=== PATIENT | male | born 1960 | race Caucasian/White ===

== ENCOUNTER 2018-08-04 11:59 | Emergency (ER) | payer MEDICAID, OTHER ==
[~2018-08-04] VITALS: Ht 188 cm; Wt 104.3 kg
[2018-08-04 12:14] VITALS: BP 134/58
[2018-08-04 14:34] LABS: Eosinophils # (auto) 0.2 uL; Hematocrit 42.9 % (41.0-53.0); Lymphocytes # (auto) 1.3 uL; Neutrophils # (auto) 3.4 uL; Red Cell Distribution Width 14.6 % (11.8-14.3); White Blood Cell 5.8 10^3/uL (4.4-10.8)
[2018-08-04 14:36] LABS: Basophils # (auto) 0.1 uL; Basophils % (auto) 0.9 % (0.0-2.0); Eosinophils % (auto) 3.9 % (0.0-7.0); Hemoglobin 14.5 g/dL (13.5-17.5); Lymphocytes % (auto) 22.2 % (10.0-50.0); Mean Corpuscular Hemoglobin 35.4 pg (28.0-32.0); Mean Corpuscular Hgb Conc. 33.8 g/dL (32.0-36.0); Mean Corpuscular Volume 104.8 fL (80.0-100.0); Monocytes # (auto) 0.8 uL; Monocytes % (auto) 14.4 % (0.0-12.0); Neutrophils % (auto) 58.6 % (37.0-80.0); Platelet Count (auto) 153 10^3/uL (140-450)
[2018-08-04 14:52] LABS: Albumin 2.3 g/dL (3.4-5.0); BUN/Creatinine Ratio 14.1; Potassium 3.9 mmol/L (3.5-5.1)
[2018-08-04 14:58] LABS: INR 1.29 (0.9-1.15); Partial Thromboplastin Time 29.6 sec (23.78-33.04); Prothrombin Time 13.6 sec (9.27-12.13)
[2018-08-04 16:42] LABS: Lactic Acid w/Reflex 2.1 mmol/L (0.4-2.0)
== END 2018-08-05 00:59 | disposition left against medical advice (07) ==
LOC: ER 12:04
DX: K70.11 Alcoholic hepatitis with ascites (principal); F12.10 Cannabis abuse, uncomplicated
CPT/HCPCS: 36415; 76700; 80053; 82140; 83605; 85025; 85610; 85730; 87040; 93005

== ENCOUNTER 2018-08-18 18:10 | Inpatient (IN) | payer MEDICAID ==
[~2018-08-18] VITALS: Ht 185.4 cm; Wt 104.4 kg
[2018-08-18 18:46] LABS: Basophils # (auto) 0.1 uL; Eosinophils # (auto) 0.2 uL; Lymphocytes # (auto) 1.1 uL; Mean Corpuscular Hemoglobin 34.6 pg (28.0-32.0); Monocytes % (auto) 16.7 % (0.0-12.0); Neutrophils # (auto) 3.5 uL; White Blood Cell 5.9 10^3/uL (4.4-10.8)
[2018-08-18 18:48] LABS: Basophils % (auto) 0.9 % (0.0-2.0); Eosinophils % (auto) 3.6 % (0.0-7.0); Hematocrit 42.1 % (41.0-53.0); Hemoglobin 13.9 g/dL (13.5-17.5); Lymphocytes % (auto) 19.3 % (10.0-50.0); Mean Corpuscular Volume 104.8 fL (80.0-100.0); Neutrophils % (auto) 59.5 % (37.0-80.0); Nucleated Red Blood Cells % 0.1 %; Platelet Count (auto) 155 10^3/uL (140-450); Red Blood Cells 4.02 10^6/uL (4.5-5.90); Red Cell Distribution Width 14.7 % (11.8-14.3)
[2018-08-18 19:03] LABS: Anion Gap 3 (5-15); Blood Urea Nitrogen 17 mg/dL (7-18); Calcium 7.8 mg/dL (8.5-10.1); Carbon Dioxide 25 mmol/L (21-32); Chloride 115 mmol/L (98-107); Glucose 64 mg/dL (74-106); Potassium 4.2 mmol/L (3.5-5.1); Sodium 143 mmol/L (136-145)
[2018-08-18 19:08] LABS: Alanine Aminotransferase 48 U/L (16-61); Alkaline Phosphatase 162 U/L (45-117); Aspartate Aminotransferase 92 U/L (15-37); BUN/Creatinine Ratio 16.7; GFR African American 96 mL/min; GFR Non-African American 79 mL/min; Total Protein 5.6 g/dL (6.4-8.2)
[2018-08-18] MEDS ORDERED: cefTRIAXone 1GM/50ML D5W 50 ML IV ONE (21:45)
[2018-08-18 22:28] LABS: INR 1.27 (0.9-1.15); Prothrombin Time 13.4 sec (9.27-12.13)
[2018-08-18] MEDS ORDERED: ALBUMIN 25% 50 ML IV ONE (22:45)
[2018-08-18] MEDS ORDERED: FUROSEMIDE 20 MG/2 ML VIAL IV ONE (22:45)
[2018-08-18] MEDS ORDERED: TEMAZEPAM 15 MG CAP PO PRN (22:45)
[2018-08-18] MEDS ORDERED: ONDANSETRON HCL 4 MG/2 ML VIAL IV PRN (22:45)
[2018-08-18 23:11] LABS: Basophils # (auto) 0.1 uL; Eosinophils # (auto) 0.2 uL; Eosinophils % (auto) 3.8 % (0.0-7.0); Hematocrit 38.8 % (41.0-53.0); Hemoglobin 13.1 g/dL (13.5-17.5); Lymphocytes % (auto) 19.1 % (10.0-50.0); Mean Corpuscular Hgb Conc. 33.8 g/dL (32.0-36.0); Mean Corpuscular Volume 103.7 fL (80.0-100.0); Monocytes # (auto) 0.9 uL; Monocytes % (auto) 16.7 % (0.0-12.0); Neutrophils # (auto) 3.3 uL; Neutrophils % (auto) 59.4 % (37.0-80.0); Nucleated Red Blood Cells % 0.1 %; Platelet Count (auto) 137 10^3/uL (140-450); Red Blood Cells 3.74 10^6/uL (4.5-5.90); Red Cell Distribution Width 14.3 % (11.8-14.3); White Blood Cell 5.5 10^3/uL (4.4-10.8)
[2018-08-18 23:36] LABS: Urine Bacteria FEW /hpf (None Seen); Urine Blood Negative /uL (Negative); Urine Mucus FEW (None Seen); Urine Specific Gravity 1.029 (1.001-1.035); Urine WBC 1 /hpf (0 - 3)
[2018-08-19] VITALS (7 sets, daily range): BP systolic 99–129; BP diastolic 54–76
[2018-08-19] MEDS ORDERED: SPIRONOLACTONE 25 MG TAB PO SCH (06:00)
[2018-08-19 09:03] LABS: BUN/Creatinine Ratio 15.6; Calcium 7.5 mg/dL (8.5-10.1); Potassium 3.8 mmol/L (3.5-5.1)
[2018-08-19] MEDS ORDERED: FUROSEMIDE 40 MG TAB PO SCH (10:00)
[2018-08-19] MEDS: FAMOTIDINE 20 MG TAB PO SCH ×2 (10:34→21:28)
[2018-08-19] MEDS: MORPHINE SULF INJ 2 MG/ML SYRINGE 1ML IV PRN ×2 (11:49→21:31)
[2018-08-19] MEDS: RIFAXIMIN 550 MG TAB PO SCH ×2 (11:53→21:27)
[2018-08-19] MEDS: PROPRANOLOL HCL 20 MG TAB PO SCH ×2 (15:12→21:31)
[2018-08-19] MEDS: cefTRIAXone 1GM/50ML D5W 50 ML IV SCH (22:09)
[2018-08-20 05:10] VITALS: BP 115/77
[2018-08-20] MEDS: MORPHINE SULF INJ 2 MG/ML SYRINGE 1ML IV PRN ×3 (05:10→20:05)
[2018-08-20] MEDS: FUROSEMIDE 20 MG TAB PO SCH ×2 (05:56→17:18)
[2018-08-20] MEDS: LACTULOSE 20Gm/30ML SOLN PO SCH ×5 (05:57→23:58)
[2018-08-20] MEDS: SPIRONOLACTONE 25 MG TAB PO SCH ×2 (05:58→17:18)
[2018-08-20 09:10] VITALS: BP 99/66
[2018-08-20] MEDS: FAMOTIDINE 20 MG TAB PO SCH ×2 (09:46→21:39)
[2018-08-20] MEDS: PROPRANOLOL HCL 20 MG TAB PO SCH ×2 (09:46→21:40)
[2018-08-20] MEDS: RIFAXIMIN 550 MG TAB PO SCH ×2 (09:47→21:39)
[2018-08-20 13:04] VITALS: BP 105/70
[2018-08-20 17:01] VITALS: BP 105/61
[2018-08-20] MEDS: cefTRIAXone 1GM/50ML D5W 50 ML IV SCH (21:38)
[2018-08-20 22:00] VITALS: BP 116/66
[2018-08-21 04:57] VITALS: BP 110/56
[2018-08-21] MEDS: LACTULOSE 20Gm/30ML SOLN PO SCH ×3 (05:10→18:12)
[2018-08-21] MEDS: FUROSEMIDE 20 MG TAB PO SCH ×2 (05:11→18:15)
[2018-08-21] MEDS: SPIRONOLACTONE 25 MG TAB PO SCH ×2 (05:11→18:15)
[2018-08-21] MEDS: MORPHINE SULF INJ 2 MG/ML SYRINGE 1ML IV PRN ×2 (05:13→11:18)
[2018-08-21 09:11] VITALS: BP 103/66
[2018-08-21] MEDS: PROPRANOLOL HCL 20 MG TAB PO SCH ×2 (10:00→21:11)
[2018-08-21] MEDS: FAMOTIDINE 20 MG TAB PO SCH ×2 (10:04→21:10)
[2018-08-21 10:30] LABS: Basophils # (auto) 0.1 uL; Basophils % (auto) 1.2 % (0.0-2.0); Eosinophils # (auto) 0.2 uL; Eosinophils % (auto) 3.3 % (0.0-7.0); Hematocrit 39.5 % (41.0-53.0); Hemoglobin 13.3 g/dL (13.5-17.5); Lymphocytes # (auto) 1.1 uL; Lymphocytes % (auto) 19.8 % (10.0-50.0); Mean Corpuscular Hemoglobin 34.9 pg (28.0-32.0); Mean Corpuscular Hgb Conc. 33.6 g/dL (32.0-36.0); Monocytes # (auto) 0.9 uL; Monocytes % (auto) 16.1 % (0.0-12.0); Neutrophils # (auto) 3.3 uL; Neutrophils % (auto) 59.6 % (37.0-80.0); Nucleated Red Blood Cells % 0.1 %; Platelet Count (auto) 143 10^3/uL (140-450); Red Cell Distribution Width 14.5 % (11.8-14.3); White Blood Cell 5.6 10^3/uL (4.4-10.8)
[2018-08-21 10:43] LABS: Albumin 1.7 g/dL (3.4-5.0); Calcium 7.4 mg/dL (8.5-10.1); Potassium 3.7 mmol/L (3.5-5.1)
[2018-08-21] MEDS: RIFAXIMIN 550 MG TAB PO SCH ×2 (10:47→21:10)
[2018-08-21 10:48] LABS: BUN/Creatinine Ratio 11.8; Bilirubin, Total 1.8 mg/dL (0.2-1.0); Total Protein 4.9 g/dL (6.4-8.2)
[2018-08-21 13:00] VITALS: BP 109/62
[2018-08-21] MEDS ORDERED: ALBUMIN 25% 100 ML IV ONE (14:00)
[2018-08-21] MEDS ORDERED: FUROSEMIDE 40 MG/4 ML VIAL IV ONE (14:00)
[2018-08-21] MEDS: FOLIC ACID 1 MG TAB PO SCH (16:12)
[2018-08-21] MEDS: THIAMINE HCL 100 MG TAB PO SCH (16:13)
[2018-08-21] MEDS: MULTIPLE VITAMINS W/ MINERALS TAB PO SCH (16:13)
[2018-08-21 17:06] VITALS: BP 121/68
[2018-08-21] MEDS: cefTRIAXone 1GM/50ML D5W 50 ML IV SCH (21:11)
[2018-08-21 21:30] VITALS: BP 115/68
[2018-08-22] MEDS: MORPHINE SULF INJ 2 MG/ML SYRINGE 1ML IV PRN ×3 (04:48→21:00)
[2018-08-22 05:00] VITALS: BP 95/61
[2018-08-22] MEDS: SPIRONOLACTONE 25 MG TAB PO SCH ×2 (05:47→18:28)
[2018-08-22] MEDS: FUROSEMIDE 20 MG TAB PO SCH (05:47)
[2018-08-22] MEDS: LACTULOSE 20Gm/30ML SOLN PO SCH ×4 (05:47→18:28)
[2018-08-22 09:00] VITALS: BP 110/58
[2018-08-22] MEDS: MULTIPLE VITAMINS W/ MINERALS TAB PO SCH (09:17)
[2018-08-22] MEDS: FOLIC ACID 1 MG TAB PO SCH (09:17)
[2018-08-22] MEDS: FAMOTIDINE 20 MG TAB PO SCH ×2 (09:17→22:00)
[2018-08-22] MEDS: RIFAXIMIN 550 MG TAB PO SCH ×2 (09:17→22:00)
[2018-08-22] MEDS: THIAMINE HCL 100 MG TAB PO SCH (09:18)
[2018-08-22] MEDS: PROPRANOLOL HCL 20 MG TAB PO SCH ×2 (10:00→22:00)
[2018-08-22 13:00] VITALS: BP 117/72
[2018-08-22 17:00] VITALS: BP 106/59
[2018-08-22] MEDS: FUROSEMIDE 40 MG/4 ML VIAL IV SCH (18:00)
[2018-08-22] MEDS ORDERED: traMADol HCL 50 MG TAB PO PRN (21:00)
[2018-08-22 22:00] VITALS: BP 123/60
[2018-08-22] MEDS: cefTRIAXone 1GM/50ML D5W 50 ML IV SCH (22:00)
[2018-08-23 02:02] LABS: Hepatitis B Surface Antibody Negative
[2018-08-23 02:38] LABS: Hepatitis A Total Antibody Negative
[2018-08-23 05:00] VITALS: BP 109/63
[2018-08-23] MEDS: FUROSEMIDE 40 MG/4 ML VIAL IV SCH ×2 (06:02→17:53)
[2018-08-23] MEDS: MORPHINE SULF INJ 2 MG/ML SYRINGE 1ML IV PRN (06:02)
[2018-08-23] MEDS: LACTULOSE 20Gm/30ML SOLN PO SCH ×5 (06:02→23:02)
[2018-08-23] MEDS: SPIRONOLACTONE 25 MG TAB PO SCH ×2 (06:02→17:52)
[2018-08-23 06:41] LABS: Hepatitis B Core Total AB Negative; Hepatitis B Surface Antigen Negative (Negative); Hepatitis C Antibody Negative (Negative)
[2018-08-23 07:42] LABS: Albumin 2.1 g/dL (3.4-5.0); Calcium 7.8 mg/dL (8.5-10.1); Potassium 3.9 mmol/L (3.5-5.1)
[2018-08-23 07:44] LABS: Bilirubin, Total 2.2 mg/dL (0.2-1.0); Total Protein 5.7 g/dL (6.4-8.2)
[2018-08-23 09:00] VITALS: BP 115/64
[2018-08-23] MEDS: FOLIC ACID 1 MG TAB PO SCH (09:53)
[2018-08-23] MEDS: FAMOTIDINE 20 MG TAB PO SCH ×2 (09:53→21:20)
[2018-08-23] MEDS: MULTIPLE VITAMINS W/ MINERALS TAB PO SCH (09:54)
[2018-08-23] MEDS: PROPRANOLOL HCL 20 MG TAB PO SCH ×2 (09:54→21:20)
[2018-08-23] MEDS: THIAMINE HCL 100 MG TAB PO SCH (09:57)
[2018-08-23] MEDS: RIFAXIMIN 550 MG TAB PO SCH ×2 (10:00→21:20)
[2018-08-23 10:49] LABS: INR 1.3 (0.9-1.15); Prothrombin Time 13.7 sec (9.27-12.13)
[2018-08-23 16:34] VITALS: BP 116/62
[2018-08-23] MEDS: cefTRIAXone 1GM/50ML D5W 50 ML IV SCH (21:20)
[2018-08-23 22:00] VITALS: BP 90/51
[2018-08-24 05:00] VITALS: BP 110/50
[2018-08-24] MEDS: FUROSEMIDE 40 MG/4 ML VIAL IV SCH (06:24)
[2018-08-24] MEDS: LACTULOSE 20Gm/30ML SOLN PO SCH (06:24)
[2018-08-24] MEDS: SPIRONOLACTONE 25 MG TAB PO SCH (06:24)
[2018-08-24 08:00] VITALS: BP 149/103
[2018-08-24] MEDS ORDERED: ALBUMIN 25% 100 ML IV ONE (08:15)
[2018-08-24 08:30] VITALS: BP 99/59
[2018-08-24] MEDS: FOLIC ACID 1 MG TAB PO SCH (09:57)
[2018-08-24] MEDS: THIAMINE HCL 100 MG TAB PO SCH (09:57)
[2018-08-24] MEDS: MULTIPLE VITAMINS W/ MINERALS TAB PO SCH (09:57)
[2018-08-24] MEDS: FAMOTIDINE 20 MG TAB PO SCH (09:57)
[2018-08-24] MEDS: PROPRANOLOL HCL 20 MG TAB PO SCH (09:57)
[2018-08-24] MEDS: RIFAXIMIN 550 MG TAB PO SCH (09:59)
[2018-08-24 11:22] VITALS: BP 149/103
== END 2018-08-24 13:01 | disposition hospice, home (50) | DRG 280 ==
LOC: ER 18:14 → OVERFLOW 22:43 → CENTRAL 23:28
PROVIDERS: ADMIT Nurse Practitioner; ATTEND Internal Medicine
PROC: 0W9G3ZZ Drainage of Peritoneal Cavity, Percutaneous Approach (ICD-10-PCS; principal; 2018-08-19)
PROC: 0W9G3ZZ Drainage of Peritoneal Cavity, Percutaneous Approach (ICD-10-PCS; 2018-08-23)
DX: K70.31 Alcoholic cirrhosis of liver with ascites (principal); E43 Unspecified severe protein-calorie malnutrition; J90 Pleural effusion, not elsewhere classified; K72.90 Hepatic failure, unspecified without coma; N49.2 Inflammatory disorders of scrotum; Z51.5 Encounter for palliative care; Z66 Do not resuscitate; J20.9 Acute bronchitis, unspecified; N50.89 Other specified disorders of the male genital organs; R14.0 Abdominal distension (gaseous); J44.9 Chronic obstructive pulmonary disease, unspecified; Z82.49 Family history of ischemic heart disease and other diseases of the circulatory system
CPT/HCPCS: 10022; 36415; 49083; 71046; 76700; 76705; 76942; 80048; 80053; 81001; 82140; 83735; 83986; 84484; 85025; 85610; 85730; 86704; 86706; 86708; 86803; 87081; 87205; 87340; 89051; 93005; 94761; 96365; 96367; 96375; A6257; G0378; J0696; P9047

== ENCOUNTER 2020-11-07 08:54 | Emergency (ER) | payer MEDICAID ==
[~2020-11-07] VITALS: Ht 185.4 cm; Wt 99.8 kg
[2020-11-07 09:44] VITALS: BP 92/71
== END 2020-11-07 10:29 | disposition home or self-care (01) ==
LOC: ER 08:54
DX: S00.12XA Contusion of left eyelid and periocular area, initial encounter (principal); I10 Essential (primary) hypertension; J44.9 Chronic obstructive pulmonary disease, unspecified; X58.XXXA Exposure to other specified factors, initial encounter; Y93.89 Activity, other specified; Y92.89 Other specified places as the place of occurrence of the external cause; Y99.8 Other external cause status

== ENCOUNTER 2022-02-03 10:13 | Emergency (ER) | payer MEDICAID ==
[~2022-02-03] VITALS: Ht 185.4 cm; Wt 120.7 kg
[2022-02-03 11:19] LABS: Basophils # (auto) 0 10 ^3/uL (0-0.2); Eosinophils # (auto) 0.2 10 ^3/uL (0-0.8); Hemoglobin 14.9 g/dL (13.5-17.5); Lymphocytes # (auto) 1.1 10 ^3/uL (0.4-5.4); Lymphocytes % (auto) 29.4 % (10.0-50.0); Neutrophils # (auto) 1.9 10 ^3/uL (1.6-8.6)
[2022-02-03 11:21] LABS: Eosinophils % (auto) 5.1 % (0.0-7.0); Hematocrit 44.3 % (41.0-53.0); Mean Corpuscular Hemoglobin 34.9 pg (28.0-32.0); Mean Corpuscular Hgb Conc. 33.6 g/dL (32.0-36.0); Mean Corpuscular Volume 103.8 fL (80.0-100.0); Monocytes # (auto) 0.5 10 ^3/uL (0-1.3); Monocytes % (auto) 14.5 % (0.0-12.0); Red Blood Cells 4.27 10^6/uL (4.5-5.90); Red Cell Distribution Width 13.4 % (11.8-14.3); White Blood Cell 3.7 10^3/uL (4.4-10.8)
[2022-02-03 12:12] LABS: Albumin 2.6 g/dL (3.4-5.0); BUN/Creatinine Ratio 8.3; Bilirubin, Total 1.7 mg/dL (0.2-1.0); Calcium 8.2 mg/dL (8.5-10.1); Total Protein 5.9 g/dL (6.4-8.2)
[2022-02-03] MEDS ORDERED: FURO1TAB33 PO (16:38)
[2022-02-03 17:12] VITALS: BP 112/54
== END 2022-02-03 17:14 | disposition home or self-care (01) ==
LOC: ER 10:13
DX: R22.43 Localized swelling, mass and lump, lower limb, bilateral (principal); J44.9 Chronic obstructive pulmonary disease, unspecified; I10 Essential (primary) hypertension; F12.10 Cannabis abuse, uncomplicated
CPT/HCPCS: 36415; 71045; 80053; 83880; 84484; 85025; 93005; 93970

== ENCOUNTER 2022-09-16 08:07 | Inpatient (IN) | payer MEDICAID ==
[~2022-09-16] VITALS: Ht 180.3 cm; Wt 100.0 kg
[~2022-09-16 08:07] MED LIST: FURO1TAB33 PO
[2022-09-16 08:59] LABS: Basophils # (auto) 0 10 ^3/uL (0-0.2); Eosinophils # (auto) 0.1 10 ^3/uL (0-0.8); Eosinophils % (auto) 2.2 % (0.0-7.0); Lymphocytes # (auto) 0.7 10 ^3/uL (0.4-5.4); Monocytes # (auto) 0.3 10 ^3/uL (0-1.3)
[2022-09-16 09:02] LABS: Basophils % (auto) 1.3 % (0.0-2.0); Hematocrit 46.4 % (41.0-53.0); Hemoglobin 15.9 g/dL (13.5-17.5); Lymphocytes % (auto) 24.5 % (10.0-50.0); Mean Corpuscular Hgb Conc. 34.4 g/dL (32.0-36.0); Mean Corpuscular Volume 104.8 fL (80.0-100.0); Monocytes % (auto) 9.7 % (0.0-12.0); Neutrophils # (auto) 1.8 10 ^3/uL (1.6-8.6); Neutrophils % (auto) 62.3 % (37.0-80.0); Nucleated Red Blood Cells % 0.1 %; Red Blood Cells 4.42 10^6/uL (4.5-5.90)
[2022-09-16 09:11] LABS: Albumin 2.5 g/dL (3.4-5.0); Calcium 8.4 mg/dL (8.5-10.1); Potassium 3.6 mmol/L (3.5-5.1)
[2022-09-16 09:14] LABS: BUN/Creatinine Ratio 7.7 (10.0-20.0); Bilirubin, Total 3.8 mg/dL (0.2-1.0); Total Protein 6.3 g/dL (6.4-8.2)
[2022-09-16] MEDS ORDERED: SODIUM CHLORIDE 0.9% 1,000 ML IV ONE ×2 (09:15)
[2022-09-16] MEDS ORDERED: ONDANSETRON HCL 4 MG/2 ML VIAL IV ONE (09:15)
[2022-09-16] MEDS ORDERED: MORPHINE SULFATE 4 MG/ML SYR/VIAL IV ONE (09:15)
[2022-09-16] MEDS ORDERED: ACETAMINOPHEN 325 MG TAB PO PRN (14:00)
[2022-09-16] MEDS ORDERED: SODIUM CHLORIDE 0.9% 1,000 ML IV SCH (14:00)
[2022-09-16] MEDS ORDERED: ONDANSETRON HCL 4 MG/2 ML VIAL IV PRN (14:00)
[2022-09-16] MEDS ORDERED: DOCUSATE SOD 100 MG CAP PO PRN (14:00)
[2022-09-16] MEDS ORDERED: PANTOPRAZOLE 40 MG/10 ML VIAL INJ IV ONE (14:00)
[2022-09-16] MEDS ORDERED: GASTROGRAFIN 120 ML SOL ONE (14:12)
[2022-09-16 14:47] LABS: Cholesterol 160 mg/dL (< 200)
[2022-09-16 14:50] LABS: HDL Cholesterol 80 mg/dL (40-59); LDL Cholesterol 65 mg/dL (< 100); Triglycerides 87 mg/dL (< 150)
[2022-09-16] MEDS: SODIUM CHLORIDE 0.9% 1,000 ML IV SCH (15:54)
[2022-09-16 16:05] LABS: Urine Bacteria NONE SEEN /hpf (None Seen); Urine Blood 2+ /uL (Negative); Urine Mucus MANY (None Seen); Urine Specific Gravity 1.031 (1.001-1.035); Urine WBC <1 /hpf (0 - 3)
[2022-09-17 04:57] VITALS: BP 103/55
[2022-09-17 05:56] LABS: Basophils # (auto) 0 10 ^3/uL (0-0.2); Eosinophils # (auto) 0.2 10 ^3/uL (0-0.8); Monocytes # (auto) 0.5 10 ^3/uL (0-1.3); Nucleated Red Blood Cells % 0.1 %
[2022-09-17 06:00] LABS: Basophils % (auto) 0.9 % (0.0-2.0); Eosinophils % (auto) 4.7 % (0.0-7.0); Hematocrit 40.3 % (41.0-53.0); Hemoglobin 13.8 g/dL (13.5-17.5); Lymphocytes % (auto) 28.1 % (10.0-50.0); Mean Corpuscular Hemoglobin 36.1 pg (28.0-32.0); Mean Corpuscular Hgb Conc. 34.3 g/dL (32.0-36.0); Mean Corpuscular Volume 105.2 fL (80.0-100.0); Monocytes % (auto) 12.3 % (0.0-12.0); Red Blood Cells 3.84 10^6/uL (4.5-5.90); White Blood Cell 3.7 10^3/uL (4.4-10.8)
[2022-09-17 06:18] LABS: Calcium 7.8 mg/dL (8.5-10.1); Potassium 3.5 mmol/L (3.5-5.1)
[2022-09-17 06:20] LABS: BUN/Creatinine Ratio 8.9 (10.0-20.0)
[2022-09-17 06:22] LABS: Bilirubin, Total 4.1 mg/dL (0.2-1.0)
[2022-09-17] MEDS: SODIUM CHLORIDE 0.9% 1,000 ML IV SCH (07:26)
[2022-09-17 08:00] VITALS: BP 113/36
[2022-09-17 09:00] VITALS: BP 113/36
[2022-09-17] MEDS ORDERED: FUROSEMIDE 20 MG TAB PO SCH (10:00)
[2022-09-17] MEDS ORDERED: PANTOPRAZOLE 40 MG/10 ML VIAL INJ IV SCH (10:00)
[2022-09-17] MEDS ORDERED: ENOXAPARIN SOD 40 MG/0.4 ML SYRINGE SC SCH (10:00)
[2022-09-17 13:30] VITALS: BP 113/63
== END 2022-09-17 14:05 | disposition home or self-care (01) | DRG 254 ==
LOC: EDBD 08:07 → ER 08:07 → OVERFLOW 14:02 → EAST 22:08
PROVIDERS: ADMIT Nurse Practitioner Family; ATTEND Internal Medicine Geriatric Medicine
DX: K43.6 Other and unspecified ventral hernia with obstruction, without gangrene (principal); E43 Unspecified severe protein-calorie malnutrition; D61.818 Other pancytopenia; K74.60 Unspecified cirrhosis of liver; K57.30 Diverticulosis of large intestine without perforation or abscess without bleeding; K80.20 Calculus of gallbladder without cholecystitis without obstruction; E66.01 Morbid (severe) obesity due to excess calories; I10 Essential (primary) hypertension; R74.8 Abnormal levels of other serum enzymes; J44.9 Chronic obstructive pulmonary disease, unspecified; Z68.30 Body mass index [BMI] 30.0-30.9, adult
CPT/HCPCS: 36415; 74176; 74250; 80053; 80061; 81001; 83036; 83690; 84443; 85025; 93005; 96361; 96374; 96375; C9113; G0378; J2405

== ENCOUNTER 2022-12-18 05:46 | Inpatient (IN) | payer MEDICAID ==
[~2022-12-18] VITALS: Ht 185.4 cm; Wt 116.0 kg
[2022-12-18] MEDS ORDERED: SODIUM CHLORIDE 0.9% 1,000 ML IV ONE (06:15)
[2022-12-18] MEDS ORDERED: ONDANSETRON HCL 4 MG/2 ML VIAL IV ONE (06:15)
[2022-12-18] MEDS ORDERED: HYDROmorphone HCL 2 MG/ML VL/or syr IV ONE (06:15)
[2022-12-18 06:46] VITALS: PULSE 65; RESP 12; O2SAT 93
[2022-12-18 07:00] LABS: Basophils # (auto) 0 10 ^3/uL (0-0.2); Eosinophils # (auto) 0 10 ^3/uL (0-0.8); Eosinophils % (auto) 0.8 % (0.0-7.0); Mean Corpuscular Volume 107.8 fL (80.0-100.0); Monocytes # (auto) 0.3 10 ^3/uL (0-1.3); White Blood Cell 3.3 10^3/uL (4.4-10.8)
[2022-12-18 07:05] LABS: Hematocrit 45.6 % (41.0-53.0); Hemoglobin 15.6 g/dL (13.5-17.5); Lymphocytes # (auto) 0.6 10 ^3/uL (0.4-5.4); Lymphocytes % (auto) 19.4 % (10.0-50.0); Mean Corpuscular Hgb Conc. 34.3 g/dL (32.0-36.0); Monocytes % (auto) 9.9 % (0.0-12.0); Neutrophils # (auto) 2.2 10 ^3/uL (1.6-8.6); Neutrophils % (auto) 68.9 % (37.0-80.0); Nucleated Red Blood Cells % 0.7 %; Red Blood Cells 4.23 10^6/uL (4.5-5.90)
[2022-12-18 07:14] LABS: Potassium 3.7 mmol/L (3.5-5.1)
[2022-12-18 07:19] LABS: Albumin 2.7 g/dL (3.4-5.0); BUN/Creatinine Ratio 8.5 (10.0-20.0); Calcium 8.3 mg/dL (8.5-10.1)
[2022-12-18 07:21] LABS: Bilirubin, Total 3.8 mg/dL (0.2-1.0); Total Protein 6.4 g/dL (6.4-8.2)
[2022-12-18 08:00] VITALS: PULSE 68; RESP 12; O2SAT 94
[2022-12-18 10:02] LABS: Macrocytosis Moderate; Platelet Estimate Decreased
[2022-12-18] MEDS ORDERED: NITROGLYCERIN 0.4 MG SL TAB SL PRN (11:30)
[2022-12-18] MEDS ORDERED: cefTRIAXone 1GM/50ML D5W 50 ML IV ONE (11:30)
[2022-12-18] MEDS ORDERED: ONDANSETRON HCL 4 MG/2 ML VIAL IV PRN (11:30)
[2022-12-18] MEDS ORDERED: PANTOPRAZOLE 40 MG/10 ML VIAL INJ IV ONE (11:30)
[2022-12-18] MEDS ORDERED: HYDROcodone-ACET 5/325MG TAB PO PRN (11:30)
[2022-12-18] MEDS ORDERED: MORPHINE SULFATE INJ 2 MG/ml SYRG IV PRN ×2 (11:30)
[2022-12-18] MEDS ORDERED: metroNIDAZOLE 500MG/100ML 100 ML IV ONE (11:30)
[2022-12-18] MEDS ORDERED: ACETAMINOPHEN 500 MG TAB PO PRN (11:30)
[2022-12-18] MEDS ORDERED: PANTOPRAZOLE 40 MG TAB PO ONE (12:00)
[2022-12-18] MEDS: SODIUM CHLORIDE 0.9% 1,000 ML IV SCH (12:35)
[2022-12-18] MEDS ORDERED: FUROSEMIDE 20 MG TAB PO ONE (12:45)
[2022-12-18] MEDS: metroNIDAZOLE 500MG/100ML 100 ML IV SCH ×2 (12:58→20:44)
[2022-12-18 13:57] LABS: Folate (Folic Acid) 8.66 ng/mL (5.38-24)
[2022-12-18 18:24] LABS: Urine Bacteria NONE SEEN /hpf (None Seen); Urine Blood Negative /uL (Negative); Urine Clarity Clear (Clear); Urine Color Yellow (Yellow); Urine Protein, UAD Negative (Negative); Urine Specific Gravity 1.012 (1.001-1.035); Urine Urobilinogen Normal (Negative); Urine WBC <1 /hpf (0 - 3)
[2022-12-18 22:40] VITALS: BP 132/60; PULSE 67; RESP 20; TEMP 97.9; O2SAT 95
[2022-12-19] VITALS (8 sets, daily range): BP systolic 91–107; BP diastolic 46–56; PULSE 57–78; RESP 16–20; TEMP 98–98.9; O2SAT 91–99
[2022-12-19] MEDS: SODIUM CHLORIDE 0.9% 1,000 ML IV SCH ×2 (03:42→20:00)
[2022-12-19] MEDS: metroNIDAZOLE 500MG/100ML 100 ML IV SCH ×3 (03:42→20:00)
[2022-12-19 05:40] LABS: Calcium 7.7 mg/dL (8.5-10.1); Potassium 3.8 mmol/L (3.5-5.1)
[2022-12-19 05:42] LABS: BUN/Creatinine Ratio 8.6 (10.0-20.0)
[2022-12-19 05:57] LABS: Basophils # (auto) 0 10 ^3/uL (0-0.2); Eosinophils # (auto) 0.2 10 ^3/uL (0-0.8); Hemoglobin 13.9 g/dL (13.5-17.5); Lymphocytes # (auto) 0.9 10 ^3/uL (0.4-5.4); Monocytes # (auto) 0.4 10 ^3/uL (0-1.3); Neutrophils # (auto) 1.7 10 ^3/uL (1.6-8.6); White Blood Cell 3.2 10^3/uL (4.4-10.8)
[2022-12-19 06:00] LABS: Basophils % (auto) 0.8 % (0.0-2.0); Hematocrit 39.6 % (41.0-53.0); Lymphocytes % (auto) 27.6 % (10.0-50.0); Mean Corpuscular Hemoglobin 37.7 pg (28.0-32.0); Mean Corpuscular Hgb Conc. 35.2 g/dL (32.0-36.0); Mean Corpuscular Volume 107.2 fL (80.0-100.0); Monocytes % (auto) 11.8 % (0.0-12.0); Neutrophils % (auto) 54.8 % (37.0-80.0); Nucleated Red Blood Cells % 0.3 %; Red Blood Cells 3.69 10^6/uL (4.5-5.90); Red Cell Distribution Width 14.1 % (11.8-14.3)
[2022-12-19 08:31] LABS: INR 1.55 (0.9-1.15); Partial Thromboplastin Time 34.9 SEC (24.5-34.5); Prothrombin Time 15.8 sec (9.3-11.8)
[2022-12-19] MEDS: cefTRIAXone 1GM/50ML D5W 50 ML IV SCH (08:52)
[2022-12-19] MEDS: FUROSEMIDE 20 MG TAB PO SCH (09:50)
[2022-12-19] MEDS ORDERED: PANTOPRAZOLE 40 MG TAB PO SCH (10:00)
[2022-12-19] MEDS ORDERED: PANTOPRAZOLE 40 MG/10 ML VIAL INJ IV SCH (10:00)
[2022-12-19] MEDS ORDERED: LIDOCAINE VISCOUS 2% 15ML UD ONE (13:23)
[2022-12-19] MEDS: fentaNYL CITRATE 100 MCG/2 ML VL ONE ×2 (15:28→15:31)
[2022-12-19] MEDS: MIDAZOLAM HCL 2MG/2ML 2ml VIAL (1mg/ml) ONE ×2 (15:28→15:31)
[2022-12-19] MEDS: diphenhdrAMINE HCL 50 MG/1 ML VL ONE ×2 (15:28→15:30)
[2022-12-19] MEDS: SUCRALFATE 1 GM/10 ML ORAL SUSP PO SCH ×2 (17:00→21:44)
[2022-12-19] MEDS: PANTOPRAZOLE 40 MG TAB PO SCH (21:44)
[2022-12-20] MEDS: metroNIDAZOLE 500MG/100ML 100 ML IV SCH ×2 (03:36→11:55)
[2022-12-20 04:45] VITALS: BP 118/60; PULSE 56; RESP 18; TEMP 97.6; O2SAT 95
[2022-12-20] MEDS: SUCRALFATE 1 GM/10 ML ORAL SUSP PO SCH ×2 (06:13→08:33)
[2022-12-20 07:03] LABS: Basophils # (auto) 0 10 ^3/uL (0-0.2); Eosinophils # (auto) 0.1 10 ^3/uL (0-0.8); Monocytes # (auto) 0.3 10 ^3/uL (0-1.3)
[2022-12-20 07:08] LABS: Basophils % (auto) 1.1 % (0.0-2.0); Eosinophils % (auto) 4.2 % (0.0-7.0); Hematocrit 38.8 % (41.0-53.0); Hemoglobin 13.4 g/dL (13.5-17.5); Lymphocytes # (auto) 0.9 10 ^3/uL (0.4-5.4); Lymphocytes % (auto) 35.9 % (10.0-50.0); Mean Corpuscular Hemoglobin 37.4 pg (28.0-32.0); Mean Corpuscular Hgb Conc. 34.7 g/dL (32.0-36.0); Mean Corpuscular Volume 107.9 fL (80.0-100.0); Neutrophils # (auto) 1.2 10 ^3/uL (1.6-8.6); Neutrophils % (auto) 47.8 % (37.0-80.0); Nucleated Red Blood Cells % 0.1 %; Red Blood Cells 3.59 10^6/uL (4.5-5.90); Red Cell Distribution Width 13.6 % (11.8-14.3); White Blood Cell 2.5 10^3/uL (4.4-10.8)
[2022-12-20 07:44] LABS: Albumin 2.2 g/dL (3.4-5.0); Bilirubin, Total 2.9 mg/dL (0.2-1.0); Calcium 7.6 mg/dL (8.5-10.1); Total Protein 4.9 g/dL (6.4-8.2)
[2022-12-20 07:50] VITALS: RESP 18
[2022-12-20] MEDS: PANTOPRAZOLE 40 MG TAB PO SCH (08:23)
[2022-12-20] MEDS: cefTRIAXone 1GM/50ML D5W 50 ML IV SCH (08:24)
[2022-12-20] MEDS: FUROSEMIDE 20 MG TAB PO SCH (08:32)
[2022-12-20 09:00] VITALS: BP 92/50; PULSE 62; RESP 18; TEMP 98.5; O2SAT 93
[2022-12-20] MEDS ORDERED: METR-344 PO (12:26)
[2022-12-20] MEDS ORDERED: PANT40T PO (12:26)
[2022-12-20] MEDS ORDERED: AUG875T PO (12:26)
[2022-12-20] MEDS ORDERED: SUCR1SUS26 PO (12:26)
[2022-12-20 13:18] VITALS: BP 92/50
[2022-12-20] MEDS: SODIUM CHLORIDE 0.9% 1,000 ML IV SCH (13:30)
== END 2022-12-20 13:40 | disposition home or self-care (01) | DRG 249 ==
LOC: EDBD 05:46 → ER 05:46 → OVERFLOW 11:46 → EAST 21:53
PROVIDERS: ADMIT Internal Medicine; ATTEND Student in an Organized Health Care Education/Training Program
PROC: 0DB68ZX Excision of Stomach, Via Natural or Artificial Opening Endoscopic, Diagnostic (ICD-10-PCS; 2022-12-19)
PROC: 0DB48ZX Excision of Esophagogastric Junction, Via Natural or Artificial Opening Endoscopic, Diagnostic (ICD-10-PCS; 2022-12-19)
PROC: 0DB98ZX Excision of Duodenum, Via Natural or Artificial Opening Endoscopic, Diagnostic (ICD-10-PCS; principal; 2022-12-19 15:25)
DX: K52.9 Noninfective gastroenteritis and colitis, unspecified (principal); J96.20 Acute and chronic respiratory failure, unspecified whether with hypoxia or hypercapnia; D68.8 Other specified coagulation defects; K80.00 Calculus of gallbladder with acute cholecystitis without obstruction; D69.6 Thrombocytopenia, unspecified; K76.6 Portal hypertension; K26.9 Duodenal ulcer, unspecified as acute or chronic, without hemorrhage or perforation; K29.70 Gastritis, unspecified, without bleeding; K70.30 Alcoholic cirrhosis of liver without ascites; I10 Essential (primary) hypertension; J44.9 Chronic obstructive pulmonary disease, unspecified; K42.9 Umbilical hernia without obstruction or gangrene; K31.9 Disease of stomach and duodenum, unspecified; K44.9 Diaphragmatic hernia without obstruction or gangrene; Z82.49 Family history of ischemic heart disease and other diseases of the circulatory system; K29.80 Duodenitis without bleeding
CPT/HCPCS: 36415; 43239; 71045; 74176; 80048; 80053; 81001; 82607; 82746; 83690; 84484; 85025; 85610; 85730; G0378; J0696; J2250; J2405; J3490

== ENCOUNTER 2023-08-26 16:34 | Inpatient (IN) | payer MEDICAID ==
[~2023-08-26] VITALS: Ht 185.4 cm; Wt 102.0 kg
[~2023-08-26 16:34] MED LIST changes: +AUG875T PO; +METR-344 PO; +PANT40T PO; +SUCR1SUS26 PO
[2023-08-26 19:45] LABS: Basophils # (auto) 0 10 ^3/uL (0-0.2); Hemoglobin 14.1 g/dL (13.5-17.5); Neutrophils # (auto) 2.8 10 ^3/uL (1.6-8.6)
[2023-08-26 19:48] LABS: Basophils % (auto) 0.8 % (0.0-2.0); Eosinophils # (auto) 0.2 10 ^3/uL (0-0.8); Hematocrit 41.6 % (41.0-53.0); Lymphocytes % (auto) 22.1 % (10.0-50.0); Mean Corpuscular Hemoglobin 36.8 pg (28.0-32.0); Mean Corpuscular Hgb Conc. 33.9 g/dL (32.0-36.0); Mean Corpuscular Volume 108.4 fL (80.0-100.0); Monocytes # (auto) 0.6 10 ^3/uL (0-1.3); Monocytes % (auto) 11.9 % (0.0-12.0); Neutrophils % (auto) 60.2 % (37.0-80.0); Nucleated Red Blood Cells % 0.3 %; Red Blood Cells 3.84 10^6/uL (4.5-5.90); Red Cell Distribution Width 13.9 % (11.8-14.3); White Blood Cell 4.6 10^3/uL (4.4-10.8)
[2023-08-26 20:03] LABS: Alanine Aminotransferase 35 U/L (7-40); Albumin 2.3 g/dL (3.2-4.8); Alkaline Phosphatase 152 U/L (46-116); Anion Gap 2 (5-15); Aspartate Aminotransferase 51 U/L (13-40); BUN/Creatinine Ratio 15.2 (10.0-20.0); Bilirubin, Total 2.8 mg/dL (0.2-1.0); Blood Urea Nitrogen 15 mg/dL (9-23); Calcium 8.8 mg/dL (8.7-10.4); Carbon Dioxide 29 mmol/L (20-30); Chloride 109 mmol/L (98-107); Glucose 113 mg/dL (74-106); Lipase 67 U/L (12-53); Potassium 4.1 mmol/L (3.5-5.1); Sodium 140 mmol/L (136-145); Total Protein 5.3 g/dL (5.7-8.2)
[2023-08-26] MEDS: ONDANSETRON HCL 4 MG/2 ML VIAL IV ONE (21:56)
[2023-08-26] MEDS: PANTOPRAZOLE 40 MG/10 ML VIAL INJ IV ONE (21:56)
[2023-08-26] MEDS: SODIUM CHLORIDE 0.9% 500 ML IVB ONE (22:00)
[2023-08-26] MEDS: MORPHINE SULFATE 4 MG/ML SYR/VIAL IV ONE (22:00)
[2023-08-26] MEDS: IOHEXOL 350 MG/ML 100ML IJ ONE (22:06)
[2023-08-26 22:10] VITALS: PULSE 66; RESP 20; O2SAT 98
[2023-08-27 02:19] LABS: Urine Bacteria None Seen /hpf (None Seen)
[2023-08-27 02:38] LABS: Urine Blood 3+ /uL (Negative); Urine Budding Yeast OCCASIONAL /hpf (None Seen); Urine Clarity Clear (Clear); Urine Mucus MODERATE (None Seen); Urine Protein, UAD 2+ (Negative); Urine Urobilinogen Normal (Negative); Urine WBC 2 /hpf (0 - 3); Urine pH 6.5 (5.0-9.0)
[2023-08-27 02:41] LABS: Urine Color BROWN (Yellow); Urine Specific Gravity > 1.050 (1.001-1.035)
[2023-08-27] MEDS ORDERED: chlordiazePOXIDE HCL 25 MG CAP PO PRN (10:15)
[2023-08-27 12:15] LABS: Amphetamine Screen, Urine Neg (NEGATIVE)
[2023-08-27 12:16] LABS: Barbiturate Scree,Urine Neg (NEGATIVE); Benzodiazephine Screen, Urine Neg (NEGATIVE); Cannabinoid Screen, Urine Pos (NEGATIVE); Cocaine Screen, Urine Neg (NEGATIVE); Opiate Scree,Urine Pos (NEGATIVE); Phencyclidine Screen, Urine Neg (NEGATIVE)
[2023-08-27] MEDS: ONDANSETRON HCL 4 MG/2 ML VIAL ONE (13:29)
[2023-08-27] MEDS: MORPHINE SULFATE INJ 2 MG/ml SYRG ONE (13:29)
[2023-08-27] MEDS: MORPHINE SULFATE INJ 2 MG/ml SYRG IV PRN ×2 (13:30→22:53)
[2023-08-27] MEDS: ONDANSETRON HCL 4 MG/2 ML VIAL IV PRN ×2 (13:31→22:43)
[2023-08-27 14:50] VITALS: BP 109/44; PULSE 75; RESP 17; TEMP 99; O2SAT 92
[2023-08-27 15:15] VITALS: BP 109/44; PULSE 75; RESP 17; TEMP 99; O2SAT 92
[2023-08-27 17:00] VITALS: BP 116/72; PULSE 78; RESP 18; TEMP 98.1; O2SAT 93
[2023-08-27] MEDS: FOLIC ACID 1 MG, MAGNESIUM SULF SDV 50% 8 MEQ, MULTIPLE VITAMIN 10 ML, THIAMINE INJ 100... INJ SCH (18:35)
[2023-08-27 20:00] VITALS: BP 131/68; PULSE 86; RESP 18; TEMP 98.5; O2SAT 92
[2023-08-27 21:30] VITALS: BP 131/68; PULSE 86; RESP 18; TEMP 98.5; O2SAT 92
[2023-08-28] VITALS (8 sets, daily range): BP systolic 96–126; BP diastolic 44–62; PULSE 62–72; RESP 16–18; TEMP 98.1–98.6; O2SAT 90–93
[2023-08-28] MEDS: PANTOPRAZOLE 40 MG/10 ML VIAL INJ IV SCH (09:26)
[2023-08-28] MEDS: chlordiazePOXIDE HCL 25 MG CAP PO PRN (09:27)
[2023-08-29] VITALS (7 sets, daily range): BP systolic 103–117; BP diastolic 54–65; PULSE 60–71; RESP 16–20; TEMP 98.2–98.8; O2SAT 90–93
[2023-08-29] MEDS: ONDANSETRON HCL 4 MG/2 ML VIAL IV PRN (09:00)
[2023-08-29] MEDS ORDERED: DOCUSATE SOD 100 MG CAP PO SCH (22:00)
[2023-08-29] MEDS: DOCUSATE SOD 100 MG CAP PO ONE (22:18)
[2023-08-30] VITALS (7 sets, daily range): BP systolic 105–125; BP diastolic 43–62; PULSE 65–111; RESP 17–20; TEMP 97.5–98.4; O2SAT 90–94
[2023-08-30] MEDS: DOCUSATE SOD 100 MG CAP PO SCH (10:27)
[2023-08-31 01:00] VITALS: BP 105/47; PULSE 69; RESP 18; TEMP 98.5; O2SAT 92
[2023-08-31 05:00] VITALS: BP 110/49; PULSE 64; RESP 20; TEMP 98.4; O2SAT 92
[2023-08-31 08:00] VITALS: BP 113/53; PULSE 61; RESP 20; TEMP 98.1; O2SAT 93
[2023-08-31 09:06] VITALS: BP 113/53; PULSE 61; RESP 20; TEMP 98.1; O2SAT 93
[2023-08-31 10:19] LABS: Basophils # (auto) 0 10 ^3/uL (0-0.2); Basophils % (auto) 0.8 % (0.0-2.0); Eosinophils # (auto) 0.2 10 ^3/uL (0-0.8); Lymphocytes # (auto) 1.1 10 ^3/uL (0.4-5.4); Monocytes # (auto) 0.8 10 ^3/uL (0-1.3); White Blood Cell 4.8 10^3/uL (4.4-10.8)
[2023-08-31 10:23] LABS: Eosinophils % (auto) 3.9 % (0.0-7.0); Hematocrit 31.4 % (41.0-53.0); Hemoglobin 9.7 g/dL (13.5-17.5); Lymphocytes % (auto) 22.2 % (10.0-50.0); Mean Corpuscular Hemoglobin 25.3 pg (28.0-32.0); Mean Corpuscular Hgb Conc. 30.7 g/dL (32.0-36.0); Mean Corpuscular Volume 82.4 fL (80.0-100.0); Monocytes % (auto) 16.2 % (0.0-12.0); Neutrophils # (auto) 2.8 10 ^3/uL (1.6-8.6); Neutrophils % (auto) 56.9 % (37.0-80.0); Nucleated Red Blood Cells % 0.2 %; Red Blood Cells 3.81 10^6/uL (4.5-5.90); Red Cell Distribution Width 19.1 % (11.8-14.3)
[2023-08-31 10:24] LABS: Anion Gap 8 (5-15); Carbon Dioxide 24 mmol/L (20-30); Chloride 106 mmol/L (98-107); Potassium 4.3 mmol/L (3.5-5.1); Sodium 138 mmol/L (136-145)
[2023-08-31 10:26] LABS: Calcium 8.6 mg/dL (8.5-10.1)
[2023-08-31 10:30] LABS: BUN/Creatinine Ratio 12.8 (10.0-20.0); Blood Urea Nitrogen 12 mg/dL (9-23); Glucose 182 mg/dL (74-106)
[2023-08-31] MEDS ORDERED: DOCU-94 PO (14:42)
[2023-08-31] MEDS ORDERED: PERCOT PO (14:42)
[2023-08-31 15:29] VITALS: BP 142/85; PULSE 94; RESP 19; TEMP 97.6; O2SAT 90
== END 2023-08-31 15:55 | disposition home or self-care (01) | DRG 254 ==
LOC: ER 16:34 → WEST WING 08-27 10:01 → OVERFLOW 08-27 10:05 → WEST WING 08-27 15:08
PROVIDERS: ADMIT Nurse Practitioner Acute Care; ATTEND Nurse Practitioner Acute Care
DX: K43.9 Ventral hernia without obstruction or gangrene (principal); D69.6 Thrombocytopenia, unspecified; K76.6 Portal hypertension; K80.00 Calculus of gallbladder with acute cholecystitis without obstruction; K42.9 Umbilical hernia without obstruction or gangrene; K74.60 Unspecified cirrhosis of liver; I10 Essential (primary) hypertension; E66.9 Obesity, unspecified; J44.9 Chronic obstructive pulmonary disease, unspecified; F10.10 Alcohol abuse, uncomplicated; Y90.9 Presence of alcohol in blood, level not specified; Z79.2 Long term (current) use of antibiotics; Z79.899 Other long term (current) drug therapy; Z68.31 Body mass index [BMI] 31.0-31.9, adult
CPT/HCPCS: 36415; 74177; 78226; 80048; 80053; 80307; 81001; 82140; 83690; 85025; 87081; C9113; G0378; J2405

== ENCOUNTER 2024-04-12 23:28 | Inpatient (IN) | payer MEDICAID ==
[~2024-04-12] VITALS: Ht 185.4 cm; Wt 100.3 kg
[~2024-04-12 23:28] MED LIST changes: +CEL100T PO; +DOCU-94 PO; +ERGO500086 PO; +FOLI-119 PO; +FURO40TA4 PO; +IBUP-1456 PO; +LACT10SO3 PO; +MIDO10TA3 PO; +PANT40TA2 PO; +PERCOT PO; +POTA-180 PO; +RIFA550T PO; +SPIR25TA PO; +SPIR25TA8 PO; +THIA100T10 PO; +THIA100T46 PO
--- NOTE | 2024-04-12 23:39 | ED.PDOC ---
GI ASSESSMENT HPI Comments A 63 year old male presents to the ED with a chief complaint of abdominal pain onset 3 days. Per EMS, patient was released from ICU from this Hospital about 7 days ago. Patient noticed abdominal pain and distension for the past 3 days. He has a past medical history of COPD, HTN and Liver Cirrhosis. No other symptoms or modifying factors present at this time. Time Seen by MD: 23:28 Primary Care Provider: UNK NAME Reviewed Notes: Medications, Allergies Allergies: Coded Allergies: NO KNOWN ALLERGIES (Unverified , 08/04/18) Home Meds Active Scripts Oxycodone W/ Acetaminophen (Percocet 5/325MG) 1 Tab Tb, 1 TAB PO QID for 7 Days, #28 TAB Prov:BOBBY VELIZ PLUMBER GASFITTER 08/31/23 Docusate Sodium (Colace) 100 Mg Cap, 1 CAP PO BID for 14 Days, #30 CAP Prov:BOBBY VELIZ PLUMBER GASFITTER 08/31/23 Amoxicillin & Pot Clavulanate (AUGMENTIN TABLET) 875 Mg Tb, 875 MG PO BID for 12 Days, #24 TAB Prov:CLAUDIA AGUILAR MD 12/20/22 Metronidazole (Flagyl) 500 Mg Tab, 500 MG PO TID for 12 Days, #36 TAB Prov:CLAUDIA AGUILAR MD 12/20/22 Sucralfate (CARAFATE SUSP) 1 Gm/10 Ml Ss, 1 GM PO QIDACHS for 30 Days, #120 GM Prov:CLAUDIA AGUILAR MD 12/20/22 Pantoprazole Sodium Sesquihydr (Pantoprazole Sodium) 40 Mg Tab, 40 MG PO BID for 30 Days, #60 TAB Prov:CLAUDIA AGUILAR MD 12/20/22 Furosemide (Lasix) 20 Mg Tb, 1 TAB PO DAILY for 5 Days, #5 TAB 1 Refill Prov:FABIOLA CORBETT MD 02/03/22 Information Source: Patient, Emergency Med Personnel Mode of Arrival: EMS Timing: Days Duration: Since onset Prehospital treatment: None Severity: Moderate Pain Location: Diffuse Associated sign and symptoms: Abdominal Pain Past Medical History PAST MEDICAL HISTORY: COPD, HTN, Liver Surgical History: Hernia Repair Family History Family History: No family hx of HTN Social History Smoker: Non-Smoker Alcohol: Heavy Drugs: Marijuana Lives In: Home Constitutional: denies: chills, diaphoresis, fatigue, fever, malaise, sweats, weakness, others EENTM: denies: blurred vision, double vision, ear bleeding, ear discharge, ear drainage, ear pain, ear ringing, eye pain, eye redness, hearing loss, mouth pain, mouth swelling, nasal discharge, nose bleeding, nose congestion, nose pain, photophobia, tearing, throat pain, throat swelling, voice changes, others Respiratory: denies: cough, hemoptysis, orthopnea, SOB at rest, shortness of breath, SOB with excertion, stridor, wheezing, others Cardiovascular: denies: chest pain, dizzy spells, diaphoresis, Dyspnea on exertion, edema, irregular heart beat, left arm pain, lightheadedness, palpitations, PND, syncope, others Gastrointestinal: reports: abdomen distended, abdominal pain; denies: blood streaked bowels, constipated, diarrhea, dysphagia, difficulty swallowing, hematemesis, melena, nausea, poor appetite, poor fluid intake, rectal bleeding, rectal pain, vomiting, others Genitourinary: denies: burning, dysuria, flank pain, frequency, hematuria, incontinence, penile discharge, penile sore, pain, testicle pain, testicle swelling, urgency, others Neurological: denies: dizziness, fainting, headache, left sided numbness, left sided weakness, numbness, paresthesia, pre-existing deficit, right sided numbness, right sided weakness, seizure, speech problems, tingling, tremors, weakness, others Musculoskeletal: denies: back pain, gout, joint pain, joint swelling, muscle pain, muscle stiffness, neck pain, others Integumetry: denies: bruises, change in color, change in hair/nails, dryness, laceration, lesions, lumps, rash, wounds, others Allergic/Immunocompromised: denies: Difficulty Healing, Frequent Infections, Hives, Itching, others Hematologic/Lymphatic: denies: anemia, blood clots, easy bleeding, easy bruising, swollen glands, others Endocrine: denies: excessive hunger, excessive sweating, excessive thirst, excessive urination, flushing, intolerance to cold, intolerance to heat, unexplained weight gain, unexplained weight loss, others Psychiatric: denies: anxiety, bipolar disorder, depression, hopeless, panic disorder, schizophrenia, sleepless, suicidal, others All Other Systems: Reviewed and Negative Physical Exam General Appearance: Moderate Distress, Normal HEENT: Normal ENT Inspection, Pharynx Normal, TMs Normal Neck: Full Range of Motion, Non-Tender, Normal, Normal Inspection Respiratory: Chest Non-Tender, Lungs Clear, No Accessory Muscle Use, No Respiratory Distress, Normal Breath Sounds Cardiovascular: No Edema, No JVD, No Murmur, No Gallop, Normal Peripheral Pulses, Regular Rate/Rhythm Breast Exam: Deferred Gastrointestinal: Diffuse, Distended, No Organomegaly, No Pulsatile Mass, Normal Bowel Sounds, Soft, Tenderness (Tenderness with positive fluid wave) Genitalia: Deferred Pelvic: Deferred Rectal: Deferred Extremities: No calf tenderness, Normal capillary refill, Normal inspection, Normal range of motion, Non-tender, No pedal edema Musculoskeletal : Apperance: Normal Neurologic: Alert, social staff worker II-XII nml as Tested, No Motor Deficits, Normal Affect, Normal Mood, No Sensory Deficits Cerebellar Function: Normal Reflexes: Normal Skin: Dry, Normal Color, Warm Lymphatic: No Adenopathy EKG EKG : Cardiac Rhythm: Afib Comments 75 bpm Was a procedure done? Was a procedure done?: No GI differential Dx Differential Diagnosis: Cholecystitis, Constipation, Diverticular disease, Gastritis/PUD, Gastroenteritis, GI hemorrhage, Hernia, Hepatitis X-Ray, Labs, Meds, VS Vital Signs Date Time Temp Pulse Resp B/P (MAP) Pulse Ox O2 Delivery O2 Flow Rate FiO2 04/13/24 01:44 76 16 88 Nasal Cannula* 2 28 04/13/24 01:42 98.2 76 16 110/52 (71) 88 98.2 04/12/24 23:52 75 04/12/24 23:50 98.8 82 18 138/69 (92) 96 04/12/24 23:45 110/52 Lab Test 04/13/24 00:20 04/12/24 23:45 Range/Units Troponin I High Sensitivity 6 5 </=54 ng/L White Blood Count 6.3 4.4-10.8 10^3/uL Red Blood Count 2.84 L 4.5-5.90 10^6/uL Hemoglobin 11.0 L 13.5-17.5 g/dL Hematocrit 32.4 L 41.0-53.0 % Mean Corpuscular Volume 114.0 H 80.0-100.0 fL Mean Corpuscular Hemoglobin 38.9 H 28.0-32.0 pg Mean Corpuscular Hemoglobin Concent 34.1 32.0-36.0 g/dL Red Cell Distribution Width 17.3 H 11.8-14.3 % Platelet Count 93 L 140-450 10^3/uL Mean Platelet Volume 9.5 6.9-10.8 fL Neutrophils (%) (Auto) 64.3 37.0-80.0 % Lymphocytes (%) (Auto) 15.4 10.0-50.0 % Monocytes (%) (Auto) 14.4 H 0.0-12.0 % Eosinophils (%) (Auto) 5.7 0.0-7.0 % Basophils (%) (Auto) 0.2 0.0-2.0 % Neutrophils # (Auto) 4.1 1.6-8.6 10 ^3/uL Lymphocytes # (Auto) 1.0 0.4-5.4 10 ^3/uL Monocytes # (Auto) 0.9 0-1.3 10 ^3/uL Eosinophils # (Auto) 0.4 0-0.8 10 ^3/uL Basophils # (Auto) 0 0-0.2 10 ^3/uL Nucleated Red Blood Cells 0.1 % Platelet Estimate Decreased Macrocytosis Marked Sodium Level 139 136-145 mmol/L Potassium Level 4.3 3.5-5.1 mmol/L Chloride Level 103 98-107 mmol/L Carbon Dioxide Level 30 20-31 mmol/L Anion Gap 6 5-15 Blood Urea Nitrogen 31 H 9-23 mg/dL Creatinine 2.56 H 0.700-1.30 mg/dL Glomerular Filtration Rate Calc 27 >90 mL/min BUN/Creatinine Ratio 12.1 10.0-20.0 Serum Glucose 112 H 74-106 mg/dL Calcium Level 9.1 8.7-10.4 mg/dL Magnesium Level 2.1 1.6-2.6 mg/dL Total Bilirubin 14.1 H 0.2-1.0 mg/dL Aspartate Amino Transferase (AST) 170 H 13-40 U/L Alanine Aminotransferase (ALT) 92 H 7-40 U/L Alkaline Phosphatase 170 H 46-116 U/L Ammonia < 10 L 11-32 umol/L Total Protein 6.1 5.7-8.2 g/dL Albumin 2.3 L 3.2-4.8 g/dL Plasma/Serum Blood Alcohol < 3.0 <10 mg/dL Troponin is five. EKG shows no significant EKG changes or ischemia. LFTs are elevated Ammonia is 10. Blood alcohol is Three. BUN is 31. Creatinine is 2.6 [place] [address] Ph: [phone] DIAGNOSTIC IMAGING Diagnostic Imaging Report : [id number] Signed PATIENT: GARIMA MEZA ACCT: [id number] UNIT: [id number] : 1960 LOC: ER ROOM / BED: / AGE / SEX: 63 / M ADM STATUS: REG ER SERVICE 36 ORDERING PHYSICIAN: MEGA VERDIN MD PROCEDURE(s): ABPL - CT AB PEL WO CON-NO ORAL OR IV REASON: abd distention ORDER NUMBER(s): [id number], ACCESSION NUMBER(s): [id number] Exam: CT CT AB PEL WO CON-NO ORAL OR IV History: abd distention Comparison Study: None available at time of dictation. Technique: Multidetector spiral CT of the abdomen was performed from lung bases to pubic symphysis. Imaging was performed without IV contrast. Axial, coronal and sagittal multiplanar reformats were obtained from the axial data set by the technologist. Radiation Dose : 1. Abdomen/Pelvis: CTDIvol 21 mGy, DLP 1464 mGy*cm. Findings: Evaluation of solid organs is limited due to lack of intravenous contrast use. Lung Bases: Posterior bilateral lower lobe consolidations most likely representing atelectasis. Liver: Shrunken cirrhotic liver Gallbladder and Biliary Tree: Distended gallbladder with a 1.3 cm stone near the gallbladder neck. Spleen: Unremarkable Pancreas: The pancreas is grossly normal in appearance. Adrenal Glands: Unremarkable Kidneys: Kidneys are grossly normal without calculi or hydronephrosis. Bladder: Grossly unremarkable for degree of distention. Bowel: The stomach is grossly normal in appearance. Small bowel and colon are normal in caliber and distribution. The appendix is not visualized; however, no secondary findings of acute appendicitis identified. Ascites: Moderate to severe ascites. Lymphadenopathy: No mesenteric, retroperitoneal or periportal lymphadenopathy. Abdominal Wall and Mesentery: Tiny defect along the ventral abdominal wall with small herniation and transverse colon. Left inguinal hernia demonstrating fluid collection from the ascites.. Vasculature: The visualized abdominal aorta is normal in size and caliber. Evaluation of abdominal and pelvic vessels is limited due to lack of intravenous contrast. Perisplenic and periesophageal / perigastric varices. Pelvic Organs: Unremarkable Musculoskeletal: No aggressive focal bony lesions, acute fractures or dislocatio n. Mild diffuse anasarca. IMPRESSION: Cirrhosis with sequelae of portal hypertension. Moderate to severe diffuse ascites with mild anasarca. Small posterior bilateral lower lobe consolidations most likely representing atelectasis. Defect along the ventral abdominal wall demonstrating short segment loop of transverse colon. Moderate left inguinal hernia demonstrating fluid from the ascites. ATED BY: EBOYN HAND DO DICTATED DATE/TIME: 04/13/24131 SIGNED BY: EBONY HAND DO SIGNED DATE/TIME: 04/13/24131 CC: Urine drug screen is pending. The patient will be admitted to the hospitalist for further evaluation care. Time of 1ST Reevaluation: 23:58 Reevaluation 1ST: Unchanged Patient Education/Counseling: Diagnosis, Treatment, Prognosis Family Education/Counseling: No Family Present Departure 1 Departure Time of Disposition: 02:58 Impression: Primary Impression: Acute abdominal pain Additional Impressions: Cirrhosis of liver Qualified Codes: K70.31 - Alcoholic cirrhosis of liver with ascites Abdominal distention Elevated liver function tests Chronic kidney disease Qualified Codes: N18.9 - Chronic kidney disease, unspecified Anasarca Left inguinal hernia Disposition: ADMITTED INPATIENT Admit to: Tele Condition: Guarded Critical Care Note Critical Care Time?: Yes (35 min-critical care time only) Stability Stability form required: No I personally scribed for MEGA VERDIN MD ([email or web address]) on 04/12/24 at 23:39. Electronically submitted by Yolande Courtney ([email or web address]). I personally scribed for MEGA VERDIN MD ([email or web address]) on 04/13/24 at 00:06. Electronically submitted by Yolande Courtney ([email or web address]). I personally scribed for MEGA VERDIN MD ([email or web address]) on 04/13/24 at 01:45. Electronically submitted by Yolande Courtney ([email or web address]). MEGA VERDIN MD Apr 12, 2024 23:39
[2024-04-12] MEDS: SPIRONOLACTONE 25 MG TAB PO ONE (23:45)
[2024-04-12] MEDS: FUROSEMIDE 40 MG/4 ML VIAL IV ONE (23:45)
[2024-04-12] MEDS: LACTULOSE 20Gm/30ML SOLN PO ONE (23:45)
[2024-04-13] VITALS (16 sets, daily range): BP systolic 102–124; BP diastolic 47–61; PULSE 67–90; RESP 12–18; TEMP 97.4–98.8; O2SAT 88–100
[2024-04-13 00:02] LABS: Basophils # (auto) 0 10 ^3/uL (0-0.2); Basophils % (auto) 0.2 % (0.0-2.0); Monocytes # (auto) 0.9 10 ^3/uL (0-1.3); Nucleated Red Blood Cells % 0.1 %; White Blood Cell 6.3 10^3/uL (4.4-10.8)
[2024-04-13 00:03] LABS: Eosinophils # (auto) 0.4 10 ^3/uL (0-0.8); Eosinophils % (auto) 5.7 % (0.0-7.0); Hematocrit 32.4 % (41.0-53.0); Lymphocytes % (auto) 15.4 % (10.0-50.0); Mean Corpuscular Hemoglobin 38.9 pg (28.0-32.0); Mean Corpuscular Hgb Conc. 34.1 g/dL (32.0-36.0); Monocytes % (auto) 14.4 % (0.0-12.0); Neutrophils # (auto) 4.1 10 ^3/uL (1.6-8.6); Neutrophils % (auto) 64.3 % (37.0-80.0); Platelet Count (auto) 93 10^3/uL (140-450); Red Blood Cells 2.84 10^6/uL (4.5-5.90); Red Cell Distribution Width 17.3 % (11.8-14.3)
[2024-04-13 00:20] LABS: Alanine Aminotransferase 92 U/L (7-40); Albumin 2.3 g/dL (3.2-4.8); Alkaline Phosphatase 170 U/L (46-116); Anion Gap 6 (5-15); Aspartate Aminotransferase 170 U/L (13-40); Blood Alcohol < 3.0 mg/dL (<10); Blood Urea Nitrogen 31 mg/dL (9-23); Calcium 9.1 mg/dL (8.7-10.4); Carbon Dioxide 30 mmol/L (20-31); Chloride 103 mmol/L (98-107); Glucose 112 mg/dL (74-106); Magnesium 2.1 mg/dL (1.6-2.6); Potassium 4.3 mmol/L (3.5-5.1); Sodium 139 mmol/L (136-145)
[2024-04-13 00:21] LABS: BUN/Creatinine Ratio 12.1 (10.0-20.0); Bilirubin, Total 14.1 mg/dL (0.2-1.0); Total Protein 6.1 g/dL (5.7-8.2)
[2024-04-13 00:32] LABS: Platelet Estimate Decreased
[2024-04-13 00:33] LABS: Macrocytosis Marked
--- NOTE | 2024-04-13 01:34 | DVH ---
Exam: CT CT AB PEL WO CON-NO ORAL OR IV History: abd distention Comparison Study: None available at time of dictation. Technique: Multidetector spiral CT of the abdomen was performed from lung bases to pubic symphysis. Imaging was performed without IV contrast. Axial, coronal and sagittal multiplanar reformats were ob tained from the axial data set by the technologist. Radiation Dose : 1. Abdomen/Pelvis: CTDIvol 21 mGy, DLP 1464 mGy*cm. Findings: Evaluation of solid organs is limited due to lack of intravenous contrast use. Lung Bases: Posterior bilateral lower lobe consolidations most likely representing atelectasis. Liver: Shrunken cirrhotic liver Gallbladder and Biliary Tree: Distended gallbladder with a 1.3 cm stone near the gallbladder neck. Spleen: Unremarkable Pancreas: The pancreas is grossly normal in appearance. Adrenal Glands: Unremarkable Kidneys: Kidneys are grossly normal without calculi or hydronephrosis. Bladder: Grossly unremarkable for degree of distention. Bowel: The stomach is grossly normal in appearance. Small bowel and colon are normal in caliber and d istribution. The appendix is not visualized; however, no secondary findings of acute appendicitis id entified. Ascites: Moderate to severe ascites. Lymphadenopathy: No mesenteric, retroperitoneal or periportal lymphadenopathy. Abdominal Wall and Mesentery: Tiny defect along the ventral abdominal wall with small herniation and transverse colon. Left inguinal hernia demonstrating fluid collection from the ascites.. Vasculature: The visualized abdominal aorta is normal in size and caliber. Evaluation of abdominal a nd pelvic vessels is limited due to lack of intravenous contrast. Perisplenic and periesophageal / pe rigastric varices. Pelvic Organs: Unremarkable Musculoskeletal: No aggressive focal bony lesions, acute fractures or dislocation. Mild diffuse anasa rca. IMPRESSION: Cirrhosis with sequelae of portal hypertension. Moderate to severe diffuse ascites with mild anasarca . Small posterior bilateral lower lobe consolidations most likely representing atelectasis. Defect al judah the ventral abdominal wall demonstrating short segment loop of transverse colon. Moderate left in guinal hernia demonstrating fluid from the ascites.
[2024-04-13] MEDS ORDERED: NITROGLYCERIN 0.4 MG SL TAB SL PRN (03:15)
--- NOTE | 2024-04-13 03:39 | DVHHPRES ---
History of Present Illness Resident Creating Document: NICKIE ROGERS RESIDENT History of Present Illness Mr. Hall, a 63-year-old gentleman with past medical history significant for prior heavy alcohol addiction, alcoholic liver cirrhosis, portal hypertension, prolonged history of smoking, COPD, essential hypertension, overweight, sliding hernia, ventral hernia, left inguinal hernia and left partial great toe amputation, came to the ED with diffuse abdominal pain, distention, weight gain, for past 3 days that progressed to 10/10. As per patient patient was released from the ICU about 7 days ago, where he was admitted for acute hypercapnic/hypoxic respiratory failure. He had a paracentesis during last ho spitalization and since then he had symptoms progressively. Brought to the ED via EMS for further evaluation. Patient denies fever, chills, or any other systemic symptoms. Pulmonary: COPD DIE INSPECTOR: Periperal neuropathy GI: Constipation, GI bleed, Gastritis, Peptic Ulcer disease Heme/Onc: Anemia NOS, B12 deficiency Hepatobiliary: Cirrhosis Psych: Addictions Past Surgical History: Other Family History: Other (Noncontributory) Smoke: Quit (Prior heavy smoking history, more than 15 years back) ALCOHOL: heavy Drugs: Marijuana Lives: with Family Domestic Violence: Neg Review of Systems Constitutional: Yes: Malaise, Other Eyes: No: Pain, Vision change, Conjunctivae inflammation, Eyelid inflammation, Other, Redness ENT: No: Ear pain, Ear discharge, Nose pain, Nose discharge, Nose congestion, Mouth pain, Mouth swelling, Throat pain, Throat swelling, Other Respiratory: No: Cough, Dry, Shortness of breath, SOB with excertion, Wheezing, Hemoptysis, Pleuritic Pain, Sputum, Wheezing, Other Cardiovascular: No: Chest Pain, Palpitations, Orthopnea, Paroxysmal Noc. Dyspnea, Edema, Lt Headedness, Other Gastrointestinal: Abdominal Pain, Constipation Genitourinary: No Dysuria, No Frequency, No Incontinence, No Hematuria, No Retention, No Other Musculoskeletal: No: other, neck pain, shoulder pain, arm pain, back pain, hand pain, leg pain, foot pain Skin: No: Rash, Lesions, Jaundice, Bruising, Other Neurological: No: Weakness, Numbness, Incoordination, Change in speech, Confusion, Seizures, Other Allergies: Coded Allergies: NO KNOWN ALLERGIES (Unverified , 08/04/18) Medications Current Medications Medications Dose Ordered Sig/Anil Route Start Time Stop Time Status Last Admin Dose Admin Nitroglycerin 0.4 mg Q5MINP PRN SL 04/13/24 03:15 Morphine Sulfate 2 mg Q30M PRN IV 04/13/24 03:15 Pantoprazole Sodium 40 mg DAILY IV 04/13/24 10:00 UNV Sucralfate 1 gm QID@0600,1130,1700,2200 GT 04/13/24 06:00 UNV Furosemide 40 mg DAILY IV 04/13/24 10:00 UNV Lactulose 15 ml TID PO 04/13/24 06:00 UNV Spironolactone 25 mg DAILY PO 04/13/24 10:00 UNV Multivitamins/ Minerals 1 tab DAILY PO 04/13/24 10:00 UNV Midodrine 10 mg TID@0600,1200,1800 PO 04/13/24 06:00 UNV Ergocalciferol 50,000 unit Q7D PO 04/13/24 03:30 UNV Ceftriaxone Sodium/Dextrose 50 ml @ 50 mls/hr DAILY IV 04/13/24 10:00 UNV Exam Vital Signs Vital Signs Date Time Temp Pulse Resp B/P (MAP) Pulse Ox O2 Delivery O2 Flow Rate FiO2 04/13/24 01:44 76 16 88 Nasal Cannula* 2 28 04/13/24 01:42 98.2 110/52 (71) 98.2 Exam skin has visible icterus , stigmata of liver cirrhosis General Appearance: Alert, Oriented X3, Cooperative, mild distress HEENT: Atraumatic, PERRLA, EOMI, Mucous membr. moist/pink, Other (icterus) Respiratory: Clear to auscultation, Other (room air , rales, incomplete diaphragmatic excursion, basal atelectasis ) Cardiovascular: Regular rate, Normal S1, Normal S2, No murmurs Abdominal: Normal bowel sounds, Soft, Other (distended, umbilical hernia present, bs+, tympanic, no guarding, fluid thrill present, shifting dullness + flanks full. ) Extremities: Other (mild anasarca) Neuro: Normal gait, Normal speech, Strength at 5/5 X4 ext (4/5 in all limbs ), Normal tone, Sensation intact, Cranial nerves 3-12 NL, Reflexes 2+ (no encephalopathy, AAOx4) Psych/Mental Status: Mental status NL, Mood NL Labs/Xrays Labs Test 04/13/24 00:20 04/12/24 23:45 Range/Units Troponin I High Sensitivity 6 </=54 ng/L White Blood Count 6.3 4.4-10.8 10^3/uL Red Blood Count 2.84 L 4.5-5.90 10^6/uL Hemoglobin 11.0 L 13.5-17.5 g/dL Hematocrit 32.4 L 41.0-53.0 % Mean Corpuscular Volume 114.0 H 80.0-100.0 fL Mean Corpuscular Hemoglobin 38.9 H 28.0-32.0 pg Mean Corpuscular Hemoglobin Concent 34.1 32.0-36.0 g/dL Red Cell Distribution Width 17.3 H 11.8-14.3 % Platelet Count 93 L 140-450 10^3/uL Mean Platelet Volume 9.5 6.9-10.8 fL Neutrophils (%) (Auto) 64.3 37.0-80.0 % Lymphocytes (%) (Auto) 15.4 10.0-50.0 % Monocytes (%) (Auto) 14.4 H 0.0-12.0 % Eosinophils (%) (Auto) 5.7 0.0-7.0 % Basophils (%) (Auto) 0.2 0.0-2.0 % Neutrophils # (Auto) 4.1 1.6-8.6 10 ^3/uL Lymphocytes # (Auto) 1.0 0.4-5.4 10 ^3/uL Monocytes # (Auto) 0.9 0-1.3 10 ^3/uL Eosinophils # (Auto) 0.4 0-0.8 10 ^3/uL Basophils # (Auto) 0 0-0.2 10 ^3/uL Nucleated Red Blood Cells 0.1 % Platelet Estimate Decreased Macrocytosis Marked Sodium Level 139 136-145 mmol/L Potassium Level 4.3 3.5-5.1 mmol/L Chloride Level 103 98-107 mmol/L Carbon Dioxide Level 30 20-31 mmol/L Anion Gap 6 5-15 Blood Urea Nitrogen 31 H 9-23 mg/dL Creatinine 2.56 H 0.700-1.30 mg/dL Glomerular Filtration Rate Calc 27 >90 mL/min BUN/Creatinine Ratio 12.1 10.0-20.0 Serum Glucose 112 H 74-106 mg/dL Calcium Level 9.1 8.7-10.4 mg/dL Magnesium Level 2.1 1.6-2.6 mg/dL Total Bilirubin 14.1 H 0.2-1.0 mg/dL Aspartate Amino Transferase (AST) 170 H 13-40 U/L Alanine Aminotransferase (ALT) 92 H 7-40 U/L Alkaline Phosphatase 170 H 46-116 U/L Ammonia < 10 L 11-32 umol/L Total Protein 6.1 5.7-8.2 g/dL Albumin 2.3 L 3.2-4.8 g/dL Plasma/Serum Blood Alcohol < 3.0 <10 mg/dL [place] [address] Ph: [phone] DIAGNOSTIC IMAGING Diagnostic Imaging Report : [id number] Signed PATIENT: GARIMA HALL ACCT: [id number] UNIT: [id number] : 1960 [facility]GE / SEX: 63 / M ADM STATUS: ADM IN SERVICE 0647 ORDERING PHYSICIAN: NICKIE ROGERS RESIDENT PROCEDURE(s): ABDC - ABDOMEN COMPLETE SONOGRAM REASON: to rule out hepatobiliary obstruction as ALT AST and bili ORDER NUMBER(s): [id number], ACCESSION NUMBER(s): [id number] ULTRASOUND ABDOMEN COMPLETE INDICATION: to rule out hepatobiliary obstruction as ALT AST and bili TECHNIQUE: Multiple real-time sonographic images of the abdomen were obtained. COMPARISON: None FINDINGS: The visualized liver parenchyma appears coarse and heterogeneous. . The liver is small in size with nodular contours and measures 10.7 cm in length. No discrete hepatic lesion or intrahepatic biliary ductal dilatation is identified. There is peritoneal ascites. There is hepatofugal flow identified in the portal vein. Gallbladder is filled with sludge. The gallbladder wall is not significantly thickened. The equine manager reports a negative Eisenberg's sign. The common biliary duct is not dilated. The right kidney measures 11.3 cm length. The left kidney measures 11.0 cm. No sonographic evidence of nephrolithiasis or hydronephrosis. The spleen is prominent measuring 14.5 cm. Pancreas and abdominal aorta are obscured by bowel gas. The visualized portions of the IVC appear grossly unremarkable. unremarkable. IMPRESSION: 1. Hepatic cirrhosis with sequela of portal hypertension. 2. There is hepatofugal flow identified in the portal vein. 3. Splenomegaly. 4. Ascites. 5. The gallbladder is filled with sludge. HS:Y ATED BY: HUY STEVENSON MD DICTATED DATE/TIME: 04/13/24815 SIGNED BY: HUY STEVENSON MD SIGNED DATE/TIME: 04/13/24815 CC: [place] [address] Ph: [phone] DIAGNOSTIC IMAGING Diagnostic Imaging Report : [id number] Signed PATIENT: GARIMA HALL ACCT: [id number] UNIT: [id number] : 1960 LOC: ER ROOM / BED: / AGE / SEX: 63 / M ADM STATUS: REG ER SERVICE 36 ORDERING PHYSICIAN: MEGA VERDIN MD PROCEDURE(s): ABPL - CT AB PEL WO CON-NO ORAL OR IV REASON: abd distention ORDER NUMBER(s): [id number], ACCESSION NUMBER(s): [id number] Exam: CT CT AB PEL WO CON-NO ORAL OR IV History: abd distention Comparison Study: None available at time of dictation. Technique: Multidetector spiral CT of the abdomen was performed from lung bases to pubic symphysis. Imaging was performed without IV contrast. Axial, coronal and sagittal multiplanar reformats were obtained from the axial data set by the technologist. Radiation Dose : 1. Abdomen/Pelvis: CTDIvol 21 mGy, DLP 1464 mGy*cm. Findings: Evaluation of solid organs is limited due to lack of intravenous contrast use. Lung Bases: Posterior bilateral lower lobe consolidations most likely representing atelectasis. Liver: Shrunken cirrhotic liver Gallbladder and Biliary Tree: Distended gallbladder with a 1.3 cm stone near the gallbladder neck. Spleen: Unremarkable Pancreas: The pancreas is grossly normal in appearance. Adrenal Glands: Unremarkable Kidneys: Kidneys are grossly normal without calculi or hydronephrosis. Bladder: Grossly unremarkable for degree of distention. Bowel: The stomach is grossly normal in appearance. Small bowel and colon are normal in caliber and distribution. The appendix is not visualized; however, no secondary findings of acute appendicitis identified. Ascites: Moderate to severe ascites. Lymphadenopathy: No mesenteric, retroperitoneal or periportal lymphadenopathy. Abdominal Wall and Mesentery: Tiny defect along the ventral abdominal wall with small herniation and transverse colon. Left inguinal hernia demonstrating fluid collection from the ascites.. Vasculature: The visualized abdominal aorta is normal in size and caliber. Evaluation of abdominal and pelvic vessels is limited due to lack of intravenous contrast. Perisplenic and periesophageal / perigastric varices. Pelvic Organs: Unremarkable Musculoskeletal: No aggressive focal bony lesions, acute fractures or dislocation. Mild diffuse anasarca. IMPRESSION: Cirrhosis with sequelae of portal hypertension. Moderate to severe diffuse ascites with mild anasarca. Small posterior bilateral lower lobe consolidations most likely representing atelectasis. Defect along the ventral abdominal wall demonstrating short segment loop of transverse colon. Moderate left inguinal hernia demonstrating fluid from the ascites. ATED BY: EBONY HAND DO DICTATED DATE/TIME: 04/13/24131 SIGNED BY: EBONY HAND DO SIGNED DATE/TIME: 04/13/24131 CC: Assessment/Plan Assessment/Plan Assesment: 63-year-old Known former alcoholic with alcoholic liver cirrhosis, portal hypertension, ventral hernia and inguinal hernia presented with diffuse abdominal pain, abdominal distention, weight gain, for past 3 days, had similar previous recurrent hospitalization needing in-hospital medical care In the med surge unit. Plan: #1 Abdominal pain /tenderness: Could be due to SBO, umbilical hernia, cholelithiasis, cholecystitis, peritoneal irritation, portal vein thrombosis or GI bleed. Broad differential, imaging and tests grossly unremarkable. Pain management with non addictive opioid tramadol and IV morphine for moderate to severe pain. Avoid acetaminophen until unless it is absolutely necessary with limiting 24 hour dose roughly-2 g. At home takes Percocet as needed. #2 Possible SBP: Need diagnostic paracentesis, started empiric with IV ceftriaxone 2 g. #3 lactic acidosis: due to multifactorial stress including poor hepatorenal clearance and intravascular fluid depletion/less oncotic pressure. Mild fluid replenishment with IV albumin subsided the lactic acidosis #4 alcohol liver cirrhosis with ascites /alcoholic liver disease: Child-ESPARZA score of 12 points, class C life expectancy 1-3 years abdominal surgery perioperative mortality 82% unlikely will be able to tolerate a liver transplant. Guarded prognosis. #5 Known history of hiatal hernia/ GERD and erosive gastritis: Continue pantoprazole IV with Carafate #6 prolonged history of alcohol abuse: Last alcohol 1 year back, check echo for any cardiomyopathy given ongoing low blood pressure.. #7 bilateral atelectasis: Incentive spirometry after telemetry paracentesis #8 known Left inguinal hernia : CT shows no incarcerated bowel, ascitic fluid present. #9 known ventral umbilical hernia: No history of incarceration previously noted in imaging, stable with visceral fat containing. #10 generalized anasarca likely due to liver cirrhosis and low oncotic pressure. #11 right hydrocele: Patient denies any scrotal pain or discharge. #12 status post left 1st toe amputation #13 history of chronic smoking: quit tobacco as per patient 1996: Could not recall all the cancer workups #14 History of Chronic alcoholism: Quit drinking almost a year back. Serum alcohol level marginal 3.3, UDS pending. possible falsification of quitting. #15 Moderate thrombocytopenia: Likely due to hepatosplenomegaly/ Consumptive process. #16 possible blood loss anemia: Significant hemoglobin drop, no anai noted blood/melena reported by patient.FOBT to follow, continue IV pantoprazole/ Carafate. If FOBT positive consider further GI consult for scope. # 17 Mild hyperkalemia: likely due to high dose of spironolactone at admission. Hyperkalemia treatment started. # 18: Overweight with BMI of 29.1 #19: Chronic hypotension: Likely due to low oncotic pressure, liver cirrhosis and hemodynamic modification around cirrhotic liver. 10mg t.i.d. midodrine to continue to keep the map over 65 mm Hg #20: Hypovitaminosis D: continue supplements. #21: chronic macrocytic anemia: check b12 and folate level to rule out deficiency likely due to liver cirrhosis. PUD prophylaxis /GI bleeds treatment: protonix IV b.i.d. DVT prophylaxis: avoid anticoagulation/ SCDs/brisk movement. Barriers to discharge: Medical diagnosis and management in progress. Patient lives with self family. Independent for ADL. PT and SW consult as needed. overall poor prognosis due to multiorgan involvement. PCP: Poor follow up with PCP. Field Recruiter: Can not recall the name of tree sapper. Case discussed with Dr. Dwyer. Code Status: Full Code/ DNR+DNI/ Modified Chemical Code. Discussion needed total 29 minutes bedside. Plan discussed with: Patient, Other (Primary team, RN.) My Orders Orders - NICKIE ROGERS RESIDENT Procedure Category Date Status Time Admit ADMIT 04/13/24 Transmitted 03:05 Nitroglycerin PHA 04/13/24 In Process Sublingual (Ntrostat 03:15 Morphine Sulfate PHA 04/13/24 In Process Injection 03:15 Oxygen By Nasal RT 04/13/24 Transmitted Cannula 03:05 Stat Ekg For Chest [facility] 04/13/24 In Process Pain 03:05 Notify Md Of Changes LIZZETH 04/13/24 In Process From Base 03:05 Regional Refrigerated Cdl Truck Driver For [facility] 04/13/24 In Process 24 Hours 03:05 Emergency Dysrhythmia [facility] 04/13/24 In Process Protocol 03:05 Rhythm Strips Once [facility] 04/13/24 In Process Every Shift 03:05 Thyroid Stimulating LAB 04/13/24 Logged Hormone 03:19 Kidney US 04/13/24 Logged 03:19 Complete Blood Count LAB 04/13/24 Logged 03:19 Comprehensive LAB 04/13/24 Logged Metabolic Panel 03:19 Ammonia LAB 04/13/24 Logged 03:19 Lipase LAB 04/13/24 Logged 03:19 Lactic Acid W/ Reflex LAB 04/13/24 Logged Order 03:19 Blood Alcohol LAB 04/13/24 Logged 03:19 LIVER US 04/13/24 Logged 03:19 Pantoprazole PHA 04/13/24 Logged (Protonix) 10:00 Sucralfate Susp PHA 04/13/24 Logged (Carafate Susp) 06:00 Furosemide Injection PHA 04/13/24 Logged (Lasix Injection) 10:00 Lactulose Oral PHA 04/13/24 Logged 06:00 Spironolactone PHA 04/13/24 Logged (Aldactone) 10:00 Multiple Vitamin W PHA 04/13/24 Logged Mineral Tab (Mvi W/ M 10:00 Midodrine Tablet PHA 04/13/24 Logged (Proamatine Tablet) 06:00 Ergocalciferol PHA 04/13/24 Logged (Vitamin D 50,000 03:30 Hi Prothrombin W Inr HDVI 11/27/24 Transmitted In Clinic 03:24 Partial LAB 04/13/24 Logged Thromboplastin Time 03:24 Grant Stain Slide LAB 04/13/24 Logged 03:24 D-Dimer LAB 04/13/24 Logged 03:24 Partial LAB 04/13/24 Logged Thromboplastin Time 03:31 Blood Culture FRED 04/13/24 Logged 03:31 Urine Bacterial FRED 04/13/24 Logged Culture 03:31 Ceftriaxone 2gm/50ml PHA 04/13/24 Logged D5w (Rocephin 2gm/5 03:45 Ceftriaxone 2gm/50ml PHA 04/13/24 Logged D5w (Rocephin 2gm/5 10:00 Stool Occult Blood LAB 04/13/24 Uncollected 03:31 Partial LAB 04/13/24 Logged Thromboplastin Time 03:35 Echo 2d Mode Cardiac US 04/13/24 Logged DOP 03:35 Date of Service: Apr 13, 2024 Billing Provider: PARTHA DWYER MD Common Visit Codes: [id number] INP/OBS CARE (HIGH) NICKIE ROGERS RESIDENT Apr 13, 2024 03:39 PARTHA DWYER MD Apr 15, 2024 07:57
[2024-04-13] MEDS: MORPHINE SULFATE INJ 2 MG/ml SYRG IV PRN (04:07)
[2024-04-13] MEDS: traMADol HCL 50 MG TAB PO ONE (04:12)
[2024-04-13] MEDS: cefTRIAXone 2GM/50ML D5W 50 ML IV ONE (04:12)
[2024-04-13] MEDS: ERGOCALCIFEROL 50,000 UNIT(1.25MG) CAP PO SCH (04:13)
[2024-04-13 05:11] LABS: Albumin 2.8 g/dL (3.2-4.8); Bilirubin, Total 16.1 mg/dL (0.2-1.0)
[2024-04-13 05:12] LABS: Alanine Aminotransferase 101 U/L (7-40); Alkaline Phosphatase 175 U/L (46-116); Anion Gap 5 (5-15); Aspartate Aminotransferase 231 U/L (13-40); BUN/Creatinine Ratio 13.1 (10.0-20.0); Blood Urea Nitrogen 31 mg/dL (9-23); Calcium 9.1 mg/dL (8.7-10.4); Carbon Dioxide 30 mmol/L (20-31); Chloride 102 mmol/L (98-107); Glucose 86 mg/dL (74-106); Lipase 215 U/L (12-53); Potassium 5.4 mmol/L (3.5-5.1); Sodium 137 mmol/L (136-145)
[2024-04-13 05:39] LABS: Lactic Acid w/Reflex 2.2 mmol/L (0.4-2.0); Partial Thromboplastin Time 102.2 SEC (24.5-34.5)
[2024-04-13 05:47] LABS: Blood Alcohol 3.3 mg/dL (<10)
[2024-04-13] MEDS: SUCRALFATE 1 GM/10 ML ORAL SUSP GT SCH (06:15)
[2024-04-13] MEDS: InsuLIN REG 1unit/0.01ml Soln (100units/ml) IV ONE (06:15)
[2024-04-13] MEDS: LACTULOSE 20Gm/30ML SOLN PO SCH (06:15)
[2024-04-13] MEDS: MIDODRINE HCL 10 MG TAB PO SCH (06:15)
[2024-04-13] MEDS: ALBUMIN 25% 50 ML IV ONE ×4 (06:19→17:40)
[2024-04-13] MEDS: SODIUM ZIRCONIUM CYCL 10 GM PAK PO ONE (06:24)
[2024-04-13] MEDS: DEXTROSE (50%) 50ML SYRG IV ONE (06:25)
[2024-04-13 06:36] LABS: Folate (Folic Acid) 29.62 ng/mL (>5.38)
[2024-04-13] MEDS: ALBUTEROL SULF 2.5 MG/0.5ML(0.5%) NEB SOLN NEB SCH (06:57)
[2024-04-13 07:18] LABS: Basophils # (auto) 0 10 ^3/uL (0-0.2); Eosinophils # (auto) 0.3 10 ^3/uL (0-0.8); Hematocrit 33.8 % (41.0-53.0); Monocytes # (auto) 0.9 10 ^3/uL (0-1.3); Monocytes % (auto) 15.6 % (0.0-12.0); Red Cell Distribution Width 17.6 % (11.8-14.3)
[2024-04-13 07:20] LABS: Basophils % (auto) 0.4 % (0.0-2.0); Eosinophils % (auto) 5.1 % (0.0-7.0); Hemoglobin 11.5 g/dL (13.5-17.5); Lymphocytes % (auto) 18.6 % (10.0-50.0); Mean Corpuscular Hemoglobin 39.3 pg (28.0-32.0); Mean Corpuscular Hgb Conc. 34.2 g/dL (32.0-36.0); Neutrophils # (auto) 3.3 10 ^3/uL (1.6-8.6); Neutrophils % (auto) 60.3 % (37.0-80.0); Nucleated Red Blood Cells % 0.2 %; Platelet Count (auto) 83 10^3/uL (140-450); Red Blood Cells 2.94 10^6/uL (4.5-5.90); White Blood Cell 5.5 10^3/uL (4.4-10.8)
[2024-04-13 07:48] LABS: INR 2.08 (0.9-1.15); Partial Thromboplastin Time 44.3 SEC (24.5-34.5); Prothrombin Time 20.9 sec (9.3-11.8)
--- NOTE | 2024-04-13 08:17 | DVH ---
ULTRASOUND ABDOMEN COMPLETE INDICATION: to rule out hepatobiliary obstruction as ALT AST and bili TECHNIQUE: Multiple real-time sonographic images of the abdomen were obtained. COMPARISON: None FINDINGS: The visualized liver parenchyma appears coarse and heterogeneous. . The liver is small in size wit h nodular contours and measures 10.7 cm in length. No discrete hepatic lesion or intrahepatic triny iary ductal dilatation is identified. There is peritoneal ascites. There is hepatofugal flow identifi ed in the portal vein. Gallbladder is filled with sludge. The gallbladder wall is not significantly thickened. The sonograph er reports a negative Eisenberg's sign. The common biliary duct is not dilated. The right kidney measures 11.3 cm length. The left kidney measures 11.0 cm. No sonographic evide nce of nephrolithiasis or hydronephrosis. The spleen is prominent measuring 14.5 cm. Pancreas and abdominal aorta are obscured by bowel gas. The visualized portions of the IVC appear grossly unremarkable. unremarkable. IMPRESSION: 1. Hepatic cirrhosis with sequela of portal hypertension. 2. There is hepatofugal flow identified in the portal vein. 3. Splenomegaly. 4. Ascites. 5. The gallbladder is filled with sludge. HS:Y
[2024-04-13] MEDS ORDERED: SPIRONOLACTONE 25 MG TAB PO SCH (10:00)
[2024-04-13] MEDS ORDERED: PANTOPRAZOLE 40 MG/10 ML VIAL INJ IV SCH (10:00)
[2024-04-13] MEDS: FUROSEMIDE 20 MG/2 ML VIAL IV SCH (10:16)
[2024-04-13] MEDS: MULTIPLE VITAMINS W/ MINERALS TAB PO SCH (10:16)
[2024-04-13] MEDS: FOLIC ACID 1 MG TAB PO SCH (10:16)
[2024-04-13] MEDS: PANTOPRAZOLE 40 MG/10 ML VIAL INJ IV SCH (10:16)
--- NOTE | 2024-04-13 10:40 | ECG ---
[facility] Test Date: 2024-04-12 Test Time: 23:52:22 Pat Name: GARIMA MEZA Department: ED Room: 0218 B Gender: M Family Services Specialist: YUMIKO : 1960 Requested By: MEGA VERDIN Order Number: [id number] Reading MD: Will Hernandez Measurements Intervals [place] Rate: 75 P: 0 MN: 0 QRS: 68 QRSD: 121 T: 11 QT: 519 QTc: 580 Interpretive Statements Atrial fibrillation Nonspecific intraventricular conduction delay Electronically Signed On 04-13-2024 14:18:14 PST by Will Hernandez Please click the below link to view image of tracing.
--- NOTE | 2024-04-13 10:42 | DVHPNRES ---
Progress Note Date Seen: Apr 13, 2024 Resident Creating Document: RHETT HULL RESIDENT Medical Necessity Reason Pt with a Central, PICC or Fol: No Medical Necessity Reason abdominal pain inguinal hernia Subjective Review of Systems This is a 63-year-old gentleman with significant pmhx of heavy alcohol addiction, alcoholic liver cirrhosis, polysubstance abuse, portal hypertension, prolonged history of smoking, COPD, essential hypertension, overweight, sliding hernia, ventral hernia, left inguinal hernia and left partial great toe amputation. Patient presented to the ED with generalized abdominal that has been on going for over a year, but became unbearable over the past 3 days. Patient also pointed to pain in his left inguinal region with an irreducible inguinoscratal hernia. He rated the abdominal pain as 10/10. He denies fever, chills nausea or vomiting. He endorsed headaches and poor vision mainly secondary to lost of his glasses. Patient's initial vitals were grossly unremarkable.WBC was within normal limits, plt 93-->83, Lactic acid was 2.2, albumin 2.3 and Ammonia less than 10. Of note, According to the patient, he was recently admitted to the ICU at [facility] for acute hypercapnic/hypoxic respiratory failure and had paracentesis during same admission. PMHx: COPD, peripheral neuropathy, alcoholic liver cirrhosis, polysubstance abuse, portal hypertension, hypertension, sliding hernia, ventral hernia, left inguinal hernia and left partial great toe amputation PSHx: left big toe amputation. Fmhx: Both parent , Father: heart attack, Mother: brain bleed Social: lives with girlfriend, unemployed Constitutional: Denies fever no chills no feeling of malaise HEENT: Mild headache, Denied ear pain, ear discharges, conjunctivitis, nasal discharge throat pain Cardiovascular: Denies chest pain, palpitation, orthopnea, PND, or pedal edema Respiratory: shortness of breath, Denied cough cough, sputum production, hemoptysis, GI: abdominal pain, Denied nausea, vomiting, diarrhea, hematemesis, hematochezia, : Denies frequency, urgency, hematuria; scrotal hernia Endocrine: Denies unintentional weight gain or weight loss, feeling of hot flashes, Otis: Denies easy bruising, bleeding disorders, epistaxis Musculoskeletal: Denies joint pains, muscle aches Psych: No evidence of depression, marcelina, suicidal ideation Objective vital signs Vital Sign Date Time Temp Pulse Resp B/P (MAP) Pulse Ox O2 Delivery O2 Flow Rate FiO2 04/13/24 10:17 69 17 124/61 04/13/24 10:12 97.6 91 97.6 04/13/24 08:00 Nasal Cannula* 2 28 medications Current Medications Medications Dose Ordered Sig/Anil Route Start Time Stop Time Status Last Admin Dose Admin Nitroglycerin 0.4 mg Q5MINP PRN SL 04/13/24 03:15 Morphine Sulfate 2 mg Q30M PRN IV 04/13/24 03:15 Sucralfate 1 gm QID@0600,1130,1700,2200 GT 04/13/24 06:00 04/13/24 06:15 1 GM Furosemide 40 mg DAILY IV 04/13/24 10:00 04/13/24 10:16 40 MG Lactulose 15 ml TID PO 04/13/24 06:00 04/13/24 06:15 15 ML Multivitamins/ Minerals 1 tab DAILY PO 04/13/24 10:00 04/13/24 10:16 1 TAB Midodrine 10 mg TID@0600,1200,1800 PO 04/13/24 06:00 04/13/24 06:15 10 MG Ergocalciferol 50,000 unit Q7D PO 04/13/24 03:30 04/13/24 04:13 50,000 UNIT Ceftriaxone Sodium/Dextrose 50 ml @ 50 mls/hr DAILY IV 04/14/24 10:00 Albuterol 2.5 mg Q6HWA NEB 04/13/24 06:00 04/13/24 06:57 2.5 MG Tramadol HCl 50 mg Q4HP PRN PO 04/13/24 03:45 Morphine Sulfate 1 mg Q4HP PRN IV 04/13/24 03:45 04/13/24 10:17 1 MG Folic Acid 1 mg DAILY PO 04/13/24 10:00 04/13/24 10:16 1 MG Pantoprazole Sodium 40 mg BID IV 04/13/24 10:00 04/13/24 10:16 40 MG Examination General examination- Mild- moderate distress, jaundiced HEENT: Icteric, no acute nasal discharge Chest: S1-S2 audible, rate and rhythm regular, no murmur Lung: Reduced air entry bilateral, NO wheeze or rhonchi Abdomen: Distend, BS+, tender, hepatomegaly, she has a dullness, supraumbilical hernia obvious, inguinal scrotal hernia left side Musculoskeletal: no acute joint swelling or tenderness Lower extremity: Pitting edema all the way to the thighs bilateral Neurological: cranial nerves intact, no acute dysarthria or dysphagia Psychiatry-- Normal mood and affect Skin-jaundiced laboratory and microbiology Laboratory Tests 04/13/24 06:36 04/13/24 04:07 Test 04/13/24 04:07 Range/Units Serum Glucose 86 74-106 mg/dL Problem List/Assessment/Plan Problem List/Assessment/Plan Abdominal pain secondary to ascites --> status post paracentesis; 10 L of ascitic fluid drained, patient feels much better --> usually get paracentesis q2 weeks --> fluid sent for ascitic studies --> albumin 37.5 g given --> ceftriaxone --> fluid restriction to 1.5 L a day Hyperkalemia --> 5.4 --> hold Spironolactone Ascites secondary to liver cirrhosis --> secondary to alcohol abuse --> decrease salt intake --> furosemide 40 mg daily MALU likely due to VMN --> monitor CR closely -->Repeat CMP: K: 4.7, Cr: 2.52 (baseline cr: 0.94 08/2023) Thrombocytopenia --> platelet level 93-83 -->Secondary to liver cirrhosis --> monitor for any petechiae Supraumbilical hernia --tenderness improved after paracentesis Inguinal scrotal hernia --> irreducible --> moderately tender --> patient passing stool, hence no obstruction Severe protein calorie malnutrition --> bitemporal wasting --> albumin level 2.2 History of polysubstance abuse Prophylaxis: Pantoprazole, plan: --> Complete albumin regimen prior to discharge --> Discharge patient on Rocephin likely tomorrow --> follow up at the discharge clinic upon discharge Code status: Full Case discussed for more than 30 minutes Case and plan discussed with Dr. Amor Plan discussed with: Patient, Other (partner) My Orders My Orders Orders - RHETT HULL Procedure Category Date Status Time Drug Screen LAB 04/13/24 Transmitted 10:25 Date of Service: Apr 13, 2024 Billing Provider: MARV CASTELAN MD Common Visit Codes: [id number] INP/OBS CARE(HIGH) RHETT HULL RESIDENT Apr 13, 2024 10:42 MARV CASTELAN MD Apr 17, 2024 23:59
--- NOTE | 2024-04-13 11:40 | DVH ---
CHEST RADIOGRAPH Indication: sob Technique: Single frontal view of the chest was obtained Comparison: XY CHEST PORTABLE on DOS: 12/18/22 FINDINGS: Lines and Tubes: None Lungs: Hazy right midlung opacity. Pleura: No effusion. No pneumothorax. Cardiomediastinal contours: Unremarkable Bones: No acute osseous abnormality. IMPRESSION: 1. Hazy right midlung opacity may reflect atelectasis or infiltrate.
--- NOTE | 2024-04-13 13:24 | DVH ---
US PARACENTESIS, HISTORY: ASCITES PROCEDURE: Informed consent was obtained. The patient was placed in supine position. A limited locali zation ultrasound of the abdomen was obtained, and the skin site over the largest pocket of fluid was marked and entry site was prepped with chlorhexidine which was allowed to dry and draped in the usua l sterile fashion. Time out was performed. Following administration of 1% lidocaine local anesthetic, a 5 [place] centesis needle catheter was percutaneously inserted into the peritoneal collection until fluid was aspirated. The catheter was advanced into the fluid collection [place] [id number] cc of fluid was aspirated and specimen sent for appropriate cultures/cytology/cultures and c ytology. The catheter was then removed and a sterile dressing applied. 32 gm of albumin colloid infus ion was given IV. No immediate complication was identified. FINDINGS: Limited ultrasound imaging demonstrates moderate to large ascites. Aspirated fluid was jody r and serous. IMPRESSION: US-guided paracentesis woth 10.3L removed.
[2024-04-13 13:28] LABS: Urine Amorphous Crystal FEW /hpf (None Seen); Urine Bacteria FEW /hpf (None Seen); Urine Blood TRACE /uL (Negative); Urine Hyaline Cast MOD /lpf (0 - 2); Urine Protein, UAD TRACE (Negative); Urine Specific Gravity 1.015 (1.001-1.035); Urine Urobilinogen Normal (Negative); Urine WBC 24 /hpf (0 - 3)
[2024-04-13 13:29] LABS: Urine Clarity Cloudy (Clear); Urine Color Yellow (Yellow)
--- NOTE | 2024-04-13 13:40 | DVHSR ---
APPROVED REPORT EXAM: LIMITED Two-dimensional and M-mode echocardiogram with Doppler and color Doppler. Blood Pressure: 116/60 mmHg INDICATION ef and cardiac wall motion RISK FACTORS Height: 6'1, Weight: 220 DIMENSIONS LVDd (3.8-5.7cm)LA (2D)4.3 (1.9-4.0cm)Aortic Root (2.0-3.7cm) EF (%) 50.0 (55-70%)Rt. Atrium3.0 (1.9-4.0cm)Asc. Aorta cm Mitral Valve MitralMitral Stenosis E wave0.81m/sMV Mean GR.mmHg A wave0.72m/sMV Peak GR.mmHg E/A ratio1.12D MVAcm2 DECEL [id number] 1/2 Timems Aortic Valve Aortic ValveAortic Stenosis V11.18m/Klaus Mean GR.6mmHg V21.56m/Klaus Peak GR.10mmHg Other Information Quality : LimitedRhythm : Technically limited study due to patient moving. Conclusion Normal left ventricular size and dimension. Normal left ventricular systolic function estimated ejec tion fraction of 50%. There is a grade two diastolic dysfunction. Normal right ventricular size and dimension. Normal left ventricular systolic function. Moderately dilated left atrium. Normal-sized right atrium The aortic valve appears mildly sclerotic. There is mild aortic valve regurgitation Normal mitral valve structure and function Normal tricuspid valve structure and function The pulmonary valve is grossly normal. No pericardial effusion. There is sizable biatrial pulmonary effusion.
[2024-04-13 13:47] LABS: Benzodiazephine Screen, Urine Pos (NEGATIVE); Opiate Scree,Urine Neg (NEGATIVE)
[2024-04-13 13:50] LABS: Amphetamine Screen, Urine Neg (NEGATIVE); Barbiturate Scree,Urine Neg (NEGATIVE); Cannabinoid Screen, Urine Neg (NEGATIVE); Cocaine Screen, Urine Neg (NEGATIVE); Phencyclidine Screen, Urine Neg (NEGATIVE)
[2024-04-13 14:56] LABS: Body Fluid Polymorphonuclear 7 % (0-25); Body Fluid Red Blood Cells 112 CUMM (0-2000); Body Fluid White Blood Cells 122 CUMM (0-200)
[2024-04-13] MEDS ORDERED: ALBUMIN 25% 100 ML IV ONE ×4 (15:00→16:00)
[2024-04-13] MEDS: SUCRALFATE 1 GM/10 ML ORAL SUSP PO SCH (15:28)
[2024-04-13 15:45] LABS: Potassium 4.7 mmol/L (3.5-5.1)
[2024-04-13 16:43] LABS: Anion Gap 10 (5-15); Calcium 8.9 mg/dL (8.7-10.4); Carbon Dioxide 23 mmol/L (20-31); Chloride 103 mmol/L (98-107)
[2024-04-13 16:51] LABS: BUN/Creatinine Ratio 10.7 (10.0-20.0)
[2024-04-13 17:12] LABS: Blood Urea Nitrogen 27 mg/dL (9-23); Glucose 138 mg/dL (74-106); Sodium 136 mmol/L (136-145)
[2024-04-13] MEDS: traMADol HCL 50 MG TAB PO PRN (21:49)
[2024-04-14] VITALS (13 sets, daily range): BP systolic 98–116; BP diastolic 43–63; PULSE 56–86; RESP 13–18; TEMP 97.5–98; O2SAT 90–100
[2024-04-14 08:27] LABS: Basophils # (auto) 0 10 ^3/uL (0-0.2); Lymphocytes # (auto) 0.9 10 ^3/uL (0.4-5.4); Neutrophils # (auto) 2.6 10 ^3/uL (1.6-8.6); Platelet Count (auto) 82 10^3/uL (140-450)
[2024-04-14 08:29] LABS: Basophils % (auto) 0.4 % (0.0-2.0); Eosinophils # (auto) 0.4 10 ^3/uL (0-0.8); Eosinophils % (auto) 7.7 % (0.0-7.0); Hematocrit 31.7 % (41.0-53.0); Hemoglobin 10.6 g/dL (13.5-17.5); Lymphocytes % (auto) 19.5 % (10.0-50.0); Mean Corpuscular Hemoglobin 38.9 pg (28.0-32.0); Mean Corpuscular Hgb Conc. 33.3 g/dL (32.0-36.0); Mean Corpuscular Volume 116.7 fL (80.0-100.0); Monocytes # (auto) 0.7 10 ^3/uL (0-1.3); Monocytes % (auto) 15.4 % (0.0-12.0); Nucleated Red Blood Cells % 0.2 %; Red Blood Cells 2.72 10^6/uL (4.5-5.90); Red Cell Distribution Width 17.4 % (11.8-14.3); White Blood Cell 4.6 10^3/uL (4.4-10.8)
[2024-04-14 08:46] LABS: Anion Gap 8 (5-15); Calcium 8.8 mg/dL (8.7-10.4); Carbon Dioxide 28 mmol/L (20-31); Chloride 101 mmol/L (98-107); Glucose 96 mg/dL (74-106); Potassium 4.1 mmol/L (3.5-5.1); Sodium 137 mmol/L (136-145)
[2024-04-14 08:50] LABS: BUN/Creatinine Ratio 12.3 (10.0-20.0)
[2024-04-14 08:51] LABS: Alanine Aminotransferase 78 U/L (7-40); Albumin 2.1 g/dL (3.2-4.8); Alkaline Phosphatase 134 U/L (46-116); Aspartate Aminotransferase 148 U/L (13-40); Bilirubin, Total 12.6 mg/dL (0.2-1.0); Blood Urea Nitrogen 31 mg/dL (9-23); Total Protein 5.3 g/dL (5.7-8.2)
[2024-04-14] MEDS: cefTRIAXone 2GM/50ML D5W 50 ML IV SCH (10:56)
[2024-04-14 12:06] LABS: Protein, Body Fluid 0.8 g/dL (.)
--- NOTE | 2024-04-14 19:26 | DVHPNRES ---
Progress Note Date Seen: Apr 14, 2024 Resident Creating Document: RHETT HULL RESIDENT Medical Necessity Reason Pt with a Central, PICC or Fol: No Medical Necessity Reason Cirrhosis Blood culture positive for Gram negative yuly Repeat Blood culture Subjective Review of Systems Patient is seen and examined today. He received 3 bags of albumin yesterday and he is currently on furosemide and lactulose. Blood culture drawn on day 1 of admission grew Gram-negative rods. Therefore we can with the patient in addition at the 2 repeat blood culture. Patient has no new complaints today stable. Constitutional: Denies fever no chills no feeling of malaise HEENT:headache improved, Denied ear pain, ear discharges, conjunctivitis, nasal discharge throat pain Cardiovascular: Denies chest pain, palpitation, orthopnea, PND, or pedal edema Respiratory: No more shortness of breath, Denied cough cough, sputum production, hemoptysis, GI: abdominal pain improved, Denied nausea, vomiting, diarrhea, hematemesis, hematochezia, : Denies frequency, urgency, hematuria; scrotal hernia Endocrine: Denies unintentional weight gain or weight loss, feeling of hot flashes, Otis: Denies easy bruising, bleeding disorders, epistaxis Musculoskeletal: Denies joint pains, muscle aches Psych: No evidence of depression, marcelina, suicidal ideation Objective vital signs Vital Sign Date Time Temp Pulse Resp B/P (MAP) Pulse Ox O2 Delivery O2 Flow Rate FiO2 04/14/24 18:32 64 17 116/47 04/14/24 18:31 95 04/14/24 18:31 Room Air* 0 21 21 04/14/24 17:11 97.7 97.7 Total Intake and Output 04/13/24 04/13/24 04/14/24 15:00 23:00 07:00 Intake Total 1130 ml 550 ml Output Total 580 ml 2 ml Balance 550 ml 548 ml medications Current Medications Medications Dose Ordered Sig/Anil Route Start Time Stop Time Status Last Admin Dose Admin Nitroglycerin 0.4 mg Q5MINP PRN SL 04/13/24 03:15 Morphine Sulfate 2 mg Q30M PRN IV 04/13/24 03:15 Furosemide 40 mg DAILY IV 04/13/24 10:00 04/14/24 10:55 40 MG Lactulose 15 ml TID PO 04/13/24 06:00 04/14/24 14:27 15 ML Multivitamins/ Minerals 1 tab DAILY PO 04/13/24 10:00 04/14/24 10:23 1 TAB Midodrine 10 mg TID@0600,1200,1800 PO 04/13/24 06:00 04/14/24 17:44 10 MG Ergocalciferol 50,000 unit Q7D PO 04/13/24 03:30 04/13/24 04:13 50,000 UNIT Ceftriaxone Sodium/Dextrose 50 ml @ 50 mls/hr DAILY IV 04/14/24 10:00 04/14/24 10:56 50 MLS/HR Albuterol 2.5 mg Q6HWA NEB 04/13/24 06:00 04/14/24 18:31 2.5 MG Tramadol HCl 50 mg Q4HP PRN PO 04/13/24 03:45 04/13/24 21:49 50 MG Morphine Sulfate 1 mg Q4HP PRN IV 04/13/24 03:45 04/14/24 18:32 1 MG Folic Acid 1 mg DAILY PO 04/13/24 10:00 04/14/24 10:23 1 MG Pantoprazole Sodium 40 mg BID IV 04/13/24 10:00 04/14/24 10:54 40 MG Sucralfate 1 gm QID@0600,1130,1700,2200 PO 04/13/24 13:15 04/14/24 17:44 1 GM Examination General Appearance: Alert, Oriented X3, Cooperative,skin has visible icterus , stigmata of liver cirrhosis HEENT: Atraumatic, PERRLA, EOMI, Mucous membr. moist/pink, Other (icterus) Respiratory: Clear to auscultation, Other (room air , rales, incomplete diaphragmatic excursion, basal atelectasis ) Cardiovascular: Regular rate, Normal S1, Normal S2, No murmurs Abdominal: Normal bowel sounds, Soft, Other (distended, umbilical hernia present, bs+, tympanic, no guarding, fluid thrill present, shifting dullness + flanks full. ) Extremities: Other (mild anasarca) Neuro: Normal gait, Normal speech, Strength at 5/5 X4 ext (4/5 in all limbs ), Normal tone, Sensation intact, Cranial nerves 3-12 NL, Reflexes 2+ (no encephalopathy, AAOx4) Psych/Mental Status: Mental status NL, Mood NL laboratory and microbiology Laboratory Tests 04/14/24 07:45 Test 04/14/24 07:45 Range/Units Serum Glucose 96 74-106 mg/dL Microbiology Date/Time Source Procedure Growth Status 04/13/24 13:00 Nose MRSA Screen - Final Complete 04/13/24 13:00 Voided Urine Urine Culture - Preliminary Resulted 04/13/24 12:50 Ascities Fluid Gram Stain - Final Resulted 04/13/24 12:50 Ascities Fluid Body Fluid Culture - Preliminary Resulted 04/13/24 04:22 Blood Blood Culture - Preliminary Resulted Labs and/or images reviewed: Labs reviewed by me, Image(s) reviewed by me Problem List/Assessment/Plan Problem List/Assessment/Plan Abdominal pain secondary to ascites -> improved after the pareacentesis --> status post paracentesis; 10 L of ascitic fluid drained, patient feels much better --> usually get paracentesis q2 weeks --> albumin 37.5 g given --> Continue ceftriaxone --> fluid restriction to 1.5 L a day Ascites fluid analysis --> report is normal Bacteremia Blood culture positive for Gram negative plan: repeat blood culture Hyperkalemia--> resolved --> 5.4 --> hold Spironolactone Ascites secondary to liver cirrhosis --> secondary to alcohol abuse --> decrease salt intake --> furosemide 40 mg daily MALU likely due to VMN --> monitor CR closely -->Repeat CMP: K: 4.1, Cr: 2.53 (baseline cr: 0.94 08/2023) Thrombocytopenia --> platelet level 93-83-82 -->Secondary to liver cirrhosis --> monitor for any petechiae Supraumbilical hernia --tenderness improved after paracentesis Inguinal scrotal hernia --> irreducible --> moderately tender --> patient passing stool, hence no obstruction Severe protein calorie malnutrition --> bitemporal wasting --> albumin level 2.1 History of polysubstance abuse Prophylaxis: Pantoprazole, plan: --> Discharge patient on Rocephin, lactulose, furosemide and spironolactone likely tomorrow --> follow up at the discharge clinic upon discharge Goals of care discussed for 20 minutes; Code status: Full Case and plan discussed with Dr. Alhurani Plan discussed with: Patient, Other (Nurse) Addendum Addendum Addendum I was physically present for the wright portions of the service provided to patient by THE RESIDENT. I have reviewed the documentation, discussed the case with resident and agree with the resident's documentation except as noted. Also the patient's clinical case was discussed with the patient's nurse. This medical document was created using an electronic medical record system with computerized dictation system. Although this document has been carefully reviewed, there might still be some phonetic and typographical errors. These areas are purely typographical due to imperfections of the software programs, and do not reflect any compromise in the patient's medical care. Late signature. Date of Service: Apr 14, 2024 Billing Provider: CLAUDIA AGUILAR MD Common Visit Codes: [id number] INP/OBS CARE(HIGH) Secondary Visit Codes: [id number] CARE PLAN 30 MINUTES (20 minutes) RHETT HULL RESIDENT Apr 14, 2024 19:26 CLAUDIA AGUILAR MD Apr 15, 2024 04:53
[2024-04-15] VITALS (14 sets, daily range): BP systolic 99–126; BP diastolic 42–54; PULSE 63–80; RESP 13–20; TEMP 97.6–98.3; O2SAT 89–100
[2024-04-15 13:53] LABS: Chloride 100 mmol/L (98-107); Potassium 4.8 mmol/L (3.5-5.1)
[2024-04-15 13:54] LABS: Anion Gap 8 (5-15); Carbon Dioxide 27 mmol/L (20-31)
[2024-04-15 13:55] LABS: Calcium 8.9 mg/dL (8.7-10.4)
[2024-04-15 13:59] LABS: Sodium 135 mmol/L (136-145)
[2024-04-15 14:00] LABS: Blood Urea Nitrogen 31 mg/dL (9-23); Glucose 115 mg/dL (74-106)
[2024-04-15 14:44] LABS: BUN/Creatinine Ratio 11.9 (10.0-20.0)
--- NOTE | 2024-04-15 16:03 | DVHPNRES ---
Progress Note Date Seen: Apr 15, 2024 Resident Creating Document: RHETT HULL Medical Necessity Reason Pt with a Central, PICC or Fol: No Medical Necessity Reason Pending blood culture Elevated creatinine Subjective Review of Systems Patient is a 63-year-old male with a known past medical history of alcoholic liver cirrhosis, polysubstance abuse, portal hypertension COPD and hypertension. He presented with abdominal pain and shortness of breath. He is status post paracentesis (10L ). Ascetic fluid analysis was normal. Patient is currently being managed for liver cirrhosis with furosemide, lactulose. Spironolactone was initially held due to hyperkalelmia. Initial blood work showed Gram Negative Rods. A repeat blood culture sent yesterday, currently pending result. Patient's creatinine level increase from 1.38--> 2.56 noted on this admission. Gerontological Nurse Practitioner consult for assessment. Review of system Constitutional: Denies fever no chills no feeling of malaise, jaundiced HEENT: Denies headache, ear pain, ear discharges, conjunctivitis, nasal discharge throat pain Cardiovascular: Denies chest pain, palpitation, orthopnea, PND, or pedal edema Respiratory: shortness of breath, Denied cough cough, sputum production, hemoptysis, GI: abdominal pain, abdominal hernia, Denied nausea, vomiting, diarrhea, hematemesis, hematochezia, : Denies frequency, urgency, hematuria; scrotal hernia Endocrine: Denies unintentional weight gain or weight loss, Otis: Denies easy bruising, bleeding disorders, epistaxis Musculoskeletal: Denies joint pains, muscle aches Psych: No evidence of depression, marcelina, suicidal ideation Objective vital signs Vital Sign Date Time Temp Pulse Resp B/P (MAP) Pulse Ox O2 Delivery O2 Flow Rate FiO2 04/15/24 13:02 75 18 98 04/15/24 12:57 Room Air 04/15/24 12:57 0 21 04/15/24 12:30 98.1 126/54 (78) 98.1 Total Intake and Output 04/14/24 04/14/24 04/15/24 15:00 23:00 07:00 Intake Total 300 ml 500 ml 400 ml Output Total 0 ml Balance 300 ml 500 ml 400 ml medications Current Medications Medications Dose Ordered Sig/Anil Route Start Time Stop Time Status Last Admin Dose Admin Nitroglycerin 0.4 mg Q5MINP PRN SL 11/27/24 03:15 Morphine Sulfate 2 mg Q30M PRN IV 04/13/24 03:15 Lactulose 15 ml TID PO 04/13/24 06:00 04/15/24 05:42 15 ML Multivitamins/ Minerals 1 tab DAILY PO 04/13/24 10:00 04/15/24 09:43 1 TAB Midodrine 10 mg TID@0600,1200,1800 PO 04/13/24 06:00 04/15/24 12:00 10 MG Ergocalciferol 50,000 unit Q7D PO 04/13/24 03:30 04/13/24 04:13 50,000 UNIT Ceftriaxone Sodium/Dextrose 50 ml @ 50 mls/hr DAILY IV 04/14/24 10:00 04/15/24 09:45 50 MLS/HR Albuterol 2.5 mg Q6HWA NEB 04/13/24 06:00 04/15/24 12:57 2.5 MG Tramadol HCl 50 mg Q4HP PRN PO 04/13/24 03:45 04/13/24 21:49 50 MG Morphine Sulfate 1 mg Q4HP PRN IV 04/13/24 03:45 04/15/24 09:46 1 MG Folic Acid 1 mg DAILY PO 04/13/24 10:00 04/15/24 09:43 1 MG Pantoprazole Sodium 40 mg BID IV 04/13/24 10:00 04/15/24 09:43 40 MG Sucralfate 1 gm QID@0600,1130,1700,2200 PO 04/13/24 13:15 04/15/24 11:30 1 GM Furosemide 40 mg DAILY IV 04/16/24 10:00 Examination General Appearance: Alert, Oriented X3, Cooperative, skin has visible icterus, stigmata of liver cirrhosis HEENT: Atraumatic, PERRLA, EOMI, Mucous membr. moist/pink, Other (icterus) Respiratory: Clear to auscultation, Other (room air , rales, incomplete diaphragmatic excursion, basal atelectasis ) Cardiovascular: Regular rate, Normal S1, Normal S2, No murmurs Abdominal: Normal bowel sounds, Soft, Other (distended, umbilical hernia present, bs+, tympanic, no guarding, fluid thrill present, shifting dullness + flanks full) Extremities: Other (mild anasarca) Neuro: Normal gait, Normal speech, Strength at 5/5 X4 ext (4/5 in all limbs ), Normal tone, Sensation intact, Cranial nerves 3-12 NL, Reflexes 2+ (no encephalopathy, AAOx4) Psych/Mental Status: Mental status NL, Mood NL laboratory and microbiology Laboratory Tests 04/15/24 13:30 04/14/24 07:45 Test 04/15/24 13:30 Range/Units Serum Glucose 115 H 74-106 mg/dL Microbiology Date/Time Source Procedure Growth Status 04/14/24 14:35 Blood Blood Culture - Preliminary NO GROWTH AFTER 24 HOURS OF INCUBATION. Resulted 04/13/24 13:00 Nose MRSA Screen - Final Complete 04/13/24 13:00 Voided Urine Urine Culture - Final Complete 04/13/24 12:50 Ascities Fluid Gram Stain - Final Resulted 04/13/24 12:50 Ascities Fluid Body Fluid Culture - Preliminary Resulted Labs and/or images reviewed: Labs reviewed by me, Image(s) reviewed by me Problem List/Assessment/Plan Problem List/Assessment/Plan Abdominal pain secondary to ascites -> improved after the pareacentesis --> status post paracentesis; 10 L of ascitic fluid drained, patient feels much better --> usually get paracentesis q2 weeks --> albumin 37.5 g given --> Continue ceftriaxone Ascites fluid analysis --> report is normal Bacteremia Blood culture positive for Gram negative Repeat blood culture--> Preliminary has no growth. Pending final result Rule out Heptorenal syndrome --> Elevated creatinine 1.38--> 2.57 --> Persistent elevated creatinine --> Nephrology consult Hyperkalemia--> resolved --> 5.4--> 4.8 --> resume low dose spironolactone Ascites secondary to liver cirrhosis --> secondary to alcohol abuse --> decrease salt intake --> IV furosemide 40 mg daily --> Resume low dose Spironolactone 25mg today --> Continue lactulose --> fluid restriction to 1.5 L a day MALU likely due to VMN --> monitor CR closely --> baseline cr: 0.94 08/2023) Thrombocytopenia -->Secondary to liver cirrhosis --> monitor for any petechiae/ or hemorrhages Supraumbilical hernia --tenderness improved after paracentesis Inguinal scrotal hernia --> irreducible --> moderately tender --> patient passing stool, hence no obstruction Severe protein calorie malnutrition --> bitemporal wasting History of polysubstance abuse Prophylaxis: Pantoprazole, Diet: Regular diet Plan: Change furosemide to 40 mg PO 04/16/2024 Resume spironolactone 25 mg Case and plan discussed with Dr. Aguilar Plan discussed with: Patient, Spouse, Other (Nurse) My Orders My Orders Orders - RHETT HULL Procedure Category Date Status Time Regular Diet DIET 04/15/24 Transmitted Lunch Urine LAB 04/15/24 Logged Protein/Creatinine Urine Sodium LAB 04/15/24 Logged 15:20 Addendum Addendum Addendum I was physically present for the wright portions of the service provided to patient by THE RESIDENT. I have reviewed the documentation, discussed the case with resident and agree with the resident's documentation except as noted. Also the patient's clinical case was discussed with the patient's nurse. This medical document was created using an electronic medical record system with computerized dictation system. Although this document has been carefully reviewed, there might still be some phonetic and typographical errors. These areas are purely typographical due to imperfections of the software programs, and do not reflect any compromise in the patient's medical care. Late signature. Date of Service: Apr 15, 2024 Billing Provider: CLAUDIA AGUILAR MD Common Visit Codes: [id number] INP/OBS CARE(HIGH) RHETT HULL Apr 15, 2024 16:03 CLAUDIA AGUILAR MD Apr 16, 2024 05:18
[2024-04-15] MEDS: SPIRONOLACTONE 25 MG TAB PO ONE (16:41)
[2024-04-16] VITALS (15 sets, daily range): BP systolic 93–127; BP diastolic 43–50; PULSE 68–84; RESP 16–20; TEMP 97.8–98.3; O2SAT 87–100
[2024-04-16] MEDS: FUROSEMIDE 40 MG TAB PO SCH (09:55)
[2024-04-16] MEDS ORDERED: FUROSEMIDE 40 MG/4 ML VIAL IV SCH (10:00)
[2024-04-16 10:43] LABS: Hematocrit 31.3 % (41.0-53.0); Hemoglobin 10.6 g/dL (13.5-17.5); Mean Corpuscular Hemoglobin 39.2 pg (28.0-32.0); Mean Corpuscular Hgb Conc. 33.9 g/dL (32.0-36.0); Mean Corpuscular Volume 115.6 fL (80.0-100.0); Platelet Count (auto) 100 10^3/uL (140-450); Red Blood Cells 2.71 10^6/uL (4.5-5.90); Red Cell Distribution Width 16.9 % (11.8-14.3); White Blood Cell 4.9 10^3/uL (4.4-10.8)
[2024-04-16 10:48] LABS: Band Neutrophils % (manual) 0; Basophils % (manual) 0 (0.0-2.0); Blast Cells 0; Metamyelocytes % 0; Myelocytes % 0; Promyelocytes % 0; Reactive Lymphocytes 0
[2024-04-16 10:57] LABS: Anion Gap 7 (5-15); BUN/Creatinine Ratio 13.7 (10.0-20.0); Calcium 8.8 mg/dL (8.7-10.4); Carbon Dioxide 27 mmol/L (20-31); Chloride 101 mmol/L (98-107)
[2024-04-16 10:58] LABS: Alanine Aminotransferase 81 U/L (7-40); Alkaline Phosphatase 170 U/L (46-116); Aspartate Aminotransferase 167 U/L (13-40); Blood Urea Nitrogen 39 mg/dL (9-23); Glucose 135 mg/dL (74-106); Sodium 135 mmol/L (136-145); Total Protein 5.6 g/dL (5.7-8.2)
[2024-04-16 10:59] LABS: Albumin 2.2 g/dL (3.2-4.8)
[2024-04-16 11:15] LABS: Eosinophils % (manual) 3 (0-7); Lymphocytes % (manual) 14 (10.0-50.0); Monocytes % (manual) 15 (0-12)
[2024-04-16 11:16] LABS: Anisocytosis Slight; Macrocytosis Moderate
[2024-04-16 11:17] LABS: Ovalocytes FEW; Platelet Estimate Decreased
--- NOTE | 2024-04-16 12:30 | DVHPNRES ---
Progress Note Date Seen: Apr 16, 2024 Resident Creating Document: CHUNG GRIER RESIDENT Medical Necessity Reason Pt with a Central, PICC or Fol: No Subjective Review of Systems Patient was seen and examined at bedside. He stated feeling mild shortness of breath, intermittent abdominal pain, no significant nausea, vomiting, dizziness, lightheadedness. Nephrology consult is pending Repeat chest x-ray showing mild congestion also better than before. Patient is currently on room air saturating well above 92%. Continue Lasix and Aldactone Objective vital signs Vital Sign Date Time Temp Pulse Resp B/P (MAP) Pulse Ox O2 Delivery O2 Flow Rate FiO2 04/16/24 12:06 70 18 99 04/16/24 12:00 Nasal Cannula 2.0 04/16/24 12:00 28 04/16/24 09:56 107/43 04/16/24 09:00 97.9 97.9 Total Intake and Output 04/15/24 04/15/24 04/16/24 15:00 23:00 07:00 Intake Total 50 ml 750 ml 760 ml Balance 50 ml 750 ml 760 ml medications Current Medications Medications Dose Ordered Sig/Anil Route Start Time Stop Time Status Last Admin Dose Admin Nitroglycerin 0.4 mg Q5MINP PRN SL 04/13/24 03:15 Morphine Sulfate 2 mg Q30M PRN IV 04/13/24 03:15 Lactulose 15 ml TID PO 04/13/24 06:00 04/16/24 05:55 15 ML Multivitamins/ Minerals 1 tab DAILY PO 04/13/24 10:00 04/16/24 09:55 1 TAB Midodrine 10 mg TID@0600,1200,1800 PO 04/13/24 06:00 04/16/24 05:55 10 MG Ergocalciferol 50,000 unit Q7D PO 04/13/24 03:30 04/13/24 04:13 50,000 UNIT Ceftriaxone Sodium/Dextrose 50 ml @ 50 mls/hr DAILY IV 04/14/24 10:00 04/16/24 09:55 50 MLS/HR Albuterol 2.5 mg Q6HWA NEB 04/13/24 06:00 04/16/24 11:59 2.5 MG Tramadol HCl 50 mg Q4HP PRN PO 04/13/24 03:45 04/13/24 21:49 50 MG Morphine Sulfate 1 mg Q4HP PRN IV 04/13/24 03:45 04/16/24 09:56 1 MG Folic Acid 1 mg DAILY PO 04/13/24 10:00 04/16/24 09:55 1 MG Pantoprazole Sodium 40 mg BID IV 04/13/24 10:00 04/16/24 09:55 40 MG Sucralfate 1 gm QID@0600,1130,1700,2200 PO 04/13/24 13:15 04/16/24 05:55 1 GM Furosemide 40 mg DAILY PO 04/16/24 10:00 04/16/24 09:55 40 MG Examination General: Awake, alert, comfortable appearing, in no acute distress, jaundice. HEENT: Head is normocephalic and atraumatic. Pupils are equal, round, and reactive to light. Icteric. No nasal discharge. No facial trauma. Intraoral exam shows moist mucous membranes with no tonsillar enlargement or exudate. Neck: Supple with no cervical lymphadenopathy No meningismus. No goiter. Heart: Regular rate without murmur, rub, or gallop. Lungs: Scattered coarse crackles Abdomen: distended, umbilical hernia present, bs+, tympanic, no guarding, fluid thrill present, shifting dullness + flanks full Extremities: Strong peripheral pulses. There is no clubbing, no cyanosis, and + two pitting edema Skin: No rash. Neurologic: Cranial nerves II-XII intact without motor, sensory, or cerebellar deficit, no asterixis. laboratory and microbiology Laboratory Tests 04/16/24 10:30 Test 04/16/24 10:30 Range/Units Serum Glucose 135 H 74-106 mg/dL Microbiology Date/Time Source Procedure Growth Status 04/14/24 14:35 Blood Blood Culture - Preliminary NO GROWTH AFTER 24 HOURS OF INCUBATION. Resulted 04/13/24 13:00 Nose MRSA Screen - Final Complete 04/13/24 13:00 Voided Urine Urine Culture - Final Complete 04/13/24 12:50 Ascities Fluid Gram Stain - Final Resulted 04/13/24 12:50 Ascities Fluid Body Fluid Culture - Preliminary Resulted Labs and/or images reviewed: Labs reviewed by me, Image(s) reviewed by me Problem List/Assessment/Plan Problem List/Assessment/Plan Abdominal pain secondary to ascites -> improved after the paracentesis --> status post paracentesis; 10 L of ascitic fluid drained, patient feels much better --> usually get paracentesis q2 weeks --> albumin 37.5 g given --> Continue ceftriaxone Ascites fluid analysis --> report is normal Bacteremia Blood culture positive for Gram negative Repeat blood culture--> Preliminary has no growth. Pending final result Continue ceftriaxone IV Rule out Hepatorenal syndrome --> Elevated creatinine 1.38--> 2.57 --> Persistent elevated creatinine --> Nephrology consult Hyperkalemia--> resolved --> 5.4--> 4.8 --> resume low dose spironolactone Ascites secondary to liver cirrhosis --> secondary to alcohol abuse --> decrease salt intake --> po furosemide 40 mg daily --> Resume low dose Spironolactone 25mg --> Continue lactulose --> fluid restriction to 1.5 L a day MALU on CKD likely due to VMN --> monitor CR closely --> baseline cr: 0.94 08/2023) Nephrology consult pending Thrombocytopenia -->Secondary to liver cirrhosis --> monitor for any petechiae/ or hemorrhages Supraumbilical hernia --tenderness improved after paracentesis Inguinal scrotal hernia --> irreducible --> moderately tender --> patient passing stool, hence no obstruction Severe protein calorie malnutrition --> bitemporal wasting History of polysubstance abuse Counseled on cessation Prophylaxis: Pantoprazole, Diet: Regular diet Case and plan discussed with Dr. Aguilar Plan discussed with: Patient, Other (RN) My Orders My Orders Orders - CHUNG GRIER RESIDENT Procedure Category Date Status Time *Dr. [facility] CONS 04/15/24 Transmitted -[place] 15:13 Chest Portable XY 04/16/24 Taken 11:50 Addendum Addendum Addendum I was physically present for the wright portions of the service provided to patient by THE RESIDENT. I have reviewed the documentation, discussed the case with resident and agree with the resident's documentation except as noted. Also the patient's clinical case was discussed with the patient's nurse. This medical document was created using an electronic medical record system with computerized dictation system. Although this document has been carefully reviewed, there might still be some phonetic and typographical errors. These areas are purely typographical due to imperfections of the software programs, and do not reflect any compromise in the patient's medical care. Late signature. Date of Service: Apr 16, 2024 Billing Provider: CLAUDIA AGUILAR MD Common Visit Codes: [id number] INP/OBS CARE(HIGH) CHUNG GRIER RESIDENT Apr 16, 2024 12:30 CLAUDIA AGUILAR MD Apr 17, 2024 18:27
[2024-04-16] MEDS: SPIRONOLACTONE 25 MG TAB PO ONE (12:45)
--- NOTE | 2024-04-16 13:20 | DVH ---
CHEST RADIOGRAPH Indication: sob Technique: Single frontal view of the chest was obtained Comparison: XY CHEST PORTABLE on DOS: 04/13/24, XY CHEST PORTABLE on DOS: 12/18/22, CHEST PORTABLE on D OS: 02/03/22 FINDINGS: Lines and Tubes: None Lungs: No focal consolidation. Linear densities over the bilateral upper and lower lung zones Pleura: No effusion. No pneumothorax. Cardiomediastinal contours: Unremarkable Bones: No acute osseous abnormality. IMPRESSION: Bilateral upper and lower lung zone atelectasis.
--- NOTE | 2024-04-16 19:08 | DVHINCON2 ---
Date of service: Apr 16, 2024 Reason for Consultation MALU History of Present Illness 63 years old male with past medical history of alcoholism, liver cirrhosis, portal hypertension, smoking, COPD, chronic kidney disease, hypertension, obesity, inguinal hernia, , presented with chief complaints of abdominal pain and distension patient denies any urinary complaints In August he has normal kidney function presented on April 12 with creatinin e of 2.56 GFR of 27 He underwent paracentesis on April 13 with 10.3 L off fluid removed Past Medical History As per HPI Past Surgical History As per HPI Allergies: Coded Allergies: NO KNOWN ALLERGIES (Unverified , 08/04/18) Home Meds Active Scripts Oxycodone W/ Acetaminophen (Percocet 5/325MG) 1 Tab Tb, 1 TAB PO QID for 7 Days, #28 TAB Prov:BOBBY VELIZ NP 08/31/23 Sucralfate (CARAFATE SUSP) 1 Gm/10 Ml Ss, 1 GM PO QIDACHS for 30 Days, #120 GM Prov:CLAUDIA AGUILAR MD 12/20/22 Reported Medications Celecoxib (CeleBREX CAPSULE) 100 Mg Cp, 1 CAP PO DAILY for 90 Days, #90 04/14/24 Midodrine Hcl (Midodrine Hcl) 10 Mg Tab, 1 TAB PO TID for 30 Days, #90 04/14/24 Potassium Chloride (Potassium Chloride ER) 20 Meq Tab, 1 TAB PO BID for 30 Days, #60 04/14/24 Ergocalciferol (Vitamin D (Ergocalciferol) 50,000 Unit Cap, 1 CAP PO QWEEKLY for 84 Days, #12 04/14/24 Ibuprofen (Ibuprofen) 800 Mg Tab, 1 TAB PO Q8HR PRN for 90 Days, #270 04/14/24 Spironolactone (Spironolactone) 25 Mg Tab, 1 TAB PO DAILY for 90 Days, #90 04/14/24 Folic Acid (Folic Acid) 1 Mg Tab, 1 TAB PO DAILY for 30 Days, #30 04/14/24 Thiamine Hcl (Vitamin B1) 100 Mg Tab, 1 TAB PO DAILY for 30 Days, #30 04/14/24 Lactulose (Lactulose) 10 Gm/15 Ml Nieves, 30 ML PO Q3HR for 30 Days, #8832 04/14/24 Pantoprazole Sodium Sesquihydr (Protonix) 40 Mg Tab, 1 TAB PO DAILY for 30 Days, #30 04/14/24 Furosemide (Furosemide) 40 Mg Tab, 1 TAB PO DAILY for 30 Days, #30 04/14/24 Docusate Sodium (Colace) 100 Mg Cap, 1 CAP PO DAILY for 90 Days, #90 04/14/24 Current Medications Current Medications Medications (Trade) Dose Ordered Sig/Anil Route PRN Reason Start Time Stop Time Status Last Admin Furosemide (Lasix Injection) 40 mg DAILY IV 04/16/24 10:00 04/15/24 16:24 DC Furosemide (Lasix Tablet) 40 mg DAILY PO 04/16/24 10:00 04/16/24 09:55 Spironolactone (Aldactone) 25 mg DAILY PO 04/17/24 10:00 Family History: Cardiovascular disease G8 FATHER Colon cancer G8 MOTHER FH: cancer G8 FATHER FH: heart attack G8 FATHER Review of Systems HEENT-denies headache, denies vision changes, no hearing issue, denies neck complaints, denies throat issues Respiratory system-denies cough, denies shortness of breath Cardiovascular system-denies chest pain, denies palpitations Abdomen-denies abdominal pain, denies nausea, denies vomiting, denies constipation or diarrhea Musculoskeletal-denies swelling in the legs, denies pain in the extremities Genitourinary-denies urinary symptoms like dysuria, stream issues Neuro-denies dizziness, denies seizures Psychiatric-denies psychiatric history H&P Exam Vital Signs/I&O Vital Sign Date Time Temp Pulse Resp B/P (MAP) Pulse Ox O2 Delivery O2 Flow Rate FiO2 04/16/24 18:16 74 18 99 04/16/24 18:14 Nasal Cannula* 2 28 04/16/24 17:00 98.3 127/50 (75) 98.3 Intake and Output 04/15/24 04/16/24 19:00 07:00 Intake Total 800 ml 760 ml Balance 800 ml 760 ml Intake Oral 750 ml 760 ml IV Total 50 ml # Voids 4 3 # Bowel Movements 2 1 Physical Exam General-not in any distress HEENT-normocephalic, no icterus, no pallor, neck supple Respiratory-fair air entry bilateral, no rhonchi, no wheeze [id number] heard, no murmurs appreciated Abdominal-minimal distention Musculoskeletal-positive pedal edema, no calf tenderness Genitourinary-deferred Neuro-awake alert oriented x3, Psychiatric-not agitated, cooperative, Labs/Diagnostic Data Labs/Diagnostic Data Laboratory Tests Test 04/16/24 10:30 04/15/24 13:30 04/14/24 07:45 04/13/24 15:26 Range/Units White Blood Count 4.9 4.6 4.4-10.8 10^3/uL Red Blood Count 2.71 L 2.72 L 4.5-5.90 10^6/uL Hemoglobin 10.6 L 10.6 L 13.5-17.5 g/dL Hematocrit 31.3 L 31.7 L 41.0-53.0 % Mean Corpuscular Volume 115.6 H 116.7 H 80.0-100.0 fL Mean Corpuscular Hemoglobin 39.2 H 38.9 H 28.0-32.0 pg Mean Corpuscular Hemoglobin Concent 33.9 33.3 32.0-36.0 g/dL Red Cell Distribution Width 16.9 H 17.4 H 11.8-14.3 % Platelet Count 100 L 82 L 140-450 10^3/uL Mean Platelet Volume 10.0 9.8 6.9-10.8 fL Neutrophils (%) (Auto) 57.0 37.0-80.0 % Lymphocytes (%) (Auto) 19.5 10.0-50.0 % Monocytes (%) (Auto) 15.4 H 0.0-12.0 % Basophils (%) (Auto) 0.4 0.0-2.0 % Neutrophils # (Auto) 2.6 1.6-8.6 10 ^3/uL Lymphocytes # (Auto) 0.9 0.4-5.4 10 ^3/uL Monocytes # (Auto) 0.7 0-1.3 10 ^3/uL Differential Total Cells Counted 100.0 100 Neutrophils % (Manual) 68 37.0-80.0 Band Neutrophils % (Manual) 0 Lymphocytes % (Manual) 14 10.0-50.0 Monocytes % (Manual) 15 H 0-12 Eosinophils % (Manual) 3 0-7 Basophils % (Manual) 0 0.0-2.0 Metamyelocytes % (manual) 0 Myelocytes % (Manual) 0 Promyelocytes % (Manual) 0 Blast Cells % (Manual) 0 Reactive Lymphocytes 0 Platelet Estimate Decreased Anisocytosis (manual) Slight Macrocytosis Moderate Ovalocytes Few Sodium Level 135 L 135 L 137 136 136-145 mmol/L Potassium Level 4.0 4.8 4.1 4.7 3.5-5.1 mmol/L Chloride Level 101 100 101 103 98-107 mmol/L Carbon Dioxide Level 23 20-31 mmol/L Anion Gap 7 8 8 10 5-15 Blood Urea Nitrogen 39 H 31 H 31 H 27 H 9-23 mg/dL Creatinine 2.85 H 2.60 H 2.53 H 2.52 H 0.700-1.30 mg/dL Glomerular Filtration Rate Calc 28 >90 mL/min BUN/Creatinine Ratio 13.7 11.9 12.3 10.7 10.0-20.0 Serum Glucose 135 H 115 H 96 138 H 74-106 mg/dL Calcium Level 8.8 8.9 8.8 8.9 8.7-10.4 mg/dL Total Bilirubin 13.0 H 12.6 H 0.2-1.0 mg/dL Aspartate Amino Transferase (AST) 167 H 148 H 13-40 U/L Alanine Aminotransferase (ALT) 81 H 78 H 7-40 U/L Alkaline Phosphatase 170 H 134 H 46-116 U/L Total Protein 5.6 L 5.3 L 5.7-8.2 g/dL Albumin 2.2 L 2.1 L 3.2-4.8 g/dL Eosinophils (%) (Auto) 7.7 H 0.0-7.0 % Eosinophils # (Auto) 0.4 0-0.8 10 ^3/uL Basophils # (Auto) 0 0-0.2 10 ^3/uL Nucleated Red Blood Cells 0.2 % Test 04/13/24 13:00 04/13/24 12:50 04/13/24 06:36 04/13/24 04:22 Range/Units Urine Color Yellow Yellow Urine Clarity Cloudy H Clear Urine pH 5.0 5.0-9.0 Urine Specific [place] 1.015 1.001-1.035 Urine Protein Trace H Negative Urine Ketones Negative Negative Urine Blood Trace H Negative /uL Urine Nitrite Negative Negative Urine Bilirubin 2+ Negative Urine Urobilinogen Normal Negative mg/dL Urine Leukocyte Esterase 1+ Negative /uL Urine RBC 1 0 - 3 /hpf Urine WBC 24 0 - 3 /hpf Urine Squamous Epithelial Cells Few <5 /hpf Urine Amorphous Crystals Few None Seen /hpf Urine Bacteria Few H None Seen /hpf Urine Hyaline Casts Mod 0 - 2 /lpf Urine Glucose Normal Normal mg/dL Stool Occult Blood Negative Negative Stool Occult Blood Sample #3 Negative Urine Opiates Screen Neg NEGATIVE Urine Fentanyl Screen Neg NEGATIVE Urine Barbiturates Screen Neg NEGATIVE Urine Phencyclidine Screen Neg NEGATIVE Urine Amphetamines Screen Neg NEGATIVE Urine Benzodiazepines Screen Pos NEGATIVE Urine Cocaine Screen Neg NEGATIVE Urine Cannabinoids Screen Neg NEGATIVE Body Fluid Source Peritoneal Body Fluid pH 8.0 Body Fluid WBC (Manual) 122 0-200 CUMM Body Fluid RBC (Manual) 112 0-2000 CUMM Body Fluid Mononuclear Cells 93 % Body Fluid Polymorphonuclear Cells 7 0-25 % Body Fluid Glucose 95 . mg/dL Body Fluid Total Protein 0.8 . g/dL Body Fluid Lactate Dehydrogenase 50 . IU/L White Blood Count 5.5 4.4-10.8 10^3/uL Red Blood Count 2.94 L 4.5-5.90 10^6/uL Hemoglobin 11.5 L 13.5-17.5 g/dL Hematocrit 33.8 L 41.0-53.0 % Mean Corpuscular Volume 115.0 H 80.0-100.0 fL Mean Corpuscular Hemoglobin 39.3 H 28.0-32.0 pg Mean Corpuscular Hemoglobin Concent 34.2 32.0-36.0 g/dL Red Cell Distribution Width 17.6 H 11.8-14.3 % Platelet Count 83 L 140-450 10^3/uL Mean Platelet Volume 9.8 6.9-10.8 fL Neutrophils (%) (Auto) 60.3 37.0-80.0 % Lymphocytes (%) (Auto) 18.6 10.0-50.0 % Monocytes (%) (Auto) 15.6 H 0.0-12.0 % Eosinophils (%) (Auto) 5.1 0.0-7.0 % Basophils (%) (Auto) 0.4 0.0-2.0 % Neutrophils # (Auto) 3.3 1.6-8.6 10 ^3/uL Lymphocytes # (Auto) 1.0 0.4-5.4 10 ^3/uL Monocytes # (Auto) 0.9 0-1.3 10 ^3/uL Eosinophils # (Auto) 0.3 0-0.8 10 ^3/uL Basophils # (Auto) 0 0-0.2 10 ^3/uL Nucleated Red Blood Cells 0.2 % Prothrombin Time 20.9 H 9.3-11.8 sec Prothrombin Time INR 2.08 H 0.9-1.15 Activated Partial Thromboplast Time 44.3 H 102.2 *H 24.5-34.5 SEC Lactic Acid Level 1.9 2.2 *H 0.4-2.0 mmol/L D-Dimer, Quantitative 5.36 H 0.0-0.49 mg/L FEU Ammonia 25 11-32 umol/L Vitamin B12 Level 3187 H 211-911 pg/mL Folic Acid 29.62 >5.38 ng/mL Thyroid Stimulating Hormone (TSH) 1.43 0.55-4.78 uIU/mL Test 04/13/24 04:07 04/13/24 00:20 04/12/24 23:45 Range/Units Sodium Level 137 139 136-145 mmol/L Potassium Level 5.4 H 4.3 3.5-5.1 mmol/L Chloride Level 102 103 98-107 mmol/L Carbon Dioxide Level 30 30 20-31 mmol/L Anion Gap 5 6 5-15 Blood Urea Nitrogen 31 H 31 H 9-23 mg/dL Creatinine 2.37 H 2.56 H 0.700-1.30 mg/dL Glomerular Filtration Rate Calc 30 27 >90 mL/min BUN/Creatinine Ratio 13.1 12.1 10.0-20.0 Serum Glucose 86 112 H 74-106 mg/dL Calcium Level 9.1 9.1 8.7-10.4 mg/dL Total Bilirubin 16.1 H 14.1 H 0.2-1.0 mg/dL Aspartate Amino Transferase (AST) 231 H 170 H 13-40 U/L Alanine Aminotransferase (ALT) 101 H 92 H 7-40 U/L Alkaline Phosphatase 175 H 170 H 46-116 U/L Total Protein 7.0 6.1 5.7-8.2 g/dL Albumin 2.8 L 2.3 L 3.2-4.8 g/dL Lipase 215 H 12-53 U/L Plasma/Serum Blood Alcohol 3.3 < 3.0 <10 mg/dL Troponin I High Sensitivity 6 5 </=54 ng/L White Blood Count 6.3 4.4-10.8 10^3/uL Red Blood Count 2.84 L 4.5-5.90 10^6/uL Hemoglobin 11.0 L 13.5-17.5 g/dL Hematocrit 32.4 L 41.0-53.0 % Mean Corpuscular Volume 114.0 H 80.0-100.0 fL Mean Corpuscular Hemoglobin 38.9 H 28.0-32.0 pg Mean Corpuscular Hemoglobin Concent 34.1 32.0-36.0 g/dL Red Cell Distribution Width 17.3 H 11.8-14.3 % Platelet Count 93 L 140-450 10^3/uL Mean Platelet Volume 9.5 6.9-10.8 fL Neutrophils (%) (Auto) 64.3 37.0-80.0 % Lymphocytes (%) (Auto) 15.4 10.0-50.0 % Monocytes (%) (Auto) 14.4 H 0.0-12.0 % Eosinophils (%) (Auto) 5.7 0.0-7.0 % Basophils (%) (Auto) 0.2 0.0-2.0 % Neutrophils # (Auto) 4.1 1.6-8.6 10 ^3/uL Lymphocytes # (Auto) 1.0 0.4-5.4 10 ^3/uL Monocytes # (Auto) 0.9 0-1.3 10 ^3/uL Eosinophils # (Auto) 0.4 0-0.8 10 ^3/uL Basophils # (Auto) 0 0-0.2 10 ^3/uL Nucleated Red Blood Cells 0.1 % Platelet Estimate Decreased Macrocytosis Marked Magnesium Level 2.1 1.6-2.6 mg/dL Ammonia < 10 L 11-32 umol/L Microbiology Date/Time Source Procedure Growth Status 04/13/24 13:00 Nose MRSA Screen - Final Complete 04/13/24 13:00 Voided Urine Urine Culture - Final Complete Assessment Acute kidney injury possible hepatorenal syndrome vs ATN Decompensated cirrhosis/alcoholic Status post paracentesis recs albumin IV as ordered Continue Lasix Hold spironolactone for now Octreotide TID Check urine sodium urine electrolytes Kidney ultrasound We will follow closely Plan discussed with: Patient ALFONZO PEREZ MD Apr 16, 2024 19:08
[2024-04-16] MEDS: OCTREOTIDE ACETATE 100 MCG/ML VL SUBCUT SCH (21:38)
[2024-04-16] MEDS: ALBUMIN 25% 50 ML IV SCH (23:45)
[2024-04-17] VITALS (12 sets, daily range): BP systolic 98–124; BP diastolic 44–93; PULSE 66–96; RESP 16–20; TEMP 98–98.2; O2SAT 87–100
[2024-04-17 06:11] LABS: Anion Gap 7 (5-15); Carbon Dioxide 28 mmol/L (20-31); Chloride 100 mmol/L (98-107); Glucose 87 mg/dL (74-106); Magnesium 2.1 mg/dL (1.6-2.6); Potassium 4.3 mmol/L (3.5-5.1)
[2024-04-17 06:15] LABS: Alanine Aminotransferase 78 U/L (7-40); Albumin 2.1 g/dL (3.2-4.8); Alkaline Phosphatase 162 U/L (46-116); Aspartate Aminotransferase 166 U/L (13-40); Bilirubin, Total 13.2 mg/dL (0.2-1.0); Blood Urea Nitrogen 44 mg/dL (9-23); Sodium 135 mmol/L (136-145); Total Protein 5.5 g/dL (5.7-8.2)
[2024-04-17 06:18] LABS: BUN/Creatinine Ratio 14.6 (10.0-20.0)
[2024-04-17] MEDS: MORPHINE SULFATE INJ 2 MG/ml SYRG IV PRN (07:13)
[2024-04-17] MEDS ORDERED: SPIRONOLACTONE 25 MG TAB PO SCH (10:00)
[2024-04-17] MEDS: FUROSEMIDE 40 MG/4 ML VIAL IV SCH (10:25)
--- NOTE | 2024-04-17 10:34 | ECG ---
[facility] Test Date: 2024-03-30 Test Time: 20:50:50 Pat Name: GARIMA MEZA Department: Room: 0218 B Gender: M Him Specialists: : 1960 Requested By: NICKIE ROGERS Order Number: [id number] Reading MD: Dre Palm Measurements Intervals [place] Rate: 64 P: 74 NC: 180 QRS: 14 QRSD: 94 T: 60 QT: 452 QTc: 466 Interpretive Statements Sinus rhythm with premature supraventricular complexes in a pattern of bigeminy Electronically Signed On 04-18-2024 9:07:16 PST by Dre Palm Please click the below link to view image of tracing.
[2024-04-17 12:21] LABS: Protein, Urine 46.6 mg/dL (1-14)
[2024-04-17 12:24] LABS: Creatinine, Urine 199.91 mg/dL (30.0-125.0); Urine Protein/Creatinine Ratio 0.23
[2024-04-17] MEDS: SODIUM CHLORIDE 0.9% 1,000 ML IV SCH (12:30)
[2024-04-17 12:45] LABS: Sodium Urine < 10 mmol/L (40-220)
--- NOTE | 2024-04-17 16:45 | DVHPNRES ---
Progress Note Date Seen: Apr 17, 2024 Resident Creating Document: RHETT HULL RESIDENT Medical Necessity Reason Pt with a Central, PICC or Fol: No Medical Necessity Reason creatinine up trending Subjective Review of Systems Patient was seen and examined at bedside. He complain of mild abdominal pain as before. He denies any shortness of breath. He is on room air; He also denies significant nausea, vomiting, dizziness, lightheadedness today. just the regular abdominal pain Nephrology is currently following the patient. and they requested urine studies. Pending review by the field service rep. Aldactone discontinued by the field service rep. Constitutional: Denies fever no chills no feeling of malaise HEENT: Denies headache, ear pain, ear discharges, conjunctivitis, nasal discharge throat pain Cardiovascular: Denies chest pain, palpitation, orthopnea, PND, or pedal edema Respiratory: Denies shortness of breath, cough, sputum production, hemoptysis, GI: abdominal pain with distention; Denies nausea, vomiting, diarrhea, hematemesis, hematochezia, : Denies frequency, urgency, hematuria, Endocrine: Denies unintentional weight gain or weight loss, feeling of hot flashes, Otis: low platelet, no epistaxis Musculoskeletal: Denies joint pains, muscle aches Psych: No evidence of depression, marcelina, suicidal ideation Objective vital signs Vital Sign Date Time Temp Pulse Resp B/P (MAP) Pulse Ox O2 Delivery O2 Flow Rate FiO2 04/17/24 13:00 98.0 72 18 124/59 (80) 94 98.0 04/17/24 10:00 Nasal Cannula* 2 28 Total Intake and Output 04/16/24 04/16/24 04/17/24 15:00 23:00 07:00 Intake Total 50 ml 1460 ml 1125 ml Output Total 565 ml Balance 50 ml 1460 ml 560 ml medications Current Medications Medications Dose Ordered Sig/Anil Route Start Time Stop Time Status Last Admin Dose Admin Nitroglycerin 0.4 mg Q5MINP PRN SL 04/13/24 03:15 Morphine Sulfate 2 mg Q30M PRN IV 04/13/24 03:15 04/17/24 07:13 2 MG Lactulose 15 ml TID PO 04/13/24 06:00 04/17/24 05:48 15 ML Multivitamins/ Minerals 1 tab DAILY PO 04/13/24 10:00 04/17/24 10:25 1 TAB Midodrine 10 mg TID@0600,1200,1800 PO 04/13/24 06:00 04/17/24 12:02 10 MG Ergocalciferol 50,000 unit Q7D PO 04/13/24 03:30 04/13/24 04:13 50,000 UNIT Ceftriaxone Sodium/Dextrose 50 ml @ 50 mls/hr DAILY IV 04/14/24 10:00 04/17/24 10:25 50 MLS/HR Albuterol 2.5 mg Q6HWA NEB 04/13/24 06:00 04/17/24 06:53 2.5 MG Tramadol HCl 50 mg Q4HP PRN PO 04/13/24 03:45 04/13/24 21:49 50 MG Morphine Sulfate 1 mg Q4HP PRN IV 04/13/24 03:45 04/17/24 12:07 1 MG Folic Acid 1 mg DAILY PO 04/13/24 10:00 04/17/24 10:25 1 MG Pantoprazole Sodium 40 mg BID IV 04/13/24 10:00 04/17/24 10:25 40 MG Sucralfate 1 gm QID@0600,1130,1700,2200 PO 04/13/24 13:15 04/17/24 12:02 1 GM Albumin Human 50 ml @ 100 mls/hr Q6HR IV 04/17/24 00:00 04/18/24 06:29 04/17/24 12:05 100 MLS/HR Octreotide Acetate 100 mcg TID SUBCUT 04/16/24 22:00 04/17/24 05:50 100 MCG Sodium Chloride 1,000 ml @ 100 mls/hr Q10H IV 04/17/24 12:30 Examination General: Awake, alert, comfortable appearing, in no acute distress, jaundice. HEENT: Head is normocephalic and atraumatic. Pupils are equal, round, and reactive to light. Icteric. No nasal discharge. No facial trauma. Intraoral exam shows moist mucous membranes with no tonsillar enlargement or exudate. Neck: Supple with no cervical lymphadenopathy No meningismus. No goiter. Heart: Regular rate without murmur, rub, or gallop. Lungs: Scattered coarse crackles Abdomen: distended, umbilical hernia present, bs+, tympanic, no guarding, fluid thrill present, shifting dullness + flanks full, edema to the thigh bilateral Extremities: Strong peripheral pulses. There is no clubbing, no cyanosis, and + two pitting edema Skin: No rash. Neurologic: Cranial nerves II-XII intact without motor, sensory, or cerebellar deficit, no asterixis. laboratory and microbiology Laboratory Tests 04/17/24 05:26 04/16/24 10:30 Test 04/17/24 05:26 Range/Units Serum Glucose 87 74-106 mg/dL Microbiology Date/Time Source Procedure Growth Status 04/14/24 14:35 Blood Blood Culture - Preliminary NO GROWTH AFTER 72 HOURS OF INCUBATION. Resulted 04/13/24 13:00 Nose MRSA Screen - Final Complete 04/13/24 13:00 Voided Urine Urine Culture - Final Complete 04/13/24 12:50 Ascities Fluid Gram Stain - Final Resulted 04/13/24 12:50 Ascities Fluid Body Fluid Culture - Preliminary Resulted Labs and/or images reviewed: Labs reviewed by me, Image(s) reviewed by me Problem List/Assessment/Plan Problem List/Assessment/Plan Abdominal pain secondary to ascites -> improved after the paracentesis --> status post paracentesis; 10 L of ascitic fluid drained, patient feels much better --> usually get paracentesis q2 weeks --> albumin 37.5 g given --> Continue ceftriaxone Ascites fluid analysis --> report is normal Sepsis due to Bacteremia Blood culture positive for Gram negative Repeat blood culture--> Preliminary has no growth. final result: No growth --> Continue ceftriaxone Acute kidney injury possible hepatorenal syndrome vs ATN --> Elevated creatinine 1.38--> 2.85--> 3.01 --> Persistent elevated creatinine --> Nephrology following Hyperkalemia--> resolved --> 5.4--> 4.8 --> Stop spironolactone Ascites secondary to liver cirrhosis --> secondary to alcohol abuse --> decrease salt intake --> IV furosemide 40 mg daily --> Resume low dose Spironolactone 25mg today --> Continue lactulose --> fluid restriction to 1.5 L a day MALU likely due to VMN vs ATN/ --> monitor CR closely -->Repeat CMP: K: 4.7, Cr: 2.52 (baseline cr: 0.94 08/2023) --> Continue Lasix ---> Hold spironolactone for now --> Octreotide TID Thrombocytopenia --> platelet level 93-83 -->Secondary to liver cirrhosis --> monitor for any petechiae/ or hemorrhages Supraumbilical hernia --tenderness improved after paracentesis Inguinal scrotal hernia --> irreducible --> moderately tender --> patient passing stool, hence no obstruction Severe protein calorie malnutrition --> bitemporal wasting --> albumin level 2.2 History of polysubstance abuse Case and plan discussed with Dr. Aguilar Plan discussed with: Patient, Other (Nurse) My Orders My Orders Orders - RHETT HULL Procedure Category Date Status Time Dietary NOTICE 04/17/24 Transmitted Recommendations 14:13 Dietary Evaluation Review Comments: 1) Consider a Renal Specific K2,low phos,2gmNa,60g Pro diet 2) Continue current plan of care Expected Outcomes/Goals: 1) Pt labs to improve 2) F/U in 3-5 days Addendum Addendum Addendum I was physically present for the wright portions of the service provided to patient by THE RESIDENT. I have reviewed the documentation, discussed the case with resident and agree with the resident's documentation except as noted. Also the patient's clinical case was discussed with the patient's nurse. This medical document was created using an electronic medical record system with computerized dictation system. Although this document has been carefully reviewed, there might still be some phonetic and typographical errors. These areas are purely typographical due to imperfections of the software programs, and do not reflect any compromise in the patient's medical care. Late signature. Date of Service: Apr 17, 2024 Billing Provider: CLAUDIA AGUILAR MD Common Visit Codes: [id number] INP/OBS CARE(HIGH) RHETT HULL Apr 17, 2024 16:45 CLAUDIA AGUILAR MD Apr 18, 2024 05:03
--- NOTE | 2024-04-17 16:57 | DVHPN2 ---
Progress Note Date Seen: Apr 17, 2024 Medical Necessity Reason Pt with a Central, PICC or Fol: No Subjective Patient reports: No new complaints Review of Systems: Deferred Objective vital signs Vital Sign Date Time Temp Pulse Resp B/P (MAP) Pulse Ox O2 Delivery O2 Flow Rate FiO2 04/17/24 13:00 98.0 72 18 124/59 (80) 94 98.0 04/17/24 10:00 Nasal Cannula* 2 28 Total Intake and Output 04/16/24 04/16/24 04/17/24 15:00 23:00 07:00 Intake Total 50 ml 1460 ml 1125 ml Output Total 565 ml Balance 50 ml 1460 ml 560 ml medications Current Medications Medications Dose Ordered Sig/Anil Route Start Time Stop Time Status Last Admin Dose Admin Nitroglycerin 0.4 mg Q5MINP PRN SL 04/13/24 03:15 Morphine Sulfate 2 mg Q30M PRN IV 04/13/24 03:15 04/17/24 07:13 2 MG Lactulose 15 ml TID PO 04/13/24 06:00 04/17/24 05:48 15 ML Multivitamins/ Minerals 1 tab DAILY PO 04/13/24 10:00 04/17/24 10:25 1 TAB Midodrine 10 mg TID@0600,1200,1800 PO 04/13/24 06:00 04/17/24 12:02 10 MG Ergocalciferol 50,000 unit Q7D PO 04/13/24 03:30 04/13/24 04:13 50,000 UNIT Ceftriaxone Sodium/Dextrose 50 ml @ 50 mls/hr DAILY IV 04/14/24 10:00 04/17/24 10:25 50 MLS/HR Albuterol 2.5 mg Q6HWA NEB 04/13/24 06:00 04/17/24 06:53 2.5 MG Tramadol HCl 50 mg Q4HP PRN PO 04/13/24 03:45 04/13/24 21:49 50 MG Morphine Sulfate 1 mg Q4HP PRN IV 04/13/24 03:45 04/17/24 12:07 1 MG Folic Acid 1 mg DAILY PO 04/13/24 10:00 04/17/24 10:25 1 MG Pantoprazole Sodium 40 mg BID IV 04/13/24 10:00 04/17/24 10:25 40 MG Sucralfate 1 gm QID@0600,1130,1700,2200 PO 04/13/24 13:15 04/17/24 12:02 1 GM Albumin Human 50 ml @ 100 mls/hr Q6HR IV 04/17/24 00:00 04/18/24 06:29 04/17/24 12:05 100 MLS/HR Octreotide Acetate 100 mcg TID SUBCUT 04/16/24 22:00 04/17/24 05:50 100 MCG Sodium Chloride 1,000 ml @ 100 mls/hr Q10H IV 04/17/24 12:30 Examination: GENERAL:Normal, HEENT:Normal, NECK:Normal, LUNGS:Normal, CVS:Normal, ABDOMEN:Abnormal, MSK:Abnormal, SKIN:Abnormal, NEURO:Normal, :Normal laboratory and microbiology Laboratory Tests 04/17/24 05:26 04/16/24 10:30 Test 04/17/24 05:26 Range/Units Serum Glucose 87 74-106 mg/dL Microbiology Date/Time Source Procedure Growth Status 04/14/24 14:35 Blood Blood Culture - Preliminary NO GROWTH AFTER 72 HOURS OF INCUBATION. Resulted 04/13/24 13:00 Nose MRSA Screen - Final Complete 04/13/24 13:00 Voided Urine Urine Culture - Final Complete 04/13/24 12:50 Ascities Fluid Gram Stain - Final Resulted 04/13/24 12:50 Ascities Fluid Body Fluid Culture - Preliminary Resulted Problem List/Assessment/Plan Problem List/Assessment/Plan Acute kidney injury possible hepatorenal syndrome likely Stephanie low Decompensated cirrhosis/alcoholic Status post paracentesis 10Liters recs albumin IV as ordered Ns iv for 1-2 liters trial of ivf Hold lasix/spironolactone for now Octreotide TID no hydro on kidney US---check bladder scan We will follow closely Plan discussed with: Patient My Orders My Orders Orders - ALFONZO PEREZ MD Procedure Category Date Status Time Albumin 25% (Albutein) PHA 04/17/24 In Process 00:00 Octreotide Acetate PHA 04/16/24 In Process (Sandostatin) 22:00 Sodium Chloride 0.9% PHA 04/17/24 In Process 12:30 Dietary Evaluation Review Comments: 1) Consider a Renal Specific K2,low phos,2gmNa,60g Pro diet 2) Continue current plan of care Expected Outcomes/Goals: 1) Pt labs to improve 2) F/U in 3-5 days ALFONZO PEREZ MD Apr 17, 2024 16:57
--- NOTE | 2024-04-17 19:01 | DVH ---
Procedure: US BiLat Lower DVT Study Date and Requested Time: 04/17/2024 06:16 PM History: elevated d-dimer Comparison: BLDVT on DOS: 02/03/22, BI LOWER DVT on DOS: 02/03/22 Technique: Multiple high resolution casillas-scale images with and without compression obtained of the bi lateral lower extremity veins, including the common femoral vein, deep femoral vein, proximal mid and distal superficial femoral vein, and popliteal vein. Additional limited images of the greater saphen ous vein also obtained. Augmentation performed as indicated. Color and spectral doppler flow images o btained as indicated. Findings: No visible intraluminal venous thrombus. No evidence of incompressibility or abnormal color or spectr al Doppler flow visualized in the bilateral lower extremity veins including, the common femoral vein, deep femoral vein, proximal mid and distal superficial femoral vein, and popliteal vein. Greater sap henous vein grossly unremarkable. Bilateral lower extremity soft tissue edema is noted. Impression: No sonographic evidence of bilateral lower extremity deep venous thrombosis.
[2024-04-18] VITALS (17 sets, daily range): BP systolic 95–127; BP diastolic 44–61; PULSE 59–85; RESP 14–20; TEMP 97.9–98.5; O2SAT 89–100
--- NOTE | 2024-04-18 11:08 | DVHPN2 ---
Progress Note - Dictate Date Seen: Apr 18, 2024 Medical Necessity Reason Pt with a Central, PICC or Fol: Yes The following are medically ne: Mehta Catheter vital signs Vital Sign Date Time Temp Pulse Resp B/P (MAP) Pulse Ox O2 Delivery O2 Flow Rate FiO2 04/18/24 10:35 65 17 124/61 04/18/24 09:00 97.9 96 97.9 04/18/24 07:15 Room Air* 0 21 Total Intake and Output 04/17/24 04/17/24 04/18/24 15:00 23:00 07:00 Intake Total 100 ml 931 ml 985 ml Output Total 400 ml 300 ml Balance 100 ml 531 ml 685 ml medications Current Medications Medications Dose Ordered Sig/Anil Route Start Time Stop Time Status Last Admin Dose Admin Nitroglycerin 0.4 mg Q5MINP PRN SL 04/13/24 03:15 Morphine Sulfate 2 mg Q30M PRN IV 04/13/24 03:15 04/17/24 07:13 2 MG Lactulose 15 ml TID PO 04/13/24 06:00 04/18/24 06:12 15 ML Multivitamins/ Minerals 1 tab DAILY PO 04/13/24 10:00 04/18/24 10:23 1 TAB Midodrine 10 mg TID@0600,1200,1800 PO 04/13/24 06:00 04/18/24 06:12 10 MG Ergocalciferol 50,000 unit Q7D PO 04/13/24 03:30 04/13/24 04:13 50,000 UNIT Ceftriaxone Sodium/Dextrose 50 ml @ 50 mls/hr DAILY IV 04/14/24 10:00 04/18/24 10:23 50 MLS/HR Albuterol 2.5 mg Q6HWA NEB 04/13/24 06:00 04/18/24 07:15 2.5 MG Tramadol HCl 50 mg Q4HP PRN PO 04/13/24 03:45 04/13/24 21:49 50 MG Morphine Sulfate 1 mg Q4HP PRN IV 04/13/24 03:45 04/18/24 10:35 1 MG Folic Acid 1 mg DAILY PO 04/13/24 10:00 04/18/24 10:24 1 MG Pantoprazole Sodium 40 mg BID IV 04/13/24 10:00 04/18/24 10:24 40 MG Sucralfate 1 gm QID@0600,1130,1700,2200 PO 04/13/24 13:15 04/18/24 06:11 1 GM Octreotide Acetate 100 mcg TID SUBCUT 04/16/24 22:00 04/18/24 07:08 100 MCG Sodium Chloride 1,000 ml @ 100 mls/hr Q10H IV 04/17/24 12:30 04/18/24 06:11 100 MLS/HR laboratory and microbiology Laboratory Tests 04/17/24 05:26 04/16/24 10:30 Test 04/17/24 05:26 Range/Units Serum Glucose 87 74-106 mg/dL Assessment/Plan Acute kidney injury possible hepatorenal syndrome likely Stephanie low no previous ckd Decompensated cirrhosis/alcoholic Status post paracentesis 10Liters obtain labs today albumin IV as ordered Ns iv for 1-2 liters trial of ivf Hold lasix/spironolactone for now Octreotide TID no hydro on kidney US--- currently has kera We will follow closely Dietary Evaluation Review Comments: 1) Consider a Renal Specific K2,low phos,2gmNa,60g Pro diet 2) Continue current plan of care Expected Outcomes/Goals: 1) Pt labs to improve 2) F/U in 3-5 days Plan discussed with: Patient COCO RAGSDALE MD Apr 18, 2024 11:08
--- NOTE | 2024-04-18 11:42 | DVHPNRES ---
Progress Note Date Seen: Apr 18, 2024 Resident Creating Document: RHETT HULL RESIDENT Medical Necessity Reason Pt with a Central, PICC or Fol: Yes The following are medically ne: Mehta Catheter Medical Necessity Reason abdominal pain Hepatorenal syndrome Subjective Review of Systems Patient seen and examined. He complained of abdominal pains and always wants his pain medications. Nephrology is currently following for the management of possible HRS (Hepatorenal syndrome). Furosemide and aldactone on hold Objective vital signs Vital Sign Date Time Temp Pulse Resp B/P (MAP) Pulse Ox O2 Delivery O2 Flow Rate FiO2 04/18/24 10:35 65 17 124/61 04/18/24 09:00 97.9 96 97.9 04/18/24 07:15 Room Air* 0 21 Total Intake and Output 04/17/24 04/17/24 04/18/24 15:00 23:00 07:00 Intake Total 100 ml 931 ml 985 ml Output Total 400 ml 300 ml Balance 100 ml 531 ml 685 ml medications Current Medications Medications Dose Ordered Sig/Anil Route Start Time Stop Time Status Last Admin Dose Admin Nitroglycerin 0.4 mg Q5MINP PRN SL 04/13/24 03:15 Morphine Sulfate 2 mg Q30M PRN IV 04/13/24 03:15 04/17/24 07:13 2 MG Lactulose 15 ml TID PO 04/13/24 06:00 04/18/24 06:12 15 ML Multivitamins/ Minerals 1 tab DAILY PO 04/13/24 10:00 04/18/24 10:23 1 TAB Midodrine 10 mg TID@0600,1200,1800 PO 04/13/24 06:00 04/18/24 06:12 10 MG Ergocalciferol 50,000 unit Q7D PO 04/13/24 03:30 04/13/24 04:13 50,000 UNIT Ceftriaxone Sodium/Dextrose 50 ml @ 50 mls/hr DAILY IV 04/14/24 10:00 04/18/24 10:23 50 MLS/HR Albuterol 2.5 mg Q6HWA NEB 04/13/24 06:00 04/18/24 07:15 2.5 MG Tramadol HCl 50 mg Q4HP PRN PO 04/13/24 03:45 04/13/24 21:49 50 MG Morphine Sulfate 1 mg Q4HP PRN IV 04/13/24 03:45 04/18/24 10:35 1 MG Folic Acid 1 mg DAILY PO 04/13/24 10:00 04/18/24 10:24 1 MG Pantoprazole Sodium 40 mg BID IV 04/13/24 10:00 04/18/24 10:24 40 MG Sucralfate 1 gm QID@0600,1130,1700,2200 PO 04/13/24 13:15 04/18/24 06:11 1 GM Octreotide Acetate 100 mcg TID SUBCUT 04/16/24 22:00 04/18/24 07:08 100 MCG Sodium Chloride 1,000 ml @ 100 mls/hr Q10H IV 04/17/24 12:30 04/18/24 06:11 100 MLS/HR Examination General: Awake, alert, comfortable appearing, in no acute distress, jaundice. HEENT: Head is normocephalic and atraumatic. Pupils are equal, round, and reactive to light. Icteric. No nasal discharge. No facial trauma. Intraoral exam shows moist mucous membranes with no tonsillar enlargement or exudate. Neck: Supple with no cervical lymphadenopathy No meningismus. No goiter. Heart: Regular rate without murmur, rub, or gallop. Lungs: mild scattered crackles Abdomen: distended, tensed, umbilical hernia present, bs+, tympanic, no guarding, fluid thrill present, shifting dullness + flanks full, edema to the thigh bilateral Extremities: Strong peripheral pulses. There is no clubbing, no cyanosis, and + two pitting edema Skin: No rash. Neurologic: Cranial nerves II-XII intact without motor, sensory, or cerebellar deficit, no asterixis. laboratory and microbiology Laboratory Tests 04/17/24 05:26 04/16/24 10:30 Test 04/17/24 05:26 Range/Units Serum Glucose 87 74-106 mg/dL Microbiology Date/Time Source Procedure Growth Status 04/14/24 14:35 Blood Blood Culture - Preliminary NO GROWTH AFTER 72 HOURS OF INCUBATION. Resulted 04/13/24 13:00 Nose MRSA Screen - Final Complete 04/13/24 13:00 Voided Urine Urine Culture - Final Complete 04/13/24 12:50 Ascities Fluid Gram Stain - Final Resulted 04/13/24 12:50 Ascities Fluid Body Fluid Culture - Preliminary Resulted Problem List/Assessment/Plan Problem List/Assessment/Plan Abdominal pain secondary to ascites -> improved after the pareacentesis --> status post paracentesis; 10 L of ascitic fluid drained, patient feels much better --> usually get paracentesis q2 weeks --> albumin 37.5 g given --> Continue ceftriaxone Ascites fluid analysis --> report is normal Bacteremia Blood culture positive for Gram negative Repeat blood culture--> Preliminary has no growth. final result: No growth MALU probably due to possible Heptorenal syndrome --> Elevated creatinine 1.38--> 2.57--> 3.10 --> Persistent elevated creatinine ---> STOP spironolactone --> STOP furosemide --> Octreotide TID --> Nephrology following Hyperkalemia--> resolved --> 5.4--> 4.8 --> Stop spironolactone Ascites secondary to liver cirrhosis --> secondary to alcohol abuse --> decrease salt intake --> IV furosemide 40 mg daily STOP --> Resume low dose Spironolactone 25mg today --> Continue lactulose --> fluid restriction to 1.5 L a day Thrombocytopenia --> platelet level 93-83 -->Secondary to liver cirrhosis --> monitor for any petechiae/ or hemorrhages Supraumbilical hernia --tenderness improved after paracentesis Inguinal scrotal hernia --> irreducible --> moderately tender --> patient passing stool, hence no obstruction Severe protein calorie malnutrition --> bitemporal wasting --> albumin level 2.2 History of polysubstance abuse Prophylaxis: Pantoprazole, Diet: Regular diet Code status: Full Case discussed for more than 19 minutes Case and plan discussed with Dr. Amor Plan discussed with: Patient My Orders My Orders Orders - RHETT HULL RESIDENT Procedure Category Date Status Time Dietary NOTICE 04/17/24 Transmitted Recommendations 14:13 Bilat Lower Dvt US 04/17/24 Resulted 16:49 Renal Specific DIET 04/18/24 Transmitted Diet(Renal) Breakfast Dietary Evaluation Review Comments: 1) Consider a Renal Specific K2,low phos,2gmNa,60g Pro diet 2) Continue current plan of care Expected Outcomes/Goals: 1) Pt labs to improve 2) F/U in 3-5 days Date of Service: Apr 18, 2024 Billing Provider: MARV CASTELAN MD Common Visit Codes: [id number] INP/OBS CARE(HIGH) RHETT HULL RESIDENT Apr 18, 2024 11:42 MARV CASTELAN MD Apr 25, 2024 00:16
[2024-04-18 12:21] LABS: Chloride 101 mmol/L (98-107); Sodium 134 mmol/L (136-145)
[2024-04-18 12:22] LABS: Anion Gap 6 (5-15); Calcium 8.9 mg/dL (8.7-10.4); Carbon Dioxide 27 mmol/L (20-31)
--- NOTE | 2024-04-18 12:25 | DVH ---
INDICATION: ascites TECHNIQUE: Multiple real-time sonographic images of the abdomen were obtained. COMPARISON: US GALLBLADDER on DOS: 08/12/23 FINDINGS: There is simple fluid in all 4 quadrants of the abdomen. IMPRESSION: 1. Simple ascites in all 4 quadrants of the abdomen.
[2024-04-18 12:26] LABS: Potassium 4.8 mmol/L (3.5-5.1)
[2024-04-18 12:27] LABS: Glucose 146 mg/dL (74-106)
[2024-04-18 12:30] LABS: BUN/Creatinine Ratio 14.5 (10.0-20.0); Blood Urea Nitrogen 41 mg/dL (9-23)
[2024-04-19] VITALS (12 sets, daily range): BP systolic 103–115; BP diastolic 47–60; PULSE 65–89; RESP 14–20; TEMP 97.7–98.4; O2SAT 91–100
[2024-04-19 07:20] LABS: Anion Gap 7 (5-15); Carbon Dioxide 25 mmol/L (20-31); Chloride 102 mmol/L (98-107); Potassium 4.8 mmol/L (3.5-5.1); Sodium 134 mmol/L (136-145)
[2024-04-19 07:21] LABS: Basophils # (auto) 0 10 ^3/uL (0-0.2); Calcium 9.1 mg/dL (8.7-10.4); Eosinophils # (auto) 0.2 10 ^3/uL (0-0.8); Hematocrit 29.6 % (41.0-53.0); Hemoglobin 10.2 g/dL (13.5-17.5); Neutrophils # (auto) 3.6 10 ^3/uL (1.6-8.6); Nucleated Red Blood Cells % 0.2 %; White Blood Cell 5.8 10^3/uL (4.4-10.8)
[2024-04-19 07:23] LABS: Basophils % (auto) 0.3 % (0.0-2.0); Eosinophils % (auto) 3.9 % (0.0-7.0); Lymphocytes % (auto) 16.8 % (10.0-50.0); Mean Corpuscular Hemoglobin 39.4 pg (28.0-32.0); Mean Corpuscular Hgb Conc. 34.6 g/dL (32.0-36.0); Mean Corpuscular Volume 113.7 fL (80.0-100.0); Monocytes % (auto) 16.5 % (0.0-12.0); Neutrophils % (auto) 62.5 % (37.0-80.0); Platelet Count (auto) 101 10^3/uL (140-450); Red Cell Distribution Width 15.9 % (11.8-14.3)
[2024-04-19 07:26] LABS: Blood Urea Nitrogen 43 mg/dL (9-23); Glucose 108 mg/dL (74-106)
[2024-04-19 07:27] LABS: BUN/Creatinine Ratio 14.2 (10.0-20.0)
--- NOTE | 2024-04-19 09:35 | DVHPN2 ---
Progress Note - Dictate Date Seen: Apr 19, 2024 Medical Necessity Reason Pt with a Central, PICC or Fol: No Subjective at patient request yesterday removed cote catheter he voided yesterday vital signs Vital Sign Date Time Temp Pulse Resp B/P (MAP) Pulse Ox O2 Delivery O2 Flow Rate FiO2 04/19/24 08:30 98.3 68 18 114/60 (78) 94 98.3 04/19/24 06:40 Nasal Cannula 3.0 04/19/24 06:40 32 Total Intake and Output 04/18/24 04/18/24 04/19/24 15:00 23:00 07:00 Intake Total 50 ml 765 ml 250 ml Output Total 200 ml Balance 50 ml 765 ml 50 ml medications Current Medications Medications Dose Ordered Sig/Anil Route Start Time Stop Time Status Last Admin Dose Admin Nitroglycerin 0.4 mg Q5MINP PRN SL 04/13/24 03:15 Morphine Sulfate 2 mg Q30M PRN IV 04/13/24 03:15 04/17/24 07:13 2 MG Lactulose 15 ml TID PO 04/13/24 06:00 04/19/24 05:40 15 ML Multivitamins/ Minerals 1 tab DAILY PO 04/13/24 10:00 04/18/24 10:23 1 TAB Midodrine 10 mg TID@0600,1200,1800 PO 04/13/24 06:00 04/19/24 05:40 10 MG Ergocalciferol 50,000 unit Q7D PO 04/13/24 03:30 04/13/24 04:13 50,000 UNIT Ceftriaxone Sodium/Dextrose 50 ml @ 50 mls/hr DAILY IV 04/14/24 10:00 04/18/24 10:23 50 MLS/HR Albuterol 2.5 mg Q6HWA NEB 04/13/24 06:00 04/19/24 06:40 2.5 MG Tramadol HCl 50 mg Q4HP PRN PO 04/13/24 03:45 04/13/24 21:49 50 MG Morphine Sulfate 1 mg Q4HP PRN IV 04/13/24 03:45 04/19/24 05:50 1 MG Folic Acid 1 mg DAILY PO 04/13/24 10:00 04/18/24 10:24 1 MG Pantoprazole Sodium 40 mg BID IV 04/13/24 10:00 04/18/24 21:58 40 MG Sucralfate 1 gm QID@0600,1130,1700,2200 PO 04/13/24 13:15 04/19/24 05:39 1 GM Octreotide Acetate 100 mcg TID SUBCUT 04/16/24 22:00 04/19/24 05:41 100 MCG objective jaundice appear male distended abdomen scleral icterus 2-3+ tense edema of shins cote removed laboratory and microbiology Laboratory Tests 04/19/24 06:16 Test 04/19/24 06:16 Range/Units Serum Glucose 108 H 74-106 mg/dL Assessment/Plan Acute kidney injury possible hepatorenal syndrome likely Stephanie low no previous ckd Decompensated cirrhosis/alcoholic Status post paracentesis 10Liters albumin IV completed he appears very distended however US ABD shows small ascites Octreotide TID no hydro on kidney US--- bladder scan today to ensure not retaining urine. Resume lasix today and will begin slow transition to aldactone Dietary Evaluation Review Comments: 1) Consider a Renal Specific K2,low phos,2gmNa,60g Pro diet 2) Continue current plan of care Expected Outcomes/Goals: 1) Pt labs to improve 2) F/U in 3-5 days Plan discussed with: Patient COCO RAGSDALE MD Apr 19, 2024 09:35
[2024-04-19] MEDS: FUROSEMIDE 20 MG TAB PO SCH (10:08)
--- NOTE | 2024-04-19 14:54 | DVHPNRES ---
Progress Note Date Seen: Apr 19, 2024 Resident Creating Document: RHETT HULL RESIDENT Medical Necessity Reason Pt with a Central, PICC or Fol: No Medical Necessity Reason Abdominal pain S/P paracentesis 10L Decreasing of the renal function HRS, Nephrology following Subjective Review of Systems Patient seen and examined. Still complained of the abdominal pain. Metha's catheter removed. BMP: Cr today showed worsening cr: 2.83--> 3.03 Abdominal US:Simple ascites in all 4 quadrants of the abdomen. Nephrology is currently following for the management of HRS (Hepatorenal syndrome). Objective vital signs Vital Sign Date Time Temp Pulse Resp B/P (MAP) Pulse Ox O2 Delivery O2 Flow Rate FiO2 04/19/24 12:30 97.7 89 18 113/58 (76) 98 97.7 04/19/24 11:33 Nasal Cannula* 3 32 Total Intake and Output 04/18/24 04/18/24 04/19/24 15:00 23:00 07:00 Intake Total 50 ml 765 ml 250 ml Output Total 200 ml Balance 50 ml 765 ml 50 ml medications Current Medications Medications Dose Ordered Sig/Anil Route Start Time Stop Time Status Last Admin Dose Admin Nitroglycerin 0.4 mg Q5MINP PRN SL 04/13/24 03:15 Morphine Sulfate 2 mg Q30M PRN IV 04/13/24 03:15 04/17/24 07:13 2 MG Lactulose 15 ml TID PO 04/13/24 06:00 04/19/24 14:32 15 ML Multivitamins/ Minerals 1 tab DAILY PO 04/13/24 10:00 04/19/24 10:08 1 TAB Midodrine 10 mg TID@0600,1200,1800 PO 04/13/24 06:00 04/19/24 11:39 10 MG Ergocalciferol 50,000 unit Q7D PO 04/13/24 03:30 04/13/24 04:13 50,000 UNIT Ceftriaxone Sodium/Dextrose 50 ml @ 50 mls/hr DAILY IV 04/14/24 10:00 04/19/24 10:09 50 MLS/HR Albuterol 2.5 mg Q6HWA NEB 04/13/24 06:00 04/19/24 11:33 2.5 MG Tramadol HCl 50 mg Q4HP PRN PO 04/13/24 03:45 04/19/24 10:08 50 MG Morphine Sulfate 1 mg Q4HP PRN IV 04/13/24 03:45 04/19/24 11:40 1 MG Folic Acid 1 mg DAILY PO 04/13/24 10:00 04/19/24 10:08 1 MG Pantoprazole Sodium 40 mg BID IV 04/13/24 10:00 04/19/24 10:09 40 MG Sucralfate 1 gm QID@0600,1130,1700,2200 PO 04/13/24 13:15 04/19/24 11:39 1 GM Octreotide Acetate 100 mcg TID SUBCUT 04/16/24 22:00 04/19/24 14:34 100 MCG Furosemide 40 mg BIDD PO 04/19/24 09:30 04/19/24 10:08 40 MG Examination General: Awake, alert, comfortable appearing, in no acute distress, jaundice. HEENT: Head is normocephalic and atraumatic. Pupils are equal, round, and reactive to light. Icteric. No nasal discharge. No facial trauma. Intraoral exam shows moist mucous membranes with no tonsillar enlargement or exudate. Neck: Supple with no cervical lymphadenopathy No meningismus. No goiter. Heart: Regular rate without murmur, rub, or gallop. Lungs: mild scattered crackles Abdomen: distended, tensed, umbilical hernia present, bs+, tympanic, no guarding, fluid thrill present, shifting dullness + flanks full, edema to the thigh bilateral Extremities: Strong peripheral pulses. There is no clubbing, no cyanosis, and + two pitting edema Skin: No rash. Neurologic: Cranial nerves II-XII intact without motor, sensory, or cerebellar deficit, no asterixis laboratory and microbiology Laboratory Tests 04/19/24 06:16 Test 04/19/24 06:16 Range/Units Serum Glucose 108 H 74-106 mg/dL Microbiology Date/Time Source Procedure Growth Status 04/14/24 14:35 Blood Blood Culture - Preliminary NO GROWTH AFTER 72 HOURS OF INCUBATION. Resulted 04/13/24 13:00 Nose MRSA Screen - Final Complete 04/13/24 13:00 Voided Urine Urine Culture - Final Complete 04/13/24 12:50 Ascities Fluid Gram Stain - Final Complete 04/13/24 12:50 Ascities Fluid Body Fluid Culture - Final Complete Problem List/Assessment/Plan Problem List/Assessment/Plan Abdominal pain secondary to ascites -> improved after the pareacentesis --> status post paracentesis; 10 L of ascitic fluid drained, patient feels much better --> usually get paracentesis q2 weeks --> albumin 37.5 g given --> Continue ceftriaxone Ascites fluid analysis --> s/p 10L 04/13/2024 --> [place] and distended abdominal --> s/p therapeutic paracentesis 6.5 L 04/19/2024 --> Will give 50g of albumin . Bacteremia Blood culture positive for Gram negative Repeat blood culture--> Preliminary has no growth. final result: No growth MALU probably due to possible Heptorenal syndrome --> trending up --> Persistent elevated creatinine ---> STOP spironolactone --> Resume furosemide 40mg PO, today --> Octreotide TID --> Nephrology following Hyperkalemia--> resolved --> 5.4--> 4.8 --> Stop spironolactone Ascites secondary to liver cirrhosis --> secondary to alcohol abuse --> decrease salt intake --> IV furosemide 40 mg daily STOP --> Resume low dose Spironolactone 25mg today --> Continue lactulose --> fluid restriction to 1.5 L a day Thrombocytopenia --> platelet level 93-83 -->Secondary to liver cirrhosis --> monitor for any petechiae/ or hemorrhages Supraumbilical hernia --tenderness improved after paracentesis Inguinal scrotal hernia --> irreducible --> moderately tender --> patient passing stool, hence no obstruction Severe protein calorie malnutrition --> bitemporal wasting --> albumin level 2.2 History of polysubstance abuse Prophylaxis: Pantoprazole, Diet: Regular diet Code status: Full Case discussed for more than 30 minutes Case and plan discussed with Dr. Amor Plan discussed with: Patient, Spouse Dietary Evaluation Review Comments: 1) Consider a Renal Specific K2,low phos,2gmNa,60g Pro diet 2) Continue current plan of care Expected Outcomes/Goals: 1) Pt labs to improve 2) F/U in 3-5 days Date of Service: Apr 19, 2024 Billing Provider: MARV CASTELAN MD Common Visit Codes: [id number] INP/OBS CARE(HIGH) RHETT HULL RESIDENT Apr 19, 2024 14:54 MARV CASTELAN MD Apr 25, 2024 00:24
--- NOTE | 2024-04-19 22:20 | DVHNC2 ---
Other Procedure Procedure Paracentesis A time-out was performed. My hands were washed immediately prior to the procedure. I wore a surgical cap, mask, sterile gloves were used throughout the procedure. The area was cleansed and draped in usual sterile fashion using chlorhexidine scrub and then iodine scrub. Anesthesia was achieved with 1% lidocaine. The right lower quadrant of the abdomen was prepped and draped in a sterile fashion using chlorhexidine scrub. 1% lidocaine was used to numb the skin, soft tissue and peritoneum. The paracentesis catheter was inserted and advanced with negative pressure until yellowish colored fluid was aspirated. The catheter was then connected to the vaccutainer and 6.5 liters of ascitic fluid were drained. The catheter was removed and no leaking was noted. A bandaid was placed over the puncture wound. The patient tolerated the procedure well without any immediate complications. Indication Tender abdomen with Ascitis, SOB Anesthetic Lidocaine Prep chlorhexidine and iodine Informed consent obtained: Yes Risks, benefits, and alternati: Yes Notes Performed with supervision under dr. Amor Date of Service: Apr 19, 2024 Billing Provider: MARV CASTELAN MD Common Visit Codes: PROCEDURE ONLY Procedure Codes: [id number] W/IMAGING CHUNG GRIER RESIDENT Apr 19, 2024 22:20 MARV CASTELAN MD Apr 24, 2024 23:47
[2024-04-19] MEDS: ALBUMIN 25% 50 ML IV ONE ×2 (22:42→23:37)
[2024-04-20] VITALS (9 sets, daily range): BP systolic 95–108; BP diastolic 46–66; PULSE 55–65; RESP 14–20; TEMP 98.1–98.5; O2SAT 90–99
[2024-04-20] MEDS: ALBUMIN 25% 50 ML IV ONE ×2 (00:32→01:47)
[2024-04-20 06:36] LABS: Chloride 102 mmol/L (98-107); Potassium 4.4 mmol/L (3.5-5.1); Sodium 136 mmol/L (136-145)
[2024-04-20 06:37] LABS: Anion Gap 7 (5-15); Calcium 9.1 mg/dL (8.7-10.4); Carbon Dioxide 27 mmol/L (20-31)
[2024-04-20 06:42] LABS: Glucose 94 mg/dL (74-106)
[2024-04-20 06:52] LABS: Blood Urea Nitrogen 42 mg/dL (9-23)
[2024-04-20 06:57] LABS: BUN/Creatinine Ratio 13.7 (10.0-20.0)
--- NOTE | 2024-04-20 10:56 | DVHPNRES ---
Progress Note Date Seen: Apr 20, 2024 Resident Creating Document: RHETT HULL RESIDENT Medical Necessity Reason Pt with a Central, PICC or Fol: No Medical Necessity Reason Hepatorenal syndrome Creatinine going up Objective vital signs Vital Sign Date Time Temp Pulse Resp B/P (MAP) Pulse Ox O2 Delivery O2 Flow Rate FiO2 04/20/24 09:00 98.1 55 16 107/48 (67) 91 98.1 04/20/24 05:50 Room Air* 0 21 Total Intake and Output 04/19/24 04/19/24 04/20/24 15:00 23:00 07:00 Intake Total 50 ml 118 ml 440 ml Output Total 200 ml 550 ml 400 ml Balance -150 ml -432 ml 40 ml medications Current Medications Medications Dose Ordered Sig/Anil Route Start Time Stop Time Status Last Admin Dose Admin Nitroglycerin 0.4 mg Q5MINP PRN SL 04/13/24 03:15 Morphine Sulfate 2 mg Q30M PRN IV 04/13/24 03:15 04/17/24 07:13 2 MG Lactulose 15 ml TID PO 04/13/24 06:00 04/20/24 05:27 15 ML Multivitamins/ Minerals 1 tab DAILY PO 04/13/24 10:00 04/19/24 10:08 1 TAB Midodrine 10 mg TID@0600,1200,1800 PO 04/13/24 06:00 04/20/24 10:43 10 MG Ergocalciferol 50,000 unit Q7D PO 04/13/24 03:30 04/19/24 21:07 50,000 UNIT Ceftriaxone Sodium/Dextrose 50 ml @ 50 mls/hr DAILY IV 04/14/24 10:00 04/19/24 10:09 50 MLS/HR Albuterol 2.5 mg Q6HWA NEB 04/13/24 06:00 04/20/24 05:50 2.5 MG Tramadol HCl 50 mg Q4HP PRN PO 04/13/24 03:45 04/20/24 10:43 50 MG Morphine Sulfate 1 mg Q4HP PRN IV 04/13/24 03:45 04/19/24 21:08 1 MG Folic Acid 1 mg DAILY PO 04/13/24 10:00 04/20/24 10:43 1 MG Pantoprazole Sodium 40 mg BID IV 04/13/24 10:00 12/4/24 10:43 40 MG Sucralfate 1 gm QID@0600,1130,1700,2200 PO 04/13/24 13:15 04/20/24 05:26 1 GM Octreotide Acetate 100 mcg TID SUBCUT 04/16/24 22:00 04/19/24 14:34 100 MCG Furosemide 40 mg BIDD PO 04/19/24 09:30 04/19/24 21:07 40 MG laboratory and microbiology Laboratory Tests 04/20/24 05:36 04/19/24 06:16 Test 04/20/24 05:36 Range/Units Serum Glucose 94 74-106 mg/dL Microbiology Date/Time Source Procedure Growth Status 04/14/24 14:35 Blood Blood Culture - Final NO GROWTH AFTER 5 DAYS OF INCUBATION. Complete 04/13/24 13:00 Nose MRSA Screen - Final Complete 04/13/24 13:00 Voided Urine Urine Culture - Final Complete 04/13/24 12:50 Ascities Fluid Gram Stain - Final Complete 04/13/24 12:50 Ascities Fluid Body Fluid Culture - Final Complete Problem List/Assessment/Plan Problem List/Assessment/Plan Abdominal pain secondary to ascites -> improved after the pareacentesis --> status post paracentesis; 10 L of ascitic fluid drained, patient feels much better --> usually get paracentesis q2 weeks --> albumin 37.5 g given --> Continue ceftriaxone Ascites fluid analysis --> s/p 10L 04/13/2024 --> [place] and distended abdominal --> s/p therapeutic paracentesis 6.5 L 04/19/2024 --> Will give 50g of albumin . Bacteremia Blood culture positive for Gram negative Repeat blood culture--> Preliminary has no growth. final result: No growth MALU probably due to possible Heptorenal syndrome --> trending up --> Persistent elevated creatinine ---> STOP spironolactone --> Resume furosemide 40mg PO, today --> Octreotide TID --> Nephrology following Hyperkalemia--> resolved --> 5.4--> 4.8 --> Stop spironolactone Ascites secondary to liver cirrhosis --> secondary to alcohol abuse --> decrease salt intake --> IV furosemide 40 mg daily STOP --> Resume low dose Spironolactone 25mg today --> Continue lactulose --> fluid restriction to 1.5 L a day Thrombocytopenia --> platelet level 93-83 -->Secondary to liver cirrhosis --> monitor for any petechiae/ or hemorrhages Supraumbilical hernia --tenderness improved after paracentesis Inguinal scrotal hernia --> irreducible --> moderately tender --> patient passing stool, hence no obstruction Severe protein calorie malnutrition --> bitemporal wasting --> albumin level 2.2 History of polysubstance abuse Prophylaxis: Pantoprazole, Diet: Regular diet Code status: Full Case discussed for more than 30 minutes Case and plan discussed with Dr. Amor Dietary Evaluation Review Comments: 1) Consider a Renal Specific K2,low phos,2gmNa,60g Pro diet 2) Continue current plan of care Expected Outcomes/Goals: 1) Pt labs to improve 2) F/U in 3-5 days RHETT HULL RESIDENT Apr 20, 2024 10:56
--- NOTE | 2024-04-20 13:06 | DVHPN2 ---
Progress Note - Dictate Date Seen: Apr 20, 2024 Medical Necessity Reason Pt with a Central, PICC or Fol: No Subjective Status post bedside paracentesis yesterday primary team removed 6.5 L of fluid from his abdomen. Patient also received albumin vital signs Vital Sign Date Time Temp Pulse Resp B/P (MAP) Pulse Ox O2 Delivery O2 Flow Rate FiO2 04/20/24 12:08 60 14 99 04/20/24 12:02 Room Air 04/20/24 12:02 0 21 04/20/24 09:00 98.1 107/48 (67) 98.1 Total Intake and Output 04/19/24 04/19/24 04/20/24 15:00 23:00 07:00 Intake Total 50 ml 118 ml 440 ml Output Total 200 ml 550 ml 400 ml Balance -150 ml -432 ml 40 ml medications Current Medications Medications Dose Ordered Sig/Anil Route Start Time Stop Time Status Last Admin Dose Admin Nitroglycerin 0.4 mg Q5MINP PRN SL 04/13/24 03:15 Morphine Sulfate 2 mg Q30M PRN IV 04/13/24 03:15 04/17/24 07:13 2 MG Lactulose 15 ml TID PO 04/13/24 06:00 04/20/24 05:27 15 ML Multivitamins/ Minerals 1 tab DAILY PO 04/13/24 10:00 04/19/24 10:08 1 TAB Midodrine 10 mg TID@0600,1200,1800 PO 04/13/24 06:00 04/20/24 10:43 10 MG Ergocalciferol 50,000 unit Q7D PO 04/13/24 03:30 04/19/24 21:07 50,000 UNIT Ceftriaxone Sodium/Dextrose 50 ml @ 50 mls/hr DAILY IV 04/14/24 10:00 04/19/24 10:09 50 MLS/HR Albuterol 2.5 mg Q6HWA NEB 04/13/24 06:00 04/20/24 12:02 2.5 MG Tramadol HCl 50 mg Q4HP PRN PO 04/13/24 03:45 04/20/24 10:43 50 MG Morphine Sulfate 1 mg Q4HP PRN IV 04/13/24 03:45 04/19/24 21:08 1 MG Folic Acid 1 mg DAILY PO 04/13/24 10:00 04/20/24 10:43 1 MG Pantoprazole Sodium 40 mg BID IV 04/13/24 10:00 04/20/24 10:43 40 MG Sucralfate 1 gm QID@0600,1130,1700,2200 PO 04/13/24 13:15 04/20/24 05:26 1 GM Octreotide Acetate 100 mcg TID SUBCUT 04/16/24 22:00 04/19/24 14:34 100 MCG Furosemide 40 mg BIDD PO 04/19/24 09:30 04/19/24 21:07 40 MG objective jaundice appear male mild abdomen distention scleral icterus Bilateral pitting edema laboratory and microbiology Laboratory Tests 04/20/24 05:36 04/19/24 06:16 Test 04/20/24 05:36 Range/Units Serum Glucose 94 74-106 mg/dL Assessment/Plan Acute kidney injury possible hepatorenal syndrome likely Stephanie low no previous ckd Decompensated cirrhosis/alcoholic Status post paracentesis 10Liters, subsequent paracentesis 6.5 L of fluid was removed Octreotide TID no hydro on kidney US--- No evidence of urinary retention patient is without Mehta catheter at this time Patient renal function has not recovered mom CKD states however creatinine has been stable for the last several days we will recommend outpatient follow-up Patient will continue with Lasix p.o. spironolactone will be initiated in the outpatient after eval of risk and benefits. in interim try patient on Lasix 40 mg p.o. b.i.d. with fluid restriction of 1 L and a 2 g salt diet Dietary Evaluation Review Comments: 1) Consider a Renal Specific K2,low phos,2gmNa,60g Pro diet 2) Continue current plan of care Expected Outcomes/Goals: 1) Pt labs to improve 2) F/U in 3-5 days Plan discussed with: Patient COCO RAGSDALE MD Apr 20, 2024 13:06
[2024-04-20] MEDS ORDERED: LACT10SO3 PO (15:11)
[2024-04-20] MEDS ORDERED: MID10T PO (15:11)
[2024-04-20] MEDS ORDERED: FURO20TA4 PO (15:11)
[2024-04-20] MEDS ORDERED: SUCR1SUS26 PO (15:11)
--- NOTE | 2024-04-20 16:46 | DVHDSRES ---
Discharge Summary Date of Admission Resident Creating Document: RHETT HULL RESIDENT Apr 13, 2024 at 03:06 Date of Discharge: Apr 20, 2024 Admitting Diagnosis Abdominal pain secondary to ascites hyperkalemia Ascites secondary to liver cirrhosis MALU Thrombocytopenia Supraumbilical hernia Inguinal scrotal hernia Severe protein calorie malnutrition Labs/Diagnostic Data: Laboratory Results Test 04/20/24 05:36 04/19/24 06:16 04/17/24 11:42 04/17/24 05:26 Sodium Level 136 mmol/L (136-145) Potassium Level 4.4 mmol/L (3.5-5.1) Chloride Level 102 mmol/L (98-107) Carbon Dioxide Level 27 mmol/L (20-31) Anion Gap 7 (5-15) Blood Urea Nitrogen 42 mg/dL (9-23) Creatinine 3.06 mg/dL (0.700-1.30) Glomerular Filtration Rate Calc 22 mL/min (>90) BUN/Creatinine Ratio 13.7 (10.0-20.0) Serum Glucose 94 mg/dL (74-106) Calcium Level 9.1 mg/dL (8.7-10.4) White Blood Count 5.8 10^3/uL (4.4-10.8) Red Blood Count 2.60 10^6/uL (4.5-5.90) Hemoglobin 10.2 g/dL (13.5-17.5) Hematocrit 29.6 % (41.0-53.0) Mean Corpuscular Volume 113.7 fL (80.0-100.0) Mean Corpuscular Hemoglobin 39.4 pg (28.0-32.0) Mean Corpuscular Hemoglobin Concent 34.6 g/dL (32.0-36.0) Red Cell Distribution Width 15.9 % (11.8-14.3) Platelet Count 101 10^3/uL (140-450) Mean Platelet Volume 10.0 fL (6.9-10.8) Neutrophils (%) (Auto) 62.5 % (37.0-80.0) Lymphocytes (%) (Auto) 16.8 % (10.0-50.0) Monocytes (%) (Auto) 16.5 % (0.0-12.0) Eosinophils (%) (Auto) 3.9 % (0.0-7.0) Basophils (%) (Auto) 0.3 % (0.0-2.0) Neutrophils # (Auto) 3.6 10 ^3/uL (1.6-8.6) Lymphocytes # (Auto) 1.0 10 ^3/uL (0.4-5.4) Monocytes # (Auto) 1.0 10 ^3/uL (0-1.3) Eosinophils # (Auto) 0.2 10 ^3/uL (0-0.8) Basophils # (Auto) 0 10 ^3/uL (0-0.2) Nucleated Red Blood Cells 0.2 % Urine Creatinine 199.91 mg/dL (30.0-125.0) Urine Protein/Creatinine Ratio 0.23 Urine Sodium < 10 mmol/L (40-220) Urine Total Protein 46.6 mg/dL (1-14) Magnesium Level 2.1 mg/dL (1.6-2.6) Total Bilirubin 13.2 mg/dL (0.2-1.0) Aspartate Amino Transferase (AST) 166 U/L (13-40) Alanine Aminotransferase (ALT) 78 U/L (7-40) Alkaline Phosphatase 162 U/L (46-116) Total Protein 5.5 g/dL (5.7-8.2) Albumin 2.1 g/dL (3.2-4.8) Test 04/16/24 10:30 04/13/24 13:00 04/13/24 12:50 04/13/24 06:36 Differential Total Cells Counted 100.0 (100) Neutrophils % (Manual) 68 (37.0-80.0) Band Neutrophils % (Manual) 0 Lymphocytes % (Manual) 14 (10.0-50.0) Monocytes % (Manual) 15 (0-12) Eosinophils % (Manual) 3 (0-7) Basophils % (Manual) 0 (0.0-2.0) Metamyelocytes % (manual) 0 Myelocytes % (Manual) 0 Promyelocytes % (Manual) 0 Blast Cells % (Manual) 0 Reactive Lymphocytes 0 Platelet Estimate Decreased Anisocytosis (manual) Slight Macrocytosis Moderate Ovalocytes Few Urine Color Yellow (Yellow) Urine Clarity Cloudy (Clear) Urine pH 5.0 (5.0-9.0) Urine Specific [place] 1.015 (1.001-1.035) Urine Protein Trace (Negative) Urine Ketones Negative (Negative) Urine Blood Trace /uL (Negative) Urine Nitrite Negative (Negative) Urine Bilirubin 2+ (Negative) Urine Urobilinogen Normal mg/dL (Negative) Urine Leukocyte Esterase 1+ /uL (Negative) Urine RBC 1 /hpf (0 - 3) Urine WBC 24 /hpf (0 - 3) Urine Squamous Epithelial Cells Few /hpf (<5) Urine Amorphous Crystals Few /hpf (None Seen) Urine Bacteria Few /hpf (None Seen) Urine Hyaline Casts Mod /lpf (0 - 2) Urine Glucose Normal mg/dL (Normal) Stool Occult Blood Negative (Negative) Stool Occult Blood Sample #3 (Negative) Urine Opiates Screen Neg (NEGATIVE) Urine Fentanyl Screen Neg (NEGATIVE) Urine Barbiturates Screen Neg (NEGATIVE) Urine Phencyclidine Screen Neg (NEGATIVE) Urine Amphetamines Screen Neg (NEGATIVE) Urine Benzodiazepines Screen Pos (NEGATIVE) Urine Cocaine Screen Neg (NEGATIVE) Urine Cannabinoids Screen Neg (NEGATIVE) Body Fluid Source Peritoneal Body Fluid pH 8.0 Body Fluid WBC (Manual) 122 CUMM (0-200) Body Fluid RBC (Manual) 112 CUMM (0-2000) Body Fluid Mononuclear Cells 93 % Body Fluid Polymorphonuclear Cells 7 % (0-25) Body Fluid Glucose 95 mg/dL (.) Body Fluid Total Protein 0.8 g/dL (.) Body Fluid Lactate Dehydrogenase 50 IU/L (.) Prothrombin Time 20.9 sec (9.3-11.8) Prothrombin Time INR 2.08 (0.9-1.15) Activated Partial Thromboplast Time 44.3 SEC (24.5-34.5) Lactic Acid Level 1.9 mmol/L (0.4-2.0) Test 04/13/24 04:22 04/13/24 04:07 04/13/24 00:20 D-Dimer, Quantitative 5.36 mg/L FEU (0.0-0.49) Ammonia 25 umol/L (11-32) Vitamin B12 Level 3187 pg/mL (211-911) Folic Acid 29.62 ng/mL (>5.38) Thyroid Stimulating Hormone (TSH) 1.43 uIU/mL (0.55-4.78) Lipase 215 U/L (12-53) Plasma/Serum Blood Alcohol 3.3 mg/dL (<10) Troponin I High Sensitivity 6 ng/L (</=54) Other Laboratory Tests 04/20/24 05:36 04/19/24 06:16 Brief Hx & Hospital Course: This 63-year-old gentleman with significant pmhx presented to the ED with generalized abdominal that had been on going for over a year for which he has been to the hospital over the year. Recently, the pain again became unbearable 3 days prior to his presentation to the ED on . Patient also complained of pain in his right groin. He has large inguinoscratal hernia. He rated the abdominal pain as 10/10. He denies fever, chills nausea or vomiting. He endorsed headaches and poor vision mainly secondary to loss of his glasses. Patient's initial vitals were grossly unremarkable.WBC was within normal limits, plt 93-->83, Lactic acid was 2.2, albumin 2.3 and Ammonia less than 10. Prior to coming to the ED, Patient was admitted at [facility] for acute hypercapnic/hypoxic respiratory failure and had paracentesis during that admission. patient receives paracentesis every 2 weeks. On 04/12/24 patient received paracentesis where 10L of ascites fluid was drained. Patient felt better. Albumin and octreotide were given. We continue to monitor patient's status. His creatinine level however, continued to rise. Nephrology was consult for the management of the rising creatinine in the presence of cirrhosis. 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 Aldactone and lasix were held for couple of days to monitor the renal function. On 04/19/2024, patient had another paracentesis was done with 6.5 L of fluid drained. 50g of albumin given and windows systems engineer informed. Patient was stable and discharged with his home medications and furosemide 40 mg bid. patient is advised to follow up with the nephrology on out patient for further management. Also, patient should follow up GI for paracentesis or hepatology for transplant advise. PMHx: COPD, peripheral neuropathy, alcoholic liver cirrhosis, polysubstance abuse, portal hypertension, hypertension, sliding hernia, ventral hernia, left inguinal hernia and left partial great toe amputation PSHx: left big toe amputation. Fmhx: Both parent , Father: heart attack, Mother: brain bleed Social: lives with girlfriend, unemployed Constitutional: Denies fever no chills no feeling of malaise HEENT: Mild headache, Denied ear pain, ear discharges, conjunctivitis, nasal discharge throat pain Cardiovascular: Denies chest pain, palpitation, orthopnea, PND, or pedal edema Respiratory: Denied shortness of breath, Denied cough, sputum production, hemoptysis, GI: mild abdominal pain, Denied nausea, vomiting, diarrhea, hematemesis, hematochezia, : Denies frequency, urgency, hematuria; scrotal hernia Endocrine: Denies unintentional weight gain or weight loss, feeling of hot flashes, Otis: Denies easy bruising, bleeding disorders, epistaxis Musculoskeletal: Denies joint pains, muscle aches Psych: No evidence of depression, marcelina, suicidal ideation EXAMINATION General: Awake, alert, comfortable appearing, in no acute distress, jaundice. HEENT: Head is normocephalic and atraumatic. Pupils are equal, round, and reactive to light. Icteric. No nasal discharge. No facial trauma. Intraoral exam shows moist mucous membranes with no tonsillar enlargement or exudate. Neck: Supple with no cervical lymphadenopathy No meningismus. No goiter. Heart: Regular rate without murmur, rub, or gallop. Lungs: mild scattered crackles Abdomen: Distended, umbilical hernia present, bs+, tympanic, no guarding, fluid thrill present, shifting dullness + flanks full, edema to the thigh bilateral Extremities: Strong peripheral pulses. There is no clubbing, no cyanosis, and + two pitting edema Skin: No rash. Neurologic: Cranial nerves II-XII intact without motor, sensory, or cerebellar deficit, no asterixis Diagnosis Alcohol induced liver cirrhosis hepatorenal syndrome MALU probably due to possible Heptorenal syndrome Hyperkalemia Ascites From our medical standpoint, patient is stable for discharged. Case and discharge plan discussed with Dr. Amor Operations or Procedures PATIENT: GARIMA MEZA ACCT: [id number] UNIT: [id number] : 1960 LOC: ER ROOM / BED: / AGE / SEX: 63 / M ADM STATUS: REG ER SERVICE 0919 ORDERING PHYSICIAN: MEGA VERDIN MD PROCEDURE(s): ABPL - CT AB PEL WO CON-NO ORAL OR IV REASON: abd distention ORDER NUMBER(s): [id number], ACCESSION NUMBER(s): [id number] Exam: CT CT AB PEL WO CON-NO ORAL OR IV History: abd distention Comparison Study: None available at time of dictation. Technique: Multidetector spiral CT of the abdomen was performed from lung bases to pubic symphysis. Imaging was performed without IV contrast. Axial, coronal and sagittal multiplanar reformats were obtained from the axial data set by the technologist. Radiation Dose : 1. Abdomen/Pelvis:CTDIvol 21 mGy, DLP 1464 mGy*cm. Findings: Evaluation of solid organs is limited due to lack of intravenous contrast use. Lung Bases: Posterior bilateral lower lobe consolidations most likely representing atelectasis. Liver: Shrunken cirrhotic liver Gallbladder and Biliary Tree: Distended gallbladder with a 1.3 cm stone near the gallbladder neck. Spleen: Unremarkable Pancreas: The pancreas is grossly normal in appearance. Adrenal Glands: Unremarkable Kidneys: Kidneys are grossly normal without calculi or hydronephrosis. Bladder: Grossly unremarkable for degree of distention. Bowel: The stomach is grossly normal in appearance. Small bowel and colon are normal in caliber and distribution. The appendix is not visualized; however, no secondary findings of acute appendicitis identified. Ascites: Moderate to severe ascites. Lymphadenopathy: No mesenteric, retroperitoneal or periportal lymphadenopathy. Abdominal Wall and Mesentery: Tiny defect along the ventral abdominal wall with small herniation and transverse colon. Left inguinal hernia demonstrating fluid collection from the ascites.. Vasculature: The visualized abdominal aorta is normal in size and caliber. Evaluation of abdominal and pelvic vessels is limited due to lack of intravenous contrast. Perisplenic and periesophageal / perigastric varices. Pelvic Organs: Unremarkable Musculoskeletal: No aggressive focal bony lesions, acute fractures or dislocation. Mild diffuse anasarca. IMPRESSION: Cirrhosis with sequelae of portal hypertension. Moderate to severe diffuse ascites with mild anasarca. Small posterior bilateral lower lobe consolidations most likely representing atelectasis. Defect along the ventral abdominal wall demonstrating short segment loop of transverse colon. Moderate left inguinal hernia demonstrating fluid from the ascites. ATED BY: EBONY JONES DO DICTATED DATE/TIME: 04/13/24 0132 PATIENT: GARIMA MEZA ACCT: [id number] UNIT: [id number] : 1960 LOC: OVERFLOW ROOM / BED: 1012-ER / A AGE / SEX: 63 / M ADM STATUS: ADM IN SERVICE 0647 ORDERING PHYSICIAN: NICKIE ROGERS PROCEDURE(s): ABDC - ABDOMEN COMPLETE SONOGRAM REASON: to rule out hepatobiliary obstruction as ALT AST and bili ORDER NUMBER(s): [id number], ACCESSION NUMBER(s): [id number] ULTRASOUND ABDOMEN COMPLETE INDICATION: to rule out hepatobiliary obstruction as ALT AST and bili TECHNIQUE: Multiple real-time sonographic images of the abdomen were obtained. COMPARISON: None FINDINGS: The visualized liver parenchyma appears coarse and heterogeneous. . The liver is small in size with nodular contours and measures 10.7 cm in length. No discrete hepatic lesion or intrahepatic biliary ductal dilatation is identified. There is peritoneal ascites. There is hepatofugal flow identified in the portal vein. Gallbladder is filled with sludge. The gallbladder wall is not significantly thickened. The consulting services associate reports a negative Eisenberg's sign. The common biliary duct is not dilated. The right kidney measures 11.3 cm length. The left kidney measures 11.0 cm. No sonographic evidence of nephrolithiasis or hydronephrosis. The spleen is prominent measuring 14.5 cm. Pancreas and abdominal aorta are obscured by bowel gas. The visualized portions of the IVC appear grossly unremarkable. unremarkable. IMPRESSION: 1. Hepatic cirrhosis with sequela of portal hypertension. 2. There is hepatofugal flow identified in the portal vein. 3. Splenomegaly. 4. Ascites. 5. The gallbladder is filled with sludge. HS:Y ATED BY: MARK ANTHONY STEVENSON MD DICTATED DATE/TIME: 04/13/24 0816 PATIENT: GARIMA MEZA ACCT: [id number] UNIT: [id number] : 1960 LOC: CENTRAL ROOM / BED: 0218 / B AGE / SEX: 63 / M ADM STATUS: ADM IN SERVICE 0926 ORDERING PHYSICIAN: CHUNG GRIER PROCEDURE(s): CXRP - CHEST PORTABLE REASON: sob ORDER NUMBER(s): [id number], ACCESSION NUMBER(s): [id number] CHEST RADIOGRAPH Indication: sob Technique: Single frontal view of the chest was obtained Comparison: XY CHEST PORTABLE on DOS: 12/18/22 FINDINGS: Lines and Tubes: None Lungs: Hazy right midlung opacity. Pleura: No effusion. No pneumothorax. Cardiomediastinal contours: Unremarkable Bones: No acute osseous abnormality. IMPRESSION: 1. Hazy right midlung opacity may reflect atelectasis or infiltrate. ATED BY: DIAMANTE GAN MD DICTATED DATE/TIME: 04/13/24 1138 PATIENT: GARIMA MEZA ACCT: [id number] UNIT: [id number] : 1960 LOC: CENTRAL ROOM / BED: [address] [place] [address] AGE / SEX: 63 / M ADM STATUS: ADM IN SERVICE 1101 ORDERING PHYSICIAN: PARTHA SANTOS MD PROCEDURE(s): PARAC - PARACENTESIS REASON: ASCITES ORDER NUMBER(s): [id number], ACCESSION NUMBER(s): [id number] US PARACENTESIS, HISTORY: ASCITES PROCEDURE: Informed consent was obtained. The patient was placed in supine position. A limited localization ultrasound of the abdomen was obtained, and the skin site over the largest pocket of fluid was marked and entry site was prepped with chlorhexidine which was allowed to dry and draped in the usual sterile fashion. Time out was performed. Following administration of 1% lidocaine local anesthetic, a 5 Bulgarian centesis needle catheter was percutaneously inserted into the peritoneal collection until fluid was aspirated. The catheter was advanced into the fluid collection and the needle removed. About 85442 cc of fluid was aspirated and specimen sent for appropriate cultures/cytology/cultures and cytology. The catheter was then removed and a sterile dressing applied. 32 gm of albumin colloid infusion was given IV. No immediate complication was identified. FINDINGS: Limited ultrasound imaging demonstrates moderate to large ascites. Aspirated fluid was clear and serous. IMPRESSION: US-guided paracentesis woth 10.3L removed. ATED BY: FABIO DALLAS MD DICTATED DATE/TIME: 04/13/24 1322 PATIENT: GARIMA MEZA ACCT: [id number] UNIT: [id number] : 1960 LOC: CENTRAL ROOM / BED: [facility] B AGE / SEX: 63 / M ADM STATUS: ADM IN SERVICE 1150 ORDERING PHYSICIAN: CHUNG GRIER PROCEDURE(s): CXRP - CHEST PORTABLE REASON: sob ORDER NUMBER(s): [id number], ACCESSION NUMBER(s): [id number] CHEST RADIOGRAPH Indication: sob Technique: Single frontal view of the chest was obtained Comparison: XY CHEST PORTABLE on DOS: 04/13/24, XY CHEST PORTABLE on DOS: 12/18/22, CHEST PORTABLE on DOS: 02/03/22 FINDINGS: Lines and Tubes: None Lungs: No focal consolidation. Linear densities over the bilateral upper and lower lung zones Pleura: No effusion. No pneumothorax. Cardiomediastinal contours: Unremarkable Bones: No acute osseous abnormality. IMPRESSION: Bilateral upper and lower lung zone atelectasis. ATED BY: GLORIA RAINES DO DICTATED DATE/TIME: 04/16/24 1318 PATIENT: GARIMA MEZA ACCT: [id number] UNIT: [id number] : 1960 LOC: CENTRAL ROOM / BED: [address] [place] [address] AGE / SEX: 63 / M ADM STATUS: ADM IN SERVICE 1649 ORDERING PHYSICIAN: RHETT HULL PROCEDURE(s): BLDVT - BiLat Lower DVT REASON: elevated d-dimer ORDER NUMBER(s): [id number], ACCESSION NUMBER(s): [id number] Procedure: US BiLat Lower DVT Study Date and Requested Time: 04/17/2024 06:16 PM History: elevated d-dimer Comparison: BLDVT on DOS: 02/03/22, BI LOWER DVT on DOS: 02/03/22 Technique: Multiple high resolution casillas-scale images with and without compression obtained of the bilateral lower extremity veins, including the common femoral vein, deep femoral vein, proximal mid and distal superficial femoral vein, and popliteal vein. Additional limited images of the greater saphenous vein also obtained. Augmentation performed as indicated. Color and spectral doppler flow images obtained as indicated. Findings: No visible intraluminal venous thrombus. No evidence of incompressibility or abnormal color or spectral Doppler flow visualized in the bilateral lower extremity veins including, the common femoral vein, deep femoral vein, proximal mid and distal superficial femoral vein, and popliteal vein. Greater saphenous vein grossly unremarkable. Bilateral lower extremity soft tissue edema is noted. Impression: No sonographic evidence of bilateral lower extremity deep venous thrombosis. ATED BY: GLORIA RAINES DO DICTATED DATE/TIME: 04/17/24 1859 PATIENT: GARIMA MEZA ACCT: [id number] UNIT: [id number] : 1960 LOC: CENTRAL ROOM / BED: [address] [place] [address] AGE / SEX: 63 / M ADM STATUS: ADM IN SERVICE 1147 ORDERING PHYSICIAN: COCO RAGSDALE MD PROCEDURE(s): ABDL - ABDOMEN LIMITED REASON: ascites ORDER NUMBER(s): [id number], ACCESSION NUMBER(s): [id number] INDICATION: ascites TECHNIQUE: Multiple real-time sonographic images of the abdomen were obtained. COMPARISON: US GALLBLADDER on DOS: 08/12/23 FINDINGS: There is simple fluid in all 4 quadrants of the abdomen. IMPRESSION: 1. Simple ascites in all 4 quadrants of the abdomen. ATED BY: DIAMANTE GAN MD DICTATED DATE/TIME: 04/18/24 1223 Condition at Discharge: Stable Final Diagnosis/Problems List Alcohol induced liver cirrhosis MALU hepatorenal syndrome MALU probably due to possible Heptorenal syndrome Hyperkalemia--> resolved Ascites secondary to liver cirrhosis Thrombocytopenia Supraumbilical hernia Inguinal scrotal hernia Severe protein calorie malnutrition Discharge Disposition: Home Discharge Instruct/Medications Diet: Renal Activity: No Restrictions, As Tolerated Follow Up/Referral: 7 days at the discharge clinic Discharge Statement: "Patient was advised to return to the ER or call 911 if any headaches, dizziness, shortness of breath, chest pain, abdominal pain, bleeding, fevers, or worsening of medical condition. Patient was counseled about treatment plan, medications, possible side effects, patientverbalized understanding. All questions were answered to the best of my ability. This discharge took greater then 30 minutes in planning, reviewing documentation, counseling the patient, and discussing with other team members." ASSESSMENT ASSESSMENT Assessment Alcohol induced liver cirrhosis MALU hepatorenal syndrome MALU probably due to possible Heptorenal syndrome Hyperkalemia--> resolved Ascites secondary to liver cirrhosis Thrombocytopenia Supraumbilical hernia Inguinal scrotal hernia Severe protein calorie malnutrition Date of Service: Apr 20, 2024 Billing Provider: MARV CASTELAN MD Common Visit Codes: 97151-MSR/OBS DISCH DAY >30min RHETT HULL RESIDENT Apr 20, 2024 16:46 MARV CASTELAN MD Apr 24, 2024 23:21
== END 2024-04-20 18:26 | disposition home or self-care (01) | DRG 280 ==
LOC: ER 23:28 → EDUNIT# 23:28 → EDBD 23:28 → OVERFLOW 04-13 03:06 → CENTRAL 04-13 09:19
PROVIDERS: ADMIT Student in an Organized Health Care Education/Training Program; ATTEND Student in an Organized Health Care Education/Training Program
PROC: 0W9G3ZZ Drainage of Peritoneal Cavity, Percutaneous Approach (ICD-10-PCS; principal; 2024-04-16)
DX: K70.31 Alcoholic cirrhosis of liver with ascites (principal); K70.9 Alcoholic liver disease, unspecified; K76.7 Hepatorenal syndrome; E43 Unspecified severe protein-calorie malnutrition; E87.20 Acidosis, unspecified; D69.6 Thrombocytopenia, unspecified; K76.6 Portal hypertension; N17.9 Acute kidney failure, unspecified; I12.9 Hypertensive chronic kidney disease with stage 1 through stage 4 chronic kidney disease, or unspecified chronic kidney disease; K40.90 Unilateral inguinal hernia, without obstruction or gangrene, not specified as recurrent; N18.9 Chronic kidney disease, unspecified; E87.5 Hyperkalemia; K21.9 Gastro-esophageal reflux disease without esophagitis; J98.11 Atelectasis; K43.9 Ventral hernia without obstruction or gangrene; N43.2 Other hydrocele; E66.3 Overweight; E55.9 Vitamin D deficiency, unspecified; D53.9 Nutritional anemia, unspecified; F10.20 Alcohol dependence, uncomplicated; Z89.412 Acquired absence of left great toe; Z68.29 Body mass index [BMI] 29.0-29.9, adult; Z82.49 Family history of ischemic heart disease and other diseases of the circulatory system; Z80.0 Family history of malignant neoplasm of digestive organs; Y90.9 Presence of alcohol in blood, level not specified
CPT/HCPCS: 36415; 49083; 71045; 74176; 76700; 76705; 76942; 80048; 80053; 80307; 80320; 81001; 82140; 82270; 82570; 82607; 82746; 83605; 83690; 83735; 83986; 84156; 84300; 84443; 84484; 85007; 85025; 85027; 85379; 85610; 85730; 87040; 87081; 87086; 87205; 89051; 93005; 93306; 93970; 94640; 99291; G0378; J1815; J2470

== ENCOUNTER 2024-04-30 03:42 | Inpatient (IN) | payer MEDICAID ==
[~2024-04-30] VITALS: Ht 188 cm; Wt 45.4 kg
[~2024-04-30 03:42] MED LIST changes: -AUG875T PO; -FURO1TAB33 PO; +FURO20TA4 PO; -METR-344 PO; +MID10T PO
--- NOTE | 2024-04-30 04:18 | ED.PDOC ---
Altered Mental Status HPI Comments 63-year-old male came to ER via EMS for altered level of consciousness. Per EMS, patient was picked up at home, where he was noted to be acting altered and confused. He does have history of alcoholic liver cirrhosis, and recently had abdominal paracentesis done. At this time of care, patient refuses to answer any questions. No further information could be taken from him at this time. Patient was noted to be saturating 88% on room air Chief Complaint: ALOC Time Seen by MD: 04:17 Primary Care Provider: WILNERK NAME Reviewed Notes: Accounts Receivable Executive Notes Allergies: Coded Allergies: NO KNOWN ALLERGIES (Unverified , 08/04/18) UNOBTAINABLE (Unverified , 04/19/24) Home Meds Active Scripts Sucralfate (CARAFATE SUSP) 1 Gm/10 Ml Ss, 1 GM PO QID@0600,1130,1700,2200 for 30 Days, #120 ML Prov:RHETT HULL [facility] 04/20/24 Midodrine HCl (Midodrine HCl) 10 Mg Tab, 10 MG PO TID@0600,1200,1800 for 30 Days, #90 TAB Prov:RHETT HULL [facility] 04/20/24 Lactulose (Lactulose) 10 Gm/15 Ml Nieves, 15 ML PO TID for 30 Days, #10 ML [facility]/24 Furosemide (Furosemide) 20 Mg Tab, 40 MG PO BIDD for 30 Days, #120 TAB [facility] 04/20/24 Thiamine Hcl (VITAMIN B-1) 100 Mg Tb, 100 MG PO DAILY for 30 Days, #30 TAB Prov:MIRACLE FELIX [facility] 04/06/24 Spironolactone (Aldactone) 25 Mg Tab, 12.5 MG PO DAILY for 30 Days, #15 TAB Prov:ELVIRAMIRACLE [facility] 04/06/24 Rifaximin (Xifaxan) 550 Mg Tab, 550 MG PO BID for 30 Days, #60 TAB Prov:ELVIRAMIRACLE [facility] 04/06/24 Pantoprazole Sodium Sesquihydr (Pantoprazole Sodium) 40 Mg Tab, 40 MG PO DAILY@0600 for 30 Days, #30 TAB Prov:MIRACLE FELIX [facility] 11/20/24 Lactulose (Lactulose) 10 Gm/15 Ml Nieves, 30 ML PO Q3H for 30 Days, #10 ML Prov:MIRACLE FELIX RESIDENT 04/06/24 Furosemide (Furosemide) 40 Mg Tab, 40 MG PO DAILY for 30 Days, #30 TAB Prov:MIRACLE FELIX RESIDENT 04/06/24 Folic Acid (Folic Acid) 1 Mg Tab, 1 MG PO DAILY for 30 Days, #30 TAB Prov:DIDIERMIRACLE WLALACE RESIDENT 04/06/24 Oxycodone W/ Acetaminophen (Percocet 5/325MG) 1 Tab Tb, 1 TAB PO QID for 7 Days, #28 TAB Prov:BOBBY VELIZ [employer] ANALYST 08/31/23 Sucralfate (CARAFATE SUSP) 1 Gm/10 Ml Ss, 1 GM PO QIDACHS for 30 Days, #120 GM Prov:CLAUDIA AGUILAR MD 12/20/22 Reported Medications Celecoxib (CeleBREX CAPSULE) 100 Mg Cp, 1 CAP PO DAILY for 90 Days, #90 04/14/24 Midodrine Hcl (Midodrine Hcl) 10 Mg Tab, 1 TAB PO TID for 30 Days, #90 04/14/24 Potassium Chloride (Potassium Chloride ER) 20 Meq Tab, 1 TAB PO BID for 30 Days, #60 04/14/24 Ergocalciferol (Vitamin D (Ergocalciferol) 50,000 Unit Cap, 1 CAP PO QWEEKLY for 84 Days, #12 04/14/24 Ibuprofen (Ibuprofen) 800 Mg Tab, 1 TAB PO Q8HR PRN for 90 Days, #270 04/14/24 Spironolactone (Spironolactone) 25 Mg Tab, 1 TAB PO DAILY for 90 Days, #90 04/14/24 Folic Acid (Folic Acid) 1 Mg Tab, 1 TAB PO DAILY for 30 Days, #30 04/14/24 Thiamine Hcl (Vitamin B1) 100 Mg Tab, 1 TAB PO DAILY for 30 Days, #30 04/14/24 Lactulose (Lactulose) 10 Gm/15 Ml Nieves, 30 ML PO Q3HR for 30 Days, #2504 04/14/24 Pantoprazole Sodium Sesquihydr (Protonix) 40 Mg Tab, 1 TAB PO DAILY for 30 Days, #30 04/14/24 Furosemide (Furosemide) 40 Mg Tab, 1 TAB PO DAILY for 30 Days, #30 04/14/24 Docusate Sodium (Colace) 100 Mg Cap, 1 CAP PO DAILY for 90 Days, #90 04/14/24 Information Source: Emergency Med Personnel Mode of Arrival: EMS Severity: Unable to Care for Self, Unresponsive Timing: Hours Duration: Intermittent Prehospital treatment: Oxygen Quality: Decreased Alertness, Change in Behavior, Confusion Recent: Medication/Drug Abuse History of: Other (Alcohol liver cirrhosis) Associated Signs and Symptoms: None Past Medical History PAST MEDICAL HISTORY: COPD, HTN, Liver Surgical History: Hernia Repair Family History Family History: No family hx of HTN Social History Smoker: Non-Smoker Alcohol: Heavy Drugs: Marijuana Lives In: Home Unable to Obtain due to: Altered Mental Status Physical Exam General Appearance: Normal, Severe Distress HEENT: Normal ENT Inspection, Pharynx Normal, TMs Normal Neck: Full Range of Motion, Non-Tender, Normal, Normal Inspection Respiratory: Chest Non-Tender, Lungs Clear, No Accessory Muscle Use, No Respiratory Distress, Normal Breath Sounds Cardiovascular: No Edema, No JVD, No Murmur, No Gallop, Normal Peripheral Pulses, Regular Rate/Rhythm Breast Exam: Deferred Gastrointestinal: No Organomegaly, Non Tender, No Pulsatile Mass, Normal Bowel Sounds, Soft Genitalia: Deferred Pelvic: Deferred Rectal: Deferred Extremities: No calf tenderness, Normal capillary refill, Normal inspection, Normal range of motion, Non-tender, No pedal edema Musculoskeletal : Apperance: Normal Neurologic: Alert, section gang worker II-XII nml as Tested, No Motor Deficits, Normal Affect, Normal Mood, No Sensory Deficits Cerebellar Function: Normal Reflexes: Normal Skin: Dry, Normal Color, Warm Lymphatic: No Adenopathy EKG EKG : Pulse Rate (adult): 72 Cardiac Rhythm: NSR Was a procedure done? Was a procedure done?: No Differential Diagnosis (ALOC) Differential Diagnosis: Hypoglycemia, Encephalopathy, Meningitis, Sepsis, Seizure, Drug Overdose, ETOH Intoxication X-Ray, Labs, Meds, VS Vital Signs Date Time Temp Pulse Resp B/P (MAP) Pulse Ox O2 Delivery O2 Flow Rate FiO2 04/30/24 05:30 97.9 74 12 103/54 (70) 95 97.9 04/30/24 04:18 72 04/30/24 04:02 72 04/30/24 03:56 97.9 74 18 104/78 (87) 96 Lab Test 04/30/24 04:39 Range/Units White Blood Count 11.8 H 4.4-10.8 10^3/uL Red Blood Count 3.24 L 4.5-5.90 10^6/uL Hemoglobin 12.5 L 13.5-17.5 g/dL Hematocrit 36.6 L 41.0-53.0 % Mean Corpuscular Volume 113.1 H 80.0-100.0 fL Mean Corpuscular Hemoglobin 38.6 H 28.0-32.0 pg Mean Corpuscular Hemoglobin Concent 34.1 32.0-36.0 g/dL Red Cell Distribution Width 16.0 H 11.8-14.3 % Platelet Count 91 L 140-450 10^3/uL Mean Platelet Volume 8.9 6.9-10.8 fL Neutrophils (%) (Auto) 83.9 H 37.0-80.0 % Lymphocytes (%) (Auto) 7.1 L 10.0-50.0 % Monocytes (%) (Auto) 8.5 0.0-12.0 % Eosinophils (%) (Auto) 0.2 0.0-7.0 % Basophils (%) (Auto) 0.3 0.0-2.0 % Neutrophils # (Auto) 9.9 H 1.6-8.6 10 ^3/uL Lymphocytes # (Auto) 0.8 0.4-5.4 10 ^3/uL Monocytes # (Auto) 1.0 0-1.3 10 ^3/uL Eosinophils # (Auto) 0 0-0.8 10 ^3/uL Basophils # (Auto) 0 0-0.2 10 ^3/uL Nucleated Red Blood Cells 0.0 % Platelet Estimate Decreased Macrocytosis Slight Prothrombin Time 21.0 H 9.3-11.8 sec Prothrombin Time INR 2.09 H 0.9-1.15 Activated Partial Thromboplast Time 41.2 H 24.5-34.5 SEC Sodium Level 131 L 136-145 mmol/L Potassium Level 6.1 *H 3.5-5.1 mmol/L Chloride Level 99 98-107 mmol/L Carbon Dioxide Level 20 20-31 mmol/L Anion Gap 12 5-15 Blood Urea Nitrogen 79 H 9-23 mg/dL Creatinine 7.52 H 0.700-1.30 mg/dL Glomerular Filtration Rate Calc 7 >90 mL/min BUN/Creatinine Ratio 10.5 10.0-20.0 Serum Glucose 89 74-106 mg/dL Lactic Acid Level 2.5 *H 0.4-2.0 mmol/L Calcium Level 9.2 8.7-10.4 mg/dL Magnesium Level 2.9 H 1.6-2.6 mg/dL Total Bilirubin 21.4 H 0.2-1.0 mg/dL Aspartate Amino Transferase (AST) 744 H 13-40 U/L Alanine Aminotransferase (ALT) 275 H 7-40 U/L Alkaline Phosphatase 483 H 46-116 U/L Ammonia 14 11-32 umol/L Troponin I High Sensitivity 72 *H </=54 ng/L Total Protein 6.7 5.7-8.2 g/dL Albumin 2.6 L 3.2-4.8 g/dL Plasma/Serum Blood Alcohol < 3.0 <10 mg/dL Head CT in chest x-ray are pending. White blood cell count is 12. INR is 2.1 Sodium is 131. Potassium is 6.1 BUN is 79. Creatinine is 7.5 Lactic acid is 2.5 Magnesium is 2.9 Elevated liver function tests Troponins and 72. EKG shows no signs of ischemia Alcohol level is less than three Ammonia level is pending. Time of 1ST Reevaluation: 04:14 Reevaluation 1ST: Unchanged Patient Education/Counseling: Diagnosis, Treatment Family Education/Counseling: No Family Present Departure 1 Departure Time of Disposition: 06:00 Impression: Primary Impression: Altered mental status Qualified Codes: R41.82 - Altered mental status, unspecified Additional Impressions: Metabolic encephalopathy Hyperkalemia Electrolyte abnormality Coagulopathy Elevated LFTs Cirrhosis Qualified Codes: K70.31 - Alcoholic cirrhosis of liver with ascites Disposition: 30 STILL A PATIENT Condition: Critical Discharged With: Self Critical Care Note Critical Care Time?: Yes (55 min-critical care time only) Stability Stability form required: No Heart Score Heart Score: Heart Score Response (Comments) Value History N/A 0 EKG N/A 0 Age N/A 0 Risk Factors N/A 0 Troponin N/A 0 Total 0 I personally scribed for MEGA VERDIN MD ([email or web address]) on 04/30/24 at 04:18. Electronically submitted by Mj Stallings ([email or web address]). MEGA EVRDIN MD Apr 30, 2024 04:18
[2024-04-30 04:58] LABS: Basophils # (auto) 0 10 ^3/uL (0-0.2); Eosinophils # (auto) 0 10 ^3/uL (0-0.8); Hemoglobin 12.5 g/dL (13.5-17.5); Lymphocytes # (auto) 0.8 10 ^3/uL (0.4-5.4); White Blood Cell 11.8 10^3/uL (4.4-10.8)
[2024-04-30 05:00] LABS: Basophils % (auto) 0.3 % (0.0-2.0); Eosinophils % (auto) 0.2 % (0.0-7.0); Hematocrit 36.6 % (41.0-53.0); Lymphocytes % (auto) 7.1 % (10.0-50.0); Mean Corpuscular Hemoglobin 38.6 pg (28.0-32.0); Mean Corpuscular Hgb Conc. 34.1 g/dL (32.0-36.0); Mean Corpuscular Volume 113.1 fL (80.0-100.0); Monocytes % (auto) 8.5 % (0.0-12.0); Neutrophils # (auto) 9.9 10 ^3/uL (1.6-8.6); Neutrophils % (auto) 83.9 % (37.0-80.0); Platelet Count (auto) 91 10^3/uL (140-450); Red Blood Cells 3.24 10^6/uL (4.5-5.90)
[2024-04-30 05:12] LABS: INR 2.09 (0.9-1.15); Macrocytosis Slight; Partial Thromboplastin Time 41.2 SEC (24.5-34.5); Platelet Estimate Decreased
[2024-04-30 05:23] LABS: Lactic Acid w/Reflex 2.5 mmol/L (0.4-2.0)
[2024-04-30 05:30] VITALS: O2SAT 95
[2024-04-30 05:31] LABS: Anion Gap 12 (5-15); Calcium 9.2 mg/dL (8.7-10.4); Chloride 99 mmol/L (98-107); Glucose 89 mg/dL (74-106)
[2024-04-30 05:35] LABS: BUN/Creatinine Ratio 10.5 (10.0-20.0)
[2024-04-30 05:36] LABS: Alanine Aminotransferase 275 U/L (7-40); Albumin 2.6 g/dL (3.2-4.8); Alkaline Phosphatase 483 U/L (46-116); Aspartate Aminotransferase 744 U/L (13-40); Bilirubin, Total 21.4 mg/dL (0.2-1.0); Blood Alcohol < 3.0 mg/dL (<10); Blood Urea Nitrogen 79 mg/dL (9-23); Carbon Dioxide 20 mmol/L (20-31); Magnesium 2.9 mg/dL (1.6-2.6); Sodium 131 mmol/L (136-145); Total Protein 6.7 g/dL (5.7-8.2)
[2024-04-30 05:37] LABS: Potassium 6.1 mmol/L (3.5-5.1)
[2024-04-30] MEDS: SODIUM CHLORIDE 0.9% 1,000 ML IV ONE (06:04)
--- NOTE | 2024-04-30 06:18 | DVH ---
CHEST RADIOGRAPH Indication: aloc Technique: Single frontal view of the chest was obtained Comparison: XY CHEST PORTABLE on DOS: 04/16/24, XY CHEST PORTABLE on DOS: 04/13/24, XY CHEST PORTABLE on DOS: 12/18/22, CHEST PORTABLE on DOS: 02/03/22, CXRP on DOS: 02/03/22 FINDINGS: Lines and Tubes: None Lungs: No focal consolidation. Pleura: No effusion. No pneumothorax. Cardiomediastinal contours: Unremarkable Bones: No acute osseous abnormality. IMPRESSION: No acute cardiopulmonary disease.
--- NOTE | 2024-04-30 06:27 | DVH ---
EXAM: CT HEAD WITHOUT CONTRAST INDICATION: aloc TECHNIQUE: CT of the head without intravenous contrast. Radiation Dose Information: CT Dose: . Dose-length product is 1188.8 mGy*cm The dose indicators for CT are the volume Computed Tomography (CT) Dose Index (CTDIvol) and the Dose Length Product (DLP), and are measured in units of mGy and mGy-cm, respectively. These indicators are not patient dose, but values generated from the CT scanner acquisition factors. The report includes radiation exposure data for exposures received during this examination. COMPARISON: None FINDINGS: There is no evidence of acute intracranial hemorrhage, extra-axial collection, mass effect, midline s hift, herniation or hydrocephalus. The ventricles, sulci and cisterns are age appropriate. The casillas-white differentiation is intact. Patchy periventricular and subcortical white matter hypoattenuation is nonspecific but may be related to small vessel ischemic disease. The visualized paranasal sinuses and mastoid air cells are clear. The surrounding soft tissues and osseous structures are unremarkable. IMPRESSION: 1. No acute intracranial abnormality.
[2024-04-30] MEDS: LACTULOSE 20Gm/30ML SOLN PO ONE (06:29)
--- NOTE | 2024-04-30 06:32 | ECG ---
[facility] Test Date: 2024-04-30 Test Time: 04:02:11 Pat Name: GARIMA MEZA Department: er Room: [address] [place] [address] Gender: M Logistics Intern: terrie : 1960 Requested By: MEGA VERDIN Order Number: [id number] Reading MD: Will Hernandez Measurements Intervals [place] Rate: 72 P: 78 [place]: 230 QRS: 80 QRSD: 106 T: 48 QT: 440 QTc: 482 Interpretive Statements Sinus rhythm Prolonged [place] interval Borderline prolonged QT interval Electronically Signed On 05-06-2024 9:51:00 PST by Will Hernandez Please click the below link to view image of tracing.
--- NOTE | 2024-04-30 06:33 | DVH ---
Exam: CT CT AB PEL WO CON-NO ORAL OR IV History: aloc with cirrhosis Comparison Study: CT 04/13/2024 TECHNIQUE: Multidetector CT of the abdomen was performed from lung bases to pubic symphysis. Imaging was performed without IV contrast. Axial, coronal and sagittal multiplanar reformats were obtained fr om the axial data set by the technologist. Radiation optimization: All CT scans at this facility use at least one of these dose optimization meryln hniques: automated exposure control mA and/or kV adjustment per patient size (includes targeted exam s where dose is matched to clinical indication) or iterative reconstruction. Radiation Dose Information: CT Dose: CTDI volume is 20.8 mGy. Dose-length product is 1363.6 mGy*cm FINDINGS: Evaluation of solid organs is limited due to lack of intravenous contrast use. Findings: Imaged portions of the lung bases demonstrate subsegmental atelectasis. There is a moderate hiatal he rnia. The liver is markedly shrunken and nodular in contour hypodensity in the left hepatic lobe measures 1 .1 cm. Multiple collaterals are present. The gallbladder appears prominent with gallstone at the gall bladder neck. The spleen, pancreas and adrenal glands appear unremarkable. The kidneys appear symmetr ic without hydronephrosis. There is large volume ascites throughout the abdomen and pelvis and extending into the left inguinal region. There is no evidence of bowel obstruction. Large amount of stool and gas within the colon. No suspici ous osseous lesion. IMPRESSION: 1. Hepatic cirrhosis with vascular varices, collateralization, and prominent spleen suggesting portal hypertension. 2. Cholelithiasis and prominent gallbladder, stable. 3. Similar appearance of large volume ascites 4. overall no significant interval change.
[2024-04-30 07:20] VITALS: PULSE 77; RESP 17; O2SAT 96
[2024-04-30 07:38] LABS: Urine Bacteria FEW /hpf (None Seen); Urine Blood 1+ /uL (Negative); Urine Clarity Turbid (Clear); Urine Color Dark-Yellow (Yellow); Urine Protein, UAD TRACE (Negative); Urine Specific Gravity 1.018 (1.001-1.035); Urine Squamous Epithelial Cell FEW /hpf (<5); Urine Urobilinogen Normal (Negative); Urine WBC 7 /hpf (0 - 3); Urine WBC Clumps PRESENT /hpf (None Seen)
[2024-04-30 07:40] LABS: Benzodiazephine Screen, Urine Neg (NEGATIVE)
[2024-04-30 07:44] LABS: Amphetamine Screen, Urine Neg (NEGATIVE); Barbiturate Scree,Urine Neg (NEGATIVE); Cannabinoid Screen, Urine Neg (NEGATIVE); Cocaine Screen, Urine Neg (NEGATIVE); Opiate Scree,Urine Pos (NEGATIVE); Phencyclidine Screen, Urine Neg (NEGATIVE)
[2024-04-30] MEDS: ASPirin 325 MG TAB PO ONE (08:00)
[2024-04-30] MEDS: ALBUTEROL SULF 2.5 MG/0.5ML(0.5%) NEB SOLN NEB ONE (08:11)
[2024-04-30] MEDS: SODIUM CHLORIDE 0.9% 1,000 ML IVB ONE (08:20)
[2024-04-30] MEDS: CALCIUM GLUC 1,000mg/50ml-NS 50 ML IV ONE (08:29)
[2024-04-30] MEDS: cefTRIAXone 1GM/50ML D5W 50 ML IV ONE (08:29)
[2024-04-30] MEDS: DEXTROSE (50%) 50ML SYRG IV ONE (08:32)
[2024-04-30] MEDS: SODIUM BICARB 8.4% 50Meq/50ml SYR Vial IV ONE (08:32)
[2024-04-30] MEDS: SODIUM ZIRCONIUM CYCL 10 GM PAK PO ONE (08:43)
[2024-04-30] MEDS: InsuLIN REG 1unit/0.01ml Soln (100units/ml) IV ONE (08:44)
[2024-04-30] MEDS: LORazepam 2MG/ML-1ML VIAL IV ONE ×2 (08:58→10:58)
[2024-04-30] MEDS: HALOPERIDOL LACTATE 5 MG/ML INJ VIAL IM ONE (09:00)
[2024-04-30] MEDS: diphenhdrAMINE HCL 50 MG/1 ML VL IV ONE (09:08)
[2024-04-30] MEDS ORDERED: NITROGLYCERIN 0.4 MG SL TAB SL PRN (10:00)
[2024-04-30] MEDS ORDERED: DOCUSATE SOD 100 MG CAP PO PRN (10:00)
[2024-04-30] MEDS ORDERED: ACETAMINOPHEN 325 MG TAB PO PRN (10:00)
[2024-04-30] MEDS: SODIUM CHLORIDE 0.9% 1,000 ML IV SCH (10:00)
[2024-04-30] MEDS ORDERED: ONDANSETRON HCL 4 MG/2 ML VIAL IV PRN (10:00)
[2024-04-30] MEDS ORDERED: MORPHINE SULFATE INJ 2 MG/ml SYRG IV PRN (10:00)
[2024-04-30] MEDS ORDERED: HYDROcodone-ACET 5/325MG TAB PO PRN (10:00)
[2024-04-30] MEDS ORDERED: ERGOCALCIFEROL 50,000 UNIT(1.25MG) CAP PO SCH (10:15)
--- NOTE | 2024-04-30 10:29 | DVHHP2 ---
History of Present Illness Reason for Visit: ALOC and SOB History of Present Illness Barber Hall is a 63YO M with pmHx of cirrhosis, HTN, and COPD who presents to the ED for ALOC and SOB x 1 day. Patient was confused at home and was brought in by EMS for ALOC. Patient had a paracentesis done on April 19, 2024 with 6.5L removed and on April 13, 2024 with about 10.3L removed. Patient is here for further evaluation. At bedside, he is noted to be aggressive, hostile, assaulting staff, including use of profanity. Patient uncooperative. Cardiovascular: HTN Pulmonary: COPD Hepatobiliary: Cirrhosis Past Surgical History: Hernia Repair Family History unable to obtain ALCOHOL: heavy Drugs: Marijuana, Other Lives: with Family Domestic Violence: Neg Review of Systems Other altered Allergies: Coded Allergies: NO KNOWN ALLERGIES (Unverified , 08/04/18) UNOBTAINABLE (Unverified , 04/19/24) Medications Current Medications Medications Dose Ordered Sig/Anil Route Start Time Stop Time Status Last Admin Dose Admin Norepinephrine Bitartrate 250 ml @ 3.75 mls/hr Q24H IV 04/30/24 07:45 Sodium Chloride 1,000 ml @ 100 mls/hr Q10H IV 04/30/24 10:00 UNV Acetaminophen/ Hydrocodone Bitart 1 tab Q4HP PRN PO 04/30/24 10:00 UNV Ondansetron HCl 4 mg Q4HP PRN IV 04/30/24 10:00 UNV Docusate Sodium 100 mg BIDPRN PRN PO 04/30/24 10:00 UNV Acetaminophen 650 mg Q6HP PRN PO 04/30/24 10:00 UNV Morphine Sulfate 2 mg Q4HPRN PRN IV 04/30/24 10:00 UNV Nitroglycerin 0.4 mg Q5MINP PRN SL 04/30/24 10:00 UNV Morphine Sulfate 2 mg Q30M PRN IV 04/30/24 10:00 UNV Ceftriaxone Sodium 50 ml @ 100 mls/hr DAILY@09 IV 05/01/24 09:00 UNV Exam Vital Signs Vital Signs Date Time Temp Pulse Resp B/P (MAP) Pulse Ox O2 Delivery O2 Flow Rate FiO2 04/30/24 09:20 90 16 104/59 (74) 95 04/30/24 07:20 Nasal Cannula* 2 28 04/30/24 07:20 97.9 97.9 General Appearance: Other (A/O x 1 to self.) HEENT: Atraumatic, PERRLA, Mucous membr. moist/pink Respiratory: Normal air movement Cardiovascular: Regular rate, Normal S1, Normal S2, No murmurs Abdominal: Soft Extremities: No clubbing, No cyanosis Skin: No significant lesion Psych/Mental Status: Other (altered) Labs/Xrays Labs Test 04/30/24 09:30 04/30/24 07:56 04/30/24 06:05 04/30/24 04:39 Range/Units POC Glucose 106 70-106 mg/dl Lactic Acid Level 2.3 *H 0.4-2.0 mmol/L Troponin I High Sensitivity 57 *H </=54 ng/L Urine Color Dark-yellow Yellow Urine Clarity Turbid H Clear Urine pH 5.0 5.0-9.0 Urine Specific [place] 1.018 1.001-1.035 Urine Protein Trace H Negative Urine Ketones Negative Negative Urine Blood 1+ H Negative /uL Urine Nitrite Negative Negative Urine Bilirubin 2+ Negative Urine Urobilinogen Normal Negative mg/dL Urine Leukocyte Esterase 1+ Negative /uL Urine RBC 4 0 - 3 /hpf Urine WBC 7 0 - 3 /hpf Urine WBC Clumps Present None Seen /hpf Urine Squamous Epithelial Cells Few <5 /hpf Urine Bacteria Few H None Seen /hpf Urine Glucose Trace Normal mg/dL Urine Opiates Screen Pos NEGATIVE Urine Fentanyl Screen Neg NEGATIVE Urine Barbiturates Screen Neg NEGATIVE Urine Phencyclidine Screen Neg NEGATIVE Urine Amphetamines Screen Neg NEGATIVE Urine Benzodiazepines Screen Neg NEGATIVE Urine Cocaine Screen Neg NEGATIVE Urine Cannabinoids Screen Neg NEGATIVE White Blood Count 11.8 H 4.4-10.8 10^3/uL Red Blood Count 3.24 L 4.5-5.90 10^6/uL Hemoglobin 12.5 L 13.5-17.5 g/dL Hematocrit 36.6 L 41.0-53.0 % Mean Corpuscular Volume 113.1 H 80.0-100.0 fL Mean Corpuscular Hemoglobin 38.6 H 28.0-32.0 pg Mean Corpuscular Hemoglobin Concent 34.1 32.0-36.0 g/dL Red Cell Distribution Width 16.0 H 11.8-14.3 % Platelet Count 91 L 140-450 10^3/uL Mean Platelet Volume 8.9 6.9-10.8 fL Neutrophils (%) (Auto) 83.9 H 37.0-80.0 % Lymphocytes (%) (Auto) 7.1 L 10.0-50.0 % Monocytes (%) (Auto) 8.5 0.0-12.0 % Eosinophils (%) (Auto) 0.2 0.0-7.0 % Basophils (%) (Auto) 0.3 0.0-2.0 % Neutrophils # (Auto) 9.9 H 1.6-8.6 10 ^3/uL Lymphocytes # (Auto) 0.8 0.4-5.4 10 ^3/uL Monocytes # (Auto) 1.0 0-1.3 10 ^3/uL Eosinophils # (Auto) 0 0-0.8 10 ^3/uL Basophils # (Auto) 0 0-0.2 10 ^3/uL Nucleated Red Blood Cells 0.0 % Platelet Estimate Decreased Macrocytosis Slight Prothrombin Time 21.0 H 9.3-11.8 sec Prothrombin Time INR 2.09 H 0.9-1.15 Activated Partial Thromboplast Time 41.2 H 24.5-34.5 SEC Sodium Level 131 L 136-145 mmol/L Potassium Level 6.1 *H 3.5-5.1 mmol/L Chloride Level 99 98-107 mmol/L Carbon Dioxide Level 20 20-31 mmol/L Anion Gap 12 5-15 Blood Urea Nitrogen 79 H 9-23 mg/dL Creatinine 7.52 H 0.700-1.30 mg/dL Glomerular Filtration Rate Calc 7 >90 mL/min BUN/Creatinine Ratio 10.5 10.0-20.0 Serum Glucose 89 74-106 mg/dL Calcium Level 9.2 8.7-10.4 mg/dL Magnesium Level 2.9 H 1.6-2.6 mg/dL Total Bilirubin 21.4 H 0.2-1.0 mg/dL Aspartate Amino Transferase (AST) 744 H 13-40 U/L Alanine Aminotransferase (ALT) 275 H 7-40 U/L Alkaline Phosphatase 483 H 46-116 U/L Ammonia 14 11-32 umol/L Total Protein 6.7 5.7-8.2 g/dL Albumin 2.6 L 3.2-4.8 g/dL Plasma/Serum Blood Alcohol < 3.0 <10 mg/dL EXAM: CT HEAD WITHOUT CONTRAST INDICATION: aloc TECHNIQUE: CT of the head without intravenous contrast. Radiation Dose Information: CT Dose: . Dose-length product is 1188.8 mGy*cm The dose indicators for CT are the volume Computed Tomography (CT) Dose Index (CTDIvol) and the Dose Length Product (DLP), and are measured in units of mGy and mGy-cm, respectively. These indicators are not patient dose, but values generated from the CT scanner acquisition factors. The report includes radiation exposure data for exposures received during this examination. COMPARISON: None FINDINGS: There is no evidence of acute intracranial hemorrhage, extra-axial collection, mass effect, midline shift, herniation or hydrocephalus. The ventricles, sulci and cisterns are age appropriate. The casillas-white differentiation is intact. Patchy periventricular and subcortical white matter hypoattenuation is nonspecific but may be related to small vessel ischemic disease. The visualized paranasal sinuses and mastoid air cells are clear. The surrounding soft tissues and osseous structures are unremarkable. IMPRESSION: 1. No acute intracranial abnormality. CHEST RADIOGRAPH Indication: aloc Technique: Single frontal view of the chest was obtained Comparison: XY CHEST PORTABLE on DOS: 04/16/24, XY CHEST PORTABLE on DOS: 04/13/24, XY CHEST PORTABLE on DOS: 12/18/22, CHEST PORTABLE on DOS: 02/03/22, CXRP on DOS: 02/03/22 FINDINGS: Lines and Tubes: None Lungs: No focal consolidation. Pleura: No effusion. No pneumothorax. Cardiomediastinal contours: Unremarkable Bones: No acute osseous abnormality. IMPRESSION: No acute cardiopulmonary disease. Exam: CT CT AB PEL WO CON-NO ORAL OR IV History: aloc with cirrhosis Comparison Study: CT 04/13/2024 FINDINGS: Evaluation of solid organs is limited due to lack of intravenous contrast use. Findings: Imaged portions of the lung bases demonstrate subsegmental atelectasis. There is a moderate hiatal hernia. The liver is markedly shrunken and nodular in contour hypodensity in the left hepatic lobe measures 1.1 cm. Multiple collaterals are present. The gallbladder appears prominent with gallstone at the gallbladder neck. The spleen, pancreas and adrenal glands appear unremarkable. The kidneys appear symmetric without hydronephrosis. There is large volume ascites throughout the abdomen and pelvis and extending into the left inguinal region. There is no evidence of bowel obstruction. Large amount of stool and gas within the colon. No suspicious osseous lesion. IMPRESSION: 1. Hepatic cirrhosis with vascular varices, collateralization, and prominent spleen suggesting portal hypertension. 2. Cholelithiasis and prominent gallbladder, stable. 3. Similar appearance of large volume ascites 4. overall no significant interval change. Assessment/Plan Assessment/Plan Assessment/Plan: Acute metabolic encephalopathy 2nd likely to UTI Leucocytosis with lactic acidosis Elevated troponin's likely sepsis Acute on chronic renal insufficiency IV abx ekg ua uds fc mg level ct head noted ct a/p noted cxr noted anxiolytics midodrine pressors - hypotensive blood cxs cards cx trend troponin's am labs IVf nephrology cx Ascites Hepatic cirrhosis with vascular varices Cholelithiasis GI cx continue home meds- lasix, spironolactone, lactulose Thrombocytopenia hold asa Hyperkalemia lokelma - given in ER lactulose - given in ER insulin - given in ER Hx of HTN monitor COPD 02 NC resp txs prn Substance abuse Discussed with patient cessation of substance abuse FEN/PPX IVf NPO dvt ppx - hold asa continue home meds - sucralfate and protonix Discussed plan of care with RN Home meds reconciled Admit to ICU for continuous monitoring Plan discussed with: Patient My Orders Orders - ABIMAEL VIRAMONTES Procedure Category Date Status Time * Gi D[facility] Labor Expediter CONS 04/30/24 Transmitted 09:45 Admit ADMIT 04/30/24 Transmitted 09:49 Allergies LIZZETH 04/30/24 In Process 09:49 Code Status CODE 04/30/24 Transmitted 09:49 Sodium Chloride 0.9% PHA 04/30/24 Logged 10:00 Hydrocodone-Acet PHA 04/30/24 Logged 5/325mg Tab ([place] 10:00 Ondansetron Hcl PHA 04/30/24 Logged (Zofran) 10:00 Docusate Sodium PHA 04/30/24 Logged Capsule (Colace 10:00 Complete Blood Count LAB 05/01/24 Verified 04:00 Comprehensive LAB 05/01/24 Verified Metabolic Panel 04:00 Npo (Nothing By DIET 04/30/24 Transmitted Mouth) Diet Lunch Acetaminophen Tablet PHA 04/30/24 Transmitted (Tylenol Tablet) 10:00 Morphine Sulfate PHA 04/30/24 Transmitted Injection 10:00 Nitroglycerin PHA 04/30/24 Transmitted Sublingual (Ntrostat 10:00 Morphine Sulfate PHA 04/30/24 Transmitted Injection 10:00 Notify Of Changes [facility] 04/30/24 In Process From Base 09:49 Pipe Crew Foreman For [facility] 04/30/24 In Process 24 Hours 09:49 Emergency Dysrhythmia [facility] 04/30/24 In Process Protocol 09:49 Rhythm Strips Once [facility] 04/30/24 In Process Every Shift 09:49 Oxygen By Nasal RT 04/30/24 Transmitted Cannula 09:49 * Cardiology Consult CONS 04/30/24 Transmitted 09:49 Ceftriaxone Ivpb PHA 05/01/24 Transmitted Rocephin 09:00 Electrocardigram EKG 04/30/24 Logged 09:49 Electrocardigram EKG 05/01/24 Logged 04:00 Date of Service: Apr 30, 2024 Billing Provider: ABIMAEL VIRAMONTES Common Visit Codes: [id number] INP/OBS CARE (HIGH) ABIMAEL VIRAMONTES Apr 30, 2024 10:29
[2024-04-30] MEDS: NOREPINEPHRINE 8 MG/250ML KIT 250 ML IV SCH (12:16)
--- NOTE | 2024-04-30 13:19 | DVHINCON2 ---
Date Seen: Apr 30, 2024 Referring Physician José Miguel Reason for Consultation Elevated troponins History of Present Illness 63-year-old male with PMH for cirrhosis, HTN, and the COPD presented to the hospital with increased altered level consciousness and shortness of breath. Patient fairly confused at times agitated therefore information gathering mainly from chart review. Apparently patient had recent paracentesis done April 19 of this year with-6.5 L removed. Upon evaluation in the ER patient noted to have PLT 91, INR 2.09, troponin trending 72, 57. K 6.1. Creatinine 7.52. Lactic acid 2.5. Ammonia 14. Elevated LFTs with AST of 744 and ALT of 275. CT abdomen showed hepatic cirrhosis, large volume ascites. CXR negative for acute cardiopulmonary disease. CT head negative for acute intracranial abnormality. EKG reviewed and shows sinus rhythm at 72 beats per minute, no acute ST abnormalities noted. Past Medical History As above. Past Surgical History As stated above. Family History: Cardiovascular disease G8 FATHER Colon cancer G8 MOTHER FH: cancer G8 FATHER FH: heart attack G8 FATHER Social History Previous marijuana use and heavy alcohol use. Allergies: Coded Allergies: NO KNOWN ALLERGIES (Unverified , 08/04/18) UNOBTAINABLE (Unverified , 04/19/24) Home Meds Active Scripts Sucralfate (CARAFATE SUSP) 1 Gm/10 Ml Ss, 1 GM PO QID@0600,1130,1700,2200 for 30 Days, #120 ML Prov:RHETT HULL RESIDENT 04/20/24 Midodrine HCl (Midodrine HCl) 10 Mg Tab, 10 MG PO TID@0600,1200,1800 for 30 Days, #90 TAB Prov:RHETT HULL RESIDENT 04/20/24 Lactulose (Lactulose) 10 Gm/15 Ml Nieves, 15 ML PO TID for 30 Days, #10 ML Prov:RHETT HULL [facility] 04/20/24 Furosemide (Furosemide) 20 Mg Tab, 40 MG PO BIDD for 30 Days, #120 TAB Prov:RHETT HULL RESIDENT 04/20/24 Thiamine Hcl (VITAMIN B-1) 100 Mg Tb, 100 MG PO DAILY for 30 Days, #30 TAB Prov:MIRACLE FELIX RESIDENT 04/06/24 Spironolactone (Aldactone) 25 Mg Tab, 12.5 MG PO DAILY for 30 Days, #15 TAB Prov:MIRACLE FELIX [facility] 04/06/24 Rifaximin (Xifaxan) 550 Mg Tab, 550 MG PO BID for 30 Days, #60 TAB Prov:ELVIRAMIRACLE [facility] 04/06/24 Pantoprazole Sodium Sesquihydr (Pantoprazole Sodium) 40 Mg Tab, 40 MG PO DAILY@0600 for 30 Days, #30 TAB [id number] 04/06/24 Lactulose (Lactulose) 10 Gm/15 Ml Nieves, 30 ML PO Q3H for 30 Days, #10 ML [facility]/06/24 Furosemide (Furosemide) 40 Mg Tab, 40 MG PO DAILY for 30 Days, #30 TAB [id number] 04/06/24 Folic Acid (Folic Acid) 1 Mg Tab, 1 MG PO DAILY for 30 Days, #30 TAB Prov:[id number] 04/06/24 Oxycodone W/ Acetaminophen (Percocet 5/325MG) 1 Tab Tb, 1 TAB PO QID for 7 Days, #28 TAB Prov:BOBBY VELIZ [employer]AL[employer] DEHYDRATOR OPERATOR 08/31/23 Sucralfate (CARAFATE SUSP) 1 Gm/10 Ml Ss, 1 GM PO QIDACHS for 30 Days, #120 GM Prov:CLAUDIA AGUILAR MD 12/20/22 Reported Medications Celecoxib (CeleBREX CAPSULE) 100 Mg Cp, 1 CAP PO DAILY for 90 Days, #90 04/14/24 Midodrine Hcl (Midodrine Hcl) 10 Mg Tab, 1 TAB PO TID for 30 Days, #90 04/14/24 Potassium Chloride (Potassium Chloride ER) 20 Meq Tab, 1 TAB PO BID for 30 Days, #60 04/14/24 Ergocalciferol (Vitamin D (Ergocalciferol) 50,000 Unit Cap, 1 CAP PO QWEEKLY for 84 Days, #12 04/14/24 Ibuprofen (Ibuprofen) 800 Mg Tab, 1 TAB PO Q8HR PRN for 90 Days, #270 04/14/24 Spironolactone (Spironolactone) 25 Mg Tab, 1 TAB PO DAILY for 90 Days, #90 04/14/24 Folic Acid (Folic Acid) 1 Mg Tab, 1 TAB PO DAILY for 30 Days, #30 04/14/24 Thiamine Hcl (Vitamin B1) 100 Mg Tab, 1 TAB PO DAILY for 30 Days, #30 04/14/24 Lactulose (Lactulose) 10 Gm/15 Ml Nieves, 30 ML PO Q3HR for 30 Days, #6254 04/14/24 Pantoprazole Sodium Sesquihydr (Protonix) 40 Mg Tab, 1 TAB PO DAILY for 30 Days, #30 04/14/24 Furosemide (Furosemide) 40 Mg Tab, 1 TAB PO DAILY for 30 Days, #30 04/14/24 Docusate Sodium (Colace) 100 Mg Cap, 1 CAP PO DAILY for 90 Days, #90 04/14/24 Current Medications Current Medications Medications (Trade) Dose Ordered Sig/Anil Route PRN Reason Start Time Stop Time Status Last Admin Norepinephrine Bitartrate 250 ml @ 3.75 mls/hr Q24H IV 04/30/24 07:45 04/30/24 12:16 Sodium Chloride 1,000 ml @ 100 mls/hr Q10H IV 04/30/24 10:00 04/30/24 10:00 Acetaminophen/ Hydrocodone Bitart ([place] 5/325MG Tab) 1 tab Q4HP PRN PO MODERATE PAIN (4-6 PAIN SCALE) 04/30/24 10:00 Hold Ondansetron HCl (Zofran) 4 mg Q4HP PRN IV NAUSEA / VOMITING 04/30/24 10:00 Docusate Sodium (Colace Capsule) 100 mg BIDPRN PRN PO FOR CONSTIPATION 04/30/24 10:00 Acetaminophen (Tylenol Tablet) 650 mg Q6HP PRN PO PAIN SCALE 1-3 OR TEMP>100.4 04/30/24 10:00 Hold Morphine Sulfate 2 mg Q4HPRN PRN IV SEVERE PAIN (7-10 PAIN SCALE) 04/30/24 10:00 Nitroglycerin (Ntrostat Sublingual) 0.4 mg Q5MINP PRN SL FOR CHEST PAIN 04/30/24 10:00 Morphine Sulfate 2 mg Q30M PRN IV FOR CHEST PAIN 04/30/24 10:00 Ceftriaxone Sodium 50 ml @ 100 mls/hr DAILY@09 IV 05/01/24 09:00 Docusate Sodium (Colace Capsule) 100 mg DAILY PO 05/01/24 10:00 Ergocalciferol (Vitamin D 50,000 Unit) 50,000 unit QWEEKLY PO 04/30/24 10:15 Furosemide (Lasix Tablet) 40 mg DAILY PO 05/01/24 10:00 Midodrine (Proamatine Tablet) 10 mg TID PO 04/30/24 14:00 Pantoprazole Sodium (Protonix Tablet) 40 mg DAILY PO 05/01/24 10:00 Spironolactone (Aldactone) 25 mg DAILY PO 05/01/24 10:00 UNV Patient Own Medication 1 tab DAILY PO 05/01/24 10:00 UNV Patient Own Medication 30 ml Q3HR PO 04/30/24 12:00 UNV Patient Own Medication 1 tab BID PO 04/30/24 22:00 UNV Lorazepam (Ativan Inj) 1 mg Q6HP PRN IV ANXIETY 04/30/24 11:00 Review of Systems Review of systems deferred due to LOC Vital Signs Vital Signs Date Time Temp Pulse Resp B/P (MAP) Pulse Ox O2 Delivery O2 Flow Rate FiO2 04/30/24 12:29 89/50 04/30/24 11:52 85 04/30/24 11:00 16 96 04/30/24 07:20 Nasal Cannula* 2 28 04/30/24 07:20 97.9 97.9 Physical Exam General appearance: Ill-appearing, in acute distress. HEENT: Exam shows: Normocephalic, atraumatic, PERRLA, EOMI Neck: Supple, no bruits Chest: Equal chest excursion bilaterally. Breath sounds normal-no rales or wheezes. Heart: Rhythm: Regular rate; no murmur or gallop Abdomen: Exam shows: Soft, nontender, distended Musculoskeletal: No clubbing, no cyanosis, trace lower extremity edema Dermatology: Skin warm, moist. Neurological: Exam shows: Altered and confused. Available prior records, labs, EKG, rhythm strips reviewed and interpreted Labs/Diagnostic Data Labs Test 04/30/24 09:30 04/30/24 07:56 04/30/24 06:05 04/30/24 04:39 Range/Units POC Glucose 106 70-106 mg/dl Lactic Acid Level 2.3 *H 0.4-2.0 mmol/L Troponin I High Sensitivity 57 *H </=54 ng/L Urine Color Dark-yellow Yellow Urine Clarity Turbid H Clear Urine pH 5.0 5.0-9.0 Urine Specific [place] 1.018 1.001-1.035 Urine Protein Trace H Negative Urine Ketones Negative Negative Urine Blood 1+ H Negative /uL Urine Nitrite Negative Negative Urine Bilirubin 2+ Negative Urine Urobilinogen Normal Negative mg/dL Urine Leukocyte Esterase 1+ Negative /uL Urine RBC 4 0 - 3 /hpf Urine WBC 7 0 - 3 /hpf Urine WBC Clumps Present None Seen /hpf Urine Squamous Epithelial Cells Few <5 /hpf Urine Bacteria Few H None Seen /hpf Urine Glucose Trace Normal mg/dL Urine Opiates Screen Pos NEGATIVE Urine Fentanyl Screen Neg NEGATIVE Urine Barbiturates Screen Neg NEGATIVE Urine Phencyclidine Screen Neg NEGATIVE Urine Amphetamines Screen Neg NEGATIVE Urine Benzodiazepines Screen Neg NEGATIVE Urine Cocaine Screen Neg NEGATIVE Urine Cannabinoids Screen Neg NEGATIVE White Blood Count 11.8 H 4.4-10.8 10^3/uL Red Blood Count 3.24 L 4.5-5.90 10^6/uL Hemoglobin 12.5 L 13.5-17.5 g/dL Hematocrit 36.6 L 41.0-53.0 % Mean Corpuscular Volume 113.1 H 80.0-100.0 fL Mean Corpuscular Hemoglobin 38.6 H 28.0-32.0 pg Mean Corpuscular Hemoglobin Concent 34.1 32.0-36.0 g/dL Red Cell Distribution Width 16.0 H 11.8-14.3 % Platelet Count 91 L 140-450 10^3/uL Mean Platelet Volume 8.9 6.9-10.8 fL Neutrophils (%) (Auto) 83.9 H 37.0-80.0 % Lymphocytes (%) (Auto) 7.1 L 10.0-50.0 % Monocytes (%) (Auto) 8.5 0.0-12.0 % Eosinophils (%) (Auto) 0.2 0.0-7.0 % Basophils (%) (Auto) 0.3 0.0-2.0 % Neutrophils # (Auto) 9.9 H 1.6-8.6 10 ^3/uL Lymphocytes # (Auto) 0.8 0.4-5.4 10 ^3/uL Monocytes # (Auto) 1.0 0-1.3 10 ^3/uL Eosinophils # (Auto) 0 0-0.8 10 ^3/uL Basophils # (Auto) 0 0-0.2 10 ^3/uL Nucleated Red Blood Cells 0.0 % Platelet Estimate Decreased Macrocytosis Slight Prothrombin Time 21.0 H 9.3-11.8 sec Prothrombin Time INR 2.09 H 0.9-1.15 Activated Partial Thromboplast Time 41.2 H 24.5-34.5 SEC Sodium Level 131 L 136-145 mmol/L Potassium Level 6.1 *H 3.5-5.1 mmol/L Chloride Level 99 98-107 mmol/L Carbon Dioxide Level 20 20-31 mmol/L Anion Gap 12 5-15 Blood Urea Nitrogen 79 H 9-23 mg/dL Creatinine 7.52 H 0.700-1.30 mg/dL Glomerular Filtration Rate Calc 7 >90 mL/min BUN/Creatinine Ratio 10.5 10.0-20.0 Serum Glucose 89 74-106 mg/dL Calcium Level 9.2 8.7-10.4 mg/dL Magnesium Level 2.9 H 1.6-2.6 mg/dL Total Bilirubin 21.4 H 0.2-1.0 mg/dL Aspartate Amino Transferase (AST) 744 H 13-40 U/L Alanine Aminotransferase (ALT) 275 H 7-40 U/L Alkaline Phosphatase 483 H 46-116 U/L Ammonia 14 11-32 umol/L Total Protein 6.7 5.7-8.2 g/dL Albumin 2.6 L 3.2-4.8 g/dL Plasma/Serum Blood Alcohol < 3.0 <10 mg/dL Assessment Elevated troponins COPD Acute metabolic encephalopathy Hepatic cirrhosis, ascites Thrombocytopenia Hyperkalemia MALU HTN Plan/Recommendation * Troponins trending down. Stable. Likely troponin leak. Recent echo with low normal EF 50% grade 2 LV DD. Mild AR. * Diuresis with Lasix 40 mg p.o. daily, spironolactone 25 mg p.o. daily. * Marginal BP, patient on midodrine. * On empiric antibiotic therapy. CT head negative for acute pathology. * GI on board * Hold anticoagulation therapy (aspirin) in setting of thrombocytopenia * Hyperkalemia protocol, Lokelma given in the ER. Case Discussed with Dr Harley. Troponins stable. Recent echo with normal EF. Diuresis as above. Patient not a candidate for ischemic workup at this time. Continue conservative medical management. Thank you for allowing us to participate in this patient's care. Will sign off. Critical care, time spent: 40 minutes This medical document was created using an electronic medical record system with voice recognition software and computerized dictation system. Although this document has been carefully reviewed, there might still be some phonetic and typographical errors. Occasional wrong-word or ``sound-alike substitutions may have occurred due to the inherent limitations of voice recognition software. These areas are purely typographical due to imperfections of the software programs and do not reflect any compromise in the patient's medical care. Please read the chart carefully and recognize, using context, where these substitutions have occurred. Plan discussed with: Other (bedside RN) Date of Service: Apr 30, 2024 Billing Provider: SKIP ROSENBAUM Cardiology Common Codes: [id number] INP/OBS CARE (High), [id number] CARE 30-74 MIN SKIP ROSENBAUM Apr 30, 2024 13:19
[2024-04-30] MEDS: MIDODRINE HCL 10 MG TAB PO SCH (14:00)
[2024-04-30] MEDS: LORazepam 2MG/ML-1ML VIAL IV PRN (16:59)
[2024-04-30 19:21] LABS: Cholesterol 52 mg/dL (< 200); HDL Cholesterol < 5 mg/dL (40-59); LDL Cholesterol 9 mg/dL (< 100); Triglycerides 91 mg/dL (< 150)
[2024-04-30 20:00] VITALS: PULSE 85; RESP 12; O2SAT 94
[2024-04-30] MEDS: LACTULOSE 20Gm/30ML SOLN PO SCH (20:27)
[2024-04-30] MEDS ORDERED: POTASSIUM CHL 20 Meq TABLET PO SCH (22:00)
--- NOTE | 2024-04-30 23:14 | DVHINCON2 ---
Date of service: Apr 30, 2024 Referring Physician Loreta Valdez Reason for Consultation Elevated liver tests and ascites History of Present Illness Barber Hall is a 63YO M with pmHx of cirrhosis, HTN, and COPD who presents to the ED for ALOC and SOB x 1 day. Patient was confused at home and was brought in by EMS for ALOC. Patient had a paracentesis done on April 19, 2024 with 6.5L removed and on April 13, 2024 with about 10.3L removed. Patient is here for further evaluation. At bedside, he is noted to be aggressive, hostile, assaulting staff, including use of profanity. Patient uncooperative. No active GI bleeding reported Patient was recently hospitalized in March with a prolonged hospitalization requiring intubation and ICU care His last endoscopy was in December of 2022 which showed gastroduodenitis small hiatal hernia with esophagitis and only trace varices Past Medical History Cardiovascular: HTN Pulmonary: COPD Hepatobiliary: Cirrhosis Past Surgical History Past Surgical History: Hernia Repair Family History: Cardiovascular disease G8 FATHER Colon cancer G8 MOTHER FH: cancer G8 FATHER FH: heart attack G8 FATHER Allergies: Coded Allergies: NO KNOWN ALLERGIES (Unverified , 08/04/18) UNOBTAINABLE (Unverified , 04/19/24) Home Meds Active Scripts Sucralfate (CARAFATE SUSP) 1 Gm/10 Ml Ss, 1 GM PO QID@0600,1130,1700,2200 for 30 Days, #120 ML Prov:RHETT HULL RESIDENT 04/20/24 Midodrine HCl (Midodrine HCl) 10 Mg Tab, 10 MG PO TID@0600,1200,1800 for 30 Days, #90 TAB Prov:RHETT HULL RESIDENT 04/20/24 Lactulose (Lactulose) 10 Gm/15 Ml Nieves, 15 ML PO TID for 30 Days, #10 ML Prov:RHETT HULL RESIDENT 04/20/24 Furosemide (Furosemide) 20 Mg Tab, 40 MG PO BIDD for 30 Days, #120 TAB Prov:RHETT HULL RESIDENT 04/20/24 Thiamine Hcl (VITAMIN B-1) 100 Mg Tb, 100 MG PO DAILY for 30 Days, #30 TAB Prov:MIRACLE FELIX RESIDENT 04/06/24 Spironolactone (Aldactone) 25 Mg Tab, 12.5 MG PO DAILY for 30 Days, #15 [facility]/24 Rifaximin (Xifaxan) 550 Mg Tab, 550 MG PO BID for 30 Days, #60 TAB [facility] 04/06/24 Pantoprazole Sodium Sesquihydr (Pantoprazole Sodium) 40 Mg Tab, 40 MG PO DAILY@0600 for 30 Days, #30 TAB [facility] 04/06/24 Lactulose (Lactulose) 10 Gm/15 Ml Nieves, 30 ML PO Q3H for 30 Days, #10 ML [facility] 04/06/24 Furosemide (Furosemide) 40 Mg Tab, 40 MG PO DAILY for 30 Days, #30 TAB Prov:[facility] 04/06/24 Folic Acid (Folic Acid) 1 Mg Tab, 1 MG PO DAILY for 30 Days, #30 TAB [facility] 04/06/24 Oxycodone W/ Acetaminophen (Percocet 5/325MG) 1 Tab Tb, 1 TAB PO QID for 7 Days, #28 TAB Prov:BOBBY VELIZ CD MANUFACTURING SUPERVISOR 08/31/23 Sucralfate (CARAFATE SUSP) 1 Gm/10 Ml Ss, 1 GM PO QIDACHS for 30 Days, #120 GM Prov:CLAUDIA AGUILAR MD 12/20/22 Reported Medications Celecoxib (CeleBREX CAPSULE) 100 Mg Cp, 1 CAP PO DAILY for 90 Days, #90 04/14/24 Midodrine Hcl (Midodrine Hcl) 10 Mg Tab, 1 TAB PO TID for 30 Days, #90 04/14/24 Potassium Chloride (Potassium Chloride ER) 20 Meq Tab, 1 TAB PO BID for 30 Days, #60 04/14/24 Ergocalciferol (Vitamin D (Ergocalciferol) 50,000 Unit Cap, 1 CAP PO QWEEKLY for 84 Days, #12 04/14/24 Ibuprofen (Ibuprofen) 800 Mg Tab, 1 TAB PO Q8HR PRN for 90 Days, #270 04/14/24 Spironolactone (Spironolactone) 25 Mg Tab, 1 TAB PO DAILY for 90 Days, #90 04/14/24 Folic Acid (Folic Acid) 1 Mg Tab, 1 TAB PO DAILY for 30 Days, #30 04/14/24 Thiamine Hcl (Vitamin B1) 100 Mg Tab, 1 TAB PO DAILY for 30 Days, #30 04/14/24 Lactulose (Lactulose) 10 Gm/15 Ml Nieves, 30 ML PO Q3HR for 30 Days, #6254 04/14/24 Pantoprazole Sodium Sesquihydr (Protonix) 40 Mg Tab, 1 TAB PO DAILY for 30 Days, #30 04/14/24 Furosemide (Furosemide) 40 Mg Tab, 1 TAB PO DAILY for 30 Days, #30 04/14/24 Docusate Sodium (Colace) 100 Mg Cap, 1 CAP PO DAILY for 90 Days, #90 04/14/24 Current Medications Current Medications Medications (Trade) Dose Ordered Sig/Anil Route PRN Reason Start Time Stop Time Status Last Admin Norepinephrine Bitartrate 250 ml @ 3.75 mls/hr Q24H IV 04/30/24 07:45 04/30/24 12:16 Sodium Chloride 1,000 ml @ 100 mls/hr Q10H IV 04/30/24 10:00 04/30/24 10:00 Acetaminophen/ Hydrocodone Bitart ([place] 5/325MG Tab) 1 tab Q4HP PRN PO MODERATE PAIN (4-6 PAIN SCALE) 04/30/24 10:00 Hold Ondansetron HCl (Zofran) 4 mg Q4HP PRN IV NAUSEA / VOMITING 04/30/24 10:00 Docusate Sodium (Colace Capsule) 100 mg BIDPRN PRN PO FOR CONSTIPATION 04/30/24 10:00 Acetaminophen (Tylenol Tablet) 650 mg Q6HP PRN PO PAIN SCALE 1-3 OR TEMP>100.4 04/30/24 10:00 Hold Morphine Sulfate 2 mg Q4HPRN PRN IV SEVERE PAIN (7-10 PAIN SCALE) 04/30/24 10:00 Nitroglycerin (Ntrostat Sublingual) 0.4 mg Q5MINP PRN SL FOR CHEST PAIN 04/30/24 10:00 Morphine Sulfate 2 mg Q30M PRN IV FOR CHEST PAIN 04/30/24 10:00 Ceftriaxone Sodium 50 ml @ 100 mls/hr DAILY@09 IV 05/01/24 09:00 Docusate Sodium (Colace Capsule) 100 mg DAILY PO 05/01/24 10:00 Ergocalciferol (Vitamin D 50,000 Unit) 50,000 unit QWEEKLY PO 04/30/24 10:15 Furosemide (Lasix Tablet) 40 mg DAILY PO 05/01/24 10:00 Midodrine (Proamatine Tablet) 10 mg TID PO 04/30/24 14:00 04/30/24 22:39 Pantoprazole Sodium (Protonix Tablet) 40 mg DAILY PO 05/01/24 10:00 Spironolactone (Aldactone) 25 mg DAILY PO 05/01/24 10:00 Future Hold Folic Acid 1 mg DAILY PO 05/01/24 10:00 Lactulose 15 ml TID PO 04/30/24 18:00 04/30/24 22:39 Potassium Chloride (Klor-Con Tablet) 20 meq BID PO 04/30/24 22:00 Hold Lorazepam (Ativan Inj) 1 mg Q6HP PRN IV ANXIETY 04/30/24 11:00 04/30/24 16:59 Review of Systems Operative Report DATE OF OPERATION: 12/19/22 PROCEDURE: Upper Endoscopy with biopsy. PREOPERATIVE INDICATION: The patient is a 62 -year-old male undergoing endoscopy for epigastric pain POSTOPERATIVE DIAGNOSES: 1. Moderate duodenitis of the duodenal bulb with duodenal erosions 2. Mild antral gastritis and mild to moderate gastropathy involving the proximal stomach 3. 2 to 3 cm sliding-type hiatal hernia with grade a erosive esophagitis and short segment extension of columnar epithelium into the distal esophagus 4. Trace prominence of the esophageal veins which flattened with insufflation and there was no significant esophageal varices PROCEDURE PERFORMED BY: Alvarez Younger Vital Signs Vital Signs Date Time Temp Pulse Resp B/P (MAP) Pulse Ox O2 Delivery O2 Flow Rate FiO2 04/30/24 20:00 84 04/30/24 20:00 12 94 Nasal Cannula* 4 36 04/30/24 19:00 123/59 (80) 04/30/24 07:20 97.9 97.9 Physical Exam Patient was in [id number] distress altered Hemodynamically stable Full physical examination is deferred No localizing signs reported Labs/Diagnostic Data Labs Test 04/30/24 16:40 04/30/24 09:30 04/30/24 07:56 04/30/24 06:05 Range/Units Troponin I High Sensitivity 94 *H </=54 ng/L POC Glucose 106 70-106 mg/dl Lactic Acid Level 2.3 *H 0.4-2.0 mmol/L Triglycerides Level 91 < 150 mg/dL Cholesterol Level 52 < 200 mg/dL LDL Cholesterol 9 < 100 mg/dL HDL Cholesterol < 5 L 40-59 mg/dL Thyroid Stimulating Hormone (TSH) 0.69 0.55-4.78 uIU/mL Urine Color Dark-yellow Yellow Urine Clarity Turbid H Clear Urine pH 5.0 5.0-9.0 Urine Specific [place] 1.018 1.001-1.035 Urine Protein Trace H Negative Urine Ketones Negative Negative Urine Blood 1+ H Negative /uL Urine Nitrite Negative Negative Urine Bilirubin 2+ Negative Urine Urobilinogen Normal Negative mg/dL Urine Leukocyte Esterase 1+ Negative /uL Urine RBC 4 0 - 3 /hpf Urine WBC 7 0 - 3 /hpf Urine WBC Clumps Present None Seen /hpf Urine Squamous Epithelial Cells Few <5 /hpf Urine Bacteria Few H None Seen /hpf Urine Glucose Trace Normal mg/dL Urine Opiates Screen Pos NEGATIVE Urine Fentanyl Screen Neg NEGATIVE Urine Barbiturates Screen Neg NEGATIVE Urine Phencyclidine Screen Neg NEGATIVE Urine Amphetamines Screen Neg NEGATIVE Urine Benzodiazepines Screen Neg NEGATIVE Urine Cocaine Screen Neg NEGATIVE Urine Cannabinoids Screen Neg NEGATIVE Test 04/30/24 04:39 Range/Units White Blood Count 11.8 H 4.4-10.8 10^3/uL Red Blood Count 3.24 L 4.5-5.90 10^6/uL Hemoglobin 12.5 L 13.5-17.5 g/dL Hematocrit 36.6 L 41.0-53.0 % Mean Corpuscular Volume 113.1 H 80.0-100.0 fL Mean Corpuscular Hemoglobin 38.6 H 28.0-32.0 pg Mean Corpuscular Hemoglobin Concent 34.1 32.0-36.0 g/dL Red Cell Distribution Width 16.0 H 11.8-14.3 % Platelet Count 91 L 140-450 10^3/uL Mean Platelet Volume 8.9 6.9-10.8 fL Neutrophils (%) (Auto) 83.9 H 37.0-80.0 % Lymphocytes (%) (Auto) 7.1 L 10.0-50.0 % Monocytes (%) (Auto) 8.5 0.0-12.0 % Eosinophils (%) (Auto) 0.2 0.0-7.0 % Basophils (%) (Auto) 0.3 0.0-2.0 % Neutrophils # (Auto) 9.9 H 1.6-8.6 10 ^3/uL Lymphocytes # (Auto) 0.8 0.4-5.4 10 ^3/uL Monocytes # (Auto) 1.0 0-1.3 10 ^3/uL Eosinophils # (Auto) 0 0-0.8 10 ^3/uL Basophils # (Auto) 0 0-0.2 10 ^3/uL Nucleated Red Blood Cells 0.0 % Platelet Estimate Decreased Macrocytosis Slight Prothrombin Time 21.0 H 9.3-11.8 sec Prothrombin Time INR 2.09 H 0.9-1.15 Activated Partial Thromboplast Time 41.2 H 24.5-34.5 SEC Sodium Level 131 L 136-145 mmol/L Potassium Level 6.1 *H 3.5-5.1 mmol/L Chloride Level 99 98-107 mmol/L Carbon Dioxide Level 20 20-31 mmol/L Anion Gap 12 5-15 Blood Urea Nitrogen 79 H 9-23 mg/dL Creatinine 7.52 H 0.700-1.30 mg/dL Glomerular Filtration Rate Calc 7 >90 mL/min BUN/Creatinine Ratio 10.5 10.0-20.0 Serum Glucose 89 74-106 mg/dL Calcium Level 9.2 8.7-10.4 mg/dL Magnesium Level 2.9 H 1.6-2.6 mg/dL Total Bilirubin 21.4 H 0.2-1.0 mg/dL Aspartate Amino Transferase (AST) 744 H 13-40 U/L Alanine Aminotransferase (ALT) 275 H 7-40 U/L Alkaline Phosphatase 483 H 46-116 U/L Ammonia 14 11-32 umol/L Total Protein 6.7 5.7-8.2 g/dL Albumin 2.6 L 3.2-4.8 g/dL Plasma/Serum Blood Alcohol < 3.0 <10 mg/dL CT SCAN ABD PELVIS IMPRESSION: 1. Hepatic cirrhosis with vascular varices, collateralization, and prominent spleen suggesting portal hypertension. 2. Cholelithiasis and prominent gallbladder, stable. 3. Similar appearance of large volume ascites 4. overall no significant interval change. CT HEAD NEGATIVE CT ABD PELVIS IMPRESSION: 1. Hepatic cirrhosis with vascular varices, collateralization, and prominent spleen suggesting portal hypertension. 2. Cholelithiasis and prominent gallbladder, stable. 3. Similar appearance of large volume ascites 4. overall no significant interval change. Problems(with codes): (1) Hepatic encephalopathy (2) Liver disease (3) Generalized weakness (4) Elevated lactic acid level (5) Elevated liver enzymes (6) Anasarca (7) Abdominal distention (8) Cirrhosis of liver (9) Elevated liver function tests (10) Coagulopathy (11) UTI (urinary tract infection) (12) Cholelithiasis (13) Acute renal failure (14) Jaundice Plan/Recommendation Assessment plan Patient is has a known history of alcoholic cirrhosis but he has been reportedly sober over a year His hepatitis panel was negative Patient is admitted with the acute and chronic renal insufficiency, lactic acidosis, elevated troponins possible sepsis He has acute decompensation of his liver disease with worsening jaundice and elevated liver enzymes Patient has impending hepatorenal syndrome with poor prognosis His MELD score is 39 points which is predictive of over 50% three-month mortality Get nephrology consult IV antibiotics Correct Coagulopathy Monitor labs Lactulose enemas Maintain perfusion status Prognosis poor Plan discussed with: Other (ER Nurse) ALVAREZ YOUNGER MD Apr 30, 2024 23:14
[2024-05-01 07:35] VITALS: PULSE 85; RESP 13; O2SAT 92
[2024-05-01 07:41] LABS: Basophils # (auto) 0 10 ^3/uL (0-0.2); Eosinophils # (auto) 0 10 ^3/uL (0-0.8); Hemoglobin 12.2 g/dL (13.5-17.5); Lymphocytes # (auto) 0.7 10 ^3/uL (0.4-5.4); White Blood Cell 13.9 10^3/uL (4.4-10.8)
[2024-05-01 07:53] LABS: Basophils % (auto) 0.2 % (0.0-2.0); Eosinophils % (auto) 0.3 % (0.0-7.0); Hematocrit 37.3 % (41.0-53.0); Lymphocytes % (auto) 4.8 % (10.0-50.0); Mean Corpuscular Hemoglobin 37.6 pg (28.0-32.0); Mean Corpuscular Hgb Conc. 32.8 g/dL (32.0-36.0); Mean Corpuscular Volume 114.7 fL (80.0-100.0); Monocytes # (auto) 1.8 10 ^3/uL (0-1.3); Monocytes % (auto) 12.6 % (0.0-12.0); Neutrophils # (auto) 11.4 10 ^3/uL (1.6-8.6); Neutrophils % (auto) 82.1 % (37.0-80.0); Platelet Count (auto) 103 10^3/uL (140-450); Red Blood Cells 3.25 10^6/uL (4.5-5.90); Red Cell Distribution Width 16.5 % (11.8-14.3)
[2024-05-01 08:05] LABS: Anion Gap 13 (5-15); Calcium 8.8 mg/dL (8.7-10.4); Chloride 101 mmol/L (98-107); Glucose 74 mg/dL (74-106)
[2024-05-01 08:15] LABS: BUN/Creatinine Ratio 13.9 (10.0-20.0)
[2024-05-01 08:22] LABS: Lactic Acid w/Reflex 2.9 mmol/L (0.4-2.0)
[2024-05-01 08:26] LABS: Carbon Dioxide 20 mmol/L (20-31); Potassium 7.1 mmol/L (3.5-5.1); Sodium 134 mmol/L (136-145)
[2024-05-01 08:27] LABS: Alanine Aminotransferase 292 U/L (7-40); Albumin 2.6 g/dL (3.2-4.8); Alkaline Phosphatase 482 U/L (46-116); Aspartate Aminotransferase 765 U/L (13-40); Bilirubin, Total 23.4 mg/dL (0.2-1.0); Blood Urea Nitrogen 109 mg/dL (9-23); Total Protein 6.5 g/dL (5.7-8.2)
[2024-05-01] MEDS: cefTRIAXone 1GM/50ML D5W 50 ML IV SCH (08:52)
--- NOTE | 2024-05-01 09:45 | DVHPN2 ---
Progress Note Date Seen: May 01, 2024 Medical Necessity Reason Pt with a Central, PICC or Fol: No Subjective Other Systems: K is very high renal consult pending Objective vital signs Vital Sign Date Time Temp Pulse Resp B/P (MAP) Pulse Ox O2 Delivery O2 Flow Rate FiO2 05/01/24 09:00 97/56 05/01/24 08:06 82 05/01/24 07:35 13 92 Nasal Cannula* 4 36 05/01/24 00:00 97.6 97.6 Total Intake and Output 04/30/24 04/30/24 05/01/24 15:00 23:00 07:00 Intake Total 2275 ml 800 ml 200 ml Balance 2275 ml 800 ml 200 ml medications Current Medications Medications Dose Ordered Sig/Anil Route Start Time Stop Time Status Last Admin Dose Admin Norepinephrine Bitartrate 250 ml @ 3.75 mls/hr Q24H IV 04/30/24 07:45 05/01/24 02:58 33.75 MLS/HR Sodium Chloride 1,000 ml @ 100 mls/hr Q10H IV 04/30/24 10:00 05/01/24 02:57 100 MLS/HR Acetaminophen/ Hydrocodone Bitart 1 tab Q4HP PRN PO 04/30/24 10:00 Hold Ondansetron HCl 4 mg Q4HP PRN IV 04/30/24 10:00 Docusate Sodium 100 mg BIDPRN PRN PO 04/30/24 10:00 Acetaminophen 650 mg Q6HP PRN PO 04/30/24 10:00 Hold Morphine Sulfate 2 mg Q4HPRN PRN IV 04/30/24 10:00 Nitroglycerin 0.4 mg Q5MINP PRN SL 04/30/24 10:00 Morphine Sulfate 2 mg Q30M PRN IV 04/30/24 10:00 Ceftriaxone Sodium 50 ml @ 100 mls/hr DAILY@09 IV 05/01/24 09:00 05/01/24 08:52 100 MLS/HR Docusate Sodium 100 mg DAILY PO 05/01/24 10:00 Ergocalciferol 50,000 unit QWEEKLY PO 04/30/24 10:15 Furosemide 40 mg DAILY PO 05/01/24 10:00 Midodrine 10 mg TID PO 04/30/24 14:00 05/01/24 05:53 10 MG Pantoprazole Sodium 40 mg DAILY PO 05/01/24 10:00 Spironolactone 25 mg DAILY PO 05/01/24 10:00 Future Hold Folic Acid 1 mg DAILY PO 05/01/24 10:00 Lactulose 15 ml TID PO 04/30/24 18:00 05/01/24 05:53 15 ML Potassium Chloride 20 meq BID PO 04/30/24 22:00 Hold Lorazepam 1 mg Q6HP PRN IV 04/30/24 11:00 05/01/24 00:38 1 MG Examination: GENERAL:Abnormal, HEENT:Abnormal, LUNGS:Abnormal, CVS:Abnormal, ABDOMEN:Abnormal laboratory and microbiology Laboratory Tests 05/01/24 07:24 Test 05/01/24 07:24 Range/Units Serum Glucose 74 74-106 mg/dL Problem List/Assessment/Plan Problem List/Assessment/Plan severe hyperkalemia CKD/Kerline liver failure coagulopathy elevated troponin fu GI recs and stat renal eval for treatment no further inpatient cv recs poor prognosis Plan discussed with: Other (rn) Date of Service: May 01, 2024 Billing Provider: BRONSON FERNANDEZ MD Common Visit Codes: NOT BILLABLE BRONSON FERNANDEZ MD May 01, 2024 09:45
[2024-05-01] MEDS: FOLIC ACID 1 MG TAB PO SCH (09:53)
[2024-05-01] MEDS: DOCUSATE SOD 100 MG CAP PO SCH (09:54)
[2024-05-01] MEDS: PANTOPRAZOLE 40 MG TAB PO SCH (09:54)
[2024-05-01] MEDS: FUROSEMIDE 40 MG TAB PO SCH (09:54)
[2024-05-01] MEDS ORDERED: SPIRONOLACTONE 25 MG TAB PO SCH (10:00)
[2024-05-01] MEDS: FUROSEMIDE 100 MG/10ML VIAL IV ONE (10:17)
[2024-05-01] MEDS ORDERED: VANCOMYCIN PER PHARMACY 0 MG IV SCH (10:45)
[2024-05-01] MEDS: VANCOMYCIN 500mg/100mL 100 ML IV ONE (12:42)
--- NOTE | 2024-05-01 13:12 | DVHPN2 ---
Objective Vitals Vital Signs Date Time Temp Pulse Resp B/P (MAP) Pulse Ox O2 Delivery O2 Flow Rate FiO2 05/01/24 12:39 80 05/01/24 12:23 109/50 05/01/24 11:15 15 92 05/01/24 08:00 97.0 97.0 05/01/24 07:35 Nasal Cannula* 4 36 Intake/Output Intake and Output 05/01/24 07:00 Intake Total 3275 ml Balance 3275 ml Intake IV Total 3275 ml Medications Current Medications Medications Dose Ordered Sig/Anil Route Start Time Stop Time Status Last Admin Dose Admin Norepinephrine Bitartrate 250 ml @ 3.75 mls/hr Q24H IV 04/30/24 07:45 05/01/24 02:58 33.75 MLS/HR Sodium Chloride 1,000 ml @ 100 mls/hr Q10H IV 04/30/24 10:00 05/01/24 02:57 100 MLS/HR Acetaminophen/ Hydrocodone Bitart 1 tab Q4HP PRN PO 04/30/24 10:00 Hold Ondansetron HCl 4 mg Q4HP PRN IV 04/30/24 10:00 Docusate Sodium 100 mg BIDPRN PRN PO 04/30/24 10:00 Acetaminophen 650 mg Q6HP PRN PO 04/30/24 10:00 Hold Morphine Sulfate 2 mg Q4HPRN PRN IV 04/30/24 10:00 Nitroglycerin 0.4 mg Q5MINP PRN SL 04/30/24 10:00 Morphine Sulfate 2 mg Q30M PRN IV 04/30/24 10:00 Ceftriaxone Sodium 50 ml @ 100 mls/hr DAILY@09 IV 05/01/24 09:00 05/01/24 08:52 100 MLS/HR Docusate Sodium 100 mg DAILY PO 05/01/24 10:00 Ergocalciferol 50,000 unit QWEEKLY PO 04/30/24 10:15 Furosemide 40 mg DAILY PO 05/01/24 10:00 Midodrine 10 mg TID PO 04/30/24 14:00 05/01/24 05:53 10 MG Pantoprazole Sodium 40 mg DAILY PO 05/01/24 10:00 Folic Acid 1 mg DAILY PO 05/01/24 10:00 Lactulose 15 ml TID PO 04/30/24 18:00 05/01/24 05:53 15 ML Lorazepam 1 mg Q6HP PRN IV 04/30/24 11:00 05/01/24 10:42 1 MG Vancomycin HCl 0 ml @ 0 mls/hr UD IV 05/01/24 10:45 Sodium Bicarbonate 150 ml/Dextrose 1,150 ml @ 100 mls/hr [id number] IV 05/01/24 13:00 UNV Laboratory Results Laboratory Tests 05/01/24 07:24 Chemistry Test 05/01/24 07:24 Albumin 2.6 g/dL (3.2-4.8) L Calcium Level 8.8 mg/dL (8.7-10.4) Total Protein 6.5 g/dL (5.7-8.2) LFT Test 05/01/24 07:24 Alanine Aminotransferase (ALT) 292 U/L (7-40) H Alkaline Phosphatase 482 U/L (46-116) H Aspartate Amino Transferase (AST) 765 U/L (13-40) H Total Bilirubin 23.4 mg/dL (0.2-1.0) H Urinalysis Test 04/30/24 06:05 Urine Color Dark-yellow (Yellow) Urine Clarity Turbid (Clear) H Urine pH 5.0 (5.0-9.0) Urine Specific [place] 1.018 (1.001-1.035) Urine Protein Trace (Negative) H Urine Ketones Negative (Negative) Urine Blood 1+ /uL (Negative) H Urine Nitrite Negative (Negative) Urine Bilirubin 2+ (Negative) Urine Urobilinogen Normal mg/dL (Negative) Urine Leukocyte Esterase 1+ /uL (Negative) Urine RBC 4 /hpf (0 - 3) Urine WBC 7 /hpf (0 - 3) Urine WBC Clumps Present /hpf (None Seen) Urine Squamous Epithelial Cells Few /hpf (<5) Urine Bacteria Few /hpf (None Seen) H Urine Glucose Trace mg/dL (Normal) Assessment/Plan My Orders Orders - ИРИНА BARTON MD Procedure Category Date Status Time Vancomycin Per PHA 05/01/24 In Process Pharmacy 10:45 Complete Blood Count LAB 05/02/24 Verified 04:00 Creatinine LAB 05/02/24 Verified 04:00 Vancomycin,Random LAB 05/02/24 Verified 04:00 ИРИНА BARTON MD May 01, 2024 13:12
--- NOTE | 2024-05-01 13:12 | DVHPN2 ---
Subjective The patient is seen and examined at bedside. No complaint today. Reviewed: Care Plan, H&P, Labs, Medications, Previous Orders, Radiology Changes from previous H/P or p: No Changes Objective Vitals Vital Signs Date Time Temp Pulse Resp B/P (MAP) Pulse Ox O2 Delivery O2 Flow Rate FiO2 05/01/24 12:39 80 05/01/24 12:23 109/50 05/01/24 11:15 15 92 05/01/24 08:00 97.0 97.0 05/01/24 07:35 Nasal Cannula* 4 36 Intake/Output Intake and Output 05/01/24 07:00 Intake Total 3275 ml Balance 3275 ml Intake IV Total 3275 ml General Appearance: Alert, No acute distress HEENT: Atraumatic, PERRLA, EOMI, Mucous membr. moist/pink Neck: Supple Lungs: Clear to auscultation, Normal air movement Neuro: Cranial nerves 3-12 NL Psych/Mental Status: Mental status NL Medications Current Medications Medications Dose Ordered Sig/Anil Route Start Time Stop Time Status Last Admin Dose Admin Norepinephrine Bitartrate 250 ml @ 3.75 mls/hr Q24H IV 04/30/24 07:45 05/01/24 02:58 33.75 MLS/HR Sodium Chloride 1,000 ml @ 100 mls/hr Q10H IV 04/30/24 10:00 05/01/24 02:57 100 MLS/HR Acetaminophen/ Hydrocodone Bitart 1 tab Q4HP PRN PO 04/30/24 10:00 Hold Ondansetron HCl 4 mg Q4HP PRN IV 04/30/24 10:00 Docusate Sodium 100 mg BIDPRN PRN PO 04/30/24 10:00 Acetaminophen 650 mg Q6HP PRN PO 04/30/24 10:00 Hold Morphine Sulfate 2 mg Q4HPRN PRN IV 04/30/24 10:00 Nitroglycerin 0.4 mg Q5MINP PRN SL 04/30/24 10:00 Morphine Sulfate 2 mg Q30M PRN IV 04/30/24 10:00 Ceftriaxone Sodium 50 ml @ 100 mls/hr DAILY@09 IV 05/01/24 09:00 05/01/24 08:52 100 MLS/HR Docusate Sodium 100 mg DAILY PO 05/01/24 10:00 Ergocalciferol 50,000 unit QWEEKLY PO 04/30/24 10:15 Furosemide 40 mg DAILY PO 05/01/24 10:00 Midodrine 10 mg TID PO 04/30/24 14:00 05/01/24 05:53 10 MG Pantoprazole Sodium 40 mg DAILY PO 05/01/24 10:00 Folic Acid 1 mg DAILY PO 05/01/24 10:00 Lactulose 15 ml TID PO 04/30/24 18:00 05/01/24 05:53 15 ML Lorazepam 1 mg Q6HP PRN IV 04/30/24 11:00 05/01/24 10:42 1 MG Vancomycin HCl 0 ml @ 0 mls/hr UD IV 05/01/24 10:45 Sodium Bicarbonate 150 ml/Dextrose 1,150 ml @ 100 mls/hr [id number] IV 05/01/24 13:00 UNV Laboratory Results Laboratory Tests 05/01/24 07:24 Chemistry Test 05/01/24 07:24 Albumin 2.6 g/dL (3.2-4.8) L Calcium Level 8.8 mg/dL (8.7-10.4) Total Protein 6.5 g/dL (5.7-8.2) LFT Test 05/01/24 07:24 Alanine Aminotransferase (ALT) 292 U/L (7-40) H Alkaline Phosphatase 482 U/L (46-116) H Aspartate Amino Transferase (AST) 765 U/L (13-40) H Total Bilirubin 23.4 mg/dL (0.2-1.0) H Urinalysis Test 04/30/24 06:05 Urine Color Dark-yellow (Yellow) Urine Clarity Turbid (Clear) H Urine pH 5.0 (5.0-9.0) Urine Specific [place] 1.018 (1.001-1.035) Urine Protein Trace (Negative) H Urine Ketones Negative (Negative) Urine Blood 1+ /uL (Negative) H Urine Nitrite Negative (Negative) Urine Bilirubin 2+ (Negative) Urine Urobilinogen Normal mg/dL (Negative) Urine Leukocyte Esterase 1+ /uL (Negative) Urine RBC 4 /hpf (0 - 3) Urine WBC 7 /hpf (0 - 3) Urine WBC Clumps Present /hpf (None Seen) Urine Squamous Epithelial Cells Few /hpf (<5) Urine Bacteria Few /hpf (None Seen) H Urine Glucose Trace mg/dL (Normal) Labs and/or images reviewed: Labs reviewed by me Assessment/Plan Assessment/Plan Sepsis Acute metabolic encephalopathy 2nd likely to UTI Leucocytosis with lactic acidosis Elevated troponin's likely sepsis Acute on chronic renal insufficiency Ascites Hepatic cirrhosis with vascular varices Cholelithiasis Thrombocytopenia Hyperkalemia Hx of HTN COPD Substance abuse Plan: Continuing current management. Appreciate GI and Nephrology input. I will put in a central line. We will start the patient on vasopressor with Levophed titrate for systolic blood pressure greater than 90. We will monitor kidney function closely. Continuing to hold aspirin due to thrombocytopenia. We will get a stat ABG. Continuing bicarb drip. The patient received Lokelma, we will continuing to monitor hyperkalemia. Continuing ceftriaxone. We will add vancomycin pharmacy to dose. ICU upgrade Plan discussed with: Patient My Orders Orders - ИРИНА BARTON MD Procedure Category Date Status Time Vancomycin Per PHA 05/01/24 In Process Pharmacy 10:45 Complete Blood Count LAB 05/02/24 Verified 04:00 Creatinine LAB 05/02/24 Verified 04:00 Vancomycin,Random LAB 05/02/24 Verified 04:00 Date of Service: May 01, 2024 Billing Provider: ИРИНА BARTON MD Common Visit Codes: [id number] INP/OBS CARE(HIGH) ИРИНА BARTON MD May 01, 2024 13:12
[2024-05-01] MEDS: CALCIUM GLUC 1,000mg/50ml-NS 50 ML IV ONE (13:20)
[2024-05-01] MEDS: ALBUTEROL SULF 2.5 MG/0.5ML(0.5%) NEB SOLN NEB ONE ×2 (13:25→19:26)
[2024-05-01] MEDS: SODIUM BICARB 8.4% 50Meq/50ml SYR Vial IV ONE (13:28)
[2024-05-01] MEDS: SODIUM CHLORIDE 0.9% 1,000 ML IV ONE (13:42)
[2024-05-01] MEDS: DEXTROSE (50%) 50ML SYRG IV ONE ×2 (13:49→19:52)
[2024-05-01] MEDS: InsuLIN REG 1unit/0.01ml Soln (100units/ml) IV ONE ×2 (13:54→19:52)
[2024-05-01] MEDS: ALBUTEROL SULF 2.5 MG/0.5ML(0.5%) NEB SOLN ONE (14:16)
--- NOTE | 2024-05-01 14:17 | DVHINCON2 ---
Date of service: May 01, 2024 Reason for Consultation Acute kidney injury History of Present Illness 63-year-old male with past medical history of alcoholic liver cirrhosis with recurrent ascites, COPD, hypertension recently hospitalized for decompensated liver disease and hepatic encephalopathy. His baseline renal function is approximately stage II. He presents to the hospital brought in by EMS due to altered mental state. Nephrology was consulted from the ER due to BUN greater than 100 and a potassium of seven. Upon my evaluation patient currently on pressors Patient is altered with soft restraints and appears hypotensive Allergies: Coded Allergies: NO KNOWN ALLERGIES (Unverified , 08/04/18) UNOBTAINABLE (Unverified , 04/19/24) Home Meds Active Scripts Sucralfate (CARAFATE SUSP) 1 Gm/10 Ml Ss, 1 GM PO QID@0600,1130,1700,2200 for 30 Days, #120 ML Prov:RHETT HULL [facility] 04/20/24 Midodrine HCl (Midodrine HCl) 10 Mg Tab, 10 MG PO TID@0600,1200,1800 for 30 Days, #90 TAB Prov:RHETT HULL [facility] 04/20/24 Lactulose (Lactulose) 10 Gm/15 Ml Nieves, 15 ML PO TID for 30 Days, #10 ML Prov:RHETT HULL [facility] 04/20/24 Furosemide (Furosemide) 20 Mg Tab, 40 MG PO BIDD for 30 Days, #120 TAB Prov:RHETT HULL [facility] 04/20/24 Thiamine Hcl (VITAMIN B-1) 100 Mg Tb, 100 MG PO DAILY for 30 Days, #30 TAB Prov:MIRACLE FELIX [facility] 04/06/24 Spironolactone (Aldactone) 25 Mg Tab, 12.5 MG PO DAILY for 30 Days, #15 TAB Prov:MIRACLE FELIX [facility] 04/06/24 Rifaximin (Xifaxan) 550 Mg Tab, 550 MG PO BID for 30 Days, #60 TAB Prov:MIRACLE FELIX [facility] 04/06/24 Pantoprazole Sodium Sesquihydr (Pantoprazole Sodium) 40 Mg Tab, 40 MG PO DAILY@0600 for 30 Days, #30 TAB Prov:MIRACLE FELIX [facility] 04/06/24 Lactulose (Lactulose) 10 Gm/15 Ml Nieves, 30 ML PO Q3H for 30 Days, #10 ML Prov:MIRACLE FELIX RESIDENT 04/06/24 Furosemide (Furosemide) 40 Mg Tab, 40 MG PO DAILY for 30 Days, #30 TAB Prov:MIRACLE FELIX RESIDENT 04/06/24 Folic Acid (Folic Acid) 1 Mg Tab, 1 MG PO DAILY for 30 Days, #30 TAB Prov:MIRACLE FELIX RESIDENT 04/06/24 Oxycodone W/ Acetaminophen (Percocet 5/325MG) 1 Tab Tb, 1 TAB PO QID for 7 Days, #28 TAB Prov:BOBBY VELIZ ENTRY TABLE OPERATOR 08/31/23 Sucralfate (CARAFATE SUSP) 1 Gm/10 Ml Ss, 1 GM PO QIDACHS for 30 Days, #120 GM Prov:CLAUDIA AGUILAR MD 12/20/22 Reported Medications Celecoxib (CeleBREX CAPSULE) 100 Mg Cp, 1 CAP PO DAILY for 90 Days, #90 04/14/24 Midodrine Hcl (Midodrine Hcl) 10 Mg Tab, 1 TAB PO TID for 30 Days, #90 04/14/24 Potassium Chloride (Potassium Chloride ER) 20 Meq Tab, 1 TAB PO BID for 30 Days, #60 04/14/24 Ergocalciferol (Vitamin D (Ergocalciferol) 50,000 Unit Cap, 1 CAP PO QWEEKLY for 84 Days, #12 04/14/24 Ibuprofen (Ibuprofen) 800 Mg Tab, 1 TAB PO Q8HR PRN for 90 Days, #270 04/14/24 Spironolactone (Spironolactone) 25 Mg Tab, 1 TAB PO DAILY for 90 Days, #90 04/14/24 Folic Acid (Folic Acid) 1 Mg Tab, 1 TAB PO DAILY for 30 Days, #30 04/14/24 Thiamine Hcl (Vitamin B1) 100 Mg Tab, 1 TAB PO DAILY for 30 Days, #30 04/14/24 Lactulose (Lactulose) 10 Gm/15 Ml Nieves, 30 ML PO Q3HR for 30 Days, #2824 04/14/24 Pantoprazole Sodium Sesquihydr (Protonix) 40 Mg Tab, 1 TAB PO DAILY for 30 Days, #30 04/14/24 Furosemide (Furosemide) 40 Mg Tab, 1 TAB PO DAILY for 30 Days, #30 04/14/24 Docusate Sodium (Colace) 100 Mg Cap, 1 CAP PO DAILY for 90 Days, #90 04/14/24 Current Medications Current Medications Medications (Trade) Dose Ordered Sig/Anil Route PRN Reason Start Time Stop Time Status Last Admin Ceftriaxone Sodium 50 ml @ 100 mls/hr DAILY@09 IV 05/01/24 09:00 05/01/24 08:52 Docusate Sodium (Colace Capsule) 100 mg DAILY PO 05/01/24 10:00 Furosemide (Lasix Tablet) 40 mg DAILY PO 05/01/24 10:00 Pantoprazole Sodium (Protonix Tablet) 40 mg DAILY PO 05/01/24 10:00 Spironolactone (Aldactone) 25 mg DAILY PO 05/01/24 10:00 05/01/24 09:47 DC Folic Acid 1 mg DAILY PO 05/01/24 10:00 Lactulose 15 ml TID PO 04/30/24 18:00 05/01/24 05:53 Potassium Chloride (Klor-Con Tablet) 20 meq BID PO 04/30/24 22:00 05/01/24 12:58 DC Vancomycin HCl 0 ml @ 0 mls/hr UD IV 05/01/24 10:45 Sodium Bicarbonate 150 ml/Dextrose 1,150 ml @ 100 mls/hr [id number] IV 05/01/24 13:00 Family History: Cardiovascular disease G8 FATHER Colon cancer G8 MOTHER FH: cancer G8 FATHER FH: heart attack G8 FATHER Review of Systems Can not obtain due to altered mental status H&P Exam Vital Signs/I&O Vital Sign Date Time Temp Pulse Resp B/P (MAP) Pulse Ox O2 Delivery O2 Flow Rate FiO2 05/01/24 13:25 19 94 Nasal Cannula* 4 36 05/01/24 12:39 80 05/01/24 12:23 109/50 05/01/24 08:00 97.0 97.0 Intake and Output 04/30/24 05/01/24 19:00 07:00 Intake Total 2575 ml 700 ml Balance 2575 ml 700 ml Intake IV Total 2575 ml 700 ml Physical Exam Elderly white male Jaundice appearing Moving spontaneously but alert oriented times 0 Nonverbal Abdomen is large distended with positive fluid wave No murmur Systolic blood pressure in the 80s No pitting edema Scleral icterus Mehta catheter has minimal but brown-colored urine Labs/Diagnostic Data Labs/Diagnostic Data Laboratory Tests Test 05/01/24 13:31 05/01/24 09:22 05/01/24 07:24 04/30/24 16:40 Range/Units POC Glucose 74 70-106 mg/dl Lactic Acid Level 2.9 *H 2.9 *H 0.4-2.0 mmol/L White Blood Count 13.9 H 4.4-10.8 10^3/uL Red Blood Count 3.25 L 4.5-5.90 10^6/uL Hemoglobin 12.2 L 13.5-17.5 g/dL Hematocrit 37.3 L 41.0-53.0 % Mean Corpuscular Volume 114.7 H 80.0-100.0 fL Mean Corpuscular Hemoglobin 37.6 H 28.0-32.0 pg Mean Corpuscular Hemoglobin Concent 32.8 32.0-36.0 g/dL Red Cell Distribution Width 16.5 H 11.8-14.3 % Platelet Count 103 L 140-450 10^3/uL Mean Platelet Volume 8.7 6.9-10.8 fL Neutrophils (%) (Auto) 82.1 H 37.0-80.0 % Lymphocytes (%) (Auto) 4.8 L 10.0-50.0 % Monocytes (%) (Auto) 12.6 H 0.0-12.0 % Eosinophils (%) (Auto) 0.3 0.0-7.0 % Basophils (%) (Auto) 0.2 0.0-2.0 % Neutrophils # (Auto) 11.4 H 1.6-8.6 10 ^3/uL Lymphocytes # (Auto) 0.7 0.4-5.4 10 ^3/uL Monocytes # (Auto) 1.8 H 0-1.3 10 ^3/uL Eosinophils # (Auto) 0 0-0.8 10 ^3/uL Basophils # (Auto) 0 0-0.2 10 ^3/uL Nucleated Red Blood Cells 0.0 % Sodium Level 134 L 136-145 mmol/L Potassium Level 7.1 *H 3.5-5.1 mmol/L Chloride Level 101 98-107 mmol/L Carbon Dioxide Level 20 20-31 mmol/L Anion Gap 13 5-15 Blood Urea Nitrogen 109 #*H 9-23 mg/dL Creatinine 7.86 H 0.700-1.30 mg/dL Glomerular Filtration Rate Calc 7 >90 mL/min BUN/Creatinine Ratio 13.9 10.0-20.0 Serum Glucose 74 74-106 mg/dL Calcium Level 8.8 8.7-10.4 mg/dL Total Bilirubin 23.4 H 0.2-1.0 mg/dL Aspartate Amino Transferase (AST) 765 H 13-40 U/L Alanine Aminotransferase (ALT) 292 H 7-40 U/L Alkaline Phosphatase 482 H 46-116 U/L Troponin I High Sensitivity 114 *H 94 *H </=54 ng/L Total Protein 6.5 5.7-8.2 g/dL Albumin 2.6 L 3.2-4.8 g/dL Test 04/30/24 09:30 04/30/24 08:28 04/30/24 07:56 04/30/24 06:47 Range/Units POC Glucose 106 88 87 70-106 mg/dl Lactic Acid Level 2.3 *H 0.4-2.0 mmol/L Troponin I High Sensitivity 57 *H </=54 ng/L Triglycerides Level 91 < 150 mg/dL Cholesterol Level 52 < 200 mg/dL LDL Cholesterol 9 < 100 mg/dL HDL Cholesterol < 5 L 40-59 mg/dL Thyroid Stimulating Hormone (TSH) 0.69 0.55-4.78 uIU/mL Test 04/30/24 06:05 04/30/24 04:39 Range/Units Urine Color Dark-yellow Yellow Urine Clarity Turbid H Clear Urine pH 5.0 5.0-9.0 Urine Specific [place] 1.018 1.001-1.035 Urine Protein Trace H Negative Urine Ketones Negative Negative Urine Blood 1+ H Negative /uL Urine Nitrite Negative Negative Urine Bilirubin 2+ Negative Urine Urobilinogen Normal Negative mg/dL Urine Leukocyte Esterase 1+ Negative /uL Urine RBC 4 0 - 3 /hpf Urine WBC 7 0 - 3 /hpf Urine WBC Clumps Present None Seen /hpf Urine Squamous Epithelial Cells Few <5 /hpf Urine Bacteria Few H None Seen /hpf Urine Glucose Trace Normal mg/dL Urine Opiates Screen Pos NEGATIVE Urine Fentanyl Screen Neg NEGATIVE Urine Barbiturates Screen Neg NEGATIVE Urine Phencyclidine Screen Neg NEGATIVE Urine Amphetamines Screen Neg NEGATIVE Urine Benzodiazepines Screen Neg NEGATIVE Urine Cocaine Screen Neg NEGATIVE Urine Cannabinoids Screen Neg NEGATIVE White Blood Count 11.8 H 4.4-10.8 10^3/uL Red Blood Count 3.24 L 4.5-5.90 10^6/uL Hemoglobin 12.5 L 13.5-17.5 g/dL Hematocrit 36.6 L 41.0-53.0 % Mean Corpuscular Volume 113.1 H 80.0-100.0 fL Mean Corpuscular Hemoglobin 38.6 H 28.0-32.0 pg Mean Corpuscular Hemoglobin Concent 34.1 32.0-36.0 g/dL Red Cell Distribution Width 16.0 H 11.8-14.3 % Platelet Count 91 L 140-450 10^3/uL Mean Platelet Volume 8.9 6.9-10.8 fL Neutrophils (%) (Auto) 83.9 H 37.0-80.0 % Lymphocytes (%) (Auto) 7.1 L 10.0-50.0 % Monocytes (%) (Auto) 8.5 0.0-12.0 % Eosinophils (%) (Auto) 0.2 0.0-7.0 % Basophils (%) (Auto) 0.3 0.0-2.0 % Neutrophils # (Auto) 9.9 H 1.6-8.6 10 ^3/uL Lymphocytes # (Auto) 0.8 0.4-5.4 10 ^3/uL Monocytes # (Auto) 1.0 0-1.3 10 ^3/uL Eosinophils # (Auto) 0 0-0.8 10 ^3/uL Basophils # (Auto) 0 0-0.2 10 ^3/uL Nucleated Red Blood Cells 0.0 % Platelet Estimate Decreased Macrocytosis Slight Prothrombin Time 21.0 H 9.3-11.8 sec Prothrombin Time INR 2.09 H 0.9-1.15 Activated Partial Thromboplast Time 41.2 H 24.5-34.5 SEC Sodium Level 131 L 136-145 mmol/L Potassium Level 6.1 *H 3.5-5.1 mmol/L Chloride Level 99 98-107 mmol/L Carbon Dioxide Level 20 20-31 mmol/L Anion Gap 12 5-15 Blood Urea Nitrogen 79 H 9-23 mg/dL Creatinine 7.52 H 0.700-1.30 mg/dL Glomerular Filtration Rate Calc 7 >90 mL/min BUN/Creatinine Ratio 10.5 10.0-20.0 Serum Glucose 89 74-106 mg/dL Lactic Acid Level 2.5 *H 0.4-2.0 mmol/L Calcium Level 9.2 8.7-10.4 mg/dL Magnesium Level 2.9 H 1.6-2.6 mg/dL Total Bilirubin 21.4 H 0.2-1.0 mg/dL Aspartate Amino Transferase (AST) 744 H 13-40 U/L Alanine Aminotransferase (ALT) 275 H 7-40 U/L Alkaline Phosphatase 483 H 46-116 U/L Ammonia 14 11-32 umol/L Troponin I High Sensitivity 72 *H </=54 ng/L Total Protein 6.7 5.7-8.2 g/dL Albumin 2.6 L 3.2-4.8 g/dL Plasma/Serum Blood Alcohol < 3.0 <10 mg/dL Assessment Acute kidney injury hemodynamically mediated high likelihood prerenal etiology can not exclude hepatorenal syndrome Chronic kidney disease stage 2 Metabolic/hepatic encephalopathy Decompensated alcoholic liver cirrhosis with large ascites Hyperkalemia Altered mental status Hypoalbuminemia Hypotension Agree with Levophed drip to maintain mean arterial pressure greater than 65 and improve renal perfusion Patient is status post 3 L normal saline Start sodium bicarbonate drip hold potassium and aldactone Strict Is&Os Medical management for elevated potassium level with a redraw in the next few hours Continue tele monitoring Strict Is&Os with the current Mehta in place. monitor ammonia daily and monitor for etoh withdrawal Patient has guarded prognosis with possibility of needing renal replacement therapy if does not respond to medical therapy. Currently ICU status critical care time spent 35 minutes Plan discussed with: Other COCO RAGSDALE MD May 01, 2024 14:17
[2024-05-01 15:38] LABS: Base Excess -6.9 mmol/L (-2.0-3.0)
[2024-05-01] MEDS: SODIUM BICARB 50mEq/50ml Vial 150 ML in D5W 5% 1,000 ML IV SCH (15:54)
--- NOTE | 2024-05-01 16:28 | DVH ---
CHEST RADIOGRAPH Indication: CENTRAL LINE PLACEMENT Technique: Single frontal view of the chest was obtained COMPARISON: XY CHEST PORTABLE on DOS: 04/30/24, XY CHEST PORTABLE on DOS: 04/16/24, XY CHEST PORTABLE on DOS: 04/13/24 FINDINGS: Lines and Tubes: Right central venous catheter in satisfactory position. Lungs: Multifocal airspace disease. Pleura: No effusion. No pneumothorax. Cardiomediastinal contours: Unremarkable Bones: Unremarkable IMPRESSION: Right central venous catheter in satisfactory position.
--- NOTE | 2024-05-01 17:07 | DVHNC2 ---
Central Line Recorder of insertion practice: Geographic Information System Surveyor Occupation of maintenance fitter: Other medical staff (Resident) Indication: Hypotension, CVP monitoring, Volume resuscitation Room prepared for procedure: Yes Geographic Information System Surveyor performed hand hygien: Yes Maximal sterile barrier precau: Mask/Eye shield, Sterile gown, Cap, Sterlie gloves, Large sterlie drape Skin Preparation: Chlorhexidine gluconate, Alcohol Skin preparation completely dr: Yes Insertion site: Right, Internal jugular Central line catheter type: [id number] dialysis Number of lumens: 3 Central line exchanged over a: No Antiseptic ointment applied to: Yes Post Assessment: Chest X-Ray Informed consent obtained: Yes Risks/benefits/alt described: Yes Notes A time-out was completed verifying correct patient, procedure, site, positioning, and special equipment if applicable. The patient was placed in suppine position appropriate for central line placement based on the vein to be cannulated. Right neck was prepped and draped in sterile fashion. 1% Lidocaine was used to anesthetize the surrounding skin area. Under ultrasound guidances, the IJ vein was identitified. A triple lumen Cordis catheter was introduced into the the internal jugula using the Seldinger technique and under ultrasound guidance. The catheter was threaded smoothly over the guide wire and appropriate blood return was obtained. Each lumen of the catheter was evacuated of air and flushed with sterile saline. The catheter was then sutured in place to the skin and a sterile dressing applied. Perfusion to the extremity distal to the point of catheter insertion was checked and found to be adequate. Post central line insertion x-ray did not reveal any pneumothorax. Line was adequately positioned Supervised by Dr. HAMRAN Assisted by Dr. Desiree Calderon and Dr. Pagan. Estimated Blood Loss: 5-10 ml Date of Service: May 01, 2024 Billing Provider: MARCY REILLY MD Common Visit Codes: [id number] CARE 30-74 MIN, PROCEDURE ONLY RHETT HULL RESIDENT May 01, 2024 17:07
[2024-05-01 17:25] LABS: Anion Gap 15 (5-15); Chloride 103 mmol/L (98-107); Sodium 137 mmol/L (136-145)
[2024-05-01 17:26] LABS: Calcium 8.6 mg/dL (8.7-10.4); Carbon Dioxide 19 mmol/L (20-31)
[2024-05-01 17:31] LABS: Glucose 73 mg/dL (74-106)
[2024-05-01 17:34] LABS: Potassium 5.7 mmol/L (3.5-5.1)
[2024-05-01] MEDS: ALBUMIN 25% 50 ML IV ONE ×2 (17:53→18:27)
[2024-05-01 18:16] LABS: BUN/Creatinine Ratio 11.5 (10.0-20.0)
[2024-05-01 18:18] LABS: Blood Urea Nitrogen 96 mg/dL (9-23)
[2024-05-01] MEDS: BUMETANIDE 2.5mg/10ml (0.25 mg/ml) INJ IV ONE (19:51)
[2024-05-01 21:26] VITALS: PULSE 86; RESP 6; O2SAT 95
--- NOTE | 2024-05-01 22:33 | DVHPN2 ---
Progress Note - Dictate Date Seen: May 01, 2024 Medical Necessity Reason Pt with a Central, PICC or Fol: No Subjective Patient with generalized weakness lethargy He has hypotensive on IV pressors Nephrology consult was appreciated Persistent leukocytosis, H&H is stable, no GI bleeding reported vital signs Vital Sign Date Time Temp Pulse Resp B/P (MAP) Pulse Ox O2 Delivery O2 Flow Rate FiO2 05/01/24 21:26 86 6 95 Nasal Cannula* 4 36 05/01/24 20:45 101/57 (72) 05/01/24 19:30 98.0 98.0 Total Intake and Output 04/30/24 04/30/24 05/01/24 15:00 23:00 07:00 Intake Total 2275 ml 800 ml 200 ml Balance 2275 ml 800 ml 200 ml medications Current Medications Medications Dose Ordered Sig/Anil Route Start Time Stop Time Status Last Admin Dose Admin Norepinephrine Bitartrate 250 ml @ 3.75 mls/hr Q24H IV 04/30/24 07:45 05/01/24 15:53 15 MLS/HR Acetaminophen/ Hydrocodone Bitart 1 tab Q4HP PRN PO 04/30/24 10:00 Hold Ondansetron HCl 4 mg Q4HP PRN IV 04/30/24 10:00 Docusate Sodium 100 mg BIDPRN PRN PO 04/30/24 10:00 Acetaminophen 650 mg Q6HP PRN PO 04/30/24 10:00 Hold Morphine Sulfate 2 mg Q4HPRN PRN IV 04/30/24 10:00 Nitroglycerin 0.4 mg Q5MINP PRN SL 04/30/24 10:00 Morphine Sulfate 2 mg Q30M PRN IV 04/30/24 10:00 Ceftriaxone Sodium 50 ml @ 100 mls/hr DAILY@09 IV 05/01/24 09:00 05/01/24 08:52 100 MLS/HR Docusate Sodium 100 mg DAILY PO 05/01/24 10:00 Ergocalciferol 50,000 unit QWEEKLY PO 04/30/24 10:15 Furosemide 40 mg DAILY PO 05/01/24 10:00 Midodrine 10 mg TID PO 04/30/24 14:00 05/01/24 05:53 10 MG Pantoprazole Sodium 40 mg DAILY PO 05/01/24 10:00 Folic Acid 1 mg DAILY PO 05/01/24 10:00 Lactulose 15 ml TID PO 04/30/24 18:00 05/01/24 05:53 15 ML Lorazepam 1 mg Q6HP PRN IV 04/30/24 11:00 05/01/24 16:54 1 MG Vancomycin HCl 0 ml @ 0 mls/hr UD IV 05/01/24 10:45 Sodium Bicarbonate 150 ml/Dextrose 1,150 ml @ 100 mls/hr [id number] IV 05/01/24 13:00 05/01/24 15:54 100 MLS/HR objective Elderly white male Nonverbal Jaundice appearing Moving spontaneously but alert oriented x 0 Abdomen is large distended with positive fluid wave Systolic blood pressure in the 80s No pitting edema Scleral icterus Mehta catheter has minimal but brown-colored urine laboratory and microbiology Laboratory Tests 05/01/24 16:59 05/01/24 07:24 Test 05/01/24 16:59 Range/Units Serum Glucose 73 L 74-106 mg/dL CT SCAN ABD PELVIS IMPRESSION: 1. Hepatic cirrhosis with vascular varices, collateralization, and prominent spleen suggesting portal hypertension. 2. Cholelithiasis and prominent gallbladder, stable. 3. Similar appearance of large volume ascites 4. overall no significant interval change. Problems(with codes): (1) Jaundice (2) Cholelithiasis (3) Elevated lactic acid level (4) Elevated liver enzymes (5) Cirrhosis of liver (6) Generalized weakness (7) Anasarca (8) Abdominal distention (9) Hepatic encephalopathy (10) UTI (urinary tract infection) Prognosis PLAN Appreciate nephrology consult and noted recommendations Levophed drip to maintain mean arterial pressure greater than 65 and improve renal perfusion Patient is status post 3 L normal saline Started sodium bicarbonate drip hold potassium and aldactone Strict Is&Os Medical management for elevated potassium level with a redraw in the next few hours Continue tele monitoring Strict Is&Os with the current Mehta in place. monitor ammonia daily and monitor for etoh withdrawal Patient has guarded prognosis with possibility of needing renal replacement therapy if does not respond to medical therapy. Arrange paracentesis in a.m. to rule out spontaneous bacterial peritonitis or internal bleeding; albumin therapy afterwards His MELD score is 39 points which is predictive of over 50% three-month mortality Plan discussed with: Other (ER Nurse) ALVAREZ YOUNGER MD May 01, 2024 22:33
[2024-05-01] MEDS: phytonadione 10 MG in SODIUM CHL 0.9% 50 ML IV ONE (22:59)
[2024-05-01] MEDS: phytonadione 1 ML ONE (23:06)
[2024-05-02] VITALS (81 sets, daily range): BP systolic 75–138; BP diastolic 32–50; PULSE 69–95; RESP 10–22; TEMP 98.8–99.1; O2SAT 85–100
[2024-05-02 04:34] LABS: Anion Gap 13 (5-15); Carbon Dioxide 22 mmol/L (20-31); Chloride 102 mmol/L (98-107); Sodium 137 mmol/L (136-145)
[2024-05-02 04:48] LABS: Calcium 8.6 mg/dL (8.7-10.4); Glucose 114 mg/dL (74-106); INR 2.82 (0.9-1.15); Potassium 5.4 mmol/L (3.5-5.1); Prothrombin Time 27.7 sec (9.3-11.8)
[2024-05-02 04:49] LABS: BUN/Creatinine Ratio 11.7 (10.0-20.0)
[2024-05-02 04:56] LABS: Blood Urea Nitrogen 98 mg/dL (9-23)
[2024-05-02 04:57] LABS: Basophils # (auto) 0 10 ^3/uL (0-0.2); Basophils % (auto) 0.3 % (0.0-2.0); Eosinophils # (auto) 0 10 ^3/uL (0-0.8); Eosinophils % (auto) 0.2 % (0.0-7.0); Hematocrit 30.5 % (41.0-53.0); Hemoglobin 10.2 g/dL (13.5-17.5); Lymphocytes # (auto) 0.8 10 ^3/uL (0.4-5.4); Lymphocytes % (auto) 5.5 % (10.0-50.0); Mean Corpuscular Hemoglobin 37.4 pg (28.0-32.0); Mean Corpuscular Hgb Conc. 33.5 g/dL (32.0-36.0); Mean Corpuscular Volume 111.7 fL (80.0-100.0); Monocytes # (auto) 1.2 10 ^3/uL (0-1.3); Monocytes % (auto) 7.9 % (0.0-12.0); Neutrophils # (auto) 12.9 10 ^3/uL (1.6-8.6); Neutrophils % (auto) 86.1 % (37.0-80.0); Nucleated Red Blood Cells % 0.1 %; Platelet Count (auto) 74 10^3/uL (140-450); Red Blood Cells 2.73 10^6/uL (4.5-5.90); Red Cell Distribution Width 16.1 % (11.8-14.3)
[2024-05-02 05:48] LABS: Large Platelets FEW; Platelet Estimate Decrea
[2024-05-02] MEDS: MORPHINE SULFATE INJ 2 MG/ml SYRG IV PRN (10:11)
--- NOTE | 2024-05-02 10:27 | DVHPN2 ---
Subjective The patient is seen and examined at bedside. No complaint today. Reviewed: Care Plan, H&P, Labs, Medications, Previous Orders, Radiology Changes from previous H/P or p: No Changes Objective Vitals Vital Signs Date Time Temp Pulse Resp B/P (MAP) Pulse Ox O2 Delivery O2 Flow Rate FiO2 05/02/24 10:11 73 16 93/37 05/02/24 09:36 Nasal Cannula* 4 36 05/02/24 08:28 98.9 98.9 05/02/24 08:15 90 Intake/Output Intake and Output 05/02/24 07:00 Intake Total 4391.9125 ml Output Total 275 ml Balance 4116.9125 ml Intake IV Total 4391.9125 ml Output Urine Total 275 ml General Appearance: Alert, No acute distress HEENT: Atraumatic, PERRLA, EOMI, Mucous membr. moist/pink Neck: Supple Lungs: Clear to auscultation, Normal air movement Neuro: Cranial nerves 3-12 NL Psych/Mental Status: Mental status NL Medications Current Medications Medications Dose Ordered Sig/Anil Route Start Time Stop Time Status Last Admin Dose Admin Norepinephrine Bitartrate 250 ml @ 3.75 mls/hr Q24H IV 04/30/24 07:45 05/02/24 03:36 22.5 MLS/HR Acetaminophen/ Hydrocodone Bitart 1 tab Q4HP PRN PO 04/30/24 10:00 Hold Ondansetron HCl 4 mg Q4HP PRN IV 04/30/24 10:00 Docusate Sodium 100 mg BIDPRN PRN PO 04/30/24 10:00 Acetaminophen 650 mg Q6HP PRN PO 04/30/24 10:00 Hold Morphine Sulfate 2 mg Q4HPRN PRN IV 04/30/24 10:00 05/02/24 10:11 2 MG Nitroglycerin 0.4 mg Q5MINP PRN SL 04/30/24 10:00 Morphine Sulfate 2 mg Q30M PRN IV 04/30/24 10:00 Ceftriaxone Sodium 50 ml @ 100 mls/hr DAILY@09 IV 05/01/24 09:00 05/02/24 08:34 100 MLS/HR Docusate Sodium 100 mg DAILY PO 05/01/24 10:00 Ergocalciferol 50,000 unit QWEEKLY PO 04/30/24 10:15 Furosemide 40 mg DAILY PO 05/01/24 10:00 Midodrine 10 mg TID PO 04/30/24 14:00 05/01/24 22:31 10 MG Pantoprazole Sodium 40 mg DAILY PO 05/01/24 10:00 Folic Acid 1 mg DAILY PO 05/01/24 10:00 Lactulose 15 ml TID PO 04/30/24 18:00 05/01/24 22:30 15 ML Lorazepam 1 mg Q6HP PRN IV 04/30/24 11:00 05/02/24 10:11 1 MG Vancomycin HCl 0 ml @ 0 mls/hr UD IV 05/01/24 10:45 Sodium Bicarbonate 150 ml/Dextrose 1,150 ml @ 100 mls/hr [id number] IV 05/01/24 13:00 05/02/24 05:30 100 MLS/HR Octreotide Acetate 100 mcg TID SUBCUT 05/02/24 14:00 Dopamine HCl/ Dextrose 250 ml @ 3.405 mls/ hr Q24H IV 05/02/24 10:00 Laboratory Results Laboratory Tests 05/02/24 04:04 Chemistry Test 05/01/24 16:59 05/02/24 04:04 Calcium Level 8.6 mg/dL (8.7-10.4) L 8.6 mg/dL (8.7-10.4) L Coagulation Test 05/02/24 04:04 Prothrombin Time 27.7 sec (9.3-11.8) H Prothrombin Time INR 2.82 (0.9-1.15) H Urinalysis Test 04/30/24 06:05 Urine Color Dark-yellow (Yellow) Urine Clarity Turbid (Clear) H Urine pH 5.0 (5.0-9.0) Urine Specific [place] 1.018 (1.001-1.035) Urine Protein Trace (Negative) H Urine Ketones Negative (Negative) Urine Blood 1+ /uL (Negative) H Urine Nitrite Negative (Negative) Urine Bilirubin 2+ (Negative) Urine Urobilinogen Normal mg/dL (Negative) Urine Leukocyte Esterase 1+ /uL (Negative) Urine RBC 4 /hpf (0 - 3) Urine WBC 7 /hpf (0 - 3) Urine WBC Clumps Present /hpf (None Seen) Urine Squamous Epithelial Cells Few /hpf (<5) Urine Bacteria Few /hpf (None Seen) H Urine Glucose Trace mg/dL (Normal) Blood Gas Results Test 05/01/24 15:30 Arterial Blood pH 7.371 (7.350-7.450) FiO2 % 36.0 Microbiology Microbiology Date/Time Source Procedure Growth Status 04/30/24 16:40 Blood Blood Culture - Preliminary NO GROWTH AFTER 24 HOURS OF INCUBATION. Resulted Labs and/or images reviewed: Labs reviewed by me Assessment/Plan Assessment/Plan Sepsis Acute metabolic encephalopathy 2nd likely to UTI Leucocytosis with lactic acidosis Elevated troponin's likely sepsis Acute on chronic renal insufficiency Ascites Hepatic cirrhosis with vascular varices Cholelithiasis Thrombocytopenia Hyperkalemia Hx of HTN COPD Substance abuse Plan: Continuing current management. Appreciate GI and Nephrology input. Continuing with Levophed to titrate for systolic blood pressure greater than 90. Nephrology had start the patient on dopamine for renal perfusion. Continuing IV antibiotics. We will follow up with culture. Waiting for pulmonology to see the patient. Waiting for paracentesis to rule out SBP. We will monitor potassium . Continuing with bicarb drip. Continuing with octreotide. Plan discussed with: Patient, Other (RN) My Orders Orders - ИРИНА BARTON MD Procedure Category Date Status Time Vancomycin Per PHA 05/01/24 In Process Pharmacy 10:45 Abg W/ Co-Ox RT 05/01/24 Logged 14:33 Chest Xray 1 View XY 05/01/24 Resulted 15:16 Mrsa Screen FRED 05/02/24 In Process 06:09 * Swallow Request ST 05/02/24 Transmitted 08:38 Date of Service: May 02, 2024 Billing Provider: ИРИНА BARTON MD Common Visit Codes: [id number] INP/OBS CARE(HIGH) ИРИНА BARTON MD May 02, 2024 10:27
[2024-05-02] MEDS: DOPamine 1600MCG/ML D5W 250 ML IV SCH (10:56)
[2024-05-02 12:01] LABS: Creatinine, Urine 189.28 mg/dL (30.0-125.0); Protein, Urine 170.6 mg/dL (1-14)
[2024-05-02 12:04] LABS: Creatinine, Urine 187.06 mg/dL (30.0-125.0); Urine Protein/Creatinine Ratio 0.91
[2024-05-02] MEDS: SODIUM CHLORIDE 0.9% 1,000 ML IV SCH (12:08)
--- NOTE | 2024-05-02 12:11 | DVHPN2 ---
Progress Note Date Seen: May 02, 2024 Medical Necessity Reason Pt with a Central, PICC or Fol: No Subjective Other Systems: Patient seen and examined by myself in follow-up today Objective vital signs Vital Sign Date Time Temp Pulse Resp B/P (MAP) Pulse Ox O2 Delivery O2 Flow Rate FiO2 05/02/24 11:47 70 05/02/24 11:47 22 Nasal Cannula* 4 36 05/02/24 10:56 99/41 05/02/24 08:28 98.9 98.9 05/02/24 08:15 90 Total Intake and Output 05/01/24 05/01/24 05/02/24 15:00 23:00 07:00 Intake Total 1497.4375 ml 1959.475 ml 935.0 ml Output Total 275 ml Balance 1497.4375 ml 1684.475 ml 935.0 ml medications Current Medications Medications Dose Ordered Sig/Anil Route Start Time Stop Time Status Last Admin Dose Admin Norepinephrine Bitartrate 250 ml @ 3.75 mls/hr Q24H IV 04/30/24 07:45 05/02/24 03:36 22.5 MLS/HR Acetaminophen/ Hydrocodone Bitart 1 tab Q4HP PRN PO 04/30/24 10:00 Hold Ondansetron HCl 4 mg Q4HP PRN IV 04/30/24 10:00 Docusate Sodium 100 mg BIDPRN PRN PO 04/30/24 10:00 Acetaminophen 650 mg Q6HP PRN PO 04/30/24 10:00 Hold Morphine Sulfate 2 mg Q4HPRN PRN IV 04/30/24 10:00 05/02/24 10:11 2 MG Nitroglycerin 0.4 mg Q5MINP PRN SL 04/30/24 10:00 Morphine Sulfate 2 mg Q30M PRN IV 04/30/24 10:00 Ceftriaxone Sodium 50 ml @ 100 mls/hr DAILY@09 IV 05/01/24 09:00 05/02/24 08:34 100 MLS/HR Docusate Sodium 100 mg DAILY PO 05/01/24 10:00 Ergocalciferol 50,000 unit QWEEKLY PO 04/30/24 10:15 Furosemide 40 mg DAILY PO 05/01/24 10:00 Midodrine 10 mg TID PO 04/30/24 14:00 05/01/24 22:31 10 MG Pantoprazole Sodium 40 mg DAILY PO 05/01/24 10:00 Folic Acid 1 mg DAILY PO 05/01/24 10:00 Lactulose 15 ml TID PO 04/30/24 18:00 05/01/24 22:30 15 ML Lorazepam 1 mg Q6HP PRN IV 04/30/24 11:00 05/02/24 10:11 1 MG Vancomycin HCl 0 ml @ 0 mls/hr UD IV 05/01/24 10:45 Sodium Bicarbonate 150 ml/Dextrose 1,150 ml @ 100 mls/hr [id number] IV 05/01/24 13:00 05/02/24 05:30 100 MLS/HR Octreotide Acetate 100 mcg TID SUBCUT 05/02/24 14:00 Dopamine HCl/ Dextrose 250 ml @ 3.405 mls/ hr Q24H IV 05/02/24 10:00 05/02/24 10:56 3.405 MLS/HR Sodium Chloride 1,000 ml @ 75 mls/hr [id number] IV 05/02/24 12:00 Examination: LUNGS:Normal, CVS:Normal, MSK:Normal laboratory and microbiology Laboratory Tests 05/02/24 04:04 Test 05/02/24 04:04 Range/Units Serum Glucose 114 H 74-106 mg/dL Microbiology Date/Time Source Procedure Growth Status 04/30/24 16:40 Blood Blood Culture - Preliminary NO GROWTH AFTER 24 HOURS OF INCUBATION. 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 Hyperkalemia Hypoalbuminemia Hypotension Recommendations Mehta catheter Strict I&Os IV Levophed for blood pressure support Low-dose dopamine Octreotide Furosemide 40 IV q.day Albumin 25% IV piggyback Paracentesis Check daily for need for hemodialysis We will continue to follow up Plan discussed with: Patient My Orders My Orders Orders - LEANNA MEJÍA MD Procedure Category Date Status Time Octreotide Acetate PHA 05/02/24 In Process (Sandostatin) 14:00 Dopamine 1600mcg/Ml PHA 05/02/24 In Process [id number] 10:00 Urine Sodium LAB 05/02/24 In Process 10:03 Urine LAB 05/02/24 In Process Protein/Creatinine Urine Creatinine LAB 05/02/24 In Process 10:03 Sodium Chloride 0.9% PHA 05/02/24 In Process 12:00 LEANNA MEJÍA MD May 02, 2024 12:11
[2024-05-02] MEDS: VANCOMYCIN 750MG KIT 100 ML IV ONE (13:15)
[2024-05-02] MEDS: OCTREOTIDE ACETATE 100 MCG/ML VL SUBCUT SCH (15:05)
[2024-05-02] MEDS: FUROSEMIDE 40 MG/4 ML VIAL IV SCH (15:05)
--- NOTE | 2024-05-02 20:09 | DVHINCON2 ---
Date of service: May 02, 2024 Referring Physician Laura Dean MD Reason for Consultation Acute hypoxic respiratory failure and COPD exacerbation. History of Present Illness A 63-year-old man with past medical history of COPD, cirrhosis and hypertension who presented to the ED on 04/30/24 for ALOC and shortness of breath x 1 day. Patient was confused at home and was brought in by EMS for ALOC. Patient had a paracentesis done on April 19, 2024 with 6.5 L removed and on April 13, 2024 with about 10.3 L removed. Patient is here for further evaluation. At bedside, he was noted to be aggressive, hostile, assaulting staff, including use of profanity. Patient was uncooperative. He was admitted for further care. Pulmonary consultation is requested for evaluation and management of acute hypoxic respiratory failure and COPD exacerbation. Review of Systems: 14-point review of systems negative unless otherwise noted above. Past Medical History: COPD, cirrhosis and hypertension Past Surgical History: Hernia Repair Medications: Reviewed. Allergies: No known drug allergies. Family History: Heart disease, cancer. Social History: Nonsmoker. Heavy alcohol use. Admits to marijuana use. Family History: Cardiovascular disease G8 FATHER Colon cancer G8 MOTHER FH: cancer G8 FATHER FH: heart attack G8 FATHER Allergies: Coded Allergies: NO KNOWN ALLERGIES (Unverified , 08/04/18) UNOBTAINABLE (Unverified , 04/19/24) Home Meds Active Scripts Sucralfate (CARAFATE SUSP) 1 Gm/10 Ml Ss, 1 GM PO QID@0600,1130,1700,2200 for 30 Days, #120 ML Prov:RHETT HULL [facility] 04/20/24 Midodrine HCl (Midodrine HCl) 10 Mg Tab, 10 MG PO TID@0600,1200,1800 for 30 Days, #90 TAB Prov:RHETT HULL [facility] 04/20/24 Lactulose (Lactulose) 10 Gm/15 Ml Nieves, 15 ML PO TID for 30 Days, #10 ML Prov:RHETT HULL [facility] 04/20/24 Furosemide (Furosemide) 20 Mg Tab, 40 MG PO BIDD for 30 Days, #120 TAB Prov:RHETT HULL 04/20/24 Thiamine Hcl (VITAMIN B-1) 100 Mg Tb, 100 MG PO DAILY for 30 Days, #30 TAB Prov:MIRACLE FELIX [facility] 04/06/24 Spironolactone (Aldactone) 25 Mg Tab, 12.5 MG PO DAILY for 30 Days, #15 TAB [facility] 04/06/24 Rifaximin (Xifaxan) 550 Mg Tab, 550 MG PO BID for 30 Days, #60 TAB [facility] 04/06/24 Pantoprazole Sodium Sesquihydr (Pantoprazole Sodium) 40 Mg Tab, 40 MG PO DAILY@0600 for 30 Days, #30 TAB [facility] 04/06/24 Lactulose (Lactulose) 10 Gm/15 Ml Nieves, 30 ML PO Q3H for 30 Days, #10 ML Prov[facility] 04/06/24 Furosemide (Furosemide) 40 Mg Tab, 40 MG PO DAILY for 30 Days, #30 TAB Prov:[facility] 04/06/24 Folic Acid (Folic Acid) 1 Mg Tab, 1 MG PO DAILY for 30 Days, #30 TAB Prov[facility] 04/06/24 Oxycodone W/ Acetaminophen (Percocet 5/325MG) 1 Tab Tb, 1 TAB PO QID for 7 Days, #28 TAB Prov:BOBBY VELIZ NP 08/31/23 Sucralfate (CARAFATE SUSP) 1 Gm/10 Ml Ss, 1 GM PO QIDACHS for 30 Days, #120 GM Prov:CLAUDIA AGUILAR MD 12/20/22 Reported Medications Celecoxib (CeleBREX CAPSULE) 100 Mg Cp, 1 CAP PO DAILY for 90 Days, #90 04/14/24 Midodrine Hcl (Midodrine Hcl) 10 Mg Tab, 1 TAB PO TID for 30 Days, #90 04/14/24 Potassium Chloride (Potassium Chloride ER) 20 Meq Tab, 1 TAB PO BID for 30 Days, #60 04/14/24 Ergocalciferol (Vitamin D (Ergocalciferol) 50,000 Unit Cap, 1 CAP PO QWEEKLY for 84 Days, #12 04/14/24 Ibuprofen (Ibuprofen) 800 Mg Tab, 1 TAB PO Q8HR PRN for 90 Days, #270 04/14/24 Spironolactone (Spironolactone) 25 Mg Tab, 1 TAB PO DAILY for 90 Days, #90 04/14/24 Folic Acid (Folic Acid) 1 Mg Tab, 1 TAB PO DAILY for 30 Days, #30 04/14/24 Thiamine Hcl (Vitamin B1) 100 Mg Tab, 1 TAB PO DAILY for 30 Days, #30 04/14/24 Lactulose (Lactulose) 10 Gm/15 Ml Nieves, 30 ML PO Q3HR for 30 Days, #6254 04/14/24 Pantoprazole Sodium Sesquihydr (Protonix) 40 Mg Tab, 1 TAB PO DAILY for 30 Days, #30 04/14/24 Furosemide (Furosemide) 40 Mg Tab, 1 TAB PO DAILY for 30 Days, #30 04/14/24 Docusate Sodium (Colace) 100 Mg Cap, 1 CAP PO DAILY for 90 Days, #90 04/14/24 Current Medications Current Medications Medications (Trade) Dose Ordered Sig/Anil Route PRN Reason Start Time Stop Time Status Last Admin Octreotide Acetate (SandoSTATIN) 100 mcg TID SUBCUT 05/02/24 14:00 05/02/24 15:05 Dopamine HCl/ Dextrose 250 ml @ 3.405 mls/ hr Q24H IV 05/02/24 10:00 05/02/24 10:56 Sodium Chloride 1,000 ml @ 75 mls/hr [id number] IV 05/02/24 12:00 05/02/24 12:08 Furosemide (Lasix Injection) 40 mg DAILY IV 05/02/24 10:00 05/02/24 15:05 Vital Signs Vital Signs Date Time Temp Pulse Resp B/P (MAP) Pulse Ox O2 Delivery O2 Flow Rate FiO2 05/02/24 19:40 97/32 05/02/24 18:45 98.8 76 10 86 98.8 05/02/24 17:32 Nasal Cannula* 4 36 Physical Exam Gen.: Patient lying in bed in no apparent distress. On supplemental oxygen. Head: Normocephalic, atraumatic. Eyes: EOMI/PERRLA. Ears: Normal hearing. Normal anatomy. Neck/trachea: Trachea midline, supple. Nose: Normal external anatomy. Mouth: Moist mucous membranes. Chest: Decreased air entry bilaterally. No wheezing or rhonchi. Cardiovascular: Positive S1, positive S2. Regular rate and rhythm. Abdomen: Positive bowel sounds in all 4 quadrants. Soft, non-tender, non- distended. : Deferred. Rectal: Deferred. Skin: Warm, dry. Intact. Extremities: 2+ radial pulses bilaterally. No lower extremity edema. Neuro: Awake, alert, oriented x3. No gross motor or sensory deficits. Cranial nerves II through XII intact. Gait not assessed. Labs/Diagnostic Data Labs Test 05/02/24 11:30 05/02/24 04:04 05/01/24 19:41 05/01/24 15:30 Range/Units Urine Creatinine 187.06 H 30.0-125.0 mg/dL Urine Protein/Creatinine Ratio 0.91 Urine Sodium 16 L 40-220 mmol/L Urine Total Protein 170.6 H 1-14 mg/dL White Blood Count 15.0 H 4.4-10.8 10^3/uL Red Blood Count 2.73 L 4.5-5.90 10^6/uL Hemoglobin 10.2 #L 13.5-17.5 g/dL Hematocrit 30.5 #L 41.0-53.0 % Mean Corpuscular Volume 111.7 H 80.0-100.0 fL Mean Corpuscular Hemoglobin 37.4 H 28.0-32.0 pg Mean Corpuscular Hemoglobin Concent 33.5 32.0-36.0 g/dL Red Cell Distribution Width 16.1 H 11.8-14.3 % Platelet Count 74 L 140-450 10^3/uL Mean Platelet Volume 9.6 6.9-10.8 fL Neutrophils (%) (Auto) 86.1 H 37.0-80.0 % Lymphocytes (%) (Auto) 5.5 L 10.0-50.0 % Monocytes (%) (Auto) 7.9 0.0-12.0 % Eosinophils (%) (Auto) 0.2 0.0-7.0 % Basophils (%) (Auto) 0.3 0.0-2.0 % Neutrophils # (Auto) 12.9 H 1.6-8.6 10 ^3/uL Lymphocytes # (Auto) 0.8 0.4-5.4 10 ^3/uL Monocytes # (Auto) 1.2 0-1.3 10 ^3/uL Eosinophils # (Auto) 0 0-0.8 10 ^3/uL Basophils # (Auto) 0 0-0.2 10 ^3/uL Nucleated Red Blood Cells 0.1 % Platelet Estimate Decrea Clumped Platelets Few Large Platelets Few Martha Cells Few Prothrombin Time 27.7 H 9.3-11.8 sec Prothrombin Time INR 2.82 H 0.9-1.15 Sodium Level 137 136-145 mmol/L Potassium Level 5.4 H 3.5-5.1 mmol/L Chloride Level 102 98-107 mmol/L Carbon Dioxide Level 22 20-31 mmol/L Anion Gap 13 5-15 Blood Urea Nitrogen 98 *H 9-23 mg/dL Creatinine 8.35 H 0.700-1.30 mg/dL Glomerular Filtration Rate Calc 7 >90 mL/min BUN/Creatinine Ratio 11.7 10.0-20.0 Serum Glucose 114 H 74-106 mg/dL Calcium Level 8.6 L 8.7-10.4 mg/dL Ammonia 14 11-32 umol/L Random Vancomycin Level 4.4 L 5-10 ug/mL POC Glucose 86 70-106 mg/dl Blood Gas Specimen Type Arterial Blood Gas Sample Site Right radial Blood Gas Patient Temperature 37.0 Arterial Blood Date Drawn [id number] Arterial Blood pH 7.371 7.350-7.450 Arterial Blood Partial Pressure CO2 30.4 L 35.0-48.0 mmHg Arterial Blood Partial Pressure O2 70.0 L 83.0-108.0 mmHg Arterial Blood HCO3 17.2 L 21.0-28.0 mmol/L Arterial Blood Oxygen Saturation 91.4 L 94.0-98.0 % Arterial Blood Base Excess -6.9 L -2.0-3.0 mmol/L Arterial Blood Oxyhemoglobin 89.3 L 94.0-98.0 % Arterial Blood Carboxyhemoglobin 1.8 H 0.5-1.5 % Arterial Blood Methemoglobin 0.5 0.0-1.5 % Yefri Test Yes Blood Gas Total Hemoglobin 11.50 L 13.5-17.5 g/dL Blood Gas Liter Flow 4.00 Blood Gas Modality Nasal cannula FiO2 % 36.0 Test 05/01/24 09:22 05/01/24 07:24 04/30/24 07:56 04/30/24 06:05 Range/Units Lactic Acid Level 2.9 *H 0.4-2.0 mmol/L Total Bilirubin 23.4 H 0.2-1.0 mg/dL Aspartate Amino Transferase (AST) 765 H 13-40 U/L Alanine Aminotransferase (ALT) 292 H 7-40 U/L Alkaline Phosphatase 482 H 46-116 U/L Troponin I High Sensitivity 114 *H </=54 ng/L Total Protein 6.5 5.7-8.2 g/dL Albumin 2.6 L 3.2-4.8 g/dL Triglycerides Level 91 < 150 mg/dL Cholesterol Level 52 < 200 mg/dL LDL Cholesterol 9 < 100 mg/dL HDL Cholesterol < 5 L 40-59 mg/dL Thyroid Stimulating Hormone (TSH) 0.69 0.55-4.78 uIU/mL Urine Color Dark-yellow Yellow Urine Clarity Turbid H Clear Urine pH 5.0 5.0-9.0 Urine Specific [place] 1.018 1.001-1.035 Urine Protein Trace H Negative Urine Ketones Negative Negative Urine Blood 1+ H Negative /uL Urine Nitrite Negative Negative Urine Bilirubin 2+ Negative Urine Urobilinogen Normal Negative mg/dL Urine Leukocyte Esterase 1+ Negative /uL Urine RBC 4 0 - 3 /hpf Urine WBC 7 0 - 3 /hpf Urine WBC Clumps Present None Seen /hpf Urine Squamous Epithelial Cells Few <5 /hpf Urine Bacteria Few H None Seen /hpf Urine Glucose Trace Normal mg/dL Urine Opiates Screen Pos NEGATIVE Urine Fentanyl Screen Neg NEGATIVE Urine Barbiturates Screen Neg NEGATIVE Urine Phencyclidine Screen Neg NEGATIVE Urine Amphetamines Screen Neg NEGATIVE Urine Benzodiazepines Screen Neg NEGATIVE Urine Cocaine Screen Neg NEGATIVE Urine Cannabinoids Screen Neg NEGATIVE Test 04/30/24 04:39 Range/Units Macrocytosis Slight Activated Partial Thromboplast Time 41.2 H 24.5-34.5 SEC Magnesium Level 2.9 H 1.6-2.6 mg/dL Plasma/Serum Blood Alcohol < 3.0 <10 mg/dL Microbiology Date/Time Source Procedure Growth Status 05/02/24 05:45 Nose MRSA Screen - Final Complete 04/30/24 16:40 Blood Blood Culture - Preliminary NO GROWTH AFTER 48 HOURS OF INCUBATION. Resulted Assessment Impression: Acute hypoxic respiratory failure COPD exacerbation Dependence on supplemental oxygen Sepsis Acute metabolic encephalopathy likely secondary to UTI Leukocytosis with lactic acidosis Elevated troponin Acute on chronic renal insufficiency Ascites Hepatic cirrhosis with vascular varices Cholelithiasis Thrombocytopenia Hyperkalemia Hypertension. Substance abuse Plan: Supplemental oxygen, on 5 LPM NC Titrate to keep O2 sats above 92% Taper O2 as tolerated. On pressors for hemodynamic support Levophed 18 mcg/min and Dopamine 2 mcg/min Titrate to keep mean arterial pressure greater than 65 mmHg. Patient failed swallow evaluation. Plan for paracentesis by GI. Head of bed elevation Aspiration precautions Pain control Avoid oversedation Continue antibiotics On lactulose Monitor renal function. Monitor electrolytes. Supplement as necessary. Monitor ins and outs. Counseled against substance abuse. DVT prophylaxis. Prognosis: Poor given patient's multiple co-morbidities. Condition: Critical Rest of plan per hospitalist and other consultants. A total of 35 minutes of critical care time was spent reviewing the patient record, examining the patient, making a diagnostic and therapeutic plan, discussing this plan with the medical personnel, following up on diagnostic studies and following the patient for clinical stability excluding any and all procedures. At least 50% of this time was spent in direct, [id number] contact. Thank you Dr. Laura Dean MD, for allowing me to participate in this patient's care. Further recommendations will depend on the patient's clinical course. Please do not hesitate to contact me if you have any questions or concerns. This medical document was created using an electronic medical record system with [employer] computerized dictation system. Although these documentations are being carefully reviewed, there may still be some phonetic and typographical changes. The errors are purely typographical, due to imperfection on the software program, and do not reflect any compromise in the patient's medical care. Plan discussed with: Other (VLADIMIR Stearns/MD Dean) YADIRA BENSON MD May 02, 2024 20:09
[2024-05-02 23:06] LABS: Magnesium 2.7 mg/dL (1.6-2.6); Potassium 6.1 mmol/L (3.5-5.1)
[2024-05-03] VITALS (107 sets, daily range): BP systolic 64–196; BP diastolic 17–63; PULSE 61–105; RESP 9–31; TEMP 92.1–98.6; O2SAT 82–98
[2024-05-03] MEDS: CALCIUM GLUC 1,000mg/50ml-NS 50 ML IV ONE ×2 (00:12→08:30)
[2024-05-03] MEDS: InsuLIN REG 1unit/0.01ml Soln (100units/ml) IV ONE ×2 (00:12→10:15)
[2024-05-03] MEDS: DEXTROSE (50%) 50ML SYRG IV ONE ×2 (00:13→10:48)
[2024-05-03] MEDS: SODIUM BICARB 8.4% 50Meq/50ml SYR Vial IV ONE (00:13)
[2024-05-03 03:50] LABS: Basophils # (auto) 0 10 ^3/uL (0-0.2); Basophils % (auto) 0.2 % (0.0-2.0); Eosinophils # (auto) 0.1 10 ^3/uL (0-0.8); Eosinophils % (auto) 0.4 % (0.0-7.0); Hemoglobin 11.4 g/dL (13.5-17.5); Lymphocytes # (auto) 0.6 10 ^3/uL (0.4-5.4); Mean Corpuscular Hemoglobin 37.4 pg (28.0-32.0); Mean Corpuscular Hgb Conc. 31.6 g/dL (32.0-36.0); Mean Corpuscular Volume 118.5 fL (80.0-100.0); Monocytes # (auto) 1.4 10 ^3/uL (0-1.3); Neutrophils # (auto) 12.9 10 ^3/uL (1.6-8.6); Neutrophils % (auto) 86.4 % (37.0-80.0); Nucleated Red Blood Cells % 0.2 %; Platelet Count (auto) 74 10^3/uL (140-450); Red Blood Cells 3.04 10^6/uL (4.5-5.90); Red Cell Distribution Width 17.4 % (11.8-14.3)
--- NOTE | 2024-05-03 03:58 | DVH ---
CHEST RADIOGRAPH Indication: NG TUBE PLACEMENT Technique: Single frontal view of the chest was obtained Comparison: XY CHEST XRAY 1 VIEW on DOS: 05/01/24, XY CHEST PORTABLE on DOS: 04/30/24, XY CHEST [place] BLE on DOS: 04/16/24, XY CHEST PORTABLE on DOS: 04/13/24, XY CHEST PORTABLE on DOS: 12/18/22, XY CHEST XRAY 1 VIEW on DOS: 05/01/24 FINDINGS: Lines and Tubes: Right central venous catheter in satisfactory position. Tip of the nasogastric tube not clearly visualized. Tip appears to be terminating in the distal esophagus. Consider advancement b y 10 cm. Lungs: Multifocal airspace disease. Pleura: No effusion. No pneumothorax. Cardiomediastinal contours: Unremarkable Bones: Unremarkable IMPRESSION: Right central venous catheter in satisfactory position. Tip of the nasogastric tube not clearly visualized. Tip appears to be terminating in the distal esoph bryce. Consider advancement by 10 cm.
[2024-05-03] MEDS: SODIUM ZIRCONIUM CYCL 10 GM PAK PO ONE (04:34)
[2024-05-03 07:50] LABS: Anion Gap 19 (5-15); Sodium 142 mmol/L (136-145)
[2024-05-03 08:02] LABS: Albumin 2.5 g/dL (3.2-4.8); Alkaline Phosphatase 456 U/L (46-116); Bilirubin, Total 26.1 mg/dL (0.2-1.0); Calcium 8.1 mg/dL (8.7-10.4); Carbon Dioxide 14 mmol/L (20-31); Chloride 109 mmol/L (98-107); Glucose 33 mg/dL (74-106)
[2024-05-03 08:04] LABS: Potassium 6.2 mmol/L (3.5-5.1)
[2024-05-03 08:06] LABS: BUN/Creatinine Ratio 9.3 (10.0-20.0)
[2024-05-03 08:07] LABS: Alanine Aminotransferase 260 U/L (7-40); Aspartate Aminotransferase 641 U/L (13-40); Total Protein 6.5 g/dL (5.7-8.2)
[2024-05-03 08:12] LABS: Blood Urea Nitrogen 85 mg/dL (9-23)
[2024-05-03 08:27] LABS: Platelet Estimate Decreased
[2024-05-03] MEDS: DEXTROSE 50% SYRINGE 100 ML IV ONE (09:21)
[2024-05-03] MEDS: phytonadione 10 MG in SODIUM CHL 0.9% 50 ML IV ONE (10:00)
--- NOTE | 2024-05-03 10:18 | DVHPN2 ---
Progress Note Date Seen: May 03, 2024 Medical Necessity Reason Pt with a Central, PICC or Fol: No Subjective Patient reports: No new complaints Other Systems: Patient seen and examined by myself on follow-up today, patient remained confused encephalopathic Objective vital signs Vital Sign Date Time Temp Pulse Resp B/P (MAP) Pulse Ox O2 Delivery O2 Flow Rate FiO2 05/03/24 09:50 70 05/03/24 09:50 20 Nasal Cannula* 6 44 05/03/24 09:14 137/41 05/03/24 08:00 90 05/03/24 04:00 97.0 97.0 Total Intake and Output 05/02/24 05/02/24 05/03/24 15:00 23:00 07:00 Intake Total 805.775 ml 694.740 ml 1015.085 ml Output Total 25 ml 25 ml Balance 805.775 ml 669.740 ml 990.085 ml medications Current Medications Medications Dose Ordered Sig/Anil Route Start Time Stop Time Status Last Admin Dose Admin Norepinephrine Bitartrate 250 ml @ 3.75 mls/hr Q24H IV 04/30/24 07:45 05/03/24 06:42 56.25 MLS/HR Acetaminophen/ Hydrocodone Bitart 1 tab Q4HP PRN PO 04/30/24 10:00 Hold Ondansetron HCl 4 mg Q4HP PRN IV 04/30/24 10:00 Docusate Sodium 100 mg BIDPRN PRN PO 04/30/24 10:00 Acetaminophen 650 mg Q6HP PRN PO 04/30/24 10:00 Hold Morphine Sulfate 2 mg Q4HPRN PRN IV 04/30/24 10:00 05/03/24 09:05 2 MG Nitroglycerin 0.4 mg Q5MINP PRN SL 04/30/24 10:00 Morphine Sulfate 2 mg Q30M PRN IV 04/30/24 10:00 Ceftriaxone Sodium 50 ml @ 100 mls/hr DAILY@09 IV 05/01/24 09:00 05/03/24 09:14 100 MLS/HR Docusate Sodium 100 mg DAILY PO 05/01/24 10:00 05/03/24 09:14 100 MG Ergocalciferol 50,000 unit QWEEKLY PO 04/30/24 10:15 Midodrine 10 mg TID PO 04/30/24 14:00 05/03/24 05:36 10 MG Pantoprazole Sodium 40 mg DAILY PO 05/01/24 10:00 05/03/24 09:14 40 MG Folic Acid 1 mg DAILY PO 05/01/24 10:00 05/03/24 09:14 1 MG Lactulose 15 ml TID PO 04/30/24 18:00 05/03/24 05:36 15 ML Lorazepam 1 mg Q6HP PRN IV 04/30/24 11:00 05/03/24 06:26 1 MG Vancomycin HCl 0 ml @ 0 mls/hr UD IV 05/01/24 10:45 Octreotide Acetate 100 mcg TID SUBCUT 05/02/24 14:00 05/03/24 05:41 100 MCG Dopamine HCl/ Dextrose 250 ml @ 3.405 mls/ hr Q24H IV 05/02/24 10:00 05/02/24 10:56 3.405 MLS/HR Sodium Chloride 1,000 ml @ 75 mls/hr [id number] IV 05/02/24 12:00 05/03/24 01:20 75 MLS/HR Furosemide 40 mg DAILY IV 05/02/24 10:00 05/03/24 09:14 40 MG Examination: LUNGS:Normal, CVS:Normal, MSK:Normal laboratory and microbiology Laboratory Tests 05/03/24 03:37 Test 05/03/24 03:37 Range/Units Serum Glucose 33 *L 74-106 mg/dL Microbiology Date/Time Source Procedure Growth Status 05/02/24 05:45 Nose MRSA Screen - Final Complete 04/30/24 16:40 Blood Blood Culture - Preliminary NO GROWTH AFTER 48 HOURS OF INCUBATION. 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 Hyperkalemia Hypoalbuminemia Hypotension Hypoglycemia Recommendations Kidney function worsened today Patient remained oliguric/anuric Mehta catheter Strict I&Os Medical treatment for hyperkalemia pending dialysis IV Levophed for blood pressure support Low-dose dopamine Octreotide Furosemide 40 IV q.day Albumin 25% IV piggyback Paracentesis Consents for Ruddy catheter on hemodialysis We will continue to follow up Plan discussed with: Spouse, Other (Nurse) My Orders My Orders Orders - LEANNA MEJÍA MD Procedure Category Date Status Time Sodium Chloride 0.9% PHA 05/02/24 In Process 12:00 Furosemide Injection PHA 05/02/24 In Process (Lasix Injection) 10:00 Dietary Evaluation Review Comments: When medcially feasible, advance diet, considering his CKD2 recommend Renal Specific-60g diet Expected Outcomes/Goals: Gradual weight loss. avoid uremic toxic symdrjose luis, LEANNA MEJÍA MD May 03, 2024 10:18
[2024-05-03] MEDS: FUROSEMIDE 100 MG/10ML VIAL IV ONE (10:45)
[2024-05-03] MEDS: SODIUM BICARB 8.4% 50Meq/50ml SYR INJ IV ONE (10:47)
[2024-05-03] MEDS: D5W/SOD CHLO 0.9% 1,000 ML IV SCH (10:48)
[2024-05-03] MEDS: ALBUTEROL SULF 2.5 MG/0.5ML(0.5%) NEB SOLN NEB ONE (10:52)
[2024-05-03] MEDS: ETOMIDATE (2MG/ML) 20ML VIAL IV ONE ×3 (11:20→11:53)
[2024-05-03] MEDS: ROCURONIUM 10MG/ML 10ML VIAL IV ONE ×2 (11:21→11:53)
[2024-05-03] MEDS: fentaNYL Drip 2500mCg/250mlNS 250 ML IV SCH (11:51)
[2024-05-03] MEDS: fentaNYL CITRATE 100 MCG/2 ML VL IV ONE (11:53)
[2024-05-03] MEDS: MIDAZOLAM DRIP 50 mg/50mL 50 ML IV SCH (11:53)
[2024-05-03] MEDS: VASOPRESSIN 20 UNITS in SODIUM CHL 0.9% 99 ML IV SCH (12:00)
[2024-05-03 12:28] LABS: Base Excess -4.4 mmol/L (-2.0-3.0)
--- NOTE | 2024-05-03 12:50 | DVHPN2 ---
Subjective Patient with metabolic encephalopathy Reviewed: Care Plan, H&P, Labs, Medications, Previous Orders, Radiology Changes from previous H/P or p: No Changes General: Per HPI Objective Vitals Vital Signs Date Time Temp Pulse Resp B/P (MAP) Pulse Ox O2 Delivery O2 Flow Rate FiO2 05/03/24 11:53 102/37 05/03/24 11:45 69 26 91 100 05/03/24 09:50 Nasal Cannula* 6 05/03/24 04:00 97.0 97.0 Intake/Output Intake and Output 05/03/24 07:00 Intake Total 2515.600 ml Output Total 50 ml Balance 2465.600 ml Intake IV Total 2455.600 ml Other 60 ml Output Urine Total 50 ml General Appearance: Alert, severe distress HEENT: Atraumatic, PERRLA, EOMI, Mucous membr. moist/pink, Other (Scleral icterus) Neck: Supple Lungs: Clear to auscultation, Normal air movement Abdomen: Other (Ascites) Neuro: Other (Encephalopathy) Skin: Dry, Other (Jaundice) Psych/Mental Status: Other (Altered mental status) Medications Current Medications Medications Dose Ordered Sig/Anil Route Start Time Stop Time Status Last Admin Dose Admin Norepinephrine Bitartrate 250 ml @ 3.75 mls/hr Q24H IV 04/30/24 07:45 05/03/24 06:42 56.25 MLS/HR Acetaminophen/ Hydrocodone Bitart 1 tab Q4HP PRN PO 04/30/24 10:00 Hold Ondansetron HCl 4 mg Q4HP PRN IV 04/30/24 10:00 Acetaminophen 650 mg Q6HP PRN PO 04/30/24 10:00 Hold Morphine Sulfate 2 mg Q4HPRN PRN IV 04/30/24 10:00 05/03/24 09:05 2 MG Nitroglycerin 0.4 mg Q5MINP PRN SL 04/30/24 10:00 Morphine Sulfate 2 mg Q30M PRN IV 04/30/24 10:00 Ceftriaxone Sodium 50 ml @ 100 mls/hr DAILY@09 IV 05/01/24 09:00 05/03/24 09:14 100 MLS/HR Docusate Sodium 100 mg DAILY PO 05/01/24 10:00 05/03/24 09:14 100 MG Ergocalciferol 50,000 unit QWEEKLY PO 04/30/24 10:15 Midodrine 10 mg TID PO 04/30/24 14:00 05/03/24 05:36 10 MG Pantoprazole Sodium 40 mg DAILY PO 05/01/24 10:00 05/03/24 09:14 40 MG Folic Acid 1 mg DAILY PO 05/01/24 10:00 05/03/24 09:14 1 MG Lactulose 15 ml TID PO 04/30/24 18:00 05/03/24 05:36 15 ML Lorazepam 1 mg Q6HP PRN IV 04/30/24 11:00 05/03/24 06:26 1 MG Vancomycin HCl 0 ml @ 0 mls/hr UD IV 05/01/24 10:45 Octreotide Acetate 100 mcg TID SUBCUT 05/02/24 14:00 05/03/24 05:41 100 MCG Dopamine HCl/ Dextrose 250 ml @ 3.405 mls/ hr Q24H IV 05/02/24 10:00 05/03/24 10:28 3.405 MLS/HR Furosemide 40 mg DAILY IV 05/02/24 10:00 05/03/24 09:14 40 MG Zirconium Oxide 10 gm TID PO 05/03/24 14:00 05/05/24 06:01 Dextrose/Sodium Chloride 1,000 ml @ 75 mls/hr [id number] IV 05/03/24 10:15 05/03/24 10:48 75 MLS/HR Midazolam HCl 50 ml @ 1 mls/hr Q24H IV 05/03/24 11:30 05/03/24 11:53 1 MLS/HR Fentanyl Citrate 250 ml @ 2.5 mls/hr Q24H IV 05/03/24 11:30 05/03/24 11:51 2.5 MLS/HR Vasopressin 20 units/Sodium Chloride 100 ml @ 9 mls/hr Q11H7M IV 05/03/24 12:00 Laboratory Results Laboratory Tests 05/03/24 03:37 Chemistry Test 05/02/24 22:35 05/03/24 03:37 Magnesium Level 2.7 mg/dL (1.6-2.6) H Albumin 2.5 g/dL (3.2-4.8) L Calcium Level 8.1 mg/dL (8.7-10.4) L Total Protein 6.5 g/dL (5.7-8.2) LFT Test 05/03/24 03:37 Alanine Aminotransferase (ALT) 260 U/L (7-40) H Alkaline Phosphatase 456 U/L (46-116) H Aspartate Amino Transferase (AST) 641 U/L (13-40) H Total Bilirubin 26.1 mg/dL (0.2-1.0) H Urinalysis Test 04/30/24 06:05 05/02/24 11:30 Urine Color Dark-yellow (Yellow) Urine Clarity Turbid (Clear) H Urine pH 5.0 (5.0-9.0) Urine Specific [place] 1.018 (1.001-1.035) Urine Protein Trace (Negative) H Urine Ketones Negative (Negative) Urine Blood 1+ /uL (Negative) H Urine Nitrite Negative (Negative) Urine Bilirubin 2+ (Negative) Urine Urobilinogen Normal mg/dL (Negative) Urine Leukocyte Esterase 1+ /uL (Negative) Urine RBC 4 /hpf (0 - 3) Urine WBC 7 /hpf (0 - 3) Urine WBC Clumps Present /hpf (None Seen) Urine Squamous Epithelial Cells Few /hpf (<5) Urine Bacteria Few /hpf (None Seen) H Urine Glucose Trace mg/dL (Normal) Urine Creatinine 187.06 mg/dL (30.0-125.0) H Urine Protein/Creatinine Ratio 0.91 Urine Sodium 16 mmol/L (40-220) L Urine Total Protein 170.6 mg/dL (1-14) H Blood Gas Results Test 05/03/24 12:21 Arterial Blood pH 7.315 (7.350-7.450) FiO2 % 100.0 Microbiology Microbiology Date/Time Source Procedure Growth Status 05/02/24 05:45 Nose MRSA Screen - Final Complete 04/30/24 16:40 Blood Blood Culture - Preliminary NO GROWTH AFTER 48 HOURS OF INCUBATION. Resulted Labs and/or images reviewed: Labs reviewed by me, Image(s) reviewed by me Assessment/Plan Assessment/Plan Impression: -acute hypoxic respiratory failure secondary to pneumonia -community-acquired pneumonia probable Gram-positive/Gram-negative etiology in addition to aspiration -hepatorenal failure -acute kidney injury, vasomotor nephropathy -hyperkalemia -hypoalbuminemia secondary to cirrhosis -liver cirrhosis -thrombocytopenia -history of alcoholism -metabolic encephalopathy secondary to sepsis -sepsis secondary to pneumonia -septic shock Plan: -long discussion made with the patient's caregiver/girlfriend as well as the patient's brother, Jimbo Hall. Patient with worsening respiratory failure, shock, needing hemodialysis, with altered mental status. At this time they are agreeable for the patient to be placed on mechanical ventilation, sedation, undergo hemodialysis catheter placement as well as being placed on dialysis. Prognosis of the patient was poor for which they are aware. At this time they wish for continued care, but would also like the patient to be made a DNR. -change antibiotic therapy from Rocephin to cefepime and Flagyl given probable aspiration pneumonia -nephrology consultation: Plans for hemodialysis after catheter placement -continue vasopressor therapy with norepinephrine. Add vasopressin as needed -FFP transfusion. Vitamin K infusion -events settings: AC 16, tidal volume 500, peep of five, FiO2 100% and titrate to keep saturation greater than 92% -PPI -kang culture -repeat labs, chest x-ray, ABG in a.m.. Critical care time spent with patient discussing and formulating plan of care: 90 minutes. This does not include time spent performing procedures. This medical document was created using an electronic medical record system with [employer] dictation system. Although this document has been carefully reviewed, there may still be some phonetic and typographical errors. These areas are purely typographical due to imperfections of the software programs, and do not reflect any compromise in the patient's medical care. Plan discussed with: Other (Significant other, brother, RN) My Orders Orders - BOBBY VELIZ NP Procedure Category Date Status Time Potassium LAB 05/03/24 Logged 14:00 Comprehensive LAB 05/04/24 Verified Metabolic Panel 04:00 Complete Blood Count LAB 05/04/24 Verified 04:00 Chest Portable XY 05/04/24 Logged 04:00 Midazolam Drip 50 PHA 05/03/24 In Process Mg/50ml (Versed Drip 5 11:30 Fentanyl Drip PHA 05/03/24 In Process 2500mcg/250mlns 11:30 Rass Sedation Scale LIZZETH 05/03/24 In Process 11:22 Ventilator Setup RT 05/03/24 Logged 11:40 Respiratory Culture FRED 05/03/24 In Process W/ Gs 11:47 Sodium Chl 0.9% PHA 12/17/24 In Process (So... W/Vasopressin 12:00 Abg W/ Co-Ox RT 05/03/24 Logged 12:20 Cefepime 2gm Extended PHA 05/04/24 Verified Infusion 10:00 Metronidazole Ivpb PHA 05/03/24 Verified Flagyl 14:00 Frozen Plasma BBK 05/03/24 Verified 12:29 Type And Screen BBK 05/03/24 Verified 12:29 Chest Xray 1 View XY 05/03/24 Verified 12:29 Date of Service: May 03, 2024 Billing Provider: BOBBY VELIZ NP Common Visit Codes: 24532-[id number] CARE 30-74 MIN, [id number] CARE-EACH +30MIN BOBBY VELIZ NP May 03, 2024 12:50
--- NOTE | 2024-05-03 12:54 | DVHNC2 ---
Intubation Indication: Respiratory Insufficiency, Altered Mental Status, Airway Protection Prep: Preoxygenation Pretreated with: Sedation (Etomidate 20 mg) Intubation Approach: Orotracheal Intubation size: cm (8.0) Informed consent obtained: Yes Risks/benefits/alt described: Yes UTO Consent Patient with acute hypoxic respiratory failure on 100% FiO2 via non-rebreather. Discussion was made with the patient's brother, Jimbo for the need to place patient was mechanical ventilation. Consent was given over the phone to myself as well as VLADIMIR Khan. [place] scope used for visualization of the cords. Noted coffee-ground emesis around the vocal cords. Patient intubated with an 8.0 ET tube, secured around 24 cm at the lip. Date of Service: May 03, 2024 Billing Provider: BOBBY VELIZ NP Common Visit Codes: PROCEDURE ONLY Procedure Codes: [id number] BOBBY VELIZ NP May 03, 2024 12:54
--- NOTE | 2024-05-03 12:58 | DVHNC2 ---
Central Line Recorder of insertion practice: Smoke Inspector Occupation of battery vent plug inserter: Other (Raphael Veliz RN) Indication: Other (HD) Room prepared for procedure: Yes Smoke Inspector performed hand hygien: Yes Maximal sterile barrier precau: Mask/Eye shield, Sterile gown, Cap, Sterlie gloves, Large sterlie drape Skin preparation completely dr: Yes Insertion site: Right Central line catheter type: Dialysis non-tunneled Number of lumens: 2 Central line exchanged over a: No Post Assessment: Proper placement Informed consent obtained: Yes UTO Consent Plan obtained from patient's brotherJimbo via telephone. Notes Indication for procedure: Hyperkalemia, acute kidney injury CPT code for ultrasound guidance: 58013 Date of Service: May 03, 2024 Billing Provider: BOBBY VELIZ NP Common Visit Codes: PROCEDURE ONLY Procedure Codes: [id number] NON-TUNNEL CV CATH BOBBY VELZI NP May 03, 2024 12:58
--- NOTE | 2024-05-03 13:09 | DVH ---
CHEST RADIOGRAPH Indication: Endotracheal tube placement Technique: Single frontal view of the chest was obtained COMPARISON: XY CHEST XRAY 1 VIEW on DOS: 05/03/24, XY CHEST XRAY 1 VIEW on DOS: 05/01/24, XY CHEST PO RTABLE on DOS: 04/30/24 FINDINGS: Lines and Tubes: Endotracheal tube and right central venous catheter in satisfactory position. Enter ic catheter may be in the proximal neck. Lungs: Bibasilar subsegmental atelectasis. Pleura: No effusion. No pneumothorax. Cardiomediastinal contours: Unremarkable Bones: Unremarkable IMPRESSION: Endotracheal tube and enteric catheter in satisfactory position. Enteric catheter may be located in the neck and requires repositioning.
[2024-05-03] MEDS: SODIUM ZIRCONIUM CYCL 10 GM PAK PO SCH (14:00)
[2024-05-03] MEDS: metroNIDAZOLE 500MG/100ML 100 ML IV SCH (14:00)
[2024-05-03] MEDS: SODIUM CHL 0.9% 1000 ML BAG XX ONE (14:20)
[2024-05-03] MEDS: PHENYLEPHRINE IV 250 ML IV SCH (15:14)
[2024-05-03] MEDS: PHENYLEPHRINE IV 250 ML IV ONE (15:14)
[2024-05-03] MEDS: ALBUMIN 25% 100 ML IV STA (15:55)
[2024-05-03] MEDS ORDERED: Nepro With Carb Steady 1 Liter Bottle GT SCH (16:00)
[2024-05-03] MEDS: ALBUMIN 25% 100 ML IV ONE (16:50)
[2024-05-03] MEDS: VANCOMYCIN 500mg/100mL 100 ML IV ONE (17:00)
--- NOTE | 2024-05-03 18:07 | DVHPN2 ---
Progress Note - Dictate Date Seen: May 03, 2024 Medical Necessity Reason Pt with a Central, PICC or Fol: No Subjective Patient was severely hypoglycemic today which has been corrected Patient was also on hypotensive and moderate altered level of consciousness Patient has been intubated this morning for airway protection He is also getting hemodialyzed Paracentesis was canceled because of elevated INR Persistent leukocytosis, H&H is stable, no GI bleeding reported vital signs Vital Sign Date Time Temp Pulse Resp B/P (MAP) Pulse Ox O2 Delivery O2 Flow Rate FiO2 05/03/24 17:33 105 05/03/24 17:33 20 Nasal Cannula* 6 44 05/03/24 16:15 127/46 (73) 90 05/03/24 16:00 93.6 200.5 Total Intake and Output 05/02/24 05/02/24 05/03/24 15:00 23:00 07:00 Intake Total 805.775 ml 694.740 ml 1018.490 ml Output Total 25 ml 25 ml Balance 805.775 ml 669.740 ml 993.490 ml medications Current Medications Medications Dose Ordered Sig/Anil Route Start Time Stop Time Status Last Admin Dose Admin Norepinephrine Bitartrate 250 ml @ 3.75 mls/hr Q24H IV 04/30/24 07:45 05/03/24 06:42 56.25 MLS/HR Acetaminophen/ Hydrocodone Bitart 1 tab Q4HP PRN PO 04/30/24 10:00 Hold Ondansetron HCl 4 mg Q4HP PRN IV 04/30/24 10:00 Acetaminophen 650 mg Q6HP PRN PO 04/30/24 10:00 Hold Morphine Sulfate 2 mg Q4HPRN PRN IV 04/30/24 10:00 05/03/24 09:05 2 MG Nitroglycerin 0.4 mg Q5MINP PRN SL 04/30/24 10:00 Morphine Sulfate 2 mg Q30M PRN IV 04/30/24 10:00 Docusate Sodium 100 mg DAILY PO 05/01/24 10:00 05/03/24 09:14 100 MG Ergocalciferol 50,000 unit QWEEKLY PO 04/30/24 10:15 Pantoprazole Sodium 40 mg DAILY PO 05/01/24 10:00 05/03/24 09:14 40 MG Folic Acid 1 mg DAILY PO 05/01/24 10:00 05/03/24 09:14 1 MG Lactulose 15 ml TID PO 04/30/24 18:00 05/03/24 14:00 15 ML Lorazepam 1 mg Q6HP PRN IV 04/30/24 11:00 05/03/24 06:26 1 MG Vancomycin HCl 0 ml @ 0 mls/hr UD IV 05/01/24 10:45 Octreotide Acetate 100 mcg TID SUBCUT 05/02/24 14:00 05/03/24 15:27 100 MCG Dopamine HCl/ Dextrose 250 ml @ 3.405 mls/ hr Q24H IV 05/02/24 10:00 05/03/24 10:28 3.405 MLS/HR Furosemide 40 mg DAILY IV 05/02/24 10:00 05/03/24 09:14 40 MG Zirconium Oxide 10 gm TID PO 05/03/24 14:00 05/05/24 06:01 05/03/24 14:00 10 GM Dextrose/Sodium Chloride 1,000 ml @ 75 mls/hr [id number] IV 05/03/24 10:15 05/03/24 10:48 75 MLS/HR Midazolam HCl 50 ml @ 1 mls/hr Q24H IV 05/03/24 11:30 05/03/24 11:53 1 MLS/HR Fentanyl Citrate 250 ml @ 2.5 mls/hr Q24H IV 05/03/24 11:30 05/03/24 11:51 2.5 MLS/HR Vasopressin 20 units/Sodium Chloride 100 ml @ 9 mls/hr Q11H7M IV 05/03/24 12:00 05/03/24 12:00 9 MLS/HR Metronidazole 100 ml @ 100 mls/hr Q8HR IV 05/03/24 14:00 05/03/24 14:00 100 MLS/HR Cefepime HCl 50 ml @ 12.5 mls/hr DAILY IV 05/04/24 10:00 Phenylephrine HCl 250 ml @ 30 mls/hr Q8H20M IV 05/03/24 15:00 05/03/24 15:14 30 MLS/HR Enteral Nutritional Formula 1,000 ml 30ML/HR GT 05/03/24 16:00 Hydrocortisone Sodium Succinate 50 mg Q12HR IV 05/03/24 22:00 objective Elderly white male Nonverbal Jaundice appearing ; intubated sedated Abdomen is distended with positive fluid wave Systolic blood pressure in the 80s No pitting edema Scleral icterus Mehta catheter has minimal but brown-colored urine laboratory and microbiology Laboratory Tests 05/03/24 03:37 Test 05/03/24 03:37 Range/Units Serum Glucose 33 *L 74-106 mg/dL Problems(with codes): (1) Hypoglycemia (2) Jaundice (3) Elevated lactic acid level (4) Elevated liver enzymes (5) Elevated liver function tests (6) Cirrhosis of liver (7) Generalized weakness (8) Abdominal distention (9) Hepatic encephalopathy (10) Acute renal failure Prognosis Plan Acute hepatic renal failure with possible underlying sepsis and hypotension Continue current medical management IV antibiotics, pressor support Respiratory support Hemodialysis Meld score very high at 39 suggestive of poor prognosis, family is aware Patient has been made DNR Dietary Evaluation Review Comments: When medcially feasible, advance diet, considering his CKD2 recommend Renal Specific-60g diet Expected Outcomes/Goals: Gradual weight loss. avoid uremic toxic symdrome, Plan discussed with: Other (ICU nurse) ALVAREZ YOUNGER MD May 03, 2024 18:07
[2024-05-03] MEDS: ALBUMIN 5% 250 ML IV ONE ×2 (20:26→20:30)
[2024-05-03] MEDS: EPINEPHrine HCL 250 ML IV ONE (20:49)
[2024-05-03] MEDS: DEXTROSE 50% SYRINGE 50 ML IV ONE ×3 (20:53→22:20)
[2024-05-03 21:04] LABS: Hematocrit 26.4 % (41.0-53.0); Hemoglobin 8.8 g/dL (13.5-17.5)
[2024-05-03] MEDS: DEXTROSE 10% 1,000 ML IV ONE (21:14)
--- NOTE | 2024-05-03 21:14 | DVHPN2 ---
Progress Note - Dictate Date Seen: May 03, 2024 Medical Necessity Reason Pt with a Central, PICC or Fol: Yes The following are medically ne: Cote Catheter Reason for cote catheter: Strict I&O Subjective Patient seen and examined at bedside. Remains on supplemental oxygen Overnight events reviewed. vital signs Vital Sign Date Time Temp Pulse Resp B/P (MAP) Pulse Ox O2 Delivery O2 Flow Rate FiO2 05/03/24 20:15 94 21 86/25 (45) 90 100 05/03/24 19:15 98.1 208.6 05/03/24 17:33 Nasal Cannula* 6 Total Intake and Output 05/02/24 05/02/24 05/03/24 15:00 23:00 07:00 Intake Total 805.775 ml 694.740 ml 1018.490 ml Output Total 25 ml 25 ml Balance 805.775 ml 669.740 ml 993.490 ml medications Current Medications Medications Dose Ordered Sig/Anil Route Start Time Stop Time Status Last Admin Dose Admin Acetaminophen/ Hydrocodone Bitart 1 tab Q4HP PRN PO 04/30/24 10:00 Hold Ondansetron HCl 4 mg Q4HP PRN IV 04/30/24 10:00 Acetaminophen 650 mg Q6HP PRN PO 04/30/24 10:00 Hold Morphine Sulfate 2 mg Q4HPRN PRN IV 04/30/24 10:00 05/03/24 09:05 2 MG Nitroglycerin 0.4 mg Q5MINP PRN SL 04/30/24 10:00 Morphine Sulfate 2 mg Q30M PRN IV 04/30/24 10:00 Docusate Sodium 100 mg DAILY PO 05/01/24 10:00 05/03/24 09:14 100 MG Ergocalciferol 50,000 unit QWEEKLY PO 04/30/24 10:15 Pantoprazole Sodium 40 mg DAILY PO 05/01/24 10:00 05/03/24 09:14 40 MG Folic Acid 1 mg DAILY PO 05/01/24 10:00 05/03/24 09:14 1 MG Lactulose 15 ml TID PO 04/30/24 18:00 05/03/24 14:00 15 ML Lorazepam 1 mg Q6HP PRN IV 04/30/24 11:00 05/03/24 06:26 1 MG Vancomycin HCl 0 ml @ 0 mls/hr UD IV 05/01/24 10:45 Octreotide Acetate 100 mcg TID SUBCUT 05/02/24 14:00 05/03/24 15:27 100 MCG Dopamine HCl/ Dextrose 250 ml @ 3.405 mls/ hr Q24H IV 05/02/24 10:00 05/03/24 10:28 3.405 MLS/HR Furosemide 40 mg DAILY IV 05/02/24 10:00 05/03/24 09:14 40 MG Zirconium Oxide 10 gm TID PO 05/03/24 14:00 05/05/24 06:01 05/03/24 14:00 10 GM Dextrose/Sodium Chloride 1,000 ml @ 75 mls/hr [id number] IV 05/03/24 10:15 05/03/24 10:48 75 MLS/HR Midazolam HCl 50 ml @ 1 mls/hr Q24H IV 05/03/24 11:30 05/03/24 11:53 1 MLS/HR Fentanyl Citrate 250 ml @ 2.5 mls/hr Q24H IV 05/03/24 11:30 05/03/24 11:51 2.5 MLS/HR Vasopressin 20 units/Sodium Chloride 100 ml @ 9 mls/hr Q11H7M IV 05/03/24 12:00 05/03/24 12:00 9 MLS/HR Metronidazole 100 ml @ 100 mls/hr Q8HR IV 05/03/24 14:00 05/03/24 14:00 100 MLS/HR Cefepime HCl 50 ml @ 12.5 mls/hr DAILY IV 05/04/24 10:00 Enteral Nutritional Formula 1,000 ml 30ML/HR GT 05/03/24 16:00 Hydrocortisone Sodium Succinate 50 mg Q12HR IV 05/03/24 22:00 Phenylephrine HCl 80 mg/Sodium Chloride 250 ml @ 7.5 mls/hr Q24H IV 05/03/24 20:30 Norepinephrine Bitartrate 32 mg/ Sodium Chloride 250 ml @ 0.938 mls/ hr Q24H IV 05/03/24 20:30 objective Gen.: Patient lying in bed in no apparent distress. On supplemental oxygen. Head: Normocephalic, atraumatic. Eyes: EOMI/PERRLA. Ears: Normal hearing. Normal anatomy. Neck/trachea: Trachea midline, supple. Nose: Normal external anatomy. Mouth: Moist mucous membranes. Chest: Decreased air entry bilaterally. No wheezing or rhonchi. Cardiovascular: Positive S1, positive S2. Regular rate and rhythm. Abdomen: Positive bowel sounds in all 4 quadrants. Soft, non-tender, non- distended. : Deferred. Rectal: Deferred. Skin: Warm, dry. Intact. Extremities: 2+ radial pulses bilaterally. No lower extremity edema. Neuro: Awake, alert, oriented x3. No gross motor or sensory deficits. Cranial nerves II through XII intact. Gait not assessed. laboratory and microbiology Laboratory Tests 05/03/24 20:47 05/03/24 17:47 05/03/24 03:37 Test 05/03/24 03:37 Range/Units Serum Glucose 33 *L 74-106 mg/dL Assessment/Plan Impression: Acute hypoxic respiratory failure COPD exacerbation Dependence on supplemental oxygen Sepsis Acute metabolic encephalopathy likely secondary to UTI Leukocytosis with lactic acidosis Elevated troponin Acute on chronic renal insufficiency Ascites Hepatic cirrhosis with vascular varices Cholelithiasis Thrombocytopenia Hyperkalemia Hypertension. Substance abuse Events: Remains on supplemental oxygen, 8 LPM simple face mask Taper O2 as tolerated Head of bed elevation Aspiration precautions Hyperkalemia protocol Hypoglycemia - D50W. On pressors for hemodynamic support Levophed 26 mcg/min Titrate to keep mean arterial pressure greater than 65 mmHg. Off dopamine. Continue bronchodilators Continue IV steroids Continue antibiotics Labs and imaging reviewed. Rest of plan as noted below. Plan: Supplemental oxygen Titrate to keep O2 sats above 92% On pressors for hemodynamic support Titrate to keep mean arterial pressure greater than 65 mmHg. Head of bed elevation Aspiration precautions Pain control Avoid oversedation Continue antibiotics On lactulose Monitor renal function. Monitor electrolytes. Supplement as necessary. Monitor ins and outs. Counseled against substance abuse. DVT prophylaxis. Prognosis: Poor given patient's multiple co-morbidities. Condition: Critical Rest of plan per hospitalist and other consultants. A total of 35 minutes of critical care time was spent reviewing the patient record, examining the patient, making a diagnostic and therapeutic plan, discussing this plan with the medical personnel, following up on diagnostic studies and following the patient for clinical stability excluding any and all procedures. At least 50% of this time was spent in direct, [id number] contact. Thank you Dr. Laura Dean MD, for allowing me to participate in this patient's care. Further recommendations will depend on the patient's clinical course. Please do not hesitate to contact me if you have any questions or concerns. This medical document was created using an electronic medical record system with [employer] dictation system. Although these documentations are being carefully reviewed, there may still be some phonetic and typographical changes. The errors are purely typographical, due to imperfection on the software program, and do not reflect any compromise in the patient's medical care. Dietary Evaluation Review Comments: When medcially feasible, advance diet, considering his CKD2 recommend Renal Specific-60g diet Expected Outcomes/Goals: Gradual weight loss. avoid uremic toxic symdrome, Plan discussed with: Other (VLADIMIR Stearns) Critical Care Time(min): 35 YADIRA BENSON MD May 03, 2024 21:14
[2024-05-03] MEDS: DEXTROSE 10% 1,000 ML IV SCH ×2 (21:15→23:21)
[2024-05-03] MEDS: EPINEPHrine HCL 250 ML IV SCH (21:20)
[2024-05-03 21:46] LABS: Basophils # (auto) 0.1 10 ^3/uL (0-0.2); Eosinophils # (auto) 0 10 ^3/uL (0-0.8); Eosinophils % (auto) 0.1 % (0.0-7.0); Neutrophils # (auto) 10.4 10 ^3/uL (1.6-8.6); Nucleated Red Blood Cells % 0.7 %; Red Blood Cells 2.16 10^6/uL (4.5-5.90); Red Cell Distribution Width 17.1 % (11.8-14.3)
[2024-05-03 21:47] LABS: Basophils % (auto) 0.9 % (0.0-2.0); Hemoglobin 8.3 g/dL (13.5-17.5); Lymphocytes # (auto) 0.4 10 ^3/uL (0.4-5.4); Lymphocytes % (auto) 3.1 % (10.0-50.0); Mean Corpuscular Hemoglobin 38.3 pg (28.0-32.0); Mean Corpuscular Hgb Conc. 33.1 g/dL (32.0-36.0); Monocytes # (auto) 0.8 10 ^3/uL (0-1.3); Monocytes % (auto) 7.1 % (0.0-12.0); Neutrophils % (auto) 88.8 % (37.0-80.0); Platelet Count (auto) 43 10^3/uL (140-450); White Blood Cell 11.7 10^3/uL (4.4-10.8)
[2024-05-03] MEDS: PHENYLEPHRINE INJ 80 MG in SODIUM CHL 0.9% 242 ML IV SCH (21:47)
[2024-05-03] MEDS: NOREPINEPHRINE BITARTRATE 32 MG in SODIUM CHL 0.9% 218 ML IV SCH (21:53)
[2024-05-03 21:59] LABS: Base Excess -4.9 mmol/L (-2.0-3.0)
[2024-05-03] MEDS: ACCU-CHEK COMFORT CURVE STRIP VI SCH (22:00)
[2024-05-03 22:01] LABS: Chloride 104 mmol/L (98-107); Sodium 139 mmol/L (136-145)
[2024-05-03 22:21] LABS: Anion Gap 15 (5-15)
[2024-05-03] MEDS ORDERED: DEXTROSE (50%) 50ML SYRG IV PRN (22:30)
[2024-05-03 22:49] LABS: Alanine Aminotransferase 536 U/L (7-40); Albumin 2.6 g/dL (3.2-4.8); Alkaline Phosphatase 280 U/L (46-116); Aspartate Aminotransferase 1889 U/L (13-40); BUN/Creatinine Ratio 9.5 (10.0-20.0); Blood Urea Nitrogen 74 mg/dL (9-23); Calcium 7.9 mg/dL (8.7-10.4); Carbon Dioxide 20 mmol/L (20-31); Glucose 83 mg/dL (74-106); Magnesium 2.4 mg/dL (1.6-2.6); Total Protein 5.1 g/dL (5.7-8.2)
[2024-05-03] MEDS: HYDROCORTISONE SOD SUCC 100 MG/2ML INJ VIAL IV SCH (22:53)
[2024-05-03 22:55] LABS: Potassium 6.3 mmol/L (3.5-5.1)
[2024-05-03] MEDS: DOPamine 1600MCG/ML D5W 250 ML IV SCH (23:00)
[2024-05-03] MEDS: SODIUM CHLORIDE 0.9% 1,000 ML IV ONE (23:00)
[2024-05-03 23:18] LABS: Anisocytosis Slight; Large Platelets FEW; Macrocytosis Marked; Platelet Estimate Decreased
[2024-05-03 23:19] LABS: Target Cell FEW
[2024-05-03 23:38] LABS: Prothrombin Time 46.8 sec (9.3-11.8)
[2024-05-03 23:39] LABS: INR 4.97 (0.9-1.15); Partial Thromboplastin Time > 139.0 SEC (24.5-34.5)
[2024-05-04] VITALS (11 sets, daily range): BP systolic 53–80; BP diastolic 15–24; PULSE 51–100; RESP 10–19; TEMP 96.8–97.3; O2SAT 71–88
[2024-05-04] MEDS: CALCIUM GLUC 1,000mg/50ml-NS 50 ML IV ONE (00:14)
[2024-05-04] MEDS: SODIUM BICARB 8.4% 50Meq/50ml SYR Vial IV ONE (00:14)
[2024-05-04] MEDS: ALBUTEROL SULF 2.5 MG/0.5ML(0.5%) NEB SOLN NEB ONE (00:36)
[2024-05-04 01:28] LABS: Base Excess -9.8 mmol/L (-2.0-3.0)
--- NOTE | 2024-05-04 06:30 | DVH ---
CHEST RADIOGRAPH Indication: pna Technique: Single frontal view of the chest was obtained Comparison: XY CHEST XRAY 1 VIEW on DOS: 05/03/24 FINDINGS: Lines and Tubes: The endotracheal tube terminates 4.5 cm above the kassie. Right central venous christopher ter terminates in the superior vena cava. Enteric tube courses below the left hemidiaphragm and the t ip extends outside the field of view. Pacemaker with right atrial and ventricular leads. Lungs: The lungs are hyperinflated. Bibasilar atelectasis. Pleura: No effusion. No pneumothorax. Cardiomediastinal contours: Unremarkable Bones: No acute osseous abnormality. IMPRESSION: Support lines and tubes as described. Bibasilar atelectasis.
--- NOTE | 2024-05-04 08:12 | DVHDS2 ---
Discharge Summary Date of Admission Apr 30, 2024 at 13:59 Date of Discharge: May 04, 2024 Labs/Diagnostic Data: Laboratory Results Test 05/04/24 01:36 05/03/24 23:45 05/03/24 22:48 05/03/24 21:28 POC Glucose 107 mg/dl (70-106) Blood Gas Specimen Type Arterial Blood Gas Sample Site Left brachial Blood Gas Patient Temperature 37.0 Arterial Blood Date Drawn [id number] Arterial Blood pH 7.254 (7.350-7.450) Arterial Blood Partial Pressure CO2 38.2 mmHg (35.0-48.0) Arterial Blood Partial Pressure O2 40.0 mmHg (83.0-108.0) Arterial Blood HCO3 16.5 mmol/L (21.0-28.0) Arterial Blood Oxygen Saturation 56.9 % (94.0-98.0) Arterial Blood Base Excess -9.8 mmol/L (-2.0-3.0) Arterial Blood Oxyhemoglobin 55.7 % (94.0-98.0) Arterial Blood Carboxyhemoglobin 1.5 % (0.5-1.5) Arterial Blood Methemoglobin 0.6 % (0.0-1.5) Yefri Test N/a Blood Gas Total Hemoglobin 7.20 g/dL (13.5-17.5) Blood Gas Set Respiration Rate 16.0 Blood Gas Modality Vent - p/c FiO2 % 100.0 Blood Gas PEEP or CPAP 10.0 Blood Gas Critical Value Read Back Yes Blood Gas Notified Whom jak Sev[place] np Blood Gas Notified Time [id number] Blood Gas Notified By garfield Cordova rrt Prothrombin Time 46.8 sec (9.3-11.8) Prothrombin Time INR 4.97 (0.9-1.15) Activated Partial Thromboplast Time > 139.0 SEC (24.5-34.5) White Blood Count 11.7 10^3/uL (4.4-10.8) Red Blood Count 2.16 10^6/uL (4.5-5.90) Hemoglobin 8.3 g/dL (13.5-17.5) Hematocrit 25.0 % (41.0-53.0) Mean Corpuscular Volume 116.0 fL (80.0-100.0) Mean Corpuscular Hemoglobin 38.3 pg (28.0-32.0) Mean Corpuscular Hemoglobin Concent 33.1 g/dL (32.0-36.0) Red Cell Distribution Width 17.1 % (11.8-14.3) Platelet Count 43 10^3/uL (140-450) Mean Platelet Volume 9.0 fL (6.9-10.8) Neutrophils (%) (Auto) 88.8 % (37.0-80.0) Lymphocytes (%) (Auto) 3.1 % (10.0-50.0) Monocytes (%) (Auto) 7.1 % (0.0-12.0) Eosinophils (%) (Auto) 0.1 % (0.0-7.0) Basophils (%) (Auto) 0.9 % (0.0-2.0) Neutrophils # (Auto) 10.4 10 ^3/uL (1.6-8.6) Lymphocytes # (Auto) 0.4 10 ^3/uL (0.4-5.4) Monocytes # (Auto) 0.8 10 ^3/uL (0-1.3) Eosinophils # (Auto) 0 10 ^3/uL (0-0.8) Basophils # (Auto) 0.1 10 ^3/uL (0-0.2) Nucleated Red Blood Cells 0.7 % Platelet Estimate Decreased Large Platelets Few Poikilocytosis (manual) Moderate Anisocytosis (manual) Slight Macrocytosis Marked Target Cells Few Schistocytes Few Sodium Level 139 mmol/L (136-145) Potassium Level 6.3 mmol/L (3.5-5.1) Chloride Level 104 mmol/L (98-107) Carbon Dioxide Level 20 mmol/L (20-31) Anion Gap 15 (5-15) Blood Urea Nitrogen 74 mg/dL (9-23) Creatinine 7.77 mg/dL (0.700-1.30) Glomerular Filtration Rate Calc 7 mL/min (>90) BUN/Creatinine Ratio 9.5 (10.0-20.0) Serum Glucose 83 mg/dL (74-106) Calcium Level 7.9 mg/dL (8.7-10.4) Magnesium Level 2.4 mg/dL (1.6-2.6) Total Bilirubin 23.0 mg/dL (0.2-1.0) Aspartate Amino Transferase (AST) 1889 U/L (13-40) Alanine Aminotransferase (ALT) 536 U/L (7-40) Alkaline Phosphatase 280 U/L (46-116) Ammonia 56 umol/L (11-32) Total Protein 5.1 g/dL (5.7-8.2) Albumin 2.6 g/dL (3.2-4.8) Test 05/03/24 21:18 05/03/24 12:21 05/03/24 03:37 05/02/24 11:30 Blood Gas Tidal Volume 500.0 Blood Gas Spontaneous Rate 24 Martha Cells Few Random Vancomycin Level 12.3 ug/mL (5-10) Urine Creatinine 187.06 mg/dL (30.0-125.0) Urine Protein/Creatinine Ratio 0.91 Urine Sodium 16 mmol/L (40-220) Urine Total Protein 170.6 mg/dL (1-14) Test 05/02/24 04:04 05/01/24 15:30 05/01/24 09:22 05/01/24 07:24 Clumped Platelets Few Blood Gas Liter Flow 4.00 Lactic Acid Level 2.9 mmol/L (0.4-2.0) Troponin I High Sensitivity 114 ng/L (</=54) Test 04/30/24 07:56 04/30/24 06:05 04/30/24 04:39 Triglycerides Level 91 mg/dL (< 150) Cholesterol Level 52 mg/dL (< 200) LDL Cholesterol 9 mg/dL (< 100) HDL Cholesterol < 5 mg/dL (40-59) Thyroid Stimulating Hormone (TSH) 0.69 uIU/mL (0.55-4.78) Urine Color Dark-yellow (Yellow) Urine Clarity Turbid (Clear) Urine pH 5.0 (5.0-9.0) Urine Specific [place] 1.018 (1.001-1.035) Urine Protein Trace (Negative) Urine Ketones Negative (Negative) Urine Blood 1+ /uL (Negative) Urine Nitrite Negative (Negative) Urine Bilirubin 2+ (Negative) Urine Urobilinogen Normal mg/dL (Negative) Urine Leukocyte Esterase 1+ /uL (Negative) Urine RBC 4 /hpf (0 - 3) Urine WBC 7 /hpf (0 - 3) Urine WBC Clumps Present /hpf (None Seen) Urine Squamous Epithelial Cells Few /hpf (<5) Urine Bacteria Few /hpf (None Seen) Urine Glucose Trace mg/dL (Normal) Urine Opiates Screen Pos (NEGATIVE) Urine Fentanyl Screen Neg (NEGATIVE) Urine Barbiturates Screen Neg (NEGATIVE) Urine Phencyclidine Screen Neg (NEGATIVE) Urine Amphetamines Screen Neg (NEGATIVE) Urine Benzodiazepines Screen Neg (NEGATIVE) Urine Cocaine Screen Neg (NEGATIVE) Urine Cannabinoids Screen Neg (NEGATIVE) Plasma/Serum Blood Alcohol < 3.0 mg/dL (<10) Other Laboratory Tests 05/03/24 21:28 Brief Hx & Hospital Course: History of Present Illness Barber Hall is a 63YO M with pmHx of cirrhosis, HTN, and COPD who presents to the ED for ALOC and SOB x 1 day. Patient was confused at home and was brought in by EMS for ALOC. Patient had a paracentesis done on April 19, 2024 with 6.5L removed and on April 13, 2024 with about 10.3L removed. Patient is here for further evaluation. At bedside, he is noted to be aggressive, hostile, assaulting staff, including use of profanity. Patient uncooperative. Course of hospitalization: Patient was overall clinical condition decline with the patient having persistent altered mental status, worsening respiratory failure, as well as worsening renal failure. Long discussion was made with the patient's caregiver as well as brother, Jimbo yesterday. Consent was obtained for placed with the patient on mechanical ventilation as well as placed on hemodialysis catheter as well as proceeding with hemodialysis. Patient was code status was also discussed, with the patient being made a DNR, with continued treatment modalities as previously mentioned. The patient was endotracheally intubated, placed on mechanical ventilation, as well as antibiotic therapy broadened to cover for probable aspiration pneumonia as well as spontaneous bacterial peritonitis. Hemodialysis catheter was placed to the right groin. Patient was treated with both FFP as well as vitamin K for decreased INR, PTT. Despite hemodialysis, the patient had persistent hyperkalemia. Patient also had worsening shock, requiring multiple vasopressors. The patient continued to decline and ended up expiring earlier this a.m., pronounced by covering hospitalist. According to nursing notes, family made aware. Consults/Reason for consult Pulmonology: Hypoxia, respiratory failure Nephrology: Hepatorenal failure Gastroenterology: Cirrhosis Condition at Discharge: Poor Final Diagnosis/Problems List Severe septic shock secondary to probable aspiration pneumonia Secondary Diagnosis: -acute hypoxic respiratory failure secondary to pneumonia -community-acquired pneumonia probable Gram-positive/Gram-negative etiology in addition to aspiration -hepatorenal failure -acute kidney injury, vasomotor nephropathy -hyperkalemia -hypoalbuminemia secondary to cirrhosis -liver cirrhosis -thrombocytopenia -history of alcoholism -metabolic encephalopathy secondary to sepsis -sepsis secondary to pneumonia -septic shock Discharge Disposition: at [facility] Discharge Statement: "Patient was advised to return to the ER or call 911 if any headaches, dizziness, shortness of breath, chest pain, abdominal pain, bleeding, fevers, or worsening of medical condition. Patient was counseled about treatment plan, medications, possible side effects, patientverbalized understanding. All questions were answered to the best of my ability. This discharge took greater then 30 minutes in planning, reviewing documentation, counseling the patient, and discussing with other team members." ASSESSMENT ASSESSMENT Assessment Date of Service: May 04, 2024 Billing Provider: BOBBY VELIZ NP Common Visit Codes: 09300-XYI/OBS DISCH DAY >30min BOBBY VELIZ NP May 04, 2024 08:12
[2024-05-04] MEDS ORDERED: PHENYLEPHRINE IV 250 ML IV SCH (08:15)
[2024-05-04] MEDS ORDERED: VASOPRESSIN 20 UNITS in SODIUM CHL 0.9% 99 ML IV SCH (08:15)
[2024-05-04] MEDS ORDERED: CEFEPIME 2GM/50ML NS 50 ML IV SCH (10:00)
[2024-05-04] MEDS ORDERED: CEFEPIME 1GM/ 50ML 50 ML IV SCH (10:00)
--- NOTE | 2024-05-10 11:02 | ECG ---
[facility] Test Date: 2024-05-02 Test Time: 23:12:33 Pat Name: GARIMA MEZA Department: Room: [address] [place] [address] A Gender: M Fundraising Coordinator: ana : 1960 Requested By: BOBBY VELIZ Order Number: [id number] Reading MD: Dre Palm Measurements Intervals [place] Rate: 80 P: 95 GA: 228 QRS: 99 QRSD: 116 T: 55 QT: 439 QTc: 507 Interpretive Statements Sinus rhythm Prolonged GA interval Nonspecific intraventricular conduction delay Low voltage, extremity leads Electronically Signed On 05-10-2024 13:32:37 PST by Dre Palm Please click the below link to view image of tracing.
--- NOTE | 2024-05-10 11:02 | ECG ---
[facility] Test Date: 2024-05-02 Test Time: 23:14:41 Pat Name: GARIMA MEZA Department: Room: [address] [place] [address] A Gender: M Mobile Home Set Up Person: ana : 1960 Requested By: BOBBY VELIZ Order Number: [id number] Reading MD: Dre Palm Measurements Intervals [place] Rate: 83 P: 97 WI: 233 QRS: 97 QRSD: 113 T: 39 QT: 438 QTc: 515 Interpretive Statements Sinus rhythm Prolonged [place] interval Borderline intraventricular conduction delay Low voltage, extremity leads Prolonged QT interval Electronically Signed On 05-10-2024 13:32:38 PST by Dre Palm Please click the below link to view image of tracing.
== END 2024-05-04 08:10 | DRG 720 ==
LOC: EDUNIT# 03:42 → EDBD 03:42 → ER 03:42 → TELE 09:49 → UNDOADMIN 09:49 → TELE 13:59 → ICU WEST 05-02 05:42
PROVIDERS: ATTEND Nurse Practitioner Acute Care
PROC: 05HM33Z Insertion of Infusion Device into Right Internal Jugular Vein, Percutaneous Approach (ICD-10-PCS; principal; 2024-05-01)
PROC: B543ZZA Ultrasonography of Right Jugular Veins, Guidance (ICD-10-PCS; 2024-05-01)
PROC: 5A1935Z Respiratory Ventilation, Less than 24 Consecutive Hours (ICD-10-PCS; 2024-05-03)
PROC: 02HV33Z Insertion of Infusion Device into Superior Vena Cava, Percutaneous Approach (ICD-10-PCS; 2024-05-03)
PROC: B548ZZA Ultrasonography of Superior Vena Cava, Guidance (ICD-10-PCS; 2024-05-03)
PROC: 0BH17EZ Insertion of Endotracheal Airway into Trachea, Via Natural or Artificial Opening (ICD-10-PCS; 2024-05-03)
PROC: 30233K1 Transfusion of Nonautologous Frozen Plasma into Peripheral Vein, Percutaneous Approach (ICD-10-PCS; 2024-05-03)
PROC: 5A1D70Z Performance of Urinary Filtration, Intermittent, Less than 6 Hours Per Day (ICD-10-PCS; 2024-05-03)
DX: A41.9 Sepsis, unspecified organism (principal); K76.7 Hepatorenal syndrome; J96.01 Acute respiratory failure with hypoxia; N17.0 Acute kidney failure with tubular necrosis; J69.0 Pneumonitis due to inhalation of food and vomit; G93.41 Metabolic encephalopathy; R65.21 Severe sepsis with septic shock; J15.69 Pneumonia due to other Gram-negative bacteria; J15.9 Unspecified bacterial pneumonia; D68.9 Coagulation defect, unspecified; E87.1 Hypo-osmolality and hyponatremia; J18.9 Pneumonia, unspecified organism; D69.6 Thrombocytopenia, unspecified; E87.20 Acidosis, unspecified; K70.31 Alcoholic cirrhosis of liver with ascites; N39.0 Urinary tract infection, site not specified; K80.20 Calculus of gallbladder without cholecystitis without obstruction; E87.5 Hyperkalemia; E88.09 Other disorders of plasma-protein metabolism, not elsewhere classified; I12.9 Hypertensive chronic kidney disease with stage 1 through stage 4 chronic kidney disease, or unspecified chronic kidney disease; K20.90 Esophagitis, unspecified without bleeding; K29.90 Gastroduodenitis, unspecified, without bleeding; K76.82 Hepatic encephalopathy; N18.2 Chronic kidney disease, stage 2 (mild); J44.1 Chronic obstructive pulmonary disease with (acute) exacerbation; E16.2 Hypoglycemia, unspecified; Z66 Do not resuscitate; F10.20 Alcohol dependence, uncomplicated; J44.0 Chronic obstructive pulmonary disease with (acute) lower respiratory infection; Z82.49 Family history of ischemic heart disease and other diseases of the circulatory system; Z80.0 Family history of malignant neoplasm of digestive organs; Z99.81 Dependence on supplemental oxygen; Z79.899 Other long term (current) drug therapy
CPT/HCPCS: 36415; 36556; 36600; 70450; 71045; 74176; 80048; 80053; 80061; 80202; 80307; 80320; 81001; 82140; 82565; 82570; 82805; 82962; 83605; 83735; 84132; 84156; 84300; 84443; 84484; 85014; 85018; 85025; 85610; 85730; 86850; 86900; 86901; 87040; 87070; 87077; 87081; 87205; 90935; 93005; 94002; 94640; 94644; 99291; G0378; J0171; J1815; J3430; J3490; P9047